=== PATIENT | female | born 1945 | race Caucasian/White ===

== ENCOUNTER 2024-04-07 20:47 | Inpatient (IN) | payer MEDICARE, SELFPAY ==
[2024-04-07 13:24] VITALS: BP 141/57; BMI 21.4
[2024-04-07 14:00] LABS: % Basophils 0.5 % (0-2); % Eosinophils 0.6 % (0-6); % Immature Granulocytes 0.5 % (0-0.5); % Lymphocytes 8.2 % (20.5-51.1); % Monocytes 6.9 % (1.7-9.3); % Neutrophils 83.3 % (42.2-75.2); Absolute Lymphocytes 0.5 10^3/uL (1.2-3.4); Absolute Monocytes 0.4 10^3/uL (0.1-0.6); Absolute Neutrophils 5.2 10^3/uL (1.4-6.5); Hematocrit 36.7 % (37.0-47.0); Hemoglobin 12.1 g/dL (12.0-16.0); Mean Corpuscular Hgb 31.2 pg (27.0-31.0); Mean Corpuscular Volume 94.6 fL (81.0-99.0); Mean Platelet Volume 9.2 fL (7.4-10.4); Nucleated Red Blood Cells % 0 %; Platelet Count 286 10^3/uL (130-400); Red Blood Cell Count 3.88 10^6/uL (4.20-5.40); Red Cell Dist. Width 13.2 % (11.5-14.5); White Blood Cell Count 6.3 10^3/uL (4.8-10.8)
--- NOTE | 2024-04-07 14:17 | ED.GENMED ---
History of Present Illness
General
Chief Complaint: Breathing Problem
Source: patient
Time Seen by Provider: 04/07/24 14:02
History of Present Illness
History of Present Illness:
78-year-old female presents to the emergency room complaining of shortness of breath. Patient has a baseline history of COPD and is on chronic oxygen and chronic prednisone. She evidently is feeling more short of breath today. Pulse ox was found
to be 80 to 85% on her normal 2 L. Paramedics were called. Patient was given a DuoNeb which did help. She recently moved to [place] from [place]. Patient had a hospitalization for frequent falls and was found to have blood rib fractures on the
right as well as thoracic compression fracture. She went to an inpatient rehab and ultimately moved here to be closer to family. Patient denies any fever. She denies having a cough. She denies nausea or vomiting.
Phy Exam
Physical Exam
Physical Exam:
General: Awake, Alert, Oriented X3. Some increased work of breathing, appears chronically ill
Vitals: Afebrile, normal heart rate, notably hypertensive
Head: Atraumatic
Eyes: Pupils equal, EOMI
Throat: Airway intact, no exudates
Neck: Trachea midline
Lungs: Expiratory wheezing bilaterally
Heart: Regular rate, no murmurs
Abd: Soft, Nontender, No pulsatile mass
Neuro: Nonfocal
Skin: Warm, dry, no rash
Extremities: pulses equal b/l, 1+ edema
Scores
Heart Failure Risk
Heart Failure Risk Score: Not Applicable
Course
Orders/Labs/Results
Orders:
Orders
04/07/24 13:22
EKG [Electrocardiogram (*1)] Urgent
Reason for Study: Shortness of Breath
04/07/24 13:23
EKG- Treatment ONCE
Chest [CR Chest - 2 Views ] Urgent
Comment:
Reason For Exam: shortness of breath
04/07/24 13:34
CBC/With Diff [Complete Blood Count/With Diff] Urgent
04/07/24 14:13
Dexamethasone Sod Phosphate [Decadron] 10 mg IV NOW STA
Ipratropium/Albuterol Sulfate [Duoneb] 3 ml INH R NOW ONE
04/07/24 14:15
Comprehensive Metabolic Panel Urgent
NT-proBNP Urgent
04/07/24 15:21
D-Dimer Urgent
Comment: PREVIOUS HEMOLYSED
04/07/24 16:45
CT Chest Pe Study Urgent
Comment:
Reason For Exam: shortness of breath
04/07/24 18:47
Acetaminophen [Tylenol] 650 mg .ROUTE .STK-MED ONE
04/07/24 18:49
Acetaminophen [Tylenol] 650 mg PO NOW STA
04/07/24 19:39
Venous Blood Gas Urgent
%Oxygen/Room Air: 28
Abnormal Lab Results
04/07/24 04/07/24 04/07/24
13:34 14:15 15:21
RBC 3.88 L 10^6/uL
(4.20-5.40)
Hct 36.7 L %
(37.0-47.0)
MCH 31.2 H pg
(27.0-31.0)
Absolute Lymphs (auto) 0.5 L 10^3/uL
(1.2-3.4)
Neutrophils % 83.3 H %
(42.2-75.2)
Lymphocytes % 8.2 L %
(20.5-51.1)
D-Dimer 0.82 H ug/mlFEU
(0.00-0.50)
VBG pCO2
VBG pO2
VBG HCO3
Carbon Dioxide 33 H mmol/L
(22-30)
BUN 25 H mg/dl
(7-17)
Glucose 136 H mg/dl
(70-99)
Calcium 10.3 H mg/dl
(8.4-10.2)
Total Protein 6.2 L g/dl
(6.3-8.2)
04/07/24
19:39
RBC
Hct
MCH
Absolute Lymphs (auto)
Neutrophils %
Lymphocytes %
D-Dimer
VBG pCO2 52 H mmHg
(35-48)
VBG pO2 165 H mmHg
(30-50)
VBG HCO3 33.7 H mmol/L
(22-27)
Carbon Dioxide
BUN
Glucose
Calcium
Total Protein
04/07/24 13:34
04/07/24 14:15
Vital Signs
Initial and Last Documented VS:
Initial Vital Signs
Temp Pulse Resp BP Pulse Ox
98.3 F 85 26 141/57 99
04/07/24 13:24 04/07/24 13:24 04/07/24 13:24 04/07/24 13:24 04/07/24 13:24
Last Documented Vital Signs
Temp Pulse Resp BP Pulse Ox
98.3 F 84 20 141/57 93
04/07/24 13:24 04/07/24 19:30 04/07/24 19:30 04/07/24 13:24 04/07/24 19:30
MDM/Problems Addressed
Differential Diagnosis Includes:
Pneumonia, bronchitis, COPD exacerbation, pulmonary embolism
MDM/Problems Addressed:
Patient presents with shortness of breath and increased work of breathing from [facility]. She was found to be hypoxic on her normal 2 L. She was given a DuoNeb en route. Upon arrival here the patient continues to have wheezing. Further
inhalers were provided. IV Decadron also given. Patient had a hospitalization in [place] after a fall resulting in multiple rib fractures. Given this recent hospitalization and hypoxia CT was obtained to exclude PE. This shows no evidence of PE
or other significant infiltrate. Patient is quite somnolent at times. An ABG was obtained which does not demonstrate CO2 retention. Her CO2 is a bit high but her pH is normal. Patient with current hospitalization for further treatment and
observation
*Radiology
Radiology exam reviewed: radiology read reviewed
*Pulse Oximetry
Patient hypoxic: yes
*EKG
Interpreted by ED Provider?: Yes
Comparison EKG: no comparison EKG present
Heart Rate: 91
Rate: normal
Rhythm: sinus
QRS Pattern: right bundle branch block and other (Left anterior fascicular block)
Ischemia: non-specific ST changes
*Cardiac Nurse Interpretation
Rate: normal
Rhythm: sinus
*Critical Care Note
Total Time (30-74mins, 75-104mins- exclusive of procedures): Not Applicable
ED Attending Note
-
Portions of this chart may have been created with voice recognition software.� Occasional wrong word or��sound alike� substitutions may have occurred due to the inherent limitations of voice recognition software.
Discharge Plan
Departure
Patient Disposition: Admit
Date of Disposition: 04/07/24
Time of Disposition: 20:07
Admit to: Med/Surg
Presentation/result/management discussed w/ accepting MD/DO: Hospitalist
Condition: Fair
Discharge Problem:
COPD with exacerbation
Referrals:
Gerson Morris MD [Family Provider] -
Interventions
Interventions:
*Risk Screen - Suicide Last Done: 04/07/24 13:24
*General Assessment Last Done: 04/07/24 13:24
*Neglect/Abuse Screening Last Done: 04/07/24 13:24
ED- Fall Risk Assessment Last Done: 04/07/24 13:43
*ED COVID-19 Vaccine History Last Done: 04/07/24 19:49
ED- Cardiac Assessment Last Done: 04/07/24 13:43
ED- Pulmonary Assessment Last Done: 04/07/24 13:43
Discharge Date and Time
Print Language: MOHAWK
[2024-04-07] MEDS: DECADRON 10 MG IV (14:21)
[2024-04-07] MEDS: DUONEB 3 ML INH ×2 (14:21→20:32)
[2024-04-07 14:35] LABS: ALT (SGPT) 11 U/L (0-35); AST (SGOT) 25 U/L (14-36); Albumin 3.8 g/dl (3.5-5.0); Alkaline Phosphatase 82 U/L (38-126); Blood Urea Nitrogen 25 mg/dl (7-17); Calcium 10.3 mg/dl (8.4-10.2); Carbon Dioxide 33 mmol/L (22-30); Chloride 101 mmol/L (98-107); Estimated Creatinine Clearance 72 ml/min; Glucose 136 mg/dl (70-99); Potassium 4.9 mmol/L (3.5-5.1); Sodium 140 mmol/L (135-145); Total Bilirubin 0.5 mg/dl (0.2-1.3); Total Protein 6.2 g/dl (6.3-8.2); eGFR > 60.00
[2024-04-07 14:44] LABS: NT-proBNP 156 pg/ml
[2024-04-07 15:43] LABS: D-Dimer 0.82 ug/mlFEU (0.00-0.50)
[2024-04-07] MEDS: TYLENOL 650 MG PO (18:50)
[2024-04-07 19:43] VITALS: BP 146/69
[2024-04-07 19:47] LABS: Venous Blood Gas B.E. 7.8 mmol/L (-4 to +4); Venous Blood Gas HCO3 33.7 mmol/L (22-27); Venous Blood Gas O2 Sat % 99.6 %; Venous Blood Gas pCO2 52 mmHg (35-48); Venous Blood Gas pH 7.42 (7.32-7.43); Venous Blood Gas pO2 165 mmHg (30-50)
[2024-04-07 20:00] VITALS: BP 130/64
--- NOTE | 2024-04-07 20:20 | PHANOTE ---
Med Rec Note:
Pt is very hard to wake up, and doesn't stay awake for very long either. Home med list compiled from paperwork from Rehab in [place].
--- NOTE | 2024-04-07 20:43 | HPS.HSE ---
Family Physician
-
Family Physician: Gersno Morris
Chief Complaint
-
shortness of breath
History of Present Illness
78-year-old female past medical history of COPD on 2 L baseline, recent falls with rib fractures 10, 11, 12, T4 compression fracture wearing TLSO, former smoker, hypertension, endometrial cancer, anemia of chronic disease, abdominal aortic aneurysm,
Parkinson's disease, presenting with shortness of breath over the past few days. Her pulse ox was 88 to 85% on 2 L. Denies any cough. He denies any fevers or chills or chest pain.
He recently moved to [place] from [place]. She was recently hospitalized for frequent falls with rib fractures and thoracic compression fracture. She went to inpatient rehab and ultimately moved to closer to [facility].
Patient is very lethargic and difficult to obtain history from her.
She is a former smoker. She denies alcohol use.
Medical History
Past Medical History
Past Medical History: Reports Other ( COPD on 2 L baseline, recent falls with rib fractures 10, 11, 12, T4 compression fracture wearing TLSO, former smoker, hypertension, endometrial cancer, anemia of chronic disease, abdominal aortic aneurysm,
Parkinson's disease,)
Past Surgical History: Reports Other (Cholecystectomy, appendectomy, hysterectomy,)
Social History
Tobacco: Former Smoker
Alcohol: None
Drug: None
Family History
Family History: Not pertinent
Allergies / Home Medications
Allergies reflects when Allergies were last updated in [facility].
Home Medications with original date entered in [facility]
Allergy/Medication List:
Allergies
Allergy/AdvReac Type Severity Reaction Status Date / Time
bacitracin Allergy Unknown Verified 04/07/24 13:22
[From Neosporin
([id number])]
ciprofloxacin Allergy Unknown Verified 04/07/24 13:22
neomycin Allergy Unknown Verified 04/07/24 13:22
[From Neosporin
([id number])]
polymyxin B Allergy Unknown Verified 04/07/24 13:22
[From Neosporin
([id number])]
Home Medications
carbidopa 25 mg-levodopa 100 mg tablet 2 tab PO BID 04/07/24
cholecalciferol (vitamin D3) 25 mcg (1,000 unit) tablet 25 mcg PO DAILY 04/07/24
diltiazem HCl 60 mg tablet 60 mg PO TID 04/07/24
esomeprazole magnesium 20 mg capsule,delayed release (Nexium) 20 mg PO DAILY 04/07/24
ferrous sulfate 325 mg (65 mg iron) tablet 325 mg PO DAILY 04/07/24
fexofenadine 60 mg tablet 60 mg PO BID 04/07/24
fluticasone 500 mcg-salmeterol 50 mcg/dose blistr powdr for inhalation (Wixela Inhub) 1 inh inhalation R BID 04/07/24
hydromorphone 2 mg tablet 2 mg PO Q6HPRN PRN moderate to severe pain 04/07/24
ipratropium 0.5 mg-albuterol 3 mg (2.5 mg base)/3 mL nebulization soln 3 ml inhalation R TID 04/07/24
lidocaine 5 % topical patch 1 patch topical DAILY 04/07/24
losartan 100 mg tablet 100 mg PO DAILY 04/07/24
magnesium oxide 400 mg PO BID 04/07/24
metoprolol tartrate 25 mg tablet 25 mg PO BID 04/07/24
prednisone 5 mg tablet 5 mg PO DAILY 04/07/24
sennosides 8.6 mg tablet (senna) 8.6 mg PO BID 04/07/24
Review of Systems
-
History Source: Patient
A 12 point ROS was completed and negative except as noted: Yes
Constitutional: Reports No Symptoms
EENT: Reports No Symptoms
Respiratory: Reports See HPI
Cardiac: Reports No Symptoms
Abdomen/GI: Reports No Symptoms
: Reports No Symptoms
Musculoskeletal: Reports No Symptoms
Skin: Reports No Symptoms
Neurological: Reports No Symptoms
Endocrine: Reports No Symptoms
Hematologic/Lymphatic: Reports No Symptoms
Psych: Reports No Symptoms
Physical Exam
Vital Signs
Vital Signs
Temp Pulse Resp BP Pulse Ox
98.3 F 80 19 130/64 95
04/07/24 13:24 04/07/24 20:15 04/07/24 20:15 04/07/24 20:00 04/07/24 20:15
Physical Exam
General: Well Developed, Well Nourished and No Apparent Distress
HEENT: NormoCephalic, Moist mucous membranes and Atraumatic
Respiratory: Rhonchi
Cardiac: S1/S2 and Regular Rhythm; No Murmur or Rub
GI: Soft, Non Tender, Non Distended and Normal Bowel Sounds; No Organomegaly
Rectal: Deferred by Provider
Musculoskeletal: No Clubbing, No Cyanosis and No Edema
Skin: No Rash
Neuro: Nonfocal/grossly intact
Laboratory Results
-
04/07/24 13:34
04/07/24 14:15
Laboratory Results
Total Bilirubin 0.5 mg/dl (0.2-1.3) 04/07/24 14:15
AST 25 U/L (14-36) 04/07/24 14:15
ALT 11 U/L (0-35) 04/07/24 14:15
Alkaline Phosphatase 82 U/L (38-126) 04/07/24 14:15
Data Reviewed
-
Lab Data: Labs Reviewed by me
Old Records: Reviewed
Impression/Plan
-
IMPRESSION:
PLAN:
# COPD exacerbation
# Chronic COPD on 2 L oxygen baseline
# Former smoker
-Patient very lethargic, VBG shows pH of 7.42, chronic compensated mild hypercarbia
-CT PE shows no evidence of pulm embolism, mild enlargement of main pulmonary artery, atypical predominant moderate/severe centrilobular emphysema does changes, thickening with mucus building within the right lower lobe with scarring
-COVID pending
-DuoNebs every 6 hours
-Dexamethasone 4 mg every 12 hours
-Azithromycin
-Continue Wixela
Recent falls with rib 10, 11, 12 fractures
-Hold opiates given lethargy
-Continue lidocaine patch
T4 compression fracture
-Wearing TLSO brace
Parkinson's disease
-Continue carbidopa levodopa
Essential hypertension
-Continue diltiazem
-Continue losartan
-Continue with Toprol
Endometrial cancer status post hysterectomy
Anemia of chronic disease
-Continue for self
History of abdominal aortic aneurysm
Full code
DVT prophylaxis�heparin
Regular diet
[2024-04-07 20:53] LABS: COVID-19 Antigen Negative (Negative)
[2024-04-07 21:00] VITALS: BP 124/62
[2024-04-07 22:00] VITALS: BP 130/61
--- NOTE | 2024-04-07 23:15 | PTCARENOTE ---
Pt transferred from ED. Pt drowsy, TLCO brace intact, VSS. Pt oriented to unit, call crane within reach, bed in lowest position. Will continue with current plan.
[2024-04-07 23:17] VITALS: BP 149/83; BMI 21.5
[2024-04-08] VITALS (7 sets, daily range): BP systolic 109–151; BP diastolic 52–79; PULSE 90; O2SAT 93
[2024-04-08] MEDS: SINEMET 25-100 2 TABLET PO ×3 (00:56→21:41)
[2024-04-08] MEDS: TORADOL 15 MG IV ×2 (00:56→22:56)
[2024-04-08] MEDS: ZITHROMAX INFUSION 250 IV (00:56)
[2024-04-08] MEDS: CARDIZEM 60 MG PO ×4 (00:56→21:56)
[2024-04-08] MEDS: DECADRON 4 MG IV ×3 (01:00→21:59)
[2024-04-08 07:40] LABS: % Immature Granulocytes 0.5 % (0-0.5); % Lymphocytes 11.4 % (20.5-51.1); % Monocytes 1.9 % (1.7-9.3); % Neutrophils 86.2 % (42.2-75.2); Absolute Lymphocytes 0.2 10^3/uL (1.2-3.4); Absolute Neutrophils 1.8 10^3/uL (1.4-6.5); Hematocrit 33.2 % (37.0-47.0); Hemoglobin 11.6 g/dL (12.0-16.0); Mean Corp Hgb Conc. 34.9 g/dL (33.0-37.0); Mean Corpuscular Hgb 32.3 pg (27.0-31.0); Mean Corpuscular Volume 92.5 fL (81.0-99.0); Mean Platelet Volume 9.1 fL (7.4-10.4); Nucleated Red Blood Cells % 0 %; Platelet Count 245 10^3/uL (130-400); Red Blood Cell Count 3.59 10^6/uL (4.20-5.40); Red Cell Dist. Width 12.6 % (11.5-14.5); White Blood Cell Count 2.1 10^3/uL (4.8-10.8)
[2024-04-08 07:59] LABS: Blood Urea Nitrogen 29 mg/dl (7-17); Calcium 9.5 mg/dl (8.4-10.2); Carbon Dioxide 31 mmol/L (22-30); Chloride 103 mmol/L (98-107); Estimated Creatinine Clearance 60 ml/min; Glucose 147 mg/dl (70-99); Potassium 5.2 mmol/L (3.5-5.1); Sodium 142 mmol/L (135-145); eGFR > 60.00
[2024-04-08] MEDS: DUONEB 3 ML INH ×4 (08:01→20:37)
[2024-04-08] MEDS: ADVAIR HFA 230/21 MCG INHALER 2 PUFF INH ×2 (08:01→20:37)
[2024-04-08] MEDS: LIDOCAINE 4% PATCH 1 PATCH TOPICAL (09:13)
[2024-04-08] MEDS: HEPARIN 5000 UNITS SC ×2 (09:13→21:48)
[2024-04-08] MEDS: COZAAR 100 MG PO (09:16)
[2024-04-08] MEDS: SENOKOT 8.6 MG PO ×2 (09:16→21:41)
[2024-04-08] MEDS: PROTONIX 40 MG PO (09:16)
[2024-04-08] MEDS: MAG-TAB SR 84 MG PO ×2 (09:16→21:42)
[2024-04-08] MEDS: VITAMIN D3 (cholecalciferol) 25 MCG PO (09:16)
[2024-04-08] MEDS: LOPRESSOR 25 MG PO ×2 (09:17→21:42)
[2024-04-08] MEDS: CLARITIN 10 MG PO (09:17)
[2024-04-08] MEDS: FEOSOL 325 MG PO (09:25)
--- NOTE | 2024-04-08 12:19 | W.PN.HOSP.TC ---
Today's Communication/Plan
-
consult pulm
cont steroids
change zithromax to oral
Assessment / Plan
Assessment / Plan
pt is a 78 year old female
acute on chronic COPD with exacerbation and chronic hypoxemic resp failure (O2 dependent and prednisone dependent per med list)--VBG shows pH of 7.42 on admission, chronic compensated mild hypercarbia--CT PE shows no evidence of pulm embolism, mild
enlargement of main pulmonary artery, atypical predominant moderate/severe centrilobular emphysema does changes, thickening with mucus building within the right lower lobe with scarring--COVID neg--cont nebs, decadron increase to W3E--oecmgh
zithromax to ORAL--Continue Wixela--consult pulm
Recent falls with rib 10, 11, 12 fractures--Hold opiates given lethargy--Continue lidocaine patch
T4 compression fracture--Wearing TLSO brace
Parkinson's disease--Continue carbidopa levodopa
Essential hypertension--Continue diltiazem--Continue losartan--Continue with Toprol
Endometrial cancer status post hysterectomy
Anemia of chronic disease--HGB stable
History of abdominal aortic aneurysm
Code status --Full code
DVT prophylaxis�heparin
suspect cognitive issues--dementia due to Parkinson's?
Anticipated Discharge: > 48 hours
Subjective/Interval History
-
Date of Service: April 08, 2024
pt feels a little SOB
Objective Data
-
Labs:
Laboratory Results
04/08/24
07:03
WBC 2.1 L*
Hgb 11.6 L
Hct 33.2 L
Plt Count 245
Sodium 142
Potassium 5.2 H
Chloride 103
Carbon Dioxide 31 H
BUN 29 H
Creatinine 0.7
Glucose 147 H
Calcium 9.5
Vital Signs:
max temp for 24 hours
04/08/24
11:19
Temp 98.2 F
Vital Signs
Temp Pulse Resp BP Pulse Ox
98.2 F 76 16 109/63 93
04/08/24 11:19 04/08/24 11:19 04/08/24 11:19 04/08/24 11:19 04/08/24 11:19
I&O
04/07/24 04/08/24 04/09/24
06:59 06:59 06:59
Intake Total 240 / 240
Output Total 300 / 300
Balance -60 / -60
Review of Systems
-
All other systems: Reviewed and negative
Respiratory: Reports Trouble Breathing
Physical Exam
-
General: Well Developed, Well Nourished and No Apparent Distress
HEENT: Normocephalic, Atraumatic and Oxygen
Respiratory: Wheezes (all lung mckeon)
Cardiac: Regular Rhythm and S1/S2; Negative Murmur
GI: Soft, Nontender, Nondistended and Normal Bowel Sounds
Musculoskeletal: No Clubbing, No Cyanosis and No Edema
Neuro: Awake and Alert
--- NOTE | 2024-04-08 12:33 | CM ---
Addendum entered by Coretta Hannon 04/08/24 15:59:
Per [facility] admissions they had no awareness of prior hospice services.
Addendum entered by Coretta Hannon 04/08/24 13:59:
CM received a call from [facility] worker stating that patient had called them yesterday requesting services and then called back stating that patient was now hospitalized. Per [facility] patient had been on hospice in [place] under
[facility] services. Patient was allegedly taken off of hospice services when she transferred to [facility] in [place]. CM left VM for patient son and left message for Felicia at [facility]. CM will send referrals to SNF via all scripts.
Original Note:
Patient seen at bedside. Patient states that she recently moved to [place] from the [facility] in [place]. Patient now living at [facility] in independent apartment as of Sat. last week. Patient stated that she does not know name of new PCP and per [facility] it is
Jaime and her next appointment is 04/24/24. Patient is signed up to use the [facility] pharmacy. CM spoke with Felicia at [facility] and she indicated that she would be willing to consider patient to come to SNF when medically appropriate pending bed
availability. CM will send referral to [facility] via all scripts.Patient brandee Robertson is the primary contact per patient. CM will continue to follow for discharge planning needs.
Plan;[facility]NF referral to [facility]
--- NOTE | 2024-04-08 13:58 | CON.PUL ---
Consultation
Consultation Request
Date/Time Consultation Requested: 04/08/24
Date/Time Consultation Performed: 04/08/24
Performing Provider: Nelda
Reason for Consultation: COPD
Medical History
-
History of Present Illness:
78-year-old female past medical history of COPD on 2 L baseline, recent falls with rib fractures 10, 11, 12, T4 compression fracture wearing TLSO, former smoker, hypertension, endometrial cancer, anemia of chronic disease, abdominal aortic aneurysm,
Parkinson's disease, presenting with shortness of breath over the past few days. Her pulse ox was 88 to 85% on 2 L. Denies any cough. He denies any fevers or chills or chest pain.
She recently moved to [place] from [place]. She was recently hospitalized for frequent falls with rib fractures and thoracic compression fracture. She went to inpatient rehab and ultimately moved to closer to family.
She has been seeing pulmonary in [place] and told she has severe COPD, maintained on wixela and Duonebs PRN. She did not feel Spiriva was helpful. She does admit to exacerbations at least 2x per year, needing steroids. She has been maintained on daily
prednisone as well.
.
Past Medical History
Past Medical History: Other (see list below)
Social History
Tobacco: Former Smoker
Alcohol: None
Drug: None
Family History
Family History: Reviewed & Not Pertinent
Allergies / Home Medications
Allergies
Allergy/AdvReac Type Severity Reaction Status Date / Time
bacitracin Allergy Unknown Verified 04/07/24 13:22
[From Neosporin
([id number])]
ciprofloxacin Allergy Unknown Verified 04/07/24 13:22
neomycin Allergy Unknown Verified 04/07/24 13:22
[From Neosporin
([id number])]
polymyxin B Allergy Unknown Verified 04/07/24 13:22
[From Neosporin
([id number])]
Home Medications
�Medication �Instructions �Recorded �Confirmed �Last Taken �Type
carbidopa 25 mg-levodopa 100 mg 2 tab PO BID 04/07/24 04/07/24 Unknown History
tablet
cholecalciferol (vitamin D3) 25 25 mcg PO DAILY 04/07/24 04/07/24 Unknown History
mcg (1,000 unit) tablet
diltiazem HCl 60 mg tablet 60 mg PO TID 04/07/24 04/07/24 Unknown History
esomeprazole magnesium 20 mg 20 mg PO DAILY 04/07/24 04/07/24 Unknown History
capsule,delayed release (Nexium)
ferrous sulfate 325 mg (65 mg 325 mg PO DAILY 04/07/24 04/07/24 Unknown History
iron) tablet
fexofenadine 60 mg tablet 60 mg PO BID 04/07/24 04/07/24 Unknown History
fluticasone 500 mcg-salmeterol 50 1 inh inhalation R BID 04/07/24 04/07/24 Unknown History
mcg/dose blistr powdr for
inhalation (Wixela Inhub)
hydromorphone 2 mg tablet 2 mg PO Q6HPRN PRN moderate to 04/07/24 04/07/24 Unknown History
severe pain
ipratropium 0.5 mg-albuterol 3 mg 3 ml inhalation R TID 04/07/24 04/07/24 Unknown History
(2.5 mg base)/3 mL nebulization
soln
lidocaine 5 % topical patch 1 patch topical DAILY 04/07/24 04/07/24 Unknown History
losartan 100 mg tablet 100 mg PO DAILY 04/07/24 04/07/24 Unknown History
magnesium oxide 400 mg PO BID 04/07/24 04/07/24 Unknown History
metoprolol tartrate 25 mg tablet 25 mg PO BID 04/07/24 04/07/24 Unknown History
prednisone 5 mg tablet 5 mg PO DAILY 04/07/24 04/07/24 Unknown History
sennosides 8.6 mg tablet (senna) 8.6 mg PO BID 04/07/24 04/07/24 Unknown History
Review of Systems
-
History Source: Patient
All other systems: Negative unless noted
Vitals / Labs / Diagnostic Testing
Vital Signs
Temp Pulse Resp BP Pulse Ox
98.2 F 76 16 109/63 93
04/08/24 11:19 04/08/24 11:19 04/08/24 11:19 04/08/24 11:19 04/08/24 11:19
Lab Data
04/08/24 07:03
04/08/24 07:03
Diagnostic Testing:
Physical Exam
-
HEENT: Normocephalic, Anicteric and Moist Mucous Membranes
Cardiovascular: S1/S2 and Regular Rhythm
Respiratory: Wheeze (B/L, mild) and Non-Labored Respirations
GI: Soft, Non Distended and Non Tender
Neurology: Awake, Alert, Oriented, AO x 3 and No Motor Deficits
Skin: Warm, Dry and Good Color
General: Comfortable and Other (NAD)
Assessment
-
78-year-old female past medical history of COPD on 2 L baseline, recent falls with rib fractures 10, 11, 12, T4 compression fracture wearing TLSO, former smoker, hypertension, endometrial cancer, anemia of chronic disease, abdominal aortic aneurysm,
Parkinson's disease, presenting with shortness of breath over the past few days. Her pulse ox was 88 to 85% on 2 L. She recently moved to [place] from [place]. She was recently hospitalized for frequent falls with rib fractures and thoracic
compression fracture. She went to inpatient rehab and ultimately moved to closer to family. She has been seeing pulmonary in [place] and told she has severe COPD, maintained on chronic prednisone. We are consulted for eval.
AECOPD
Leukopenia
Anemia
Chronic hypercarbia, compensated
Hyperkalemia
Hyperglycemia
Conditions present [employer]
COPD on 2 L baseline
Recent falls with rib fractures 10-12
T4 compression fracture wearing TLSO
Former smoker
Hypertension
Endometrial cancer
Anemia of chronic disease
Abdominal aortic aneurysm
Parkinson's disease
Cholecystectomy
Appendectomy
Hysterectomy
Plan
Hypoxemia chronically, on 2L O2 at baseline noted on arrival
She remains on baseline O2, desat noted prior to arrival, but not noted since
Can check 6MWT to eval need for exertional desaturation
Prior history of lung disease is noted--COPD with moderate-severe emphysema noted on CT
Former smoker
Has been seeing pulmonary in [place], will request records for PFTs/care plan
Being treated for AECOPD
On IV steroids, agree with treatment
Only on Wixela as OP, but likely will need max therapy
She has taken Spiriva in past and did not like it, prefers to stay in [facility]
No prior known cardiac history
No ECHO results are available for review
Records requested, if none recent would obtain new study
Chronic CO2 retention noted, compensated
Can recheck again if MS changes
Outpatient Pulm FU recommended to establish care in this area
She is aware, we will facilitate referral
We will follow
Diagnostic Data
Chest X-Ray: 04/07/24- Multiple right lower lateral rib fractures, age uncertain. Linear densities within the right lower lung, with main differential considerations of linear atelectasis and/or scarring. No evidence for pneumothorax or pleural
effusion.
CT Scan: CHEST 04/07/24- 1. No evidence of pulmonary embolism. Mild enlargement of the main pulmonary artery measuring 3.3 cm which can be seen with pulmonary arterial hypertension.
2. Apical predominant moderate/severe centrilobular emphysematous changes. There is bronchial wall thickening with mucous plugging within the right lower lobe. There is right lower lobe atelectasis/scarring, likely sequelae of the numerous
right-sided prior rib fractures involving the fourth through 11th ribs.
3. Extensive probably noncalcified atherosclerotic plaque of the aortic arch and descending thoracic aorta with associated multifocal mild stenosis.
Echo:
PFT's:
Reports and relevant images were personally reviewed.
Total time spent on this consultation __75__ includes review of history, physical exam, medications, laboratory data, personal review of imaging, extensive review of outpatient records, discussion with care team and respiratory therapy.
[2024-04-09] VITALS (8 sets, daily range): BP systolic 111–140; BP diastolic 50–61; PULSE 73–83; O2SAT 94–95
[2024-04-09] MEDS: DECADRON 4 MG IV ×2 (04:06→13:08)
[2024-04-09 05:30] LABS: Hematocrit 31.4 % (37.0-47.0); Hemoglobin 10.5 g/dL (12.0-16.0); Mean Corp Hgb Conc. 33.4 g/dL (33.0-37.0); Mean Corpuscular Volume 92.6 fL (81.0-99.0); Mean Platelet Volume 9.2 fL (7.4-10.4); Platelet Count 283 10^3/uL (130-400); Red Blood Cell Count 3.39 10^6/uL (4.20-5.40); Red Cell Dist. Width 12.9 % (11.5-14.5); White Blood Cell Count 6.8 10^3/uL (4.8-10.8)
[2024-04-09 05:51] LABS: Blood Urea Nitrogen 47 mg/dl (7-17); Calcium 9.3 mg/dl (8.4-10.2); Carbon Dioxide 30 mmol/L (22-30); Chloride 99 mmol/L (98-107); Estimated Creatinine Clearance 42 ml/min; Glucose 191 mg/dl (70-99); Magnesium 1.9 mg/dl (1.6-2.3); Potassium 4.7 mmol/L (3.5-5.1); Sodium 139 mmol/L (135-145); eGFR 57.66
[2024-04-09] MEDS: DUONEB 3 ML INH ×4 (06:10→20:07)
[2024-04-09] MEDS: ADVAIR HFA 230/21 MCG INHALER 2 PUFF INH ×2 (06:10→20:07)
--- NOTE | 2024-04-09 08:41 | CM ---
Addendum entered by Coretta Hannon 04/09/24 13:17:
Patient Daughter in law called to CM Shanelle Sanchez [phone]. CM spoke with patient who indicated that CM could speak with Daughter in Law. Patient indicated that she was not 'excited' to go to SNF as every time she did she got 'worse'. Patient
indicated that she would be interested in Palliative care but wasn't sure about anything at this time. CM spoke with patient Daughter in law who confirmed patient son has POA but is not able to find document at this time. Patient daughter in law
also stated that patient had not unpacked and had a commode in the living room in her apartment at [place]. Patient daughter in law stated that the family relationships were not the best. CM will continue to follow for discharge planning needs.
Addendum entered by Coretta Hannon 04/09/24 08:44:
Per [facility] patient had 'signed a verbal agreement' on 03/23/24 but no further paperwork had been completed. Patient then transferred to [place].
Original Note:
Referral to [facility] sent via all scripts. CM called to [facility] where patient was prior to move to [place] from [place] . VM left.
[2024-04-09] MEDS: SINEMET 25-100 2 TABLET PO ×2 (10:09→20:55)
[2024-04-09] MEDS: COZAAR 100 MG PO (10:09)
[2024-04-09] MEDS: LOPRESSOR 25 MG PO ×2 (10:09→21:02)
[2024-04-09] MEDS: MAG-TAB SR 84 MG PO ×2 (10:09→20:53)
[2024-04-09] MEDS: CARDIZEM 60 MG PO ×3 (10:09→21:02)
[2024-04-09] MEDS: PROTONIX 40 MG PO (10:10)
[2024-04-09] MEDS: HEPARIN 5000 UNITS SC ×2 (10:10→20:51)
[2024-04-09] MEDS: LIDOCAINE 4% PATCH 1 PATCH TOPICAL (10:11)
[2024-04-09] MEDS: FEOSOL 325 MG PO (10:12)
[2024-04-09] MEDS: SENOKOT 8.6 MG PO ×2 (10:12→20:54)
[2024-04-09] MEDS: CLARITIN 10 MG PO (10:12)
[2024-04-09] MEDS: ZITHROMAX 250 MG PO (10:12)
[2024-04-09] MEDS: VITAMIN D3 (cholecalciferol) 25 MCG PO (10:12)
--- NOTE | 2024-04-09 11:21 | W.PN.PUL3 ---
Today's Communication / Plan
-
Weaning IV steroids, can transition to PO in AM if improving
Eventual home O2 eval
Will need to establish with pulmonary in [place], records requested
Outpatient FU, information left in chart
Discharge planning per team
Assessment
-
78-year-old female past medical history of COPD on 2 L baseline, recent falls with rib fractures 10, 11, 12, T4 compression fracture wearing TLSO, former smoker, hypertension, endometrial cancer, anemia of chronic disease, abdominal aortic aneurysm,
Parkinson's disease, presenting with shortness of breath over the past few days. Her pulse ox was 88 to 85% on 2 L. She recently moved to [place] from [place]. She was recently hospitalized for frequent falls with rib fractures and thoracic
compression fracture. She went to inpatient rehab and ultimately moved to closer to family. She has been seeing pulmonary in [place] and told she has severe COPD, maintained on chronic prednisone. We are consulted for eval.
AECOPD
Leukopenia
Anemia
Chronic hypercarbia, compensated
Hyperkalemia
Hyperglycemia
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
COPD on 2 L baseline
Recent falls with rib fractures 10-12
T4 compression fracture wearing TLSO
Former smoker
Hypertension
Endometrial cancer
Anemia of chronic disease
Abdominal aortic aneurysm
Parkinson's disease
Cholecystectomy
Appendectomy
Hysterectomy
Plan
Hypoxemia chronically, on 2L O2 at baseline noted on arrival
She remains on baseline O2, desat noted prior to arrival, but not noted since
Can check home O2 eval to determine exertional desaturation
Prior history of lung disease is noted--COPD with moderate-severe emphysema noted on CT
Former smoker
Has been seeing pulmonary in [place], will request records for PFTs/care plan
Being treated for AECOPD
On IV steroids, agree with treatment
Only on Wixela as OP, but likely will need max therapy
She has taken Spiriva in past and did not like it, prefers to stay in [facility]
No prior known cardiac history
No ECHO results are available for review
Records requested, if none recent would obtain new study
Chronic CO2 retention noted, compensated
Can recheck again if MS changes
Outpatient Pulm FU recommended to establish care in this area
She is aware, we will facilitate referral
Diagnostic Data
Chest X-Ray: 04/07/24- Multiple right lower lateral rib fractures, age uncertain. Linear densities within the right lower lung, with main differential considerations of linear atelectasis and/or scarring. No evidence for pneumothorax or pleural
effusion.
CT Scan: CHEST 04/07/24- 1. No evidence of pulmonary embolism. Mild enlargement of the main pulmonary artery measuring 3.3 cm which can be seen with pulmonary arterial hypertension.
2. Apical predominant moderate/severe centrilobular emphysematous changes. There is bronchial wall thickening with mucous plugging within the right lower lobe. There is right lower lobe atelectasis/scarring, likely sequelae of the numerous
right-sided prior rib fractures involving the fourth through 11th ribs.
3. Extensive probably noncalcified atherosclerotic plaque of the aortic arch and descending thoracic aorta with associated multifocal mild stenosis.
Echo:
PFT's:
Reports and relevant images were personally reviewed.
Total time spent on this encounter __50__ includes review of history, physical exam, medications, laboratory data, personal review of imaging, extensive review of outpatient records, discussion with care team and respiratory therapy.
Subjective Data
-
Date of Service:
Date of Service: April 09, 2024
Chief Complaint: Pulmonary Follow Up
Subjective:
No new events ON, remains on stable o2
Still wheezing
Objective Data
Data Reviewed
Vital Signs / I&O / Oxygen:
Vital Signs
Temp Pulse Resp BP Pulse Ox
98 F 77 16 140/57 95
04/09/24 07:30 04/09/24 11:04 04/09/24 11:04 04/09/24 07:30 04/09/24 11:04
Intake and Output
04/08/24 04/09/24 04/10/24
06:59 06:59 06:59
Intake Total 240 / 240 1380 / 1380
Output Total 300 / 300
Balance -60 / -60 1380 / 1380
SaO2 95
Nasal Cannula flow liters per 2
minute
Physical Exam
General: Comfortable and Other (NAD)
HEENT: Normocephalic, Anicteric and Moist Mucous Membranes
Cardiovascular: S1-S2 and Regular Rhythm
Respiratory: Wheeze and Non-Labored Respirations
GI: Soft, Non Distended and Non Tender
Neurology: Awake, Alert, Oriented, AO x 3 and No Motor Deficits
Skin: Warm, Dry and Good Color
Labs/Micro/Reports
Lab Data
04/09/24 04:35
04/09/24 04:35
Microbiology
04/08/24 00:52 Nose MRSA Screen - Final
No Methicillin Resistant Staphylococcus aureus isolated.
--- NOTE | 2024-04-09 13:21 | W.PN.HOSP.TC ---
Addendum entered and electronically signed by Claudio Rojas MD 04/10/24 11:01:
Lethargy only
Original Note:
Today's Communication/Plan
-
Decrease decadron
DC [planning
Assessment / Plan
Assessment / Plan
pt is a 78 year old female
acute on chronic COPD with exacerbation and chronic hypoxemic resp failure (O2 dependent and prednisone dependent per med list)--VBG shows pH of 7.42 on admission, chronic compensated mild hypercarbia--CT PE shows no evidence of pulm embolism, mild
enlargement of main pulmonary artery, atypical predominant moderate/severe centrilobular emphysema does changes, thickening with mucus building within the right lower lobe with scarring--COVID neg--cont nebs, decadron --change zithromax to
ORAL--Continue Wixela--
Appt pulm input.
Decrease decadron to q12
Recent falls with rib 10, 11, 12 fractures--Hold opiates given lethargy--Continue lidocaine patch
T4 compression fracture--Wearing TLSO brace
Parkinson's disease--Continue carbidopa levodopa
Essential hypertension--Continue diltiazem--Continue losartan--Continue with Toprol
Endometrial cancer status post hysterectomy
Anemia of chronic disease--HGB stable
History of abdominal aortic aneurysm
Code status --Full code
DVT prophylaxis�heparin
suspect cognitive issues--dementia due to Parkinson's?
Patient says she was using palliative care not hospice care to facilitate her care while she was in [place].
She is also declining SNF placement. She was to go back to her apartment and get physical therapy as outpatient at the facility.
Anticipated Discharge: 24 - 48 hours
Subjective/Interval History
-
Date of Service: April 09, 2024
Says breathing is better. Denies much of cough. No chest pain. No nausea vomiting. No fever or chills.
Objective Data
-
Labs:
Laboratory Results
04/09/24
04:35
WBC 6.8
Hgb 10.5 L
Hct 31.4 L
Plt Count 283
Sodium 139
Potassium 4.7
Chloride 99
Carbon Dioxide 30
BUN 47 H
Creatinine 1.0
Glucose 191 H
Calcium 9.3
Vital Signs:
Vital Signs
Temp Pulse Resp BP Pulse Ox
97.9 F 75 18 122/55 95
04/09/24 11:45 04/09/24 11:45 04/09/24 11:45 04/09/24 11:45 04/09/24 11:45
I&O
04/08/24 04/09/24 04/10/24
06:59 06:59 06:59
Intake Total 240 / 240 1380 / 1380
Output Total 300 / 300
Balance -60 / -60 1380 / 1380
Review of Systems
-
All other systems: Reviewed and negative
Physical Exam
-
General: Comfortable
HEENT: Moist Mucous Membranes
Respiratory: Negative Wheezes
Cardiac: Regular Rhythm and S1/S2
GI: Soft
Neuro: AO x 3
Psych: Calm
Data Reviewed
-
Labs: Labs Reviewed by me
--- NOTE | 2024-04-09 14:06 | PN.CDI ---
CDI
- -
CDI:
Physician Documentation Request
Admit Date: 04/07/24 20:47
Dear Doctor Bob,
Please review the following and provide your response in the progress notes.
Clinical Indicators:
Pt admitted with COPD exacerbation on 2 LPM chronically / Chronic Hypoxic Respiratory failure / Hypoxia here
Documented per ED, ' Patient is quite somnolent at times. ...'
Documented per H&P, ' Patient very lethargic, VBG shows pH of 7.42, chronic compensated mild hypercarbia...'
Based on the above, could you clarify in the Progress Notes and Discharge Summary which, if any of the following, is the most likely etiology of the documented lethargy/somnolence :
Metabolic Encephalopathy
Lethargy only
Other ( please specify)
Use of terms such as suspected, likely, concern for, or probable (associated with a specific diagnosis that is being evaluated, monitored, or treated as if it exists) are acceptable and can be coded in the inpatient setting, when documented at the
time of discharge.
Thank you,
Hermelinda Gregory RN
CDI Specialist
[facility]
Please use your independent medical judgment in providing your response.
[2024-04-10 02:54] VITALS: BP 116/49
[2024-04-10 07:30] VITALS: BP 146/63
[2024-04-10] MEDS: DUONEB 3 ML INH ×4 (08:02→20:20)
[2024-04-10] MEDS: ADVAIR HFA 230/21 MCG INHALER 2 PUFF INH ×2 (08:02→20:20)
[2024-04-10] MEDS: ZITHROMAX 250 MG PO (09:28)
[2024-04-10] MEDS: CLARITIN 10 MG PO (09:28)
[2024-04-10] MEDS: SINEMET 25-100 2 TABLET PO ×2 (09:28→21:21)
[2024-04-10] MEDS: PROTONIX 40 MG PO (09:28)
[2024-04-10] MEDS: CARDIZEM 60 MG PO ×3 (09:29→21:22)
[2024-04-10] MEDS: SENOKOT 8.6 MG PO ×2 (09:29→21:21)
[2024-04-10] MEDS: COZAAR 100 MG PO (09:29)
[2024-04-10] MEDS: LIDOCAINE 4% PATCH 1 PATCH TOPICAL (09:29)
[2024-04-10] MEDS: MAG-TAB SR 84 MG PO ×2 (09:29→21:21)
[2024-04-10] MEDS: FEOSOL 325 MG PO (09:29)
[2024-04-10] MEDS: LOPRESSOR 25 MG PO ×2 (09:29→21:21)
[2024-04-10] MEDS: VITAMIN D3 (cholecalciferol) 25 MCG PO (09:29)
[2024-04-10] MEDS: DECADRON 4 MG IV (09:30)
[2024-04-10] MEDS: HEPARIN 5000 UNITS SC ×2 (09:30→21:20)
[2024-04-10 11:27] VITALS: BP 118/48
--- NOTE | 2024-04-10 12:10 | W.PN.PUL3 ---
Today's Communication / Plan
-
No longer wheezing, has been stable on RA
Transition IV steroids to PO, taper at discharge
Patient would like to go home
Outpatient pulmonary FU recommended
Discharge planning per team
Assessment
-
78-year-old female past medical history of COPD on 2 L baseline, recent falls with rib fractures 10, 11, 12, T4 compression fracture wearing TLSO, former smoker, hypertension, endometrial cancer, anemia of chronic disease, abdominal aortic aneurysm,
Parkinson's disease, presenting with shortness of breath over the past few days. Her pulse ox was 88 to 85% on 2 L. She recently moved to [place] from [place]. She was recently hospitalized for frequent falls with rib fractures and thoracic
compression fracture. She went to inpatient rehab and ultimately moved to closer to family. She has been seeing pulmonary in [place] and told she has severe COPD, maintained on chronic prednisone. We are consulted for eval.
AECOPD
Leukopenia
Anemia
Chronic hypercarbia, compensated
Hyperkalemia
Hyperglycemia
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
COPD on 2 L baseline
Recent falls with rib fractures 10-12
T4 compression fracture wearing TLSO
Former smoker
Hypertension
Endometrial cancer
Anemia of chronic disease
Abdominal aortic aneurysm
Parkinson's disease
Cholecystectomy
Appendectomy
Hysterectomy
Plan
Hypoxemia chronically, on 2L O2 at baseline noted on arrival
She remains on baseline O2, desat noted prior to arrival, but not noted since
Can check home O2 eval to determine exertional desaturation
Prior history of lung disease is noted--COPD with moderate-severe emphysema noted on CT
Former smoker
Has been seeing pulmonary in [place], will request records for PFTs/care plan
Being treated for AECOPD
On IV steroids, agree with treatment, transition to PO prednisone
Only on Wixela as OP, but likely will need max therapy
She has taken Spiriva in past and did not like it, prefers to stay in [facility]
No prior known cardiac history
No ECHO results are available for review
Records requested, if none recent would obtain new study as OP
Chronic CO2 retention noted, compensated
Can recheck again if MS changes
Outpatient Pulm FU recommended to establish care in this area
She is aware, we will facilitate referral
Discharge planning per team
Diagnostic Data
Chest X-Ray: 04/07/24- Multiple right lower lateral rib fractures, age uncertain. Linear densities within the right lower lung, with main differential considerations of linear atelectasis and/or scarring. No evidence for pneumothorax or pleural
effusion.
CT Scan: CHEST 04/07/24- 1. No evidence of pulmonary embolism. Mild enlargement of the main pulmonary artery measuring 3.3 cm which can be seen with pulmonary arterial hypertension.
2. Apical predominant moderate/severe centrilobular emphysematous changes. There is bronchial wall thickening with mucous plugging within the right lower lobe. There is right lower lobe atelectasis/scarring, likely sequelae of the numerous
right-sided prior rib fractures involving the fourth through 11th ribs.
3. Extensive probably noncalcified atherosclerotic plaque of the aortic arch and descending thoracic aorta with associated multifocal mild stenosis.
Echo:
PFT's:
Reports and relevant images were personally reviewed.
Total time spent on this encounter __35__ includes review of history, physical exam, medications, laboratory data, personal review of imaging, extensive review of outpatient records, discussion with care team and respiratory therapy.
Subjective Data
-
Date of Service:
Date of Service: April 10, 2024
Chief Complaint: Pulmonary Follow Up
Subjective:
Doing well today off oxygen
No new complaints
Objective Data
Data Reviewed
Vital Signs / I&O / Oxygen:
Vital Signs
Temp Pulse Resp BP Pulse Ox
98.6 F 69 18 118/48 96
04/10/24 11:27 04/10/24 11:04/10/24 11:04/10/24 11:24 11:27
Intake and Output
04/09/24 04/10/24 04/11/24
06:59 06:59 06:59
Intake Total 1380 / 1380 600 / 600
Output Total 200 / 200
Balance 1380 / 1380 400 / 400
SaO2 96
Nasal Cannula flow liters per 2
minute
Physical Exam
General: Comfortable and Other (NAD)
HEENT: Normocephalic, Anicteric and Moist Mucous Membranes
Cardiovascular: S1-S2 and Regular Rhythm
Respiratory: Clear and Non-Labored Respirations
GI: Soft, Non Distended and Non Tender
Neurology: Awake, Alert, Oriented, AO x 3 and No Motor Deficits
Skin: Warm, Dry and Good Color
Labs/Micro/Reports
Lab Data
04/09/24 04:35
04/09/24 04:35
Microbiology
04/08/24 00:52 Nose MRSA Screen - Final
No Methicillin Resistant Staphylococcus aureus isolated.
--- NOTE | 2024-04-10 14:27 | CM ---
Chart reviewed and plan is for skilled placement at [facility], referral sent to [facility] and per Felicia in admissions at [facility] they can accept patient tomorrow, 04/11/24 if patient is stable for discharge.
[facility]
Report [phone]
[2024-04-10 15:00] VITALS: BP 140/65
--- NOTE | 2024-04-10 17:49 | W.PN.HOSP.TC ---
Today's Communication/Plan
-
Discharge tomorrow to personal care if they can accept.
Assessment / Plan
Assessment / Plan
pt is a 78 year old female
CVS: S1-S2 normal
Chest: CTA B/L
Abdomen: Soft, NT , Bowel sounds present
Extremities: No edema,
#Acute on chronic COPD with exacerbation and chronic hypoxemic resp failure (O2 dependent and prednisone dependent per med list)
VBG shows pH of 7.42 on admission, chronic compensated mild hypercarbia
CT PE shows no evidence of pulm embolism, mild enlargement of main pulmonary artery, atypical predominant moderate/severe centrilobular emphysema does changes, thickening with mucus building within the right lower lobe with scarring--COVID neg--Cont
nebs, Decadron - Zithromax ,Continue Wixela
Appt pulm input.
steroids to PO
#Recent falls with rib 10, 11, 12 fractures-Hold opiates given lethargy-Continue lidocaine patch
#T4 compression fracture-Wearing TLSO brace plan
Prior rib fractures fractures right-sided -
#Parkinson's disease-Continue carbidopa levodopa
#Essential hypertension-Continue diltiazem-Continue losartan-Continue with Toprol
#Endometrial cancer status post hysterectomy
#Anemia of chronic disease-HGB stable
#History of abdominal aortic aneurysm atherosclerosis
# Ambulatory dysfunction
# History of endometrial cancer
#Code status -Full code
#DVT prophylaxis�heparin
#Suspect cognitive issues-dementia due to Parkinson's?
'Patient says she was using palliative care not hospice care to facilitate her care while she was in [place].
She is also declining SNF placement. She was to go back to her apartment and get physical therapy as outpatient at the facility.'
Anticipated Discharge: Within 24 hours
Subjective/Interval History
-
Date of Service: April 10, 2024
Objective Data
-
Vital Signs:
Vital Signs
Temp Pulse Resp BP Pulse Ox
97.9 F 75 16 140/65 93
04/10/24 15:00 04/10/24 16:06 04/10/24 16:06 04/10/24 15:00 04/10/24 16:06
I&O
04/09/24 04/10/24 04/11/24
06:59 06:59 06:59
Intake Total 1380 / 1380 600 / 600
Output Total 200 / 200
Balance 1380 / 1380 400 / 400
[2024-04-10] MEDS: PEPCID 20 MG PO (21:22)
[2024-04-10] MEDS: TYLENOL 650 MG PO (21:31)
[2024-04-10 22:58] VITALS: BP 139/59
[2024-04-11 07:00] VITALS: BP 159/66
[2024-04-11] MEDS: ADVAIR HFA 230/21 MCG INHALER 2 PUFF INH ×2 (07:17→19:48)
[2024-04-11] MEDS: DUONEB 3 ML INH ×4 (07:17→19:48)
[2024-04-11] MEDS: FEOSOL 325 MG PO (09:29)
[2024-04-11] MEDS: ZITHROMAX 250 MG PO (09:29)
[2024-04-11] MEDS: PROTONIX 40 MG PO (09:29)
[2024-04-11] MEDS: CARDIZEM 60 MG PO ×3 (09:29→21:12)
[2024-04-11] MEDS: CLARITIN 10 MG PO (09:29)
[2024-04-11] MEDS: SINEMET 25-100 2 TABLET PO ×2 (09:29→20:54)
[2024-04-11] MEDS: MAG-TAB SR 84 MG PO ×2 (09:30→20:54)
[2024-04-11] MEDS: LOPRESSOR 25 MG PO ×2 (09:30→21:02)
[2024-04-11] MEDS: COZAAR 100 MG PO (09:30)
[2024-04-11] MEDS: SENOKOT 8.6 MG PO ×2 (09:30→20:54)
[2024-04-11] MEDS: HEPARIN 5000 UNITS SC ×2 (09:30→20:53)
[2024-04-11] MEDS: VITAMIN D3 (cholecalciferol) 25 MCG PO (09:30)
[2024-04-11] MEDS: DELTASONE 40 MG PO (09:30)
[2024-04-11] MEDS: LIDOCAINE 4% PATCH 1 PATCH TOPICAL (09:31)
--- NOTE | 2024-04-11 14:21 | W.PN.HOSP.TC ---
Today's Communication/Plan
-
Case management to look into discharge planning
Check BMP
Hemoglobin A1c
Start low-dose of oxycodone as needed for pain and watch.
Assessment / Plan
Assessment / Plan
pt is a 78 year old female
CVS: S1-S2 normal
Chest: CTA B/L
Abdomen: Soft, NT , Bowel sounds present
Extremities: No edema,
In a lot of pain today and not able to sit up much
#Acute on chronic COPD with exacerbation and chronic hypoxemic resp failure (O2 dependent and prednisone dependent per med list)
VBG shows pH of 7.42 on admission, chronic compensated mild hypercarbia
CT PE shows no evidence of pulm embolism, mild enlargement of main pulmonary artery, atypical predominant moderate/severe centrilobular emphysema does changes, thickening with mucus building within the right lower lobe with scarring--COVID neg--Cont
nebs, Decadron - Zithromax ,Continue Wixela
Appt pulm input.
steroids to PO
#Recent falls with rib 10, 11, 12 fractures-Continue lidocaine patch. Dilaudid stopped. Will try low dose of Oxycodone
# Hyperglycemia-check hemoglobin A1c. Likely secondary to steroids
#T4 compression fracture-Wearing TLSO brace plan
Prior rib fractures fractures right-sided -
#Parkinson's disease-Continue carbidopa levodopa
#Essential hypertension-Continue diltiazem-Continue losartan-Continue with Toprol
#Endometrial cancer status post hysterectomy
#Anemia of chronic disease-
#History of abdominal aortic aneurysm atherosclerosis
#Ambulatory dysfunction
#History of endometrial cancer
#Suspect cognitive issues-dementia due to Parkinson's?
#Code status -Full code
#DVT prophylaxis�SC Heparin
Called and left a message for patient's son
Discussed with case management
She states that she does not want to go to SNF. States that she makes a decision on not her family.
'Patient says she was using palliative care not hospice care to facilitate her care while she was in [place].
She is also declining SNF placement. She was to go back to her apartment and get physical therapy as outpatient at the facility.'
Anticipated Discharge: Within 24 hours
Subjective/Interval History
-
Date of Service: April 11, 2024
Objective Data
-
Vital Signs:
Vital Signs
Temp Pulse Resp BP Pulse Ox
98.0 F 71 16 159/66 95
04/11/24 07:00 04/11/24 11:10 04/11/24 11:10 04/11/24 07:00 04/11/24 11:10
I&O
04/10/24 04/11/24 04/12/24
06:59 06:59 06:59
Intake Total 600 / 600 600 / 600
Output Total 200 / 200 100 / 100
Balance 400 / 400 500 / 500
[2024-04-11 15:00] VITALS: BP 133/80
--- NOTE | 2024-04-11 15:36 | W.PN.PUL3 ---
Today's Communication / Plan
-
Continue with current care as outlined above
Discharge planning
Signed off
Assessment
-
78-year-old female past medical history of COPD on 2 L baseline, recent falls with rib fractures 10, 11, 12, T4 compression fracture wearing TLSO, former smoker, hypertension, endometrial cancer, anemia of chronic disease, abdominal aortic aneurysm,
Parkinson's disease, presenting with shortness of breath over the past few days. Her pulse ox was 88 to 85% on 2 L. She recently moved to [place] from [place]. She was recently hospitalized for frequent falls with rib fractures and thoracic
compression fracture. She went to inpatient rehab and ultimately moved to closer to family. She has been seeing pulmonary in [place] and told she has severe COPD, maintained on chronic prednisone. We are consulted for eval.
AECOPD
Leukopenia
Anemia
Chronic hypercarbia, compensated
Hyperkalemia
Hyperglycemia
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
COPD on 2 L baseline
Recent falls with rib fractures 10-12
T4 compression fracture wearing TLSO
Former smoker
Hypertension
Endometrial cancer
Anemia of chronic disease
Abdominal aortic aneurysm
Parkinson's disease
Cholecystectomy
Appendectomy
Hysterectomy
Plan
Hypoxemia chronically, on 2L O2 at baseline- on arrival
Stable.
Prior history of lung disease is noted--COPD with moderate-severe emphysema noted on CT
Former smoker
Has been seeing pulmonary in [place].
Continue therapy for AECOPD
Prednisone 40 mg and decrease by 10 mg every 48 hours to off.
Only on Wixela as OP, but likely will need max therapy
She has taken Spiriva in past and did not like it, prefers to stay in [facility]-okay to continue.
No prior known cardiac history
No ECHO results are available for review
Records requested, if none recent would obtain new study as OP
Chronic CO2 retention noted, compensated
Can recheck again if MS changes
Outpatient Pulm FU recommended to establish care in this area
She is aware, we will facilitate referral
Discharge planning per team-I will sign off.
Please call with questions
Diagnostic Data
Chest X-Ray: 04/07/24- Multiple right lower lateral rib fractures, age uncertain. Linear densities within the right lower lung, with main differential considerations of linear atelectasis and/or scarring. No evidence for pneumothorax or pleural
effusion.
CT Scan: CHEST 04/07/24- 1. No evidence of pulmonary embolism. Mild enlargement of the main pulmonary artery measuring 3.3 cm which can be seen with pulmonary arterial hypertension.
2. Apical predominant moderate/severe centrilobular emphysematous changes. There is bronchial wall thickening with mucous plugging within the right lower lobe. There is right lower lobe atelectasis/scarring, likely sequelae of the numerous
right-sided prior rib fractures involving the fourth through 11th ribs.
3. Extensive probably noncalcified atherosclerotic plaque of the aortic arch and descending thoracic aorta with associated multifocal mild stenosis.
Echo:
PFT's:
Reports and relevant images were personally reviewed.
Total time spent on this encounter __35__ includes review of history, physical exam, medications, laboratory data, personal review of imaging, extensive review of outpatient records, discussion with care team and respiratory therapy.
Subjective Data
-
Date of Service:
Date of Service: April 11, 2024
Chief Complaint: Pulmonary Follow Up
Subjective:
Clinically improved
Denies significant hemoptysis or purulent sputum production
Discharge planning ongoing
Objective Data
Data Reviewed
Vital Signs / I&O / Oxygen:
Vital Signs
Temp Pulse Resp BP Pulse Ox
98.0 F 75 14 133/80 92
04/11/24 15:00 04/11/24 15:00 04/11/24 15:00 04/11/24 15:00 04/11/24 15:00
Intake and Output
04/10/24 04/11/24 04/12/24
06:59 06:59 06:59
Intake Total 600 / 600 600 / 600
Output Total 200 / 200 100 / 100
Balance 400 / 400 500 / 500
SaO2 92
Nasal Cannula flow liters per 2
minute
Physical Exam
General: Comfortable and Other (NAD)
HEENT: Normocephalic, Anicteric and Moist Mucous Membranes
Cardiovascular: S1-S2 and Regular Rhythm
Respiratory: Clear and Non-Labored Respirations
GI: Soft, Non Distended and Non Tender
Neurology: Awake, Alert, Oriented, AO x 3 and No Motor Deficits
Skin: Warm, Dry and Good Color
Labs/Micro/Reports
Lab Data
04/09/24 04:35
Microbiology
04/08/24 00:52 Nose MRSA Screen - Final
No Methicillin Resistant Staphylococcus aureus isolated.
[2024-04-11 15:40] LABS: Blood Urea Nitrogen 40 mg/dl (7-17); Calcium 9.3 mg/dl (8.4-10.2); Carbon Dioxide 29 mmol/L (22-30); Chloride 102 mmol/L (98-107); Estimated Creatinine Clearance 52 ml/min; Glucose 156 mg/dl (70-99); Sodium 139 mmol/L (135-145); eGFR > 60.00
[2024-04-11] MEDS: ROXICODONE 5 MG PO (20:56)
[2024-04-11] MEDS: PEPCID 20 MG PO (21:46)
[2024-04-11 23:21] VITALS: BP 122/57
[2024-04-12] MEDS: ADVAIR HFA 230/21 MCG INHALER 2 PUFF INH (07:29)
[2024-04-12] MEDS: DUONEB 3 ML INH ×2 (07:29→11:15)
[2024-04-12 08:01] VITALS: BP 151/68
[2024-04-12] MEDS: CARDIZEM 60 MG PO (08:45)
[2024-04-12] MEDS: SINEMET 25-100 2 TABLET PO (08:45)
[2024-04-12] MEDS: ZITHROMAX 250 MG PO (08:45)
[2024-04-12] MEDS: MAG-TAB SR 84 MG PO (08:45)
[2024-04-12] MEDS: COZAAR 100 MG PO (08:45)
[2024-04-12] MEDS: DELTASONE 40 MG PO (08:45)
[2024-04-12] MEDS: PROTONIX 40 MG PO (08:45)
[2024-04-12] MEDS: LOPRESSOR 25 MG PO (08:45)
[2024-04-12] MEDS: CLARITIN 10 MG PO (08:45)
[2024-04-12] MEDS: VITAMIN D3 (cholecalciferol) 25 MCG PO (08:45)
[2024-04-12] MEDS: SENOKOT 8.6 MG PO (08:45)
[2024-04-12] MEDS: LIDOCAINE 4% PATCH 1 PATCH TOPICAL (08:46)
[2024-04-12] MEDS: HEPARIN 5000 UNITS SC (08:46)
--- NOTE | 2024-04-12 09:01 | CM ---
followjng re: discahrge planning.
Reviewed pt's chart, met with pt.
According to MD pt is medically stable to be discharged today. Pt is aware, expressed her agreement. IMM reviewed, placed on chart, pt has a copy.
PT and OT recommend SNF level of care. pt is aware, expressed her agree ent with going to [facility] SNF with further plan to return back to her living arrangements at [facility] personal care.
to arrange transportation, BLS. [facility] completed and left with [facility] nursing report:[phone]
Discharge instructions fax: [phone]
D/C plan: [facility] SNF.
--- NOTE | 2024-04-12 10:42 | W.PN.HOSP.TC ---
Today's Communication/Plan
-
Discharge
Assessment / Plan
Assessment / Plan
pt is a 78 year old female
CVS: S1-S2 normal
Chest: CTA B/L
Abdomen: Soft, NT , Bowel sounds present
Extremities: No edema,
#Acute on chronic COPD with exacerbation and chronic hypoxemic resp failure (O2 dependent and prednisone dependent per med list)
VBG shows pH of 7.42 on admission, chronic compensated mild hypercarbia
CT PE shows no evidence of pulm embolism, mild enlargement of main pulmonary artery, atypical predominant moderate/severe centrilobular emphysema does changes, thickening with mucus building within the right lower lobe with scarring--COVID neg--Cont
nebs, Decadron - Zithromax ,Continue Wixela
Appt pulm input.
steroids to PO
#Recent falls with rib 10, 11, 12 fractures-Continue lidocaine patch. Dilaudid stopped. tolerating Oxycodone well.
# Hyperglycemia-check hemoglobin A1c. Likely secondary to steroids. Still pending!
#T4 compression fracture-Wearing TLSO brace plan
Prior rib fractures fractures right-sided -
#Parkinson's disease-Continue carbidopa levodopa
#Essential hypertension-Continue diltiazem-Continue losartan-Continue with Toprol
#Endometrial cancer status post hysterectomy
#Anemia of chronic disease-
#History of abdominal aortic aneurysm atherosclerosis
#Ambulatory dysfunction
#History of endometrial cancer
#Suspect cognitive issues-
#Code status -Full code
#DVT prophylaxis�SC Heparin
Called and left a message for patient's son yesterday
Discussed with case management-
Pt agreeable for SNF ( She thought it was [facility])
D/W Pulm OK for discharge
Discharge coordination time 36 min
Anticipated Discharge: Today
Subjective/Interval History
-
Date of Service: April 12, 2024
Objective Data
-
Vital Signs:
Vital Signs
Temp Pulse Resp BP Pulse Ox
98.3 F 72 19 151/68 94
04/12/24 08:01 04/12/24 08:01 04/12/24 08:01 04/12/24 08:01 04/12/24 08:01
I&O
04/11/24 04/12/24 04/13/24
06:59 06:59 06:59
Intake Total 600 / 600 480 / 480 360 / 360
Output Total 100 / 100
Balance 500 / 500 480 / 480 360 / 360
--- NOTE | 2024-04-12 10:47 | W.DS.TRANS ---
Addendum entered and electronically signed by Vaibhav Morton MD 04/12/24 14:11:
Dictation- [id number]
Original Note:
DC Summary - [employer]
-
Discharge Instructions:
Discharge Diagnosis/Procedures COPD exacerbation
rib fractures
T4 compression fracture
Parkinson disease
Hypertension
Anemia
Atherosclerosis
Abdominal aortic aneurysm
Ambulatory dysfunction
Diet As tolerated
Activity As tolerated,With assistance
Driving Restrictions No driving
Others Tests echo as outpatient
Other Services PT,OT
Instructions:
Stand-Alone Forms:
Changes to Home Medications: Yes
Discharge Medications:
DC Medications w/original date entered in [employer]
prednisone 5 mg tablet 5 mg PO DAILY 04/07/24
acetaminophen 325 mg tablet 650 mg (2 x 325 mg) PO Q4HPRN PRN mild pain #0 tabs 04/12/24
carbidopa 25 mg-levodopa 100 mg tablet 2 tab PO BID Neurological Condition #0 tabs 04/12/24
cholecalciferol (vitamin D3) 25 mcg (1,000 unit) tablet 25 mcg PO DAILY Supplement #0 tabs 04/12/24
diltiazem HCl 60 mg tablet 60 mg PO TID Heart disease/condition #0 tabs 04/12/24
esomeprazole magnesium 20 mg capsule,delayed release (Nexium) 20 mg PO DAILY Gastrointestinal issue #0 caps 04/12/24
famotidine 20 mg tablet 20 mg PO HS Gastrointestinal issue #0 tabs 04/12/24
ferrous sulfate 325 mg (65 mg iron) tablet 325 mg PO DAILY Supplement #0 tabs 04/12/24
fexofenadine 60 mg tablet 60 mg PO BID Allergies #0 tabs 04/12/24
fluticasone 500 mcg-salmeterol 50 mcg/dose blistr powdr for inhalation (Wixela Inhub) 1 inh inhalation R BID Lung/breathing issues #0 ea 04/12/24
ipratropium 0.5 mg-albuterol 3 mg (2.5 mg base)/3 mL nebulization soln 3 ml inhalation QID Lung/breathing issues #0 mL 04/12/24
lidocaine 5 % topical patch 1 patch topical DAILY Pain #0 ea 04/12/24
losartan 100 mg tablet 100 mg PO DAILY Blood pressure #0 tabs 04/12/24
magnesium oxide 400 mg PO BID Supplement #0 tabs 04/12/24
metoprolol tartrate 25 mg tablet 25 mg PO BID Blood pressure #0 tabs 04/12/24
oxycodone 5 mg tablet 5 mg PO Q6HPRN PRN moderate pain #8 tabs 04/12/24
polyethylene glycol 3350 17 gram oral powder packet (ClearLax) 17 g PO HS Constipation #30 ea 04/12/24
prednisone 10 mg tablet See Rx Instructions .Route .COMPLEX Lung/breathing issues #30 tabs 04/12/24
sennosides 8.6 mg tablet (senna) 8.6 mg PO BID Constipation #0 tabs 04/12/24
Home Medication Changes
Dilaudid stopped
Steroid increased
Oxycodone new
Miralax new
Pending Results: No
[2024-04-12] MEDS: FEOSOL 325 MG PO (11:10)
[2024-04-12 13:11] LABS: Glycohemoglobin (HgbA1c) 5.6 % (4.0-5.6)
[2024-04-12 14:30] VITALS: BP 136/60
[2024-04-12] MEDS: DUONEB INH (15:28)
== END 2024-04-12 15:42 | DRG 191 ==
LOC: 4 WEST ACU 20:47
PROVIDERS: Emergency Medicine; Hospitalist; Internal Medicine; ADMITTING PHYSICIAN Hospitalist; ATTENDING PHYSICIAN Hospitalist; CONSULT PHYSICIAN Internal Medicine; EMERGENCY PHYSICIAN Emergency Medicine; FAMILY PHYSICIAN Internal Medicine Geriatric Medicine
DX: J44.1 Chronic obstructive pulmonary disease with (acute) exacerbation (principal); E87.29 Other acidosis; S22.41XA Multiple fractures of ribs, right side, initial encounter for closed fracture; S22.040A Wedge compression fracture of fourth thoracic vertebra, initial encounter for closed fracture; I45.2 Bifascicular block; J96.11 Chronic respiratory failure with hypoxia; D63.8 Anemia in other chronic diseases classified elsewhere; G20.A1 Parkinson's disease without dyskinesia, without mention of fluctuations; I10 Essential (primary) hypertension; D72.819 Decreased white blood cell count, unspecified; J43.9 Emphysema, unspecified; Z99.81 Dependence on supplemental oxygen; E87.5 Hyperkalemia; W19.XXXA Unspecified fall, initial encounter; R73.9 Hyperglycemia, unspecified; R29.6 Repeated falls; Z79.52 Long term (current) use of systemic steroids; Z79.899 Other long term (current) drug therapy; Z91.81 History of falling; Z87.891 Personal history of nicotine dependence; Z85.42 Personal history of malignant neoplasm of other parts of uterus; Z86.79 Personal history of other diseases of the circulatory system; Z90.710 Acquired absence of both cervix and uterus; Z87.81 Personal history of (healed) traumatic fracture; Z88.1 Allergy status to other antibiotic agents
CPT/HCPCS: 71046; 71275; 80048; 80053; 82805; 83036; 83735; 83880; 85025; 85027; 85379; 87070; 87811; 93005; 94640; 96374; 97110; 97116; 97163; 97167; 97530; 99285; Q9967

== ENCOUNTER → 2024-04-15 13:35 | Outpatient (REF) | payer OTHER, MEDICARE, SELFPAY ==
[2024-04-15 15:04] LABS: Hematocrit 34.6 % (37.0-47.0); Hemoglobin 11.2 g/dL (12.0-16.0); Mean Corp Hgb Conc. 32.4 g/dL (33.0-37.0); Mean Corpuscular Hgb 30.9 pg (27.0-31.0); Mean Corpuscular Volume 95.6 fL (81.0-99.0); Mean Platelet Volume 9.2 fL (7.4-10.4); Platelet Count 270 10^3/uL (130-400); Red Blood Cell Count 3.62 10^6/uL (4.20-5.40); Red Cell Dist. Width 13.1 % (11.5-14.5)
[2024-04-15 16:30] LABS: ALT (SGPT) < 10 U/L (0-35); AST (SGOT) 17 U/L (14-36); Albumin 3.2 g/dl (3.5-5.0); Alkaline Phosphatase 62 U/L (38-126); Blood Urea Nitrogen 41 mg/dl (7-17); Calcium 9.2 mg/dl (8.4-10.2); Carbon Dioxide 26 mmol/L (22-30); Chloride 104 mmol/L (98-107); Glucose 75 mg/dl (70-99); Magnesium 2.2 mg/dl (1.6-2.3); Potassium 4.9 mmol/L (3.5-5.1); Sodium 141 mmol/L (135-145); Total Bilirubin 0.3 mg/dl (0.2-1.3); Total Protein 5.3 g/dl (6.3-8.2); eGFR > 60.00
== END ==
LOC: OLABWHC 13:35
PROVIDERS: ATTENDING PHYSICIAN Family Medicine
DX: I10 Essential (primary) hypertension (principal); J44.9 Chronic obstructive pulmonary disease, unspecified; I71.40 Abdominal aortic aneurysm, without rupture, unspecified; D63.8 Anemia in other chronic diseases classified elsewhere
CPT/HCPCS: 36415; 80053; 83735; 85027

== ENCOUNTER → 2024-05-12 12:33 | Outpatient (REF) | payer OTHER, MEDICARE, SELFPAY ==
[2024-05-12 16:36] LABS: Blood Urea Nitrogen 28 mg/dl (7-17); Calcium 9.4 mg/dl (8.4-10.2); Carbon Dioxide 29 mmol/L (22-30); Chloride 103 mmol/L (98-107); Glucose 82 mg/dl (70-99); Magnesium 2.1 mg/dl (1.6-2.3); Potassium 4.7 mmol/L (3.5-5.1); Sodium 141 mmol/L (135-145); eGFR > 60.00
[2024-05-12 17:59] LABS: Hematocrit 33.2 % (37.0-47.0); Hemoglobin 10.5 g/dL (12.0-16.0); Mean Corp Hgb Conc. 31.6 g/dL (33.0-37.0); Mean Corpuscular Hgb 30.1 pg (27.0-31.0); Mean Corpuscular Volume 95.1 fL (81.0-99.0); Mean Platelet Volume 9.2 fL (7.4-10.4); Platelet Count 356 10^3/uL (130-400); Red Blood Cell Count 3.49 10^6/uL (4.20-5.40); Red Cell Dist. Width 13.2 % (11.5-14.5); White Blood Cell Count 4.8 10^3/uL (4.8-10.8)
== END ==
LOC: OLABWHC 12:33
PROVIDERS: ATTENDING PHYSICIAN Family Medicine
DX: D64.9 Anemia, unspecified (principal); E78.5 Hyperlipidemia, unspecified
CPT/HCPCS: 36415; 80048; 83735; 85027

== ENCOUNTER 2024-05-29 15:39 | Inpatient (IN) | payer MEDICARE, SELFPAY ==
[2024-05-28] VITALS (17 sets, daily range): BP systolic 109–154; BP diastolic 42–98; BMI 22.9
--- NOTE | 2024-05-28 04:55 | ED.GENMED ---
History of Present Illness
<Juliette Blilings DO - Last Filed: 05/28/24 05:55>
General
Chief Complaint: Abdominal Pain
Time Seen by Provider: 05/28/24 04:55
<PATRICE William - Last Filed: 05/28/24 06:18>
History of Present Illness
History of Present Illness:
a 78 yo female with a PMH of COPD, HTN presents to the ED for Left flank pain x 3 hours. She characterizes the pain as 10/10 sharp and stabbed which woke her from sleep at 0200 today. She then ambulated to the bathroom, but was unable to ambulate
back to bed d/t flank pain increasing. She states that she slid down to the ground and called the nursing facility / hospice nurse to come help her. She stated that she waited 1.5 hours for the nurse to arrive just for the nurse to call EMS. She
arrived at the hospital today receiving a nebulizer treatment which improved her initial O2 stat of 67% to 97%. Patient stated that she denies any fall, trauma, or LOC that incited this pain. She did however admit to a fall 2 weeks ago for which she
was evaluated. She stated that they found no evidence of fractures. She stated that she has SOB which is worse than her baseline which started during the acute onset of L flank pain,. She is currently on hospice treatment at [facility].
She states that she is voiding without issue, but has not been able to urinate today. Her last BM was on ' saturday or saturday' She denies N/V/D, GASCA, fevers, chills, cough.
She has a PMH of COPD which not controlled. She is currently on hospice d/t her COPD. She also has history of HTN which is well controlled. She is currently DNR.
Past History
<PATRICE William - Last Filed: 05/28/24 06:18>
Past History
ED Past Medical History: Cancer, COPD and HTN
ED Past Surgical History: Other (endometrial cancer removal, cholecystectomy )
Family History
Family History: Asthma and Other (non applicable )
Review of Systems
<PATRICE William - Last Filed: 05/28/24 06:18>
Review of Systems
Allergies reviewed?: Yes
EENT: Reports no symptoms
Respiratory: Reports cough and trouble breathing
Cardiac: Denies chest pain
ABD/GI: Reports abdominal pain (flank pain ) and constipated; Denies nausea, vomiting or diarrhea
: Reports no symptoms
Skin: Reports other
Phy Exam
<PATRICE William - Last Filed: 05/28/24 06:18>
General Physical Exam
General Presentation: severe distress
General age: appears stated age
General Skin: warm and dry
General Habitus: normal and elderly
General Mental: alert
General Hydration: dry mucous membranes (dry tongue )
Cardiovascular Exam
Cardiovascular Exam: regular rate/rhythm, no gallop, no murmur and normal peripheral pulses
Pulmonary Exam
Pulmonary Exam: accessory muscle use, generalized wheezing and respiratory distress
Respiratory Effort: poor respiratory effort
Oxygen Status: oxygen 3 liters via NC
Respirations: accessory muscle use, moderate effort and rapid (occasional tachypnea )
Breath Sounds: Wheeze: generalized
Gastrointestinal Exam
Palpation: generalized: Severe tenderness (Left flank pain tenderness to palpation)
Neurological Exam
Neurological Exam: alert and oriented x3
Skin Exam
Skin Exam: warm/dry, redness and other (8 cm left subcostal abrasion noted. No blood or pus oozing noted. )
Course
<Juliette Billings DO - Last Filed: 05/28/24 05:55>
Orders/Labs/Results
Orders:
Orders
05/28/24 05:32
HYDROmorphone [Dilaudid] 1 mg IV NOW STA
05/28/24 05:34
Ipratropium/Albuterol Sulfate [Duoneb] 3 ml INH R NOW STA
05/28/24 05:35
Urinalysis Reflex To Culture Urgent
Date Specimen was Collected: 05/28/24
Time Specimen was Collected: 06:18
05/28/24 05:46
Complete Blood Count/With Diff Urgent
Comprehensive Metabolic Panel Urgent
NT-proBNP Urgent
Troponin I Urgent
Venous Blood Gas Urgent
%Oxygen/Room Air: 3 L NC
05/28/24 06:34
CT Abd/pel Without Iv Or Oral Urgent
Comment:
Reason For Exam: ACUTE LUQ, L flank pain
CT Chest Pe Study Urgent
Comment:
Reason For Exam: acute L ant CP, acute on chronic SOB
05/28/24 08:12
Dexamethasone Sod Phosphate [Decadron] 8 mg IV NOW STA
Ipratropium/Albuterol Sulfate [Duoneb] 3 ml INH R NOW STA
05/28/24 09:30
Cefepime HCl [Maxipime] 2,000 mg IV NOW STA
Abnormal Lab Results
05/28/24
05:46
WBC 11.8 H 10^3/uL
(4.8-10.8)
RBC 3.50 L 10^6/uL
(4.20-5.40)
Hgb 10.7 L g/dL
(12.0-16.0)
Hct 33.4 L %
(37.0-47.0)
MCHC 32.0 L g/dL
(33.0-37.0)
Abs Immat Gran (auto) 0.1 H 10^3/uL
(0-0.05)
Absolute Neuts (auto) 9.5 H 10^3/uL
(1.4-6.5)
Absolute Lymphs (auto) 0.7 L 10^3/uL
(1.2-3.4)
Absolute Monos (auto) 1.4 H 10^3/uL
(0.1-0.6)
Immature Gran % 0.7 H %
(0-0.5)
Neutrophils % 79.9 H %
(42.2-75.2)
Lymphocytes % 5.7 L %
(20.5-51.1)
Monocytes % 12.2 H %
(1.7-9.3)
VBG pCO2 53 H mmHg
(35-48)
VBG pO2 96 H mmHg
(30-50)
VBG HCO3 27.9 H mmol/L
(22-27)
BUN 35 H mg/dl
(7-17)
05/28/24 05:46
05/28/24 05:46
Vital Signs
Initial and Last Documented VS:
Initial Vital Signs
Temp Pulse Resp BP Pulse Ox
98.3 F 87 32 135/81 85
05/28/24 04:13 05/28/24 04:13 05/28/24 04:13 05/28/24 04:13 05/28/24 04:13
Last Documented Vital Signs
Temp Pulse Resp BP Pulse Ox
98.3 F 90 16 134/51 92
05/28/24 04:13 05/28/24 09:25 05/28/24 09:25 05/28/24 09:00 05/28/24 09:25
<PATRICE William - Last Filed: 05/28/24 06:18>
Orders/Labs/Results
Orders:
Orders
05/28/24 05:32
HYDROmorphone [Dilaudid] 1 mg IV NOW STA
05/28/24 05:34
Ipratropium/Albuterol Sulfate [Duoneb] 3 ml INH R NOW STA
05/28/24 05:35
Urinalysis Reflex To Culture Urgent
Date Specimen was Collected: 05/28/24
Time Specimen was Collected: 06:18
05/28/24 05:46
Complete Blood Count/With Diff Urgent
Comprehensive Metabolic Panel Urgent
NT-proBNP Urgent
Troponin I Urgent
Venous Blood Gas Urgent
%Oxygen/Room Air: 3 L NC
05/28/24 06:34
CT Abd/pel Without Iv Or Oral Urgent
Comment:
Reason For Exam: ACUTE LUQ, L flank pain
CT Chest Pe Study Urgent
Comment:
Reason For Exam: acute L ant CP, acute on chronic SOB
05/28/24 08:12
Dexamethasone Sod Phosphate [Decadron] 8 mg IV NOW STA
Ipratropium/Albuterol Sulfate [Duoneb] 3 ml INH R NOW STA
05/28/24 09:30
Cefepime HCl [Maxipime] 2,000 mg IV NOW STA
Abnormal Lab Results
05/28/24
05:46
WBC 11.8 H 10^3/uL
(4.8-10.8)
RBC 3.50 L 10^6/uL
(4.20-5.40)
Hgb 10.7 L g/dL
(12.0-16.0)
Hct 33.4 L %
(37.0-47.0)
MCHC 32.0 L g/dL
(33.0-37.0)
Abs Immat Gran (auto) 0.1 H 10^3/uL
(0-0.05)
Absolute Neuts (auto) 9.5 H 10^3/uL
(1.4-6.5)
Absolute Lymphs (auto) 0.7 L 10^3/uL
(1.2-3.4)
Absolute Monos (auto) 1.4 H 10^3/uL
(0.1-0.6)
Immature Gran % 0.7 H %
(0-0.5)
Neutrophils % 79.9 H %
(42.2-75.2)
Lymphocytes % 5.7 L %
(20.5-51.1)
Monocytes % 12.2 H %
(1.7-9.3)
VBG pCO2 53 H mmHg
(35-48)
VBG pO2 96 H mmHg
(30-50)
VBG HCO3 27.9 H mmol/L
(22-27)
BUN 35 H mg/dl
(7-17)
05/28/24 05:46
05/28/24 05:46
Vital Signs
Initial and Last Documented VS:
Initial Vital Signs
Temp Pulse Resp BP Pulse Ox
98.3 F 87 32 135/81 85
05/28/24 04:13 05/28/24 04:13 05/28/24 04:13 05/28/24 04:13 05/28/24 04:13
Last Documented Vital Signs
Temp Pulse Resp BP Pulse Ox
98.3 F 90 16 134/51 92
05/28/24 04:13 05/28/24 09:25 05/28/24 09:25 05/28/24 09:00 05/28/24 09:25
<Tutu Smith MD - Last Filed: 05/28/24 09:32>
Orders/Labs/Results
Orders:
Orders
05/28/24 05:32
HYDROmorphone [Dilaudid] 1 mg IV NOW STA
05/28/24 05:34
Ipratropium/Albuterol Sulfate [Duoneb] 3 ml INH R NOW STA
05/28/24 05:35
Urinalysis Reflex To Culture Urgent
Date Specimen was Collected: 05/28/24
Time Specimen was Collected: 06:18
05/28/24 05:46
Complete Blood Count/With Diff Urgent
Comprehensive Metabolic Panel Urgent
NT-proBNP Urgent
Troponin I Urgent
Venous Blood Gas Urgent
%Oxygen/Room Air: 3 L NC
05/28/24 06:34
CT Abd/pel Without Iv Or Oral Urgent
Comment:
Reason For Exam: ACUTE LUQ, L flank pain
CT Chest Pe Study Urgent
Comment:
Reason For Exam: acute L ant CP, acute on chronic SOB
05/28/24 08:12
Dexamethasone Sod Phosphate [Decadron] 8 mg IV NOW STA
Ipratropium/Albuterol Sulfate [Duoneb] 3 ml INH R NOW STA
05/28/24 09:30
Cefepime HCl [Maxipime] 2,000 mg IV NOW STA
Abnormal Lab Results
05/28/24
05:46
WBC 11.8 H 10^3/uL
(4.8-10.8)
RBC 3.50 L 10^6/uL
(4.20-5.40)
Hgb 10.7 L g/dL
(12.0-16.0)
Hct 33.4 L %
(37.0-47.0)
MCHC 32.0 L g/dL
(33.0-37.0)
Abs Immat Gran (auto) 0.1 H 10^3/uL
(0-0.05)
Absolute Neuts (auto) 9.5 H 10^3/uL
(1.4-6.5)
Absolute Lymphs (auto) 0.7 L 10^3/uL
(1.2-3.4)
Absolute Monos (auto) 1.4 H 10^3/uL
(0.1-0.6)
Immature Gran % 0.7 H %
(0-0.5)
Neutrophils % 79.9 H %
(42.2-75.2)
Lymphocytes % 5.7 L %
(20.5-51.1)
Monocytes % 12.2 H %
(1.7-9.3)
VBG pCO2 53 H mmHg
(35-48)
VBG pO2 96 H mmHg
(30-50)
VBG HCO3 27.9 H mmol/L
(22-27)
BUN 35 H mg/dl
(7-17)
05/28/24 05:46
05/28/24 05:46
Vital Signs
Initial and Last Documented VS:
Initial Vital Signs
Temp Pulse Resp BP Pulse Ox
98.3 F 87 32 135/81 85
05/28/24 04:13 05/28/24 04:13 05/28/24 04:13 05/28/24 04:13 05/28/24 04:13
Last Documented Vital Signs
Temp Pulse Resp BP Pulse Ox
98.3 F 90 16 134/51 92
05/28/24 04:13 05/28/24 09:25 05/28/24 09:25 05/28/24 09:00 05/28/24 09:25
<PATRICE William - Last Filed: 05/28/24 06:18>
MDM/Problems Addressed
Differential Diagnosis Includes:
Left rib fracture, nephrolithiasis, pyelonephritis
Chronic conditions affecting care: COPD
Acute Exacerbation and/or Progression of Chronic Illness:
Increase effor of breathing, tachypnea, Conversational respiratory distress causing o2 desat 80%
<PATRICE William - Last Filed: 05/28/24 06:18>
*Critical Care Note
Total Time (30-74mins, 75-104mins- exclusive of procedures): Not Applicable
<Tutu Smith MD - Last Filed: 05/28/24 09:32>
Update Note
Update Note:
0815...Patient about to go to CT. Pulse ox has been running low. Rechecked. Patient mildly lethargic but alert and able to speak. Mildly tachypneic. Diffuse expiratory wheezing and rhonchi. Will increase her oxygen to CT and then order a
DuoNeb. Message left with son.
929... Left basilar pneumonia. Will admit for IV antibiotics
ED Attending Note
<Juliette Billings DO - Last Filed: 05/28/24 05:55>
ED Attending Note
Patient seen and examined by attending physician: Yes
I performed the substantive portion of visit, reviewed & personally made and approve the management plan that is documented in note by myself or DEE.: Yes
ED Attending Note:
This is a 78-year-old woman with history of advanced COPD, O2 dependent, history of chronic low back pain, narcotic dependent as well as history of multiple right-sided rib fractures from previous falls noted on most recent hospitalization for COPD
exacerbation end of March, discharged April 12.
More recently patient has transition to hospice May 22. She remains at [facility].
She complains of left upper quadrant to left lateral flank pain that began somewhat abruptly tonight, waking her from sleep. Left upper quadrant to the left lateral flank pain is much worse with deep breath, worse with rotation and movement of her
trunk and she admits that she struggled to get up out of bed and struggled to use her walker to ambulate to and from the bathroom. While walking back from the bathroom, left upper quadrant, left flank pain worsened and caused her to lose her
balance where she states she slowly lowered herself to the floor. She denies injury, denies loss of consciousness. She called the hospice nurse for help and admits that she was sitting on the floor for an hour and a half prior to nurse arrival.
Due to severe pain she is sent to the ED for further evaluation. She was offered Dilaudid 2 mg tablet which she declined and instead requests IV pain medication.
She denies fever nor chills. She does admit to mild constipation with last bowel movement 2 to 3 days ago. No dysuria and urgency and or hematuria.
Moderate shortness of breath which is worse than her chronic shortness of breath. She denies cough nor chest pain. No headache or neck pain, no weakness nor numbness.
She arrives via EMS with DuoNeb nebulizer en route.
She verifies that she is currently on hospice for her end-stage COPD and verifies her DNR status. She is however agreeable to hospitalization if this is needed.
GENERAL: 78-year-old woman appears somewhat older than stated age, appears moderately debilitated, moderately tachypneic but able to speak in full sentences. Pulse ox 88% on 2 L, improved to 90% on 3 L.
EYE: pupils equal and reactive. anicteric
NECK: Supple, nontender, no meningismus, no significant adenopathy. Mild JVD.
ENT: Oral mucosa is mildly dry. No rhinorrhea.
CARDIAC: Regular rate and rhythm. no murmur.
LUNGS: Mild to moderate respiratory distress, inspiratory and expiratory wheezing throughout. There is a superficial horizontal abrasion noted left upper quadrant at the costal margin. Moderate local tenderness to palpation to this area. No
crepitus nor palpable bony abnormality.
ABDOMEN: Soft, nondistended, moderate tenderness left upper quadrant, left anterior distal costal margin, moderate tenderness left lateral flank. No r/g, no cvat. normoactive BS.
NEUROLOGICAL: Alert and oriented x3, no focal neuro deficits.
SKIN: Warm and dry, mildly pale in color, poor turgor, few ecchymotic patches bilateral forearms, superficial abrasion left anterior distal costal margin as described above. No rash.
MUSCULOSKELETAL: No C/C/E. peripheral pulses are full and equal b/l. No palpable tenderness.
PSYCH: Mildly anxious. Cooperative.
Significant concern for exacerbation of COPD, concern for left upper quadrant contusion with focal abrasion, concern for rib fracture, pleural effusion, pneumonia, pneumothorax, CHF, ureteric stone with hydronephrosis, pyelonephritis, constipation.
Will give an IV dose of Dilaudid, additional nebulizer treatment.
Will check labs as well as VBG, urinalysis and will plan for CT of the chest as well as CT abdomen pelvis.
<PATRICE William - Last Filed: 05/28/24 06:18>
-
Portions of this chart may have been created with voice recognition software.� Occasional wrong word or��sound alike� substitutions may have occurred due to the inherent limitations of voice recognition software.
Discharge Plan
Departure
Patient Disposition: Admit
Date of Disposition: 05/28/24
Time of Disposition: 09:31
Presentation/result/management discussed w/ accepting MD/DO: Hospitalist
Discharge Problem:
Hypoxia/left basilar pneumonia
Prescriptions:
No Action
acetaminophen 325 mg Tablet
650 mg PO Q4HPRN PRN (Reason: mild pain) Qty: 0 0RF
ipratropium-albuterol 0.5 mg-3 mg(2.5 mg base)/3 mL Solution For Nebulization
3 ml INHALATION QID Qty: 0 0RF
ferrous sulfate 325 mg (65 mg iron) Tablet
325 mg PO DAILY Qty: 0 0RF
lidocaine 5 % Adhesive Patch,Medicated
1 patch TOPICAL DAILY Qty: 0 0RF
carbidopa-levodopa 25-100 mg Tablet
2 tab PO BID Qty: 0 0RF
losartan 100 mg Tablet
100 mg PO DAILY Qty: 0 0RF
diltiazem HCl 60 mg Tablet
60 mg PO TID Qty: 0 0RF
metoprolol tartrate 25 mg Tablet
25 mg PO BID Qty: 0 0RF
cholecalciferol (vitamin D3) 25 mcg (1,000 unit) Tablet
25 mcg PO DAILY Qty: 0 0RF
magnesium oxide 400 mg magnesium Tablet
400 mg PO BID Qty: 0 0RF
fexofenadine 180 mg Tablet
180 mg PO DAILY
prednisone 10 mg Tablet
10 mg PO DAILY
hyoscyamine sulfate [Levsin] 0.125 mg Tablet
0.25 mg PO QID PRN (Reason: increase secretions)
magnesium hydroxide 2,400 mg/10 mL Suspension
2,400 mg PO HSPRN PRN (Reason: constipation)
Referrals:
Joahn Motley MD [Family Provider] -
Interventions
Interventions:
*Risk Screen - Suicide Last Done: 05/28/24 04:19
*General Assessment Last Done: 05/28/24 04:19
*Neglect/Abuse Screening Last Done: 05/28/24 04:21
*ED COVID-19 Vaccine History Last Done: 05/28/24 04:20
GA-Klbdap-Kraoagbpgc Assessment Last Done: 05/28/24 04:27
Discharge Date and Time
Print Language: JAPANESE
[2024-05-28] MEDS: DILAUDID 1 MG IV (05:42)
[2024-05-28] MEDS: DUONEB 3 ML INH ×3 (05:42→19:40)
[2024-05-28 06:13] LABS: % Basophils 0.2 % (0-2); % Eosinophils 1.3 % (0-6); % Immature Granulocytes 0.7 % (0-0.5); % Lymphocytes 5.7 % (20.5-51.1); % Monocytes 12.2 % (1.7-9.3); % Neutrophils 79.9 % (42.2-75.2); Absolute Eosinophils 0.2 10^3/uL (0-0.7); Absolute Immature Granulocytes 0.1 10^3/uL (0-0.05); Absolute Lymphocytes 0.7 10^3/uL (1.2-3.4); Absolute Monocytes 1.4 10^3/uL (0.1-0.6); Absolute Neutrophils 9.5 10^3/uL (1.4-6.5); Hematocrit 33.4 % (37.0-47.0); Hemoglobin 10.7 g/dL (12.0-16.0); Mean Corpuscular Hgb 30.6 pg (27.0-31.0); Mean Corpuscular Volume 95.4 fL (81.0-99.0); Mean Platelet Volume 9.6 fL (7.4-10.4); Nucleated Red Blood Cells % 0 %; Platelet Count 256 10^3/uL (130-400); White Blood Cell Count 11.8 10^3/uL (4.8-10.8)
[2024-05-28 06:19] LABS: Venous Blood Gas B.E. 1.4 mmol/L (-4 to +4); Venous Blood Gas HCO3 27.9 mmol/L (22-27); Venous Blood Gas O2 Sat % 97.9 %; Venous Blood Gas O2 Therapy 3 L NC; Venous Blood Gas pCO2 53 mmHg (35-48); Venous Blood Gas pH 7.33 (7.32-7.43); Venous Blood Gas pO2 96 mmHg (30-50)
[2024-05-28 06:25] LABS: ALT (SGPT) < 10 U/L (0-35); AST (SGOT) 22 U/L (14-36); Albumin 4.1 g/dl (3.5-5.0); Alkaline Phosphatase 88 U/L (38-126); Blood Urea Nitrogen 35 mg/dl (7-17); Calcium 9.7 mg/dl (8.4-10.2); Carbon Dioxide 29 mmol/L (22-30); Chloride 100 mmol/L (98-107); Estimated Creatinine Clearance 46 ml/min; Glucose 97 mg/dl (70-99); Potassium 4.8 mmol/L (3.5-5.1); Sodium 141 mmol/L (135-145); Total Bilirubin 0.7 mg/dl (0.2-1.3); Total Protein 6.5 g/dl (6.3-8.2); eGFR > 60.00
[2024-05-28 06:36] LABS: NT-proBNP 505 pg/ml; Troponin I < 0.012 ng/ml
[2024-05-28] MEDS: DECADRON 8 MG IV (08:37)
[2024-05-28] MEDS: MAXIPIME 2000 MG IV (09:45)
[2024-05-28 10:09] LABS: COVID-19 Antigen Negative (Negative)
--- NOTE | 2024-05-28 10:40 | HPS.HSE ---
Family Physician
-
Family Physician: Johan Motley MD
Chief Complaint
-
Generalized weakness/pain
History of Present Illness
Patient is 78-year-old female with past medical history of advanced COPD, Parkinson's, essential hypertension, depression/anxiety, history of thoracic compression fracture, history of endometrial cancer status post hysterectomy, anemia of chronic
disease, history of abdominal aortic aneurysm was sent from [facility] after patient had ambulatory dysfunction/mechanical fall at facility. Early in the morning today patient was walking to bathroom when certain point patient lost
strength and had to sit down on floor, patient did not get up after that. Patient called for help and was eventually transferred to ER for further evaluation. In ER patient complaining left-sided rib pain although denies of having any injury to
the area. Denied losing consciousness/hitting head. Patient underwent CT chest/abdomen/pelvis and did not show any new
PE/fracture. No other acute issues reported.
Patient was provided an inhaler therapy as was noted to be wheezing/short of breath. Patient was also required to be placed on oxygen.
Patient apparently has been transition to hospice care on 05/21/24 for advanced COPD. Patient had moved from [place] recently and currently at [place] independent/personal level care for hospice. I have contacted patient hospice nurse Erika from
[facility] ([phone]) got information from her as well. Patient does not have any family close by although have a son whom hospice staff was not able to get hold off. Patient has been competent and able to sign herself on hospice care.
Medical History
Past Medical History
Past Medical History: Reports Other
Additional Past Medical History:
advanced COPD, Parkinson's, essential hypertension, depression/anxiety, history of thoracic compression fracture, history of endometrial cancer status post hysterectomy, anemia of chronic disease history of abdominal aortic aneurysm
Past Surgical History: Reports Other
Social History
Tobacco: Former Smoker
Alcohol: None
Drug: None
Living: Other ([facility] indpend[facility] living)
Family History
Family History: Not pertinent
Allergies / Home Medications
Allergies reflects when Allergies were last updated in [employer].
Home Medications with original date entered in [employer]
Allergy/Medication List:
Home Medications Table - record
�Medication �Instructions �Recorded �Confirmed
cholecalciferol (vitamin D3) 25 25 mcg PO DAILY Supplement #0 tabs 04/12/24 05/28/24
mcg (1,000 unit) tablet
diltiazem HCl 60 mg tablet 60 mg PO TID Heart 04/12/24 05/28/24
disease/condition #0 tabs
ferrous sulfate 325 mg (65 mg 325 mg PO DAILY Supplement #0 tabs 04/12/24 05/28/24
iron) tablet
losartan 100 mg tablet 100 mg PO DAILY Blood pressure #0 04/12/24 05/28/24
tabs
magnesium oxide 400 mg PO BID Supplement #0 tabs 04/12/24 05/28/24
metoprolol tartrate 25 mg tablet 25 mg PO BID Blood pressure #0 tabs 04/12/24 05/28/24
acetaminophen 325 mg tablet 650 mg PO Q6HPRN PRN mild pain 05/28/24 05/28/24
acetaminophen 650 mg rectal 650 mg IA Q6HPRN PRN fevere, mild 05/28/24 05/28/24
suppository pain
bisacodyl 10 mg rectal suppository 10 mg IA DAILYPRN PRN constipation 05/28/24 05/28/24
(Dulcolax (bisacodyl))
budesonide 0.5 mg/2 mL suspension 0.5 mg inhalation R BID 05/28/24 05/28/24
for nebulization
carbidopa 25 mg-levodopa 100 mg 2 tab PO TID Neurological Condition 05/28/24 05/28/24
tablet
fexofenadine 180 mg tablet 180 mg PO DAILY 05/28/24 05/28/24
hydromorphone 2 mg tablet 2 mg PO Q3HPRN PRN severe pain 05/28/24 05/28/24
(Dilaudid)
hyoscyamine sulfate 0.125 mg 0.125 mg PO Q4HPRN PRN increase 05/28/24 05/28/24
tablet (Levsin) secretions
ipratropium 0.5 mg-albuterol 3 mg 3 ml inhalation R QID 05/28/24 05/28/24
(2.5 mg base)/3 mL nebulization Lung/breathing issues
soln
lidocaine 4 % topical cream 1 applic topical TID lower back 05/28/24 05/28/24
lorazepam 0.5 mg tablet 0.5 mg PO Q6HPRN PRN anxiety 05/28/24 05/28/24
magnesium hydroxide 2,400 mg/10 mL 2,400 mg PO HSPRN PRN if no bm on 05/28/24 05/28/24
oral suspension 2nd day
prednisone 10 mg tablet 10 mg PO DAILY 05/28/24 05/28/24
sodium chloride 0.65 % nasal spray 1 spray intranasal Q4HPRN PRN 05/28/24 05/28/24
aerosol dryness
Review of Systems
-
A 12 point ROS was completed and negative except as noted: Yes
Physical Exam
Vital Signs
Vital Signs
Temp Pulse Resp BP Pulse Ox
98.3 F 94 22 152/77 94
05/28/24 04:13 05/28/24 10:30 05/28/24 10:30 05/28/24 10:00 05/28/24 09:55
Physical Exam
General: Well Nourished, No Apparent Distress and Cachectic
HEENT: Oxygen (3L NC)
Respiratory: Wheezes
Cardiac: S1/S2 and Regular Rhythm; No Murmur or Rub
GI: Soft, Non Tender and Non Distended; No Organomegaly
Musculoskeletal: No Clubbing, No Cyanosis and No Edema
Skin: No Rash
Neuro: Awake, Alert, Oriented and Nonfocal/grossly intact
Laboratory Results
-
05/28/24 05:46
05/28/24 05:46
Laboratory Results
Total Bilirubin 0.7 mg/dl (0.2-1.3) 05/28/24 05:46
AST 22 U/L (14-36) 05/28/24 05:46
ALT < 10 U/L (0-35) 05/28/24 05:46
Alkaline Phosphatase 88 U/L (38-126) 05/28/24 05:46
Troponin I < 0.012 ng/ml 05/28/24 05:46
Impression/Plan
-
1. Ambulatory dysfunction
Fall
-Patient reported to slid down/sat on the floor in the morning when walking to bathroom
-Denies loss of function s/p fall/head injury
-Patient have left lower rib cage pain on exam
-CT chest PE/CT abdomen pelvis did not show any acute abnormality
-Patient on oral Dilaudid 2 mg every 3 hours for severe pain, add oxycodone for moderate pain and IV Dilaudid for breakthrough pain
-Patient already on hospice care and may require further pain medication escalation if needed
-Patient on personal care personal care and may not be appropriate to return back in light of weakness/fall, will need to be evaluated by PT OT before releasing back
2. Advanced COPD
Acute hypoxic resp insufficiency?
-Unclear if patient was on oxygen at [facility], but with advanced COPD expect to have baseline hypoxia
-Wheezing on exam and patient got IV Decadron in ER
-Maintain on nebulizer therapy only for now
-Patient has been transition to hospice care for advanced COPD at [place].
3. Parkinson's disease
-continue on Sinemet
-PT/OT evalulation
essential hypertension
depression/anxiety
history of thoracic compression fracture
history of endometrial cancer status post hysterectomy
anemia of chronic disease
history of abdominal aortic aneurysm
DVT PPX _ none - hospice
DNR/DNI
Erika/from [facility] contacted and case discussed.
Total time spent : 77 mins
I personally saw and examined the patient.
I have reviewed all diagnostic interpretations and treatment plans as written.
Time includes patient management by me, time spent at the patients bedside, time to review lab and imaging results, discussing patient care, documentation in the medical record, and time spent with the family or caregiver and discussing care plan
with RN/Consultants.
--- NOTE | 2024-05-28 11:01 | CM ---
Addendum entered by Alejandrina Centeno 05/28/24 11:45:
The customer engagement manager from [facility] called back and said she'll have Erika return phone call to Dr. Llanos at: [phone]. She is currently with another patient at the moment. Dr. Llanos made aware of above via TT.
Addendum entered by Alejandrina Centeno 05/28/24 11:39:
CM called [facility] again and shared that still has not received a call back. Staff member then transferred call to nurse's voice mail. CM left a VM.
Original Note:
CM consult for hospice. Dr. Llanos would like to get in contact with patient's hospice agency. Per Ryan, patient is with [facility].
[facility]'s contact number:
CM asked whom could she speak in reference to Martha's case.
The front office staff member stated that patient's nurse is Erika.
Front office staff took 's cell phone number and informed CM that Erika would return the phone call.
Dr. Llanos, attending physician, made aware of above via TT.
Still awaiting call back.
[2024-05-28] MEDS: DUONEB INH (16:54)
[2024-05-28] MEDS: CARDIZEM PO ×2 (17:21→18:08)
[2024-05-28] MEDS: SINEMET 25-100 PO ×2 (17:22→18:09)
[2024-05-28] MEDS: MIRALAX PO ×2 (17:24→18:09)
[2024-05-28] MEDS: DELTASONE PO ×2 (17:24→18:09)
[2024-05-28] MEDS: LOPRESSOR 25 MG PO (22:52)
[2024-05-28] MEDS: CARDIZEM 60 MG PO (22:53)
[2024-05-28] MEDS: SINEMET 25-100 2 TABLET PO (22:53)
[2024-05-28] MEDS: DILAUDID 2 MG PO (23:36)
[2024-05-29] MEDS: DUONEB 3 ML INH ×6 (00:20→18:19)
--- NOTE | 2024-05-29 01:24 | W.PN.UPDATE ---
Update Note
Progress Note Update
Patient is hypoxic, spo2 in low 80s%, on 4 L of O2 NC. Patient is wheezy received duo nebs and still wheezy and have difficult breathing. Patient alert and oriented x 3 seems to be anxious, she requested her Claritin as she missed her dose in
morning before admission.
Will give dose of steroid, give her Claritin dose now and hold am dose. Patient placed on 6L NC, SPO2 up to 93%.
[2024-05-29] MEDS: CLARITIN 10 MG PO (01:29)
[2024-05-29 01:30] VITALS: BP 131/59
[2024-05-29] MEDS: DECADRON 8 MG IV (01:30)
[2024-05-29] MEDS: ATIVAN 0.5 MG PO (01:47)
--- NOTE | 2024-05-29 03:32 | PTCARENOTE ---
Pt became hypoxemic, pulse ox low -mid 80s on 4L. Respiratory notified for duoneb treatment, treatment given. Pt still appears SOB with inc work of breathing and c/o air hunger. HUMAN RESOURCE ANALYST notified and at bedside. Orders in for one time dose iv steroid
and claritin per pt request. Pt also given PRN ativan. Pt now on 6L NC, pulse ox 92-93%. pt resting comfortably.
[2024-05-29 07:00] VITALS: BP 136/63
--- NOTE | 2024-05-29 07:46 | W.PN.HOSP.TC ---
Today's Communication/Plan
-
.
Assessment / Plan
Assessment / Plan
Ms. Martha Sanchez is a 78yoF pmh COPD on 2L O2, HTN, HLD, parkinson's, anemia of chronic disease, depression/anxiety, hx thoracic compression fx admitted from [facility] on 05/28.
Ambulatory dysfunction
Fall
- L flank pain s/p fall
- hx fall w right rib 10, 11, 12 fractures - still hurts
- CTA chest
- CT abdomen/pelvis
- on hospice care, may require pain medicine escalation
- lidocaine patch
- PT/OT - recommend skilled therapy 1-2 hrs/day
Advanced COPD on home 2L O2
Acute hypoxic respiratory insufficiency
- loratidine
- duonebs
- prednisone
- flu A/B neg
- decadron in ER
- nebulizers
Parkinson's
- cont sinemet
- PT/OT
HTN / HLD
- cont metoprolol, diltiazem
Depression/anxiety
- cont lorazepam prn
Constipation
- cont dulcolax
HLD
history of thoracic compression fracture
history of endometrial cancer status post hysterectomy
anemia of chronic disease
history of abdominal aortic aneurysm
Chronic pain
- throughout spine
- cont dilaudid
- oxycodone
DVT prophylaxis
- none, on hospice
Code status: DNR
Diet: regular
Anticipated Discharge: 24 - 48 hours
Subjective/Interval History
-
Date of Service: May 29, 2024
Ms. Martha Sanchez is a 78yoF pmh COPD on 2L O2 on hospice, HTN, HLD, parkinson's, anemia of chronic disease, depression/anxiety, hx thoracic compression fx admitted from [facility] on 05/28. Does not feel SOB at this time. + b/l ear pain
(R>L), drainage, tinnitus, reduced hearing.
Objective Data
-
Vital Signs:
Vital Signs
Temp Pulse Resp BP Pulse Ox
97.5 F 79 16 131/59 95
05/28/24 23:17 05/29/24 07:28 05/29/24 07:28 05/29/24 01:30 05/29/24 07:28
I&O
05/28/24 05/29/24 05/30/24
06:59 06:59 06:59
Intake Total 520 / 520
Balance 520 / 520
Review of Systems
-
History Source: Patient
All other systems: Reviewed and negative
Constitutional: Reports No Symptoms
EENT: Reports Tinnitis and Hearing Loss
Respiratory: Reports No Symptoms
Cardiac: Reports No Symptoms
Abdomen/GI: Reports Constipated; Denies Nausea, Vomiting, Diarrhea or Bloody Stools
Musculoskeletal: Reports Muscle Pain
Skin: Reports No Symptoms
Neuro: Reports No Symptoms
Physical Exam
-
General: Appears Chronically Ill
HEENT: Normocephalic, Atraumatic, Oxygen (on 6L O2 nasal cannula) and Other (unable to locate a functioning otoscope)
Respiratory: Wheezes and Accessory Resp Muscle Use
Cardiac: S1/S2 and Irregular Rhythm
GI: Soft, Nontender, Nondistended and Normal Bowel Sounds
Genito-urinary: No Costovertebral Tender
Musculoskeletal: No Clubbing, No Cyanosis and No Edema
Skin: Warm and Dry; Negative Rash
Neuro: AO x 3
Psych: Calm
--- NOTE | 2024-05-29 08:45 | PTCARENOTE ---
Pt called this RN into room this AM stating she needed to have a BM, pt instructed that she needs to use a bedpan due to being on bedrest and needing evaluation by physical therapy. Pt angered and stating that she 'just saw physical therapy last
week.' This RN reminded pt that she was not in the hospital last week and would need re-evaluation on new onset of symptoms. Pt attempting to get out of bed alone after failed bed beck attempt, this RN assisted pt to the BSC with the assist of RW.
Physical therapy team made aware.
[2024-05-29] MEDS: LOPRESSOR 25 MG PO ×2 (09:06→22:23)
[2024-05-29] MEDS: SINEMET 25-100 2 TABLET PO ×3 (09:07→22:24)
[2024-05-29] MEDS: CARDIZEM 60 MG PO ×3 (09:08→22:25)
[2024-05-29] MEDS: COZAAR 100 MG PO (09:08)
[2024-05-29] MEDS: MIRALAX 17 GRAMS PO (09:08)
[2024-05-29] MEDS: DELTASONE 10 MG PO (09:08)
[2024-05-29] MEDS: DILAUDID 2 MG PO (09:23)
--- NOTE | 2024-05-29 11:56 | CM ---
Reviewed the chart notes and spoke with the patient at the bedside. The patient is admitted under observational status. The [employer] letter was provided and explained. The patient had no questions with regards to the letter.
The patient resides alone in personal care at [facility]. The patient has a rolling walker and home O2, provider unknown. The patient reports having VN in [place] and she has been to [facility] SNF. Patient prior to admission signed on to [facility].
Patient unsure if she wants to continue with hospice. The patient confirmed her pharmacy is [facility]. Patient currently on O2@6L/min. CM continues to be available to patient/family and is monitoring medical plan for needs at
discharge.
Plan: Discharge plans will depend on the patient's progress.
[2024-05-29 13:00] VITALS: BP 139/51; PULSE 68; O2SAT 92
[2024-05-29 13:20] VITALS: BP 139/51; PULSE 68; O2SAT 92
--- NOTE | 2024-05-29 13:31 | HOSPNOTE ---
Spoke with attending and the patient was on home hospice through [facility], the patient revoked hospice and came to the hospital. CM involved and the plan is to see how the patient does over the weekend and make decisions about hospice or treatments. I
will follow up on Saturday. I will include this patient in weekend report and if the patient declines over the weekend please reach out to hospice.
--- NOTE | 2024-05-29 14:26 | W.PN.HOSP.TC ---
Today's Communication/Plan
-
continue current care
needs snf placement for resumption of hospice
Assessment / Plan
Assessment / Plan
1. Ambulatory dysfunction
Fall
-Patient reported to slid down/sat on the floor in the morning when walking to bathroom
-Denies loss of function s/p fall/head injury
-Patient have left lower rib cage pain on exam
-CT chest PE/CT abdomen pelvis did not show any acute abnormality
-Patient on oral Dilaudid 2 mg every 3 hours for severe pain, add oxycodone for moderate pain and IV Dilaudid for breakthrough pain
-Patient already on hospice care and may require further pain medication escalation if needed
2. Advanced COPD
Acute hypoxic resp failure
-02 requirement increased to 5-6L thorough NC today
-Wheezing improved today
-Maintain on nebulizer therapy only for now
-Patient has been transition to hospice care for advanced COPD at [place].
3. Parkinson's disease
-continue on Sinemet
-PT/OT evaluated and appropriate for snf rehab level.
essential hypertension
depression/anxiety
history of thoracic compression fracture
history of endometrial cancer status post hysterectomy
anemia of chronic disease
history of abdominal aortic aneurysm
DVT PPX lovenox
DNR/DNI
Anticipated Discharge: 24 - 48 hours
Subjective/Interval History
-
Date of Service: May 29, 2024
no complains overnight
continues to have wheezing on exam
remains on 6L o2 through NC
Objective Data
-
Vital Signs:
Vital Signs
Temp Pulse Resp BP Pulse Ox
98.2 F 84 20 136/63 95
05/29/24 07:00 05/29/24 14:06 05/29/24 14:06 05/29/24 09:06 05/29/24 14:06
I&O
05/28/24 05/29/24 05/30/24
06:59 06:59 06:59
Intake Total 520 / 520
Balance 520 / 520
Review of Systems
-
Respiratory: Reports Cough and Trouble Breathing
Cardiac: Reports No Symptoms
Abdomen/GI: Reports No Symptoms
Physical Exam
-
General: Comfortable, Appears Chronically Ill and Cachectic
HEENT: Oxygen (6 L NC)
Respiratory: Wheezes and Other (scoliosis)
Cardiac: Regular Rhythm and S1/S2; Negative Murmur or Rub
GI: Soft, Nontender and Nondistended
Musculoskeletal: No Edema
Neuro: Awake, Alert, Oriented, No Motor Deficits and Nonfocal/Grossly Intact
Psych: Calm
[2024-05-29] MEDS: LIDOCAINE 4% PATCH 1 PATCH TOPICAL (14:28)
--- NOTE | 2024-05-29 15:20 | FALL ---
Description of Fall:
Injuries Noted:
Action Taken:
Name of Provider Notified:
[2024-05-29 17:00] VITALS: BP 119/61
[2024-05-29] MEDS: LOVENOX 40 MG SC (17:30)
[2024-05-29] MEDS: TYLENOL 650 MG PO (22:22)
[2024-05-29 23:35] VITALS: BP 127/59
[2024-05-30 06:35] LABS: Hematocrit 29.3 % (37.0-47.0); Mean Corp Hgb Conc. 34.1 g/dL (33.0-37.0); Mean Corpuscular Hgb 30.6 pg (27.0-31.0); Mean Corpuscular Volume 89.6 fL (81.0-99.0); Mean Platelet Volume 10.4 fL (7.4-10.4); Platelet Count 251 10^3/uL (130-400); Red Blood Cell Count 3.27 10^6/uL (4.20-5.40); Red Cell Dist. Width 13.6 % (11.5-14.5); White Blood Cell Count 7.5 10^3/uL (4.8-10.8)
[2024-05-30 07:05] LABS: Blood Urea Nitrogen 61 mg/dl (7-17); Calcium 9.5 mg/dl (8.4-10.2); Carbon Dioxide 22 mmol/L (22-30); Chloride 102 mmol/L (98-107); Estimated Creatinine Clearance 44 ml/min; Glucose 160 mg/dl (70-99); Potassium 5.2 mmol/L (3.5-5.1); Sodium 136 mmol/L (135-145); eGFR > 60.00
[2024-05-30 07:45] VITALS: BP 103/64
[2024-05-30] MEDS: DUONEB 3 ML INH ×4 (07:47→20:17)
[2024-05-30] MEDS: CARDIZEM 60 MG PO ×3 (08:39→21:20)
[2024-05-30] MEDS: MIRALAX 17 GRAMS PO (08:40)
[2024-05-30] MEDS: SINEMET 25-100 2 TABLET PO ×3 (08:40→21:21)
[2024-05-30] MEDS: LOPRESSOR 25 MG PO ×2 (08:40→21:20)
[2024-05-30] MEDS: CLARITIN 10 MG PO (08:40)
[2024-05-30] MEDS: COZAAR 100 MG PO (08:40)
[2024-05-30] MEDS: DELTASONE 10 MG PO (08:40)
[2024-05-30] MEDS: LIDOCAINE 4% PATCH 1 PATCH TOPICAL (08:41)
--- NOTE | 2024-05-30 09:00 | PTCARENOTE ---
During 0800 med pass, this RN placed a new lidocaine patch on patient. Previous patch not removed last evening, patch removed and replaced today.
[2024-05-30] MEDS: TYLENOL 650 MG PO (14:02)
[2024-05-30 15:45] VITALS: BP 122/52
[2024-05-30] MEDS: LOVENOX SC (17:03)
[2024-05-30 21:31] VITALS: BP 120/48
[2024-05-30 23:31] VITALS: BP 124/57
[2024-05-31] MEDS: DUONEB 3 ML INH ×4 (07:24→19:54)
[2024-05-31 07:50] VITALS: BP 141/62
[2024-05-31] MEDS: LOPRESSOR 25 MG PO ×2 (09:25→20:46)
[2024-05-31] MEDS: COZAAR 100 MG PO (09:26)
[2024-05-31] MEDS: SINEMET 25-100 2 TABLET PO ×3 (09:26→21:33)
[2024-05-31] MEDS: CARDIZEM 60 MG PO ×3 (09:26→21:33)
[2024-05-31] MEDS: DELTASONE 10 MG PO (09:26)
[2024-05-31] MEDS: CLARITIN 10 MG PO (09:26)
[2024-05-31] MEDS: LIDOCAINE 4% PATCH 1 PATCH TOPICAL (09:27)
[2024-05-31] MEDS: MIRALAX 17 GRAMS PO (09:27)
[2024-05-31] MEDS: TYLENOL 650 MG PO (10:36)
--- NOTE | 2024-05-31 12:07 | W.PN.HOSP.TC ---
Today's Communication/Plan
-
see note
Assessment / Plan
Assessment / Plan
1. Ambulatory dysfunction
Fall
-Patient reported to slid down/sat on the floor in the morning when walking to bathroom
-Denies loss of function s/p fall/head injury
-Patient have left lower rib cage pain on exam
-CT chest PE/CT abdomen pelvis did not show any acute abnormality
-Patient on oral Dilaudid 2 mg every 3 hours for severe pain, add oxycodone for moderate pain and IV Dilaudid for breakthrough pain
-Patient already on hospice care and may require further pain medication escalation if needed
2. Advanced COPD
Acute hypoxic resp failure
-02 requirement increased to 5-6L thorough NC today, discussed with RN to adjust spo2 90-93% to avoid loss of resp drive.
-Wheezing improved today
-Maintain on nebulizer therapy only for now
-Patient has been transition to hospice care for advanced COPD at [place].
3. Parkinson's disease
-continue on Sinemet
-PT/OT evaluated and appropriate for snf rehab level.
4. Acute TME - resolved
-patient stated today of not remembering coming to ER or seeing me for first 2 days
-mentation clear today
-possible pain medication use related vs mild CO2 narcosis with advanced COPD
5. Left lower rib cage pain
h/o right sided rib fracture
-Tender on palpation and due to hitting side when fall
-as mentioned above, no PE/rib inj
-symptomatic care with lidocaine patch
essential hypertension
depression/anxiety
history of thoracic compression fracture
history of endometrial cancer status post hysterectomy
anemia of chronic disease
history of abdominal aortic aneurysm
DVT PPX lovenox
DNR/DNI
Discussed GOC and informed that patient is not appropriate for independent care level hospice.
Most ideal scenario of patient going to SNF level and signing back up on [facility]. patient worried about the financial aspect of this,.
Discussed with CM and will need to sorted out tomorrow.
Total time spent : 52 mins
Anticipated Discharge: > 48 hours
Subjective/Interval History
-
Date of Service: May 31, 2024
resting comfortably in bed
remains on o2 6L NC
denies dyspnea/sev cough
Objective Data
-
Vital Signs:
Vital Signs
Temp Pulse Resp BP Pulse Ox
98.3 F 59 16 141/62 96
05/31/24 07:50 05/31/24 11:42 05/31/24 11:42 05/31/24 09:26 05/31/24 11:42
I&O
05/30/24 05/31/24 06/01/24
06:59 06:59 06:59
Intake Total 420 / 420 1240 / 1240
Balance 420 / 420 1240 / 1240
Review of Systems
-
Respiratory: Reports Wheezing; Denies Cough or Trouble Breathing
Cardiac: Reports No Symptoms
Abdomen/GI: Reports No Symptoms
Physical Exam
-
General: Comfortable, Appears Chronically Ill and Cachectic
HEENT: Oxygen (6 L NC)
Respiratory: Wheezes and Other (scoliosis)
Cardiac: Regular Rhythm and S1/S2; Negative Murmur or Rub
GI: Soft, Nontender and Nondistended
Musculoskeletal: No Edema
Neuro: Awake, Alert, Oriented, No Motor Deficits and Nonfocal/Grossly Intact
Psych: Calm
[2024-05-31 15:50] VITALS: BP 124/52
--- NOTE | 2024-05-31 16:32 | CM ---
CM reviewed chart. Plan is for CM to f/u on Saturday w/Medical Staff and pt to discuss return to [facility] with resumption of hospice vs restorative treatment options. No bed availability at facility today.
CM/SW will continue to follow to ensure a safe and timely discharge.
[2024-05-31] MEDS: LOVENOX 40 MG SC (17:43)
[2024-05-31 20:44] VITALS: BP 130/48
[2024-05-31 21:32] VITALS: BP 129/54
[2024-05-31 23:28] VITALS: BP 122/54
[2024-06-01] MEDS: DUONEB 3 ML INH ×4 (07:36→19:56)
[2024-06-01] MEDS: LIDOCAINE 4% PATCH 1 PATCH TOPICAL ×2 (07:59→14:13)
[2024-06-01] MEDS: SINEMET 25-100 2 TABLET PO ×3 (08:00→21:08)
[2024-06-01] MEDS: MIRALAX 17 GRAMS PO (08:00)
[2024-06-01] MEDS: LOPRESSOR 25 MG PO ×2 (08:00→21:08)
[2024-06-01] MEDS: CLARITIN 10 MG PO (08:01)
[2024-06-01] MEDS: COZAAR 100 MG PO (08:01)
[2024-06-01] MEDS: DELTASONE 10 MG PO (08:01)
[2024-06-01] MEDS: CARDIZEM 60 MG PO ×3 (08:01→21:08)
[2024-06-01] MEDS: TYLENOL 650 MG PO ×2 (08:11→14:12)
[2024-06-01 08:38] VITALS: BP 153/68
--- NOTE | 2024-06-01 10:13 | W.PN.HOSP.TC ---
Addendum entered and electronically signed by Garrick Chu MD 06/02/24 00:14:
Attending Addendum-
I saw and evaluated the patient. I reviewed the resident�s note and agree with findings and plan as documented in the resident�s note. Sub: 'i wanna figure out what's wrong and get better. I cant do much and am always SOB' Unsure if wants to be on
hospice. Full 12 point ROS reviewed and negative except as documented Exam: Vitals reviewed in chart GEN-mils Resp distress heart RRR lungs decreased at bases abd soft LE no edema
# Ambulatory dysfunction
-Patient reported to slid down/sat on the floor in the morning when walking to bathroom
-Denies loss of function s/p fall/head injury
-Patient have left lower rib cage pain on exam
-CT chest PE/CT abdomen pelvis did not show any acute abnormality
-Patient on oral Dilaudid 2 mg every 3 hours for severe pain, cont oxycodone for moderate pain and IV Dilaudid for breakthrough pain
-Patient has rescinded hospice
- c/s hospice
# PNA
- start rocephin doxy
- cont to monitor
- repeat labs in am
# Advanced COPD/End Stage
Acute hypoxic resp failure
-02 requirement decreased to 2L NC
-Wheezing improved
-Maintain on nebulizer therapy only for now
-was on hospice care for advanced COPD at [facility].
# Parkinson's disease
-continue on Sinemet
-PT/OT evaluated and appropriate for snf rehab level.
#Acute TME - resolved
-mentation clear today
-possible pain medication use related vs mild CO2 narcosis with advanced COPD
# Left lower rib cage pain
h/o right sided rib fracture
-no PE/rib inj
-symptomatic care with lidocaine patch
#essential hypertension
depression/anxiety
history of thoracic compression fracture
history of endometrial cancer status post hysterectomy
anemia of chronic disease
history of abdominal aortic aneurysm
DVT PPX lovenox
DNR/DNI
Discussed GOC with patient unsure if wants to be on hospice attempted to call [facility] with no answer
likely going to SNF level and signing back up on [facility] after
Discussed with CM
Dispo DC to [facility] when able
Time spent coordinating care, review of plan of care with resident, personally reviewed records in EMR, med rec, consults, notes, labs, radiology, d/w nursing and CM� 59 mins
Original Note:
Today's Communication/Plan
-
Pain control
Initiate empiric antibiotics for pneumonia and potential UTI
Discharge planning
Assessment / Plan
Assessment / Plan
Assessment: 78 female past medical history COPD Parkinson's previously on hospice presents to [place] for a mechanical fall at her correction. She did not hit her head or lose consciousness. She was taken off of hospice during her stay and is
considering returning on hospice at discharge.
#Ambulatory dysfunction
#Mechanical fall
Multiple recurrent falls, likely secondary to Parkinson's
Presented due to a mechanical fall while walking to the bathroom
Denies head injury or loss of consciousness
Patient endorses left lower rib cage pain on exam, worse with inspiration
CT chest PE/CT abdomen pelvis did not show any acute abnormality or rib fracture.
#Potential pneumonia
#Potential UTI
CT chest demonstrated opacities which were read as left basilar and interstitial pneumonia
Nursing and patient endorsed frequent urination at night, more than 8 times per night
Ordered urinalysis with reflex culture, pending
Ordered COVID antigen
Patient has not been taking any antibiotics previously, will initiate empiric doxycycline 100 twice daily IV and Rocephin 1000 IV daily
#Advanced COPD
#Acute hypoxic resp failure
O2 requirement decreased from 6 L to 3 L nasal cannula. target SpO2 90-93 to avoid loss respiratory drive
Wheezing improved
Maintain on nebulizer therapy
Patient was previously on hospice at [facility] for advanced COPD, unsure if patient understands her prognosis. As of now patient would NOT like to continue with hospice
#Parkinson's disease
continue on Sinemet
PT/OT evaluated and patient is appropriate for snf rehab level.
# Acute TME
resolved
Patient previously having 2-day episodes of difficulty remembering
mentation clear today
Patient was started on oral Dilaudid 2 mg every 3 and oxy for moderate with IV Dilaudid for breakthrough
Patient had TME previously and was confused, she thinks it is likely due to her pain medications
Patient does not want any further pain medications except for lidocaine and Tylenol
Unsure if due to pain medications or mild CO2 narcosis with advanced COPD
#Left lower rib cage pain
h/o right sided rib fracture
Tender on palpation likely secondary to hitting side on last fall
No injury seen on CAT scan
Likely bruised rib
symptomatic care with lidocaine patch and Tylenol
Patient reports not wanting to take oral narcotic pain medications as they affect her mentation
Ordered second lidocaine patch for patient's back pain
#Goals of care discussion
Extensive goals of care discussion was had with patient and hospitalist team. Patient is fully alert and oriented and is capable of making her own medical decisions. Patient decided that she would like to hold off on hospice for now. She would
like to pursue aggressive treatment and that she 'wants to find out what is wrong' and 'get well again'. For now we will aggressively treat her potential pneumonia and potential UTI with IV antibiotics. Attempted to call her son Marcelo who is her
power of claims attorney however was not able to reach Marcelo through phone. For the time being we will aggressively treat patient. Will reinitiate conversation with patient regarding her prognosis, it is my opinion that she does not fully understand the
prognosis of her advanced COPD. Will continue to have conversations with patient regarding her prognosis and which sort of treatment she will be receiving. Conversation regarding patient's CODE STATUS was had and patient reinforced that she would
like to be DNR/DNI.
DVT PPX lovenox
Diet: Regular
DNR/DNI
Anticipated Discharge: 24 - 48 hours
Subjective/Interval History
-
Date of Service: June 01, 2024
Reports frequent urination overnight x 8
Objective Data
-
Labs:
Laboratory Results
06/01/24
06:00
WBC Pending
Hgb Pending
Hct Pending
Plt Count Pending
Sodium Pending
Potassium Pending
Chloride Pending
Carbon Dioxide Pending
BUN Pending
Creatinine Pending
Glucose Pending
Calcium Pending
Total Bilirubin Pending
AST Pending
ALT Pending
Alkaline Phosphatase Pending
Vital Signs:
Vital Signs
Temp Pulse Resp BP Pulse Ox
98.0 F 75 16 153/68 94
06/01/24 08:38 06/01/24 08:38 06/01/24 08:38 06/01/24 08:38 06/01/24 08:38
I&O
05/31/24 06/01/24 06/02/24
06:59 06:59 06:59
Intake Total 1720 / 1720 1500 / 1500
Balance 1720 / 1720 1500 / 1500
Review of Systems
-
History Source: Patient
Constitutional: Reports No Symptoms
Respiratory: Reports Trouble Breathing and Other (Shortness of breath, pain on inspiration)
Cardiac: Reports No Symptoms
Abdomen/GI: Reports Abdominal Pain (Abdominal pain left upper quadrant, likely related to rib bruising)
Musculoskeletal: Reports Other (Reports rib pain on the left side. Area is consistent with ribs 1112)
Physical Exam
-
General: Appears Chronically Ill
Respiratory: Rales, Rhonchi and Crackles
Cardiac: Regular Rhythm
GI: Soft and Tender (Left upper quadrant tenderness to palpation)
Skin: Warm and Dry
Neuro: Awake, Alert, Oriented and AO x 3
Psych: Calm and Intact Judgement/Insight
Data Reviewed
-
CT Scan: Report Reviewed by me and Discussed with Physician
Labs: Labs Reviewed by me and Discussed with Physician
[2024-06-01 11:00] VITALS: BP 150/56; PULSE 130; O2SAT 98
[2024-06-01 11:15] VITALS: BP 150/56; PULSE 89; O2SAT 100
[2024-06-01 12:04] LABS: % Eosinophils 0.2 % (0-6); % Immature Granulocytes 0.5 % (0-0.5); % Lymphocytes 4.2 % (20.5-51.1); % Monocytes 7.7 % (1.7-9.3); % Neutrophils 87.4 % (42.2-75.2); Absolute Lymphocytes 0.4 10^3/uL (1.2-3.4); Absolute Monocytes 0.7 10^3/uL (0.1-0.6); Absolute Neutrophils 7.6 10^3/uL (1.4-6.5); Hematocrit 36.1 % (37.0-47.0); Hemoglobin 11.5 g/dL (12.0-16.0); Mean Corp Hgb Conc. 31.9 g/dL (33.0-37.0); Mean Corpuscular Hgb 31.5 pg (27.0-31.0); Mean Corpuscular Volume 98.9 fL (81.0-99.0); Mean Platelet Volume 8.9 fL (7.4-10.4); Nucleated Red Blood Cells % 0 %; Platelet Count 315 10^3/uL (130-400); Red Blood Cell Count 3.65 10^6/uL (4.20-5.40); Red Cell Dist. Width 13.7 % (11.5-14.5); White Blood Cell Count 8.7 10^3/uL (4.8-10.8)
[2024-06-01 12:23] LABS: ALT (SGPT) < 10 U/L (0-35); AST (SGOT) 17 U/L (14-36); Albumin 3.8 g/dl (3.5-5.0); Alkaline Phosphatase 58 U/L (38-126); Blood Urea Nitrogen 28 mg/dl (7-17); Calcium 9.9 mg/dl (8.4-10.2); Carbon Dioxide 30 mmol/L (22-30); Chloride 99 mmol/L (98-107); Estimated Creatinine Clearance 57 ml/min; Glucose 101 mg/dl (70-99); Potassium 4.7 mmol/L (3.5-5.1); Sodium 140 mmol/L (135-145); Total Bilirubin 0.3 mg/dl (0.2-1.3); Total Protein 6.2 g/dl (6.3-8.2); eGFR > 60.00
--- NOTE | 2024-06-01 13:21 | HOSPNOTE ---
Spoke with CM, the plan would be for patient to go to rehab at [facility] and then after the rehab stay decide if hospice is still wanted at this time. Prior to this admission patient was on [facility] and revoked. If patient would like to use [facility] at
a later date we would be able to admit the patient. Will continue to follow if the patient's needs change.
--- NOTE | 2024-06-01 14:16 | CM ---
Reviewed the chart notes and spoke with the patient at the bedside. Discuss SNF/rehab. Referral sent to [facility]. CM continues to be available to patient/family and is monitoring medical plan for needs at discharge.
Plan: Discharge to SNF when medically stable and bed found. No precert required.
[2024-06-01 14:38] LABS: COVID-19 Antigen Negative (Negative)
[2024-06-01 16:03] VITALS: BP 145/69
[2024-06-01 16:21] LABS: Urine Albumin Negative (Neg - Trace); Urine Bilirubin Negative (Negative); Urine Character Clear (Clear); Urine Color Yellow; Urine Glucose Negative (Negative); Urine Ketone Negative (Negative); Urine Leukocyte Negative (Negative); Urine Nitrite Negative (Negative); Urine Occult Blood Negative (Negative); Urine Specific Gravity 1.005 (<1.030); Urine Urobilinogen Negative (Neg - 1+)
[2024-06-01] MEDS: LOVENOX 40 MG SC (17:27)
[2024-06-01] MEDS: ROCEPHIN 1000 MG IV (18:25)
[2024-06-01] MEDS: STERILE WATER FOR INJECTION 10 ML IV (18:26)
[2024-06-01] MEDS: VIBRAMYCIN 260 MG IV (18:44)
[2024-06-01 23:21] VITALS: BP 113/44
[2024-06-02] MEDS: VIBRAMYCIN 260 MG IV (06:21)
[2024-06-02 07:22] LABS: % Basophils 0.2 % (0-2); % Immature Granulocytes 0.9 % (0-0.5); % Lymphocytes 15.4 % (20.5-51.1); % Monocytes 10.9 % (1.7-9.3); % Neutrophils 70.6 % (42.2-75.2); Absolute Eosinophils 0.1 10^3/uL (0-0.7); Absolute Immature Granulocytes 0.1 10^3/uL (0-0.05); Absolute Lymphocytes 0.9 10^3/uL (1.2-3.4); Absolute Monocytes 0.6 10^3/uL (0.1-0.6); Hematocrit 33.1 % (37.0-47.0); Hemoglobin 10.7 g/dL (12.0-16.0); Mean Corp Hgb Conc. 32.3 g/dL (33.0-37.0); Mean Corpuscular Hgb 31.6 pg (27.0-31.0); Mean Corpuscular Volume 97.6 fL (81.0-99.0); Mean Platelet Volume 9.1 fL (7.4-10.4); Nucleated Red Blood Cells % 0 %; Platelet Count 300 10^3/uL (130-400); Red Blood Cell Count 3.39 10^6/uL (4.20-5.40); Red Cell Dist. Width 13.7 % (11.5-14.5); White Blood Cell Count 5.6 10^3/uL (4.8-10.8)
[2024-06-02] MEDS: DUONEB 3 ML INH ×4 (07:44→20:05)
[2024-06-02 07:45] VITALS: BP 151/64
[2024-06-02 07:46] LABS: ALT (SGPT) < 10 U/L (0-35); AST (SGOT) 15 U/L (14-36); Albumin 3.4 g/dl (3.5-5.0); Alkaline Phosphatase 59 U/L (38-126); Blood Urea Nitrogen 24 mg/dl (7-17); Calcium 9.2 mg/dl (8.4-10.2); Carbon Dioxide 31 mmol/L (22-30); Chloride 102 mmol/L (98-107); Estimated Creatinine Clearance 50 ml/min; Glucose 69 mg/dl (70-99); Potassium 4.7 mmol/L (3.5-5.1); Sodium 143 mmol/L (135-145); Total Bilirubin 0.2 mg/dl (0.2-1.3); Total Protein 5.7 g/dl (6.3-8.2); eGFR > 60.00
[2024-06-02] MEDS: SINEMET 25-100 2 TABLET PO ×3 (08:38→22:15)
[2024-06-02] MEDS: DELTASONE 10 MG PO (08:38)
[2024-06-02] MEDS: CARDIZEM 60 MG PO ×3 (08:38→22:14)
[2024-06-02] MEDS: CLARITIN 10 MG PO (08:38)
[2024-06-02 08:39] VITALS: BP 151/64
[2024-06-02] MEDS: LOPRESSOR 25 MG PO ×2 (08:39→20:33)
[2024-06-02] MEDS: LIDOCAINE 4% PATCH 1 PATCH TOPICAL ×2 (08:39)
[2024-06-02] MEDS: COZAAR 100 MG PO (08:39)
[2024-06-02] MEDS: MIRALAX 17 GRAMS PO (08:39)
--- NOTE | 2024-06-02 10:59 | PN.CDI ---
CDI
- -
CDI:
Physician Documentation Request
Admit Date: 05/29/24 15:39
Dear Doctor Jose Alfredo,
Patient presented to ED after sliding to ground and calling for assistance. Exam at that time showed accessory muscle use, moderate effort and rapid (occasional tachypnea)
Patient received nebs and Decadron IV.
Patient has advanced COPD/End stage per progress notes.
Please further clarify the patient's COPD status:
COPD exacerbation
COPD - stable chronic disease
Other
Use of terms such as suspected, likely, concern for, or probable (associated with a specific diagnosis that is being evaluated, monitored, or treated as if it exists) are acceptable and can be coded in the inpatient setting, when documented at the
time of discharge.
Thank you,
Chica Lobo RN, BSN
CDI Specialist
tiger text
Please use your independent medical judgment in providing your response.
--- NOTE | 2024-06-02 13:37 | W.PN.HOSP.TC ---
Addendum entered and electronically signed by Garrick Chu MD 06/02/24 22:53:
Attending Addendum-
I saw and evaluated the patient. I reviewed the resident�s note and agree with findings and plan as documented in the resident�s note. Sub: feels improved. 'i dont need that hospice' Full 12 point ROS reviewed and negative except as documented Exam:
Vitals reviewed in chart GEN-NAD heart RRR lungs decreased at bases abd soft LE no edema
# Ambulatory dysfunction
-Patient reported to slid down/sat on the floor in the morning when walking to bathroom
-Patient have left lower rib cage pain on exam
-CT chest PE/CT abdomen pelvis did not show any acute abnormality
-Patient on oral Dilaudid 2 mg every 3 hours for severe pain, cont oxycodone for moderate pain and IV Dilaudid for breakthrough pain
-Patient has rescinded hospice
# PNA
- cont rocephin doxy
- cont to monitor
- repeat labs in am
# Advanced COPD/End Stage
Acute hypoxic resp failure
-02 requirement decreased to 2L NC
-Wheezing improved
-Maintain on nebulizer therapy only for now
-was on hospice care for advanced COPD at [facility].
# Parkinson's disease
-continue on Sinemet
-PT/OT evaluated and appropriate for snf rehab level.
#Acute TME - resolved
-mentation clear today
-possible pain medication use related vs mild CO2 narcosis with advanced COPD
# Left lower rib cage pain
h/o right sided rib fracture
-no PE/rib inj
-symptomatic care with lidocaine patch
#essential hypertension
depression/anxiety
history of thoracic compression fracture
history of endometrial cancer status post hysterectomy
anemia of chronic disease
history of abdominal aortic aneurysm
DVT PPX lovenox
DNR/DNI
DC to SNF level and sign back up on [facility] after if wants to
Dispo DC to [facility] in AM
Time spent coordinating care, review of plan of care with resident, personally reviewed records in EMR, med rec, consults, notes, labs, radiology, d/w nursing and CM� 55 mins
Original Note:
Today's Communication/Plan
-
Continue antibiotics
Pain management
Dispo planning
Assessment / Plan
Assessment / Plan
Assessment: 78 female past medical history COPD Parkinson's previously on hospice presents to [place] for a mechanical fall at her correction. She did not hit her head or lose consciousness. She was taken off of hospice during her stay and is
considering returning on hospice at discharge.
#Ambulatory dysfunction
-Due to mechanical fall. Reports no head injury.
-CT chest, PE/CT abdomen and pelvis unremarkable.
-Left rib cage pain with inspiration noted.
-Patient not willing to take scheduled Dilaudid and oxycodone and prefers Tylenol at this time.
#Acute TME
-Resolved.
-Most likely due to medication vs hypercapnia from advanced COPD.
# Pneumonia�community-acquired.
-Left lower lobe interstitial pneumonia demonstrated on CT chest 05/28/2024.
-Continue Rocephin and Doxy day #2.
# End-stage COPD
-Acute hypoxic respiratory failure due to the above.
-On 2 L O2 NC with improved respiratory symptoms.
-Maintain on nebulized therapy.
-Was on hospice for advanced COPD at [facility], patient does not want to be hospice anymore d/w CM.
#Parkinson's disease
-Continue on Sinemet.
-PT/OT evaluated and patient is appropriate for snf rehab level.
#Left lower rib cage pain
-H/o right sided rib fracture with pain exacerbated by recent fall.
-CT scan with no evidence of rib fracture.
-Continue lidocaine patch and Tylenol as needed.
#Essential hypertension
-Continue Toprol.
#DVT PPx
-Lovenox
CODE STATUS:
DNR/DNI
#Goals of care discussion
Extensive goals of care discussion was had with patient and hospitalist team. Patient is fully alert and oriented and is capable of making her own medical decisions. Patient decided that she would like to hold off on hospice for now. She would
like to pursue aggressive treatment and that she 'wants to find out what is wrong' and 'get well again'. However, patient indicated that she still wants to be DNR/DNI.
Anticipated Discharge: Within 24 hours
Subjective/Interval History
-
Date of Service: June 02, 2024
Patient seen and examined in the room lying comfortably, receiving breathing treatment and in no acute distress. She reports feeling better, and 'wants to get better', she also indicated that she does not want to be on hospice anymore. She reports
having scoliosis and Parkinson's disease which limits her mobility. She also reports left rib pain that is worse on inspiration. She has shortness of breath on exertion at baseline, but denies chest pain, palpitations, fever, chills, abdominal
pain, nausea, vomiting, diarrhea, urinary symptoms.
Objective Data
-
Labs:
Laboratory Results
06/02/24
06:49
WBC 5.6
Hgb 10.7 L
Hct 33.1 L
Plt Count 300
Sodium 143
Potassium 4.7
Chloride 102
Carbon Dioxide 31 H
BUN 24 H
Creatinine 0.8
Glucose 69 L
Calcium 9.2
Total Bilirubin 0.2
AST 15
ALT < 10
Alkaline Phosphatase 59
Vital Signs:
Vital Signs
Temp Pulse Resp BP Pulse Ox
98.1 F 60 16 151/64 98
06/02/24 07:45 06/02/24 11:28 06/02/24 11:28 06/02/24 08:38 06/02/24 11:28
I&O
06/01/24 06/02/24 06/03/24
06:59 06:59 06:59
Intake Total 1500 / 1500 1250 / 1250
Balance 1500 / 1500 1250 / 1250
Review of Systems
-
History Source: Patient
Constitutional: Reports No Symptoms
Respiratory: Reports Trouble Breathing and Other (Shortness of breath, pain on inspiration)
Cardiac: Reports No Symptoms
Abdomen/GI: Reports Abdominal Pain (Abdominal pain left upper quadrant, likely related to rib bruising)
Genitourinary: Reports No Symptoms
Musculoskeletal: Reports Other (Reports rib pain on the left side. Area is consistent with ribs 11-12); Denies Edema
Physical Exam
-
General: Comfortable and Appears Chronically Ill
Respiratory: Rales, Rhonchi and Crackles
Cardiac: Regular Rhythm and S1/S2; Negative Rub
GI: Soft and Tender (Left upper quadrant tenderness to palpation)
Musculoskeletal: No Clubbing, No Cyanosis, No Edema and Other (Left rib cage pain)
Skin: Warm and Dry
Neuro: Awake, Alert, Oriented and AO x 3
Psych: Calm and Intact Judgement/Insight
Data Reviewed
-
CT Scan: Report Reviewed by me and Discussed with Physician
Labs: Labs Reviewed by me and Discussed with Physician
[2024-06-02] MEDS: TYLENOL 650 MG PO (15:40)
[2024-06-02 15:41] VITALS: BP 142/68
--- NOTE | 2024-06-02 15:52 | CM ---
Reviewed the chart notes and spoke with the patient at the bedside. CM continues to be available to patient/family and is monitoring medical plan for needs at discharge.
Plan: Discharge to SNF/rehab (hopefully [facility] will have a bed this week). No precert required.
[2024-06-02] MEDS: LOVENOX 40 MG SC (18:12)
[2024-06-02] MEDS: VIBRAMYCIN 100 MG PO (18:12)
[2024-06-02] MEDS: ROCEPHIN 1000 MG IV (18:13)
[2024-06-02] MEDS: STERILE WATER FOR INJECTION 10 ML IV (18:13)
[2024-06-02 23:23] VITALS: BP 144/62
[2024-06-03] MEDS: TYLENOL 650 MG PO (00:44)
[2024-06-03] MEDS: VIBRAMYCIN 100 MG PO ×2 (05:16→17:21)
[2024-06-03] MEDS: DUONEB 3 ML INH ×4 (07:16→19:32)
[2024-06-03 07:50] VITALS: BP 150/69
[2024-06-03] MEDS: LOPRESSOR 25 MG PO ×2 (08:06→20:45)
[2024-06-03] MEDS: MIRALAX 17 GRAMS PO (08:07)
[2024-06-03] MEDS: DELTASONE 10 MG PO (08:07)
[2024-06-03] MEDS: CLARITIN 10 MG PO (08:07)
[2024-06-03] MEDS: CARDIZEM 60 MG PO ×3 (08:07→20:46)
[2024-06-03] MEDS: COZAAR 100 MG PO (08:07)
[2024-06-03] MEDS: SINEMET 25-100 2 TABLET PO ×3 (08:08→20:46)
[2024-06-03] MEDS: LIDOCAINE 4% PATCH 1 PATCH TOPICAL ×2 (08:08→08:09)
[2024-06-03 09:20] LABS: Hematocrit 31.9 % (37.0-47.0); Hemoglobin 10.1 g/dL (12.0-16.0); Mean Corp Hgb Conc. 31.7 g/dL (33.0-37.0); Mean Corpuscular Hgb 30.9 pg (27.0-31.0); Mean Corpuscular Volume 97.6 fL (81.0-99.0); Platelet Count 330 10^3/uL (130-400); Red Blood Cell Count 3.27 10^6/uL (4.20-5.40); Red Cell Dist. Width 13.8 % (11.5-14.5); White Blood Cell Count 6.9 10^3/uL (4.8-10.8)
--- NOTE | 2024-06-03 10:14 | W.PN.HOSP.TC ---
Addendum entered and electronically signed by Garrick Chu MD 06/03/24 23:57:
Attending Addendum-
I saw and evaluated the patient. I reviewed the resident�s note and agree with findings and plan as documented in the resident�s note. Sub: feels improved. ready to be dc'd. refusing narcs. feels SOB. Full 12 point ROS reviewed and negative except
as documented Exam: Vitals reviewed in chart GEN-NAD heart RRR lungs decreased at bases scattered wheeze abd soft LE no edema
# Ambulatory dysfunction
-Patient have left lower rib cage pain on exam
-CT chest PE/CT abdomen pelvis did not show any acute abnormality
-DC oral Dilaudid 2 mg every 3 hours for severe pain, DC oxycodone for moderate pain and IV Dilaudid for breakthrough pain
-Patient has rescinded hospice
# PNA
- cont rocephin doxy
- cont to monitor
- repeat labs in am
# Advanced COPD/End Stage
Acute hypoxic resp failure
-02 requirement decreased to 2L NC
-Maintain on nebulizer therapy only for now
-was on hospice care for advanced COPD at [facility].
# Parkinson's disease
-continue on Sinemet
-PT/OT evaluated and appropriate for snf rehab level.
#Acute TME - resolved
-mentation clear today
-possible pain medication use related vs mild CO2 narcosis with advanced COPD
# Left lower rib cage pain
h/o right sided rib fracture
-no PE/rib inj
-symptomatic care with lidocaine patch
#essential hypertension
depression/anxiety
history of thoracic compression fracture
history of endometrial cancer status post hysterectomy
anemia of chronic disease
history of abdominal aortic aneurysm
DVT PPX lovenox
DNR/DNI
DC to SNF level and sign back up on [facility] after if wants to
Dispo DC to [facility] in AM
Time spent coordinating care, review of plan of care with resident, personally reviewed records in EMR, med rec, consults, notes, labs, radiology, d/w nursing and CM� 52 mins
Original Note:
Today's Communication/Plan
-
Attempted to discharge patient to acute rehab facility with oral antibiotics
Stat CTA to rule out PE
Continue IV antibiotics
Assessment / Plan
Assessment / Plan
Assessment: 78 female past medical history COPD Parkinson's previously on hospice presents to [place] for a mechanical fall at her group home. She did not hit her head or lose consciousness. She was taken off of hospice during her stay and is
unsure if she should return on hospice at discharge.
#Ambulatory dysfunction
Due to mechanical fall. Reports no head injury.
CT chest, PE/CT abdomen and pelvis unremarkable.
Left rib cage pain with inspiration noted.
Patient not willing to take scheduled Dilaudid and oxycodone and prefers Tylenol with lidocaine patches at this time.
#Acute TME
Resolved.
Most likely due to medication vs hypercapnia from advanced COPD.
Patient is adamant about not wanting any narcotic pain medications as she feels these affect her mentation
# Pneumonia�community-acquired.
Left lower lobe interstitial pneumonia demonstrated on CT chest 05/28/2024.
Continue Rocephin and Doxy day #3.
Will transition patient to oral antibiotic course at discharge
# End-stage COPD
Acute hypoxic respiratory failure due to the above.
On 2 L O2 NC with improved respiratory symptoms.
Maintain on nebulized therapy.
Was on hospice for advanced COPD at [facility], patient does not want to be hospice anymore d/w CM.
#Parkinson's disease
Continue on Sinemet.
PT/OT evaluated and patient is appropriate for snf rehab level.
#Left lower rib cage pain
H/o right sided rib fracture with pain exacerbated by recent fall.
CT scan with no evidence of rib fracture.
Patient continues to endorse pleuritic left-sided rib pain, she says it is now constant in addition to being pleuritic
Stat CTA to rule out PE was ordered
Continue lidocaine patch x 2
As needed Tylenol increased to 1000 mg every 8 hours as needed.
#Essential hypertension
Continue Toprol.
DVT PPx: Lovenox
CODE STATUS: DNR/DNI
#Goals of care discussion
Extensive goals of care discussion was had with patient and hospitalist team. Patient is fully alert and oriented and is capable of making her own medical decisions. Patient decided that she would like to hold off on hospice for now. She would
like to pursue aggressive treatment and that she 'wants to find out what is wrong' and 'get well again'. However, patient indicated that she still wants to be DNR/DNI.
Anticipated Discharge: Today
Subjective/Interval History
-
Date of Service: June 03, 2024
Patient reports increased left rib pain, consistent now unresolved with lidocaine and Tylenol
Patient still adamant about not wanting any oral narcotics as they affect her mentation
Objective Data
-
Labs:
Laboratory Results
06/03/24
09:03
WBC 6.9
Hgb 10.1 L
Hct 31.9 L
Plt Count 330
Sodium Pending
Potassium Pending
Chloride Pending
Carbon Dioxide Pending
BUN Pending
Creatinine Pending
Glucose Pending
Calcium Pending
Vital Signs:
Vital Signs
Temp Pulse Resp BP Pulse Ox
98.2 F 73 16 150/69 100
06/03/24 07:50 06/03/24 08:07 06/03/24 07:50 06/03/24 08:07 06/03/24 07:50
I&O
06/02/24 06/03/24 06/04/24
06:59 06:59 06:59
Intake Total 1250 / 1250 1550 / 1550
Balance 1250 / 1250 1550 / 1550
Review of Systems
-
History Source: Patient
Constitutional: Reports Fatigue
Respiratory: Reports Trouble Breathing and Pleurisy
Cardiac: Reports No Symptoms
Abdomen/GI: Reports No Symptoms
Musculoskeletal: Reports Other (Reports left-sided rib pain, consistent and unrelieved by Tylenol and lidocaine patches)
Physical Exam
-
General: Appears Chronically Ill
Respiratory: Other (Could not auscultate due to poor respiratory effort secondary to pain)
Cardiac: Regular Rhythm and S1/S2
GI: Soft, Nontender, Nondistended and Normal Bowel Sounds
Musculoskeletal: No Edema
Skin: Warm and Dry
Neuro: Awake, Alert, Oriented and AO x 3
Psych: Calm and Intact Judgement/Insight
Data Reviewed
-
CT Scan: Report Reviewed by me and Discussed with Physician
Labs: Labs Reviewed by me and Discussed with Physician
[2024-06-03 10:41] VITALS: BP 138/67
[2024-06-03 11:35] LABS: Blood Urea Nitrogen 31 mg/dl (7-17); Calcium 9.7 mg/dl (8.4-10.2); Carbon Dioxide 27 mmol/L (22-30); Chloride 100 mmol/L (98-107); Estimated Creatinine Clearance 67 ml/min; Glucose 101 mg/dl (70-99); Sodium 139 mmol/L (135-145); eGFR > 60.00
[2024-06-03 14:00] VITALS: BP 138/67; PULSE 68; O2SAT 96
[2024-06-03 15:45] VITALS: BP 118/53
[2024-06-03] MEDS: TYLENOL 1000 MG PO (16:01)
--- NOTE | 2024-06-03 16:03 | CM ---
Reviewed the chart notes and spoke with the patient at the bedside. IMM reviewed. Per [facility], bed available tomorrow after 4pm. Patient informed. CM continues to be available to patient/family and is monitoring medical
plan for needs at discharge.
Plan: Discharge to [facility] tomorrow. No precert required.
[2024-06-03] MEDS: LOVENOX 40 MG SC (17:23)
[2024-06-03] MEDS: STERILE WATER FOR INJECTION 10 ML IV (18:25)
[2024-06-03] MEDS: ROCEPHIN 1000 MG IV (18:27)
[2024-06-03 23:27] VITALS: BP 142/62
[2024-06-04] MEDS: VIBRAMYCIN 100 MG PO (05:17)
[2024-06-04] MEDS: DUONEB 3 ML INH ×4 (06:06→16:02)
[2024-06-04 06:56] LABS: Hemoglobin 9.9 g/dL (12.0-16.0); Mean Corp Hgb Conc. 31.9 g/dL (33.0-37.0); Mean Corpuscular Hgb 31.1 pg (27.0-31.0); Mean Corpuscular Volume 97.5 fL (81.0-99.0); Mean Platelet Volume 9.2 fL (7.4-10.4); Platelet Count 338 10^3/uL (130-400); Red Blood Cell Count 3.18 10^6/uL (4.20-5.40); Red Cell Dist. Width 13.8 % (11.5-14.5); White Blood Cell Count 6.5 10^3/uL (4.8-10.8)
[2024-06-04 07:36] LABS: Blood Urea Nitrogen 34 mg/dl (7-17); Calcium 9.2 mg/dl (8.4-10.2); Carbon Dioxide 32 mmol/L (22-30); Chloride 101 mmol/L (98-107); Estimated Creatinine Clearance 57 ml/min; Glucose 84 mg/dl (70-99); Potassium 4.6 mmol/L (3.5-5.1); Sodium 140 mmol/L (135-145); eGFR > 60.00
[2024-06-04 07:45] VITALS: BP 140/64
[2024-06-04] MEDS: LOPRESSOR 25 MG PO (08:03)
[2024-06-04] MEDS: SINEMET 25-100 2 TABLET PO ×2 (08:03→16:08)
[2024-06-04] MEDS: COZAAR 100 MG PO (08:03)
[2024-06-04] MEDS: CLARITIN 10 MG PO (08:03)
[2024-06-04] MEDS: DELTASONE 10 MG PO (08:04)
[2024-06-04] MEDS: CARDIZEM 60 MG PO ×2 (08:04→16:08)
[2024-06-04] MEDS: TYLENOL 1000 MG PO ×2 (08:04→16:08)
[2024-06-04] MEDS: LIDOCAINE 4% PATCH 1 PATCH TOPICAL ×2 (08:04)
[2024-06-04] MEDS: MIRALAX 17 GRAMS PO (08:05)
--- NOTE | 2024-06-04 09:40 | W.DCSUMMARY ---
Addendum entered and electronically signed by Garrick Chu MD 06/05/24 01:05:
Read, reviewed, and agree. See same day progress note for additional details. patient rescinded hospice. refusing benzos and narcs. DC to [facility].
Christiano Chu MD
Original Note:
Documented by User: Donovan Veliz DO, Resident 06/04/24 17:02
Discharge Summary
Discharge Data
Date of Admission: 05/29/24
Date of Discharge: 06/04/24
-
Pending Results: No
Hospital Course
ischarging Physician : Vlad Veliz
Disposition : [facility] facility
Primary care physician : Dr. Johan Motley
Principal Discharge diagnosis : Ambulatory dysfunction
Chronic Discharge diagnosis : Chronic obstructive pulmonary disease�end-stage, Parkinson's disease, community-acquired pneumonia, urinary tract infection, acute toxic metabolic encephalopathy, left lower rib cage pain, essential hypertension
Hospital Course : 78-year-old female with a past medical history of advanced COPD, Parkinson's, multiple falls, hypertension, depression anxiety, thoracic compression fracture, anemia of chronic disease, endometrial cancer status post hysterectomy
presented from [facility] after she had a mechanical fall. She states that as she was walking to the bathroom she became weak and lost strength and had to sit down. Eventually was transferred to the ER. Patient did not hit her head or
lose consciousness. In the ER patient was complaining of left-sided rib pain. Patient was taken for a CTA which showed no pulmonary embolism and CT abdomen pelvis which did not demonstrate any rib fractures. Patient was started on nebulizers
supplemental oxygen and admitted. Patient was also recently started on hospice for end-stage COPD at [facility]. Throughout her stay conversation was had with patient regarding if she should return on hospice or not, eventually patient decided that
she would not return on hospice that she wanted to get better and figure out what was going on. Patient was completely alert and oriented and had full decision-making capacity at this time. Attempted to get in contact with her son Marcelo, her POA,
multiple times, he never answered the phone. During her stay patient had an acute episode of delirium/toxic metabolic encephalopathy. Etiology was unknown could be secondary to CO2 car narcosis or from narcotic pain medication she had been
receiving for pain. Delirium resolved and patient was adamant about not wanting any opioid or strong pain medications as she feels they were responsible for affecting her mentation, which she believes is important and does not want to be altered.
After patient made decision to take no longer pursue hospice at this time, CT scans were reevaluated and it was seen that she had a read of potential pneumonia. She also had frequent urination at night. Therefore she was empirically started on
antibiotics for pneumonia and possible UTI. Patient received 4 days total of doxycycline and Rocephin in the hospital. She will be discharged to [facility] with a 4-day course of oral cefpodoxime mean 200 twice daily and doxycycline 100 twice daily
which were total 8 days of antibiotic treatment. Patient will also be discharged with lidocaine patches and Tylenol 1000mg 3 times daily for pain. [facility] and she currently remains off hospice.
Conversation to be had about reinitiating hospice will be had at shelter facility in the future. Patient will also receive physical therapy at her shelter facility.
Important imaging findings :
05/28/2024 abdomen/pelvis CT without IV or oral contrast, impression:
1). Left basilar pneumonia.
2). 4.1 cm abdominal aortic aneurysm.
3). Large volume of feces throughout the colon and rectum suggesting possible constipation
4). Lumbar levoscoliosis with multilevel lumbar degenerative disc disease.
5). Cholecystectomy
05/28/2024 chest CTA, impression:
There is no pulmonary embolism
There is interstitial parenchymal airspace disease at the left lung base, new compared with the prior study suggesting interstitial pneumonia
06/03/2024 chest CTA, impression:
Procedure findings :
No procedures
Discharge Plan
-
Patient Disposition: [facility]/SNF
Discharge Diagnosis/Procedures: Pneumonia, advanced chronic obstructive pulmonary disease, Parkinson's disease, acute toxic metabolic encephalopathy, left lower rib pain, essential hypertension
Condition: Fair
Diet: Regular
Activity: With assistance, As tolerated and No strenuous activity
Driving Restrictions: As prior to admission
Bathing Restrictions: None
Other Services: PT and OT
Activity Restrictions/Additional Instructions:
Please follow-up with your primary care physician Dr. Motley within 1 week of discharge
Referrals:
Johan Motley MD [Family Provider] - in less than 1 week
Additional Discharge Medication Instructions: Please take cefpodoxime 200 mg by mouth every 12 hours for a total of 4 days
Please take doxycycline 100 mg by mouth every 12 hours for a total of 4 days
Please continue using lidocaine 4% adhesive patch to both your back and your left rib for pain
Please continue taking acetaminophen 1000 mg by mouth every 8 hours for pain
Prescriptions:
New
acetaminophen [Tylenol Extra Strength] 500 mg Tablet
1,000 mg PO Q8HPRN PRN (Reason: mild pain) Qty: 30 0RF
lidocaine 4 % Adhesive Patch,Medicated
1 patch topical DAILY Qty: 15 0RF
Rx Instructions:
For use on back, no more than 12 hours a day
lidocaine 4 % Adhesive Patch,Medicated
1 patch topical DAILY Qty: 15 0RF
Rx Instructions:
For use on left rib, for no more than 12 hours a day
doxycycline hyclate 100 mg Capsule
100 mg PO Q12H Qty: 8 0RF
cefpodoxime 200 mg tablet
200 mg PO Q12H Qty: 8 0RF
Continued
ferrous sulfate 325 mg (65 mg iron) Tablet
325 mg PO DAILY Qty: 0 0RF
losartan 100 mg Tablet
100 mg PO DAILY Qty: 0 0RF
diltiazem HCl 60 mg Tablet
60 mg PO TID Qty: 0 0RF
metoprolol tartrate 25 mg Tablet
25 mg PO BID Qty: 0 0RF
cholecalciferol (vitamin D3) 25 mcg (1,000 unit) Tablet
25 mcg PO DAILY Qty: 0 0RF
magnesium oxide 400 mg magnesium Tablet
400 mg PO BID Qty: 0 0RF
fexofenadine 180 mg Tablet
180 mg PO DAILY
prednisone 10 mg Tablet
10 mg PO DAILY
hyoscyamine sulfate [Levsin] 0.125 mg Tablet
0.125 mg PO Q4HPRN PRN (Reason: increase secretions)
magnesium hydroxide 2,400 mg/10 mL Suspension
2,400 mg PO HSPRN PRN (Reason: if no bm on 2nd day)
acetaminophen 650 mg Suppository
650 mg MI Q6HPRN PRN (Reason: fever, mild pain)
lidocaine 4 % Cream
1 applic TOPICAL TID
lorazepam 0.5 mg Tablet
0.5 mg PO Q6HPRN PRN (Reason: anxiety)
bisacodyl [Dulcolax (bisacodyl)] 10 mg Suppository
10 mg MI DAILYPRN PRN (Reason: constipation)
budesonide 0.5 mg/2 mL Suspension For Nebulization
0.5 mg INHALATION R BID
sodium chloride 0.65 % Aerosol,Heber
1 spray INTRANASAL Q4HPRN PRN (Reason: nasal dryness)
ipratropium-albuterol 0.5 mg-3 mg(2.5 mg base)/3 mL solution for nebulization
3 ml INHALATION R QID
carbidopa-levodopa 25-100 mg tablet
2 tab PO TID
Discontinued
hydromorphone [Dilaudid] 2 mg Tablet
2 mg PO Q3HPRN PRN (Reason: severe pain)
acetaminophen 325 mg tablet
650 mg PO Q6HPRN PRN (Reason: mild pain)
Discharge Orders:
Discharge Patient (As Directed); Ordered 06/04/24
Ordered By: Donovan Veliz
Discharge Date and Time
Discharge Date/Time: 06/04/24 18:08
Print Language: CAMEROONIAN

Documented by User: Garrick Chu MD 06/05/24 00:59
Discharge Summary
Discharge Data
Date of Admission: 05/29/24
Date of Discharge: 06/05/24
Discharge Plan
-
Patient Disposition: [facility]/SNF
Discharge Diagnosis/Procedures: Pneumonia, advanced chronic obstructive pulmonary disease, Parkinson's disease, acute toxic metabolic encephalopathy, left lower rib pain, essential hypertension
Condition: Fair
Diet: Regular
Activity: With assistance, As tolerated and No strenuous activity
Driving Restrictions: As prior to admission
Bathing Restrictions: None
Other Services: PT and OT
Activity Restrictions/Additional Instructions:
Please follow-up with your primary care physician Dr. Motley within 1 week of discharge
Referrals:
Johan Motley MD [Family Provider] - in less than 1 week
Additional Discharge Medication Instructions: Please take cefpodoxime 200 mg by mouth every 12 hours for a total of 4 days
Please take doxycycline 100 mg by mouth every 12 hours for a total of 4 days
Please continue using lidocaine 4% adhesive patch to both your back and your left rib for pain
Please continue taking acetaminophen 1000 mg by mouth every 8 hours for pain
Prescriptions:
New
acetaminophen [Tylenol Extra Strength] 500 mg Tablet
1,000 mg PO Q8HPRN PRN (Reason: mild pain) Qty: 30 0RF
lidocaine 4 % Adhesive Patch,Medicated
1 patch topical DAILY Qty: 15 0RF
Rx Instructions:
For use on back, no more than 12 hours a day
lidocaine 4 % Adhesive Patch,Medicated
1 patch topical DAILY Qty: 15 0RF
Rx Instructions:
For use on left rib, for no more than 12 hours a day
doxycycline hyclate 100 mg Capsule
100 mg PO Q12H Qty: 8 0RF
cefpodoxime 200 mg tablet
200 mg PO Q12H Qty: 8 0RF
Continued
ferrous sulfate 325 mg (65 mg iron) Tablet
325 mg PO DAILY Qty: 0 0RF
losartan 100 mg Tablet
100 mg PO DAILY Qty: 0 0RF
diltiazem HCl 60 mg Tablet
60 mg PO TID Qty: 0 0RF
metoprolol tartrate 25 mg Tablet
25 mg PO BID Qty: 0 0RF
cholecalciferol (vitamin D3) 25 mcg (1,000 unit) Tablet
25 mcg PO DAILY Qty: 0 0RF
magnesium oxide 400 mg magnesium Tablet
400 mg PO BID Qty: 0 0RF
fexofenadine 180 mg Tablet
180 mg PO DAILY
prednisone 10 mg Tablet
10 mg PO DAILY
hyoscyamine sulfate [Levsin] 0.125 mg Tablet
0.125 mg PO Q4HPRN PRN (Reason: increase secretions)
magnesium hydroxide 2,400 mg/10 mL Suspension
2,400 mg PO HSPRN PRN (Reason: if no bm on 2nd day)
acetaminophen 650 mg Suppository
650 mg MI Q6HPRN PRN (Reason: fever, mild pain)
lidocaine 4 % Cream
1 applic TOPICAL TID
lorazepam 0.5 mg Tablet
0.5 mg PO Q6HPRN PRN (Reason: anxiety)
bisacodyl [Dulcolax (bisacodyl)] 10 mg Suppository
10 mg MI DAILYPRN PRN (Reason: constipation)
budesonide 0.5 mg/2 mL Suspension For Nebulization
0.5 mg INHALATION R BID
sodium chloride 0.65 % Aerosol,Heber
1 spray INTRANASAL Q4HPRN PRN (Reason: nasal dryness)
ipratropium-albuterol 0.5 mg-3 mg(2.5 mg base)/3 mL solution for nebulization
3 ml INHALATION R QID
carbidopa-levodopa 25-100 mg tablet
2 tab PO TID
Discontinued
hydromorphone [Dilaudid] 2 mg Tablet
2 mg PO Q3HPRN PRN (Reason: severe pain)
acetaminophen 325 mg tablet
650 mg PO Q6HPRN PRN (Reason: mild pain)
Discharge Orders:
Discharge Patient (As Directed); Ordered 06/04/24
Ordered By: Donovan Veliz
Discharge Date and Time
Discharge Date/Time: 06/04/24 18:08
Print Language: CAMEROONIAN
--- NOTE | 2024-06-04 09:41 | W.PN.HOSP.TC ---
Addendum entered and electronically signed by Garrick Chu MD 06/05/24 01:03:
Attending Addendum-
I saw and evaluated the patient. I reviewed the resident�s note and agree with findings and plan as documented in the resident�s note. Sub: feels improved. 'im ready to go to rehab to get stronger' refusing narcs and benzos 'makes me confused'. Full
12 point ROS reviewed and negative except as documented Exam: Vitals reviewed in chart GEN-NAD heart RRR lungs decreased at bases CTA abd soft LE no edema
# Ambulatory dysfunction
- fall precautions
- PT OT-rehab
- Patient has rescinded hospice
# PNA
- to complete PO abx on dc
# Advanced COPD/End Stage
Acute hypoxic resp failure
-02 requirement decreased to 2L NC
-Maintain on nebulizer therapy only for now
-was on hospice care for advanced COPD at [place].
# Parkinson's disease
-continue on Sinemet
#Acute TME - resolved
-mentation clear
# Left lower rib cage pain
h/o right sided rib fracture
-no PE/rib inj
-symptomatic care with lidocaine patch
#essential hypertension
depression/anxiety
history of thoracic compression fracture
history of endometrial cancer status post hysterectomy
anemia of chronic disease
history of abdominal aortic aneurysm
DVT PPX lovenox
DNR/DNI
DC to SNF level and sign back up on [facility] after if wants to
Dispo DC to [facility]
Time spent coordinating care, DC planning, review of DC plan of care with resident, transition of care, review of records, med rec/scripts sent electronically, consults, notes, d/w consultants, nursing, family, and CM� 36 mins
Original Note:
Today's Communication/Plan
-
Discharged to [facility] at 4 PM
Will send patient home with 4-day course of oral antibiotics
Assessment / Plan
Assessment / Plan
Assessment: 78 female past medical history COPD Parkinson's previously on hospice presents to [facility] for a mechanical fall at her snf. She did not hit her head or lose consciousness. She was taken off of hospice during her stay and is
unsure if she should return on hospice at discharge.
#Ambulatory dysfunction
Due to mechanical fall. Reports no head injury.
CT chest, PE/CT abdomen and pelvis unremarkable.
Left rib cage pain with inspiration noted.
Patient not willing to take scheduled Dilaudid and oxycodone and prefers Tylenol with lidocaine patches at this time.
Has continue working with PT OT, they recommend skilled rehab and states she is progressing well towards her goals.
#Acute TME
Resolved.
Most likely due to medication vs hypercapnia from advanced COPD.
Patient is adamant about not wanting any narcotic pain medications as she feels these affect her mentation
# Pneumonia�community-acquired.
Left lower lobe interstitial pneumonia demonstrated on CT chest 05/28/2024.
Continue Rocephin and Doxy day #4
Will transition patient to oral antibiotic course at discharge
# End-stage COPD
Acute hypoxic respiratory failure due to the above.
On 2 L O2 NC with improved respiratory symptoms.
Maintain on nebulized therapy.
Was on hospice for advanced COPD at [place], patient does not want to be hospice anymore d/w CM.
#Parkinson's disease
Continue on Sinemet.
PT/OT evaluated and patient is appropriate for snf rehab level.
#Left lower rib cage pain
H/o right sided rib fracture with pain exacerbated by recent fall.
Etiology likely bruised rib secondary to traumatic fall
CT scan with no evidence of rib fracture.
Patient had a previous CTA PE study which ruled out any acute pulmonary embolism
Curb sided radiology to request read for any left-sided rib fractures
No left-sided rib fracture seen on previous CT scans
Continue lidocaine patch x 2
As needed Tylenol increased to 1000 mg every 8 hours as needed.
Continue to hold opioid medications due to mentation issues
#Essential hypertension
Continue Toprol.
DVT PPx: Lovenox
CODE STATUS: DNR/DNI
#Goals of care discussion
Extensive goals of care discussion was had with patient and hospitalist team. Patient is fully alert and oriented and is capable of making her own medical decisions. Patient decided that she would like to hold off on hospice for now. She would
like to pursue aggressive treatment and that she 'wants to find out what is wrong' and 'get well again'. However, patient indicated that she still wants to be DNR/DNI. Patient will return to [facility] and remain off of
hospice at this time.
Anticipated Discharge: Today
Subjective/Interval History
-
Date of Service: June 04, 2024
Patient had episode of shortness of breath that resolved with breathing treatments this morning
Still endorses pleuritic left-sided chest pain, still does not want opioids
Objective Data
-
Labs:
Laboratory Results
06/04/24
05:04
WBC 6.5
Hgb 9.9 L
Hct 31.0 L
Plt Count 338
Sodium 140
Potassium 4.6
Chloride 101
Carbon Dioxide 32 H
BUN 34 H
Creatinine 0.7
Glucose 84
Calcium 9.2
Vital Signs:
Vital Signs
Temp Pulse Resp BP Pulse Ox
97.7 F 87 16 140/64 98
06/04/24 07:45 06/04/24 08:03 06/04/24 07:45 06/04/24 08:03 06/04/24 07:45
I&O
06/03/24 06/04/24 06/05/24
06:59 06:59 06:59
Intake Total 1550 / 1550 120 / 120
Output Total 500 / 500
Balance 1550 / 1550 -380 / -380
Review of Systems
-
History Source: Patient
Constitutional: Reports No Symptoms
Respiratory: Reports Trouble Breathing, Pleurisy and Other (Shortness of breath)
Cardiac: Reports No Symptoms
Abdomen/GI: Reports No Symptoms
Musculoskeletal: Reports Other (Left-sided rib pain, worse with inspiration)
Physical Exam
-
General: Appears Chronically Ill
Respiratory: Other (Unable to auscultate due to poor respiratory effort secondary to pain)
Cardiac: Regular Rhythm and S1/S2
GI: Soft, Nontender, Nondistended and Normal Bowel Sounds
Musculoskeletal: No Edema
Skin: Warm and Dry
Neuro: Awake, Alert, Oriented and AO x 3
Psych: Calm and Intact Judgement/Insight
Data Reviewed
-
Labs: Labs Reviewed by me and Discussed with Physician
--- NOTE | 2024-06-04 11:14 | CM ---
Addendum entered by Aylin Sahu RN 06/04/24 11:26:
Correction:

Original Note:
Reviewed the chart notes. Patient for discharge to [facility] today. CM continues to be available to patient/family and is monitoring medical plan for needs at discharge.
Plan: Discharge to [facility].
Call report to: [phone]
Fax report to: [phone]
Medical and transport forms on the chart.
[2024-06-04 15:55] VITALS: BP 127/66
== END 2024-06-04 18:08 | DRG 193 ==
LOC: 2 NORTH 15:39
PROVIDERS: Emergency Medicine; Student in an Organized Health Care Education/Training Program; ADMITTING PHYSICIAN Hospitalist; ATTENDING PHYSICIAN Family Medicine; EMERGENCY PHYSICIAN Emergency Medicine; FAMILY PHYSICIAN Family Medicine
DX: J18.9 Pneumonia, unspecified organism (principal); G92.8 Other toxic encephalopathy; J96.01 Acute respiratory failure with hypoxia; J44.0 Chronic obstructive pulmonary disease with (acute) lower respiratory infection; F11.20 Opioid dependence, uncomplicated; M48.54XA Collapsed vertebra, not elsewhere classified, thoracic region, initial encounter for fracture; N39.0 Urinary tract infection, site not specified; D63.8 Anemia in other chronic diseases classified elsewhere; Z66 Do not resuscitate; G20.A1 Parkinson's disease without dyskinesia, without mention of fluctuations; I10 Essential (primary) hypertension; F32.A Depression, unspecified; I71.40 Abdominal aortic aneurysm, without rupture, unspecified; Z99.81 Dependence on supplemental oxygen; K59.00 Constipation, unspecified; M41.9 Scoliosis, unspecified; M51.369 Other intervertebral disc degeneration, lumbar region without mention of lumbar back pain or lower extremity pain; F41.9 Anxiety disorder, unspecified; G89.29 Other chronic pain; M54.50 Low back pain, unspecified; R07.81 Pleurodynia; R29.6 Repeated falls; Z91.81 History of falling; W19.XXXA Unspecified fall, initial encounter; R53.81 Other malaise; Z79.51 Long term (current) use of inhaled steroids; Z79.899 Other long term (current) drug therapy; Z90.49 Acquired absence of other specified parts of digestive tract; Z85.42 Personal history of malignant neoplasm of other parts of uterus; Z87.891 Personal history of nicotine dependence; Z90.710 Acquired absence of both cervix and uterus; Z87.81 Personal history of (healed) traumatic fracture
CPT/HCPCS: 71275; 74176; 80048; 80053; 81003; 82805; 83880; 84484; 85025; 85027; 87070; 87502; 87811; 94640; 96374; 96375; 97110; 97163; 97167; 97530; 97535; 99285; Q9967

== ENCOUNTER 2024-06-05 04:37 | Observation (INO) | payer MEDICARE, SELFPAY ==
[2024-06-05] VITALS (10 sets, daily range): BP systolic 109–181; BP diastolic 43–141; BMI 22.8; BMI 22.7
--- NOTE | 2024-06-05 01:50 | ED.GENMED ---
History of Present Illness
General
Chief Complaint: Breathing Problem
Source: patient
Exam Limitations: none
Time Seen by Provider: 06/05/24 01:37
History of Present Illness
History of Present Illness:
This is a 78 year old female that is brought in by ambulance with c/o SOB and chest pain. Patient states that she as just discharge yesterday. Patient went to [facility] for rehab. States that she got into bed around 7:30pm and she was shaking
all over and this was worse then her Parkinson's tremors. States that she tried to go to sleep but was unable. States that the left sided chest pain that is under her breast felt worse and she was SOB. States that she took the antibiotic that she
was given and it mad her stomach upset. Denies any fever, chills, abd pain, nausea, vomiting, diarrhea, headache, dizziness, urinary burning
Past History
Past History
ED Past Medical History: Cancer (Endometrial Cancer), COPD, HTN and Other (Parkinson's, Home oxygen at 2 liters, abd aneurysm. Rib fractures, )
ED Past Surgical History: Cholecystectomy and Gynecological (Hysterectomy)
Social History
Tobacco: Former smoker
Alcohol: None
Personal:
Living: half-way
Family History
Family History: Asthma and Other (non applicable )
Review of Systems
Review of Systems
All Other Systems: ROS reviewed and negative except as documented in HPI and ROS
Constitutional: Reports no symptoms; Denies fever or chills
EENT: Reports no symptoms
Respiratory: Reports trouble breathing; Denies cough
Cardiac: Reports chest pain
ABD/GI: Reports no symptoms; Denies abdominal pain, nausea, vomiting or diarrhea
: Reports no symptoms; Denies dysuria, frequency or urgency
Musculoskeletal: Reports no symptoms
Skin: Reports no symptoms
Neurological: Reports no symptoms; Denies dizzy or headache
Psychiatric: Reports no symptoms
Phy Exam
General Physical Exam
General Presentation: mild distress
General age: appears stated age
General Skin: warm and dry
General Habitus: elderly
General Mental: alert
General Hydration: appears well hydrated
ENT Exam
ENT Exam: TM's normal, pharynx normal and neck supple
Eye Exam
Eye Exam: EOMI
Cardiovascular Exam
Cardiovascular Exam: regular rate/rhythm, no edema and normal peripheral pulses
Pulmonary Exam
Pulmonary Exam: no rhonchi, no cough, decreased breath sounds and other (Faint exp wheezing throughout, with rales at left base)
Gastrointestinal Exam
Gastrointestinal Exam: normal bowel sounds, non tender, soft, no organomegaly, no pulsatile mass and non distended
Musculoskeletal Exam
Musculoskeletal Exam: full ROM, no edema and other (Patient tremulous)
Skin Exam
Skin Exam: normal color, warm/dry, no rash and no petechia
Psychiatric Exam
Psychiatric Exam: normal mood/affect
Scores
Heart Failure Risk
Heart Failure Risk Score: Yes
History of Stroke or TIA: No
History of intubation for respiratory distress: No
Heart rate on ED arrival >/= 110: No
SaO2 <90% on arrival on room air: No
HR >/=110 during 3min walk test (or too ill to perform test): Yes
ECG has acute ischemic changes: No
Urea >/=12mmol/L (BUN 33.6mg/dL): Yes
Serum CO2>/=35mmol/L: No
Troponin I or T elevated to VA Level (0.4mg/dL): No
NT-proBNP >/=5,000ng/L (5,000pg/ml): No
HF Risk Score: 3
Admission Status: HIGH RISK 15.9% Consider SNF treatment or admission to hospital
Sepsis
Sepsis Screening
Sepsis Assessment: Sepsis Ruled Out
Sepsis Screen
Sepsis Screen: Sepsis Ruled Out
Date: 06/06/24
Time: 03:11
Course
Orders/Labs/Results
Orders:
Orders
06/05/24 01:38
EKG [Electrocardiogram (*1)] Urgent
Reason for Study: Shortness of Breath
06/05/24 01:39
EKG- Treatment ONCE
06/05/24 01:47
Ipratropium/Albuterol Sulfate [Duoneb] 3 ml INH R NOW ONE
06/05/24 01:48
Ipratropium/Albuterol Sulfate [Duoneb] 3 ml .ROUTE .STK-MED ONE
06/05/24 01:52
Pantoprazole [Protonix IV] 40 mg IV NOW STA
06/05/24 02:07
Lorazepam [Ativan] 0.25 mg IV NOW STA
06/05/24 02:13
Complete Blood Count/With Diff Urgent
Comprehensive Metabolic Panel Urgent
NT-proBNP Urgent
Comment: ADD ON
Procalcitonin Urgent
PCT Algorithmm Indication: Respiratory
Troponin I Urgent
Blood Culture Urgent
TOBY Source: Blood/Venous
Specimen Description:
Comment: 2 sets 30 min apart
06/05/24 02:21
CR Chest Portable - 1 View Urgent
Comment: Recent history of PNA
Reason For Exam: SOB , chest pain
Reason Study Needs to be Portable: Unable to Transport
06/05/24 02:40
Furosemide [Lasix] 20 mg IV NOW STA
06/05/24 04:00
Flush (0.9% Sodium Chloride) [Flush (Nss)] See Dose Instructions IV PER PROTOCOL
06/05/24 04:01
Acetaminophen [Tylenol] 1,000 mg PO Q8HPRN PRN
Bisacodyl [Dulcolax] 10 mg RECTAL DAILYPRN PRN
Hyoscyamine Sulfate [Levsin] 0.125 mg PO Q4HPRN PRN
Lorazepam [Ativan] 0.5 mg PO Q6HPRN PRN
Saline Mist 1 drops NASAL Q4HPRN PRN
06/05/24 04:05
Admit/Transfer Patient As Directed
Co-Sign Provider:
Level of Care: Observation services
Assign to:: Medical/Surgical
Physician / Group: Hospitalist
Diagnosis: Atypical Chest Pain
PRN Pain Medication Management As Directed
May give lesser potent ordered pain med per pt: Yes
preference::
Protocol:: Medication orders for pain may be administered in a
manner that supports deferring to patient preference
when the pt is:
- Requesting an ordered lesser potent pain medication.
Least to most potent pain medications are defined
as: acetaminophen < NSAID < tramadol < opioids
(morphine, oxycodone, hydromorphone).
- Requesting a lesser dose of the same medication IF
ORDERED.
- Requesting a less intrusive route of administration
if both routes are prescribed by the provider (PO <
IV).
06/05/24 04:06
Code Status As Directed
Resuscitation Status: Limited DNR
Limited DNR: -No CPR
06/05/24 05:34
Urinalysis Reflex To Culture Urgent
Date Specimen was Collected: 06/05/24
Time Specimen was Collected: 05:27
06/05/24 05:41
Bisacodyl [Dulcolax] 10 mg RECTAL [id number] PRN
Docusate W/Senna [Senokot-S] 1 tablet PO BIDPRN PRN
Ipratropium/Albuterol Sulfate [Duoneb] 3 ml INH R Q4HPRN PRN
Ondansetron Injectable [Zofran] 4 mg IV Q6HPRN PRN
Polyethylene Glycol Powder [Miralax] 17 grams PO DAILYPRN PRN
06/05/24 05:41
Activity As Directed
Activity Level: With Assistance
Vital Signs As Directed
Frequency: Per unit guidelines
DX Deep Vein Thrombosis Video Routine
06/05/24 Breakfast
Regular
At Your Request: Full Participation
CefTRIAXone [Rocephin] 1,000 mg IV Q24H
06/05/24 08:00
Budesonide [Pulmicort] 0.5 mg INH R BID
Carbidopa/Levodopa [Sinemet 25-100] 2 tablet PO TID
Cefdinir [Omnicef] 300 mg PO Q12
Cholecalciferol (Vitamin D3) [VITAMIN D3 (cholecalciferol)] 25 mcg PO DAILY
Diltiazem [Cardizem] 60 mg PO TID
Doxycycline [Vibramycin] 100 mg PO Q12
Ferrous Sulfate [Feosol] 325 mg PO DAILY
Ipratropium/Albuterol Sulfate [Duoneb] 3 ml INH R QID
Lidocaine 4% Cream [Lmx 4] 1 applic TOPICAL TID
Loratadine [Claritin] 10 mg PO DAILY
Losartan [Cozaar] 100 mg PO DAILY
Magnesium Oxide 500 mg PO BID
Metoprolol [Lopressor] 25 mg PO BID
Prednisone [Deltasone] 10 mg PO DAILY
06/05/24 18:00
Enoxaparin Sodium [Lovenox] 40 mg SC QPM
Abnormal Lab Results
06/05/24
02:13
RBC 3.47 L 10^6/uL
(4.20-5.40)
Hgb 10.9 L g/dL
(12.0-16.0)
Hct 32.8 L %
(37.0-47.0)
MCH 31.4 H pg
(27.0-31.0)
Abs Immat Gran (auto) 0.2 H 10^3/uL
(0-0.05)
Absolute Lymphs (auto) 1.1 L 10^3/uL
(1.2-3.4)
Absolute Monos (auto) 0.7 H 10^3/uL
(0.1-0.6)
Immature Gran % 2.3 H %
(0-0.5)
Lymphocytes % 13.9 L %
(20.5-51.1)
BUN 35 H mg/dl
(7-17)
Glucose 106 H mg/dl
(70-99)
Total Protein 6.0 L g/dl
(6.3-8.2)
06/05/24 02:13
06/05/24 02:13
H/H low but consistent to prior labs, BUN elevation. Glucose nonfasting. Total protein slightly low. Troponin <0.012 Pro-BNP 288, Urine negative for infection.
Vital Signs
Initial and Last Documented VS:
Initial Vital Signs
Temp Pulse Resp BP Pulse Ox
97.4 F 94 24 136/57 93
06/05/24 01:38 06/05/24 01:38 06/05/24 01:38 06/05/24 01:38 06/05/24 01:38
Last Documented Vital Signs
Temp Pulse Resp BP Pulse Ox
98.1 F 74 20 143/58 97
06/05/24 10:42 06/05/24 11:45 06/05/24 11:45 06/05/24 10:42 06/05/24 11:45
MDM/Problems Addressed
Differential Diagnosis Includes:
UTI, COPD exacerbation, Coronary syndrome
MDM/Problems Addressed:
This is a 78 year old female that comes in with c/o chest pain, SOB and shaking. States that she was just discharge today. States that she has not had shaking like this before with her Parkinson. States that she had chest pain and SOB.
Will get labs, Chest x-ray give Duo neb. Urine
Back into see patient. Patient is a little more relaxed and less tremulous. Chest X-ray shows increased vascular congestion. Will admit patient.
Chronic conditions affecting care:
Parkinson,
Chronic conditions affecting care: COPD
Acute Exacerbation and/or Progression of Chronic Illness:
Parkinson
Acute Exacerbation and/or Progression of Chronic Illness: COPD
*Radiology
Radiology exam reviewed: preliminary read by ED provider (Chest- Increased vascular congestion)
*Pulse Oximetry
Patient hypoxic: no
*EKG
Interpreted by ED Provider?: Yes
Rate: normal
Rhythm: sinus
Parnell: left axis deviation
Interval: normal interval
QRS Pattern: normal QRS
Ischemia: no ischemia
*Hat Sizer Interpretation
Rate: normal
Heart Rate: 96
Rhythm: sinus
*Critical Care Note
Total Time (30-74mins, 75-104mins- exclusive of procedures): Not Applicable
ED Attending Note
-
Portions of this chart may have been created with voice recognition software.� Occasional wrong word or��sound alike� substitutions may have occurred due to the inherent limitations of voice recognition software.
Discharge Plan
Departure
Patient Disposition: Admit
Date of Disposition: 06/05/24
Time of Disposition: 02:56
Admit to: Telemetry
Presentation/result/management discussed w/ accepting MD/DO: Hospitalist
Patient with high blood pressure during this ER visit?: Yes
Condition: Fair
Covid-19: Not Applicable
Discharge Problem:
Chest pain, Increased vascular congestion, COPD exacerbation
Interventions
Interventions:
*Risk Screen - Suicide Last Done: 06/05/24 01:38
*General Assessment Last Done: 06/05/24 01:38
*Neglect/Abuse Screening Last Done: 06/05/24 02:42
ED- Fall Risk Assessment Last Done: 06/05/24 01:38
*ED COVID-19 Vaccine History Last Done: 06/05/24 02:42
*Nursing Disposition Last Done: 06/05/24 07:06
ED- Cardiac Assessment Last Done: 06/05/24 01:45
ED-Musculoskeletal Assessment Last Done: 06/05/24 01:45
ED- Pulmonary Assessment Last Done: 06/05/24 01:45
Discharge Date and Time
Discharge Date/Time: 06/05/24 07:08
[2024-06-05] MEDS: DUONEB 3 ML INH ×3 (01:52→11:43)
--- NOTE | 2024-06-05 02:15 | VATNOTE ---
PT WITH LARGE HEMATOMA/BRUISE ON DORSAL ASPECT OF RH. PT VERY TREMULOUS AND IV DISLODGED AFTER INSERTION AND WHILE ATTEMPTING TO OBTAIN ORDERED LAB SPECIMENS. PRESSURE APPLIED FOLLOWED BY ICE APPLICATION AND ELEVATION. WILL CONTINUE TO MONITOR.
[2024-06-05] MEDS: PROTONIX IV 40 MG IV (02:27)
[2024-06-05] MEDS: ATIVAN 0.25 MG IV (02:27)
[2024-06-05 02:49] LABS: % Basophils 0.2 % (0-2); % Eosinophils 2.3 % (0-6); % Immature Granulocytes 2.3 % (0-0.5); % Lymphocytes 13.9 % (20.5-51.1); % Monocytes 8.7 % (1.7-9.3); % Neutrophils 72.6 % (42.2-75.2); Absolute Eosinophils 0.2 10^3/uL (0-0.7); Absolute Immature Granulocytes 0.2 10^3/uL (0-0.05); Absolute Lymphocytes 1.1 10^3/uL (1.2-3.4); Absolute Monocytes 0.7 10^3/uL (0.1-0.6); Absolute Neutrophils 5.9 10^3/uL (1.4-6.5); Hematocrit 32.8 % (37.0-47.0); Hemoglobin 10.9 g/dL (12.0-16.0); Mean Corp Hgb Conc. 33.2 g/dL (33.0-37.0); Mean Corpuscular Hgb 31.4 pg (27.0-31.0); Mean Corpuscular Volume 94.5 fL (81.0-99.0); Mean Platelet Volume 9.2 fL (7.4-10.4); Nucleated Red Blood Cells % 0 %; Platelet Count 379 10^3/uL (130-400); Red Blood Cell Count 3.47 10^6/uL (4.20-5.40); Red Cell Dist. Width 13.9 % (11.5-14.5); White Blood Cell Count 8.2 10^3/uL (4.8-10.8)
[2024-06-05 02:59] LABS: ALT (SGPT) < 10 U/L (0-35); AST (SGOT) 16 U/L (14-36); Albumin 3.7 g/dl (3.5-5.0); Alkaline Phosphatase 66 U/L (38-126); Blood Urea Nitrogen 35 mg/dl (7-17); Calcium 9.7 mg/dl (8.4-10.2); Carbon Dioxide 28 mmol/L (22-30); Chloride 102 mmol/L (98-107); Estimated Creatinine Clearance 57 ml/min; Glucose 106 mg/dl (70-99); Potassium 5.1 mmol/L (3.5-5.1); Sodium 141 mmol/L (135-145); Total Bilirubin 0.2 mg/dl (0.2-1.3); eGFR > 60.00
[2024-06-05] MEDS: LASIX 20 MG IV (03:05)
[2024-06-05 03:09] LABS: Troponin I < 0.012 ng/ml
[2024-06-05 03:12] LABS: NT-proBNP 288 pg/ml
[2024-06-05 03:13] LABS: Procalcitonin < 0.05 ng/ml (0.0-0.25)
--- NOTE | 2024-06-05 03:25 | HPS.HSE ---
Family Physician
-
Family Physician: Johan Moltey MD
Chief Complaint
-
Chest pain shortness of breath
History of Present Illness
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
Patient was recently hospitalized and was discharged on June 04 just yesterday. She was found to have a left lower lobe pneumonia on his CT scan and was treated with 4 days of antibiotics in the emergency department and discharged on oral
antibiotics to complete an 4 days. Patient was also discharged back to her long term where she is to determine whether she wants to [facility] to reinitiate hospice status. On arrival at home the patient took her oral medications and describes
having some abdominal burning. Later on in the evening she reported left-sided chest pain beneath her left breast. There was some radiation to was the epigastrium. It appeared that the pain was worse with movement. There was no associated
nausea, diaphoresis or vomiting. She denied any shortness of breath associated specifically with the chest pain. Pain lasted about 4 hours. She was anxious that this may be related to her heart and said to come to the emergency department. There
was no change in oxygen requirement at home. She reports that she still has moderate amount of productive cough. She is not had any fevers or chills since arrival at home.
In the emergency department the patient was afebrile she was hypertensive to 180/48, she was slightly tachycardic at 106 (after albuterol) and oxygen saturation was around 93% on 2 L home O2. ECG showed sinus rhythm at a rate of around 100 with
PACs. Troponin was negative. CBC was unchanged from prior. Electrolytes shows no acute abnormalities. Chest x-ray shows no acute changes. There is still the possibility of the left-sided infiltrate on the x-ray which is not expected to change
Zosyn.
Medical History
Past Medical History
Past Medical History: Reports COPD, HTN, Psychiatric (Anxiety/depression) and Other (Parkinson disease)
Additional Past Medical History:
Anemia of chronic disease
Chronic rib pain
Endometrial Ca s/p resection
Past Surgical History: Reports Gynocological
Social History
Tobacco: Former Smoker
Alcohol: None
Drug: None
Personal: Single
Living: Detention
Employment: Retired
Family History
Family History: Not pertinent
Allergies / Home Medications
Allergies reflects when Allergies were last updated in [facility].
Home Medications with original date entered in [facility]
Allergy/Medication List:
Allergies
Allergy/AdvReac Type Severity Reaction Status Date / Time
bacitracin Allergy Unknown Verified 06/05/24 01:37
[From Neosporin
([id number])]
ciprofloxacin Allergy Unknown Verified 06/05/24 01:37
levofloxacin [From Levaquin] Allergy Rash Verified 06/05/24 01:37
neomycin Allergy Unknown Verified 06/05/24 01:37
[From Neosporin
([id number])]
polymyxin B Allergy Unknown Verified 06/05/24 01:37
[From Neosporin
([id number])]
Home Medications
cholecalciferol (vitamin D3) 25 mcg (1,000 unit) tablet 25 mcg PO DAILY Supplement #0 tabs 04/12/24
diltiazem HCl 60 mg tablet 60 mg PO TID Heart disease/condition #0 tabs 04/12/24
ferrous sulfate 325 mg (65 mg iron) tablet 325 mg PO DAILY Supplement #0 tabs 04/12/24
losartan 100 mg tablet 100 mg PO DAILY Blood pressure #0 tabs 04/12/24
magnesium oxide 400 mg PO BID Supplement #0 tabs 04/12/24
metoprolol tartrate 25 mg tablet 25 mg PO BID Blood pressure #0 tabs 04/12/24
acetaminophen 650 mg rectal suppository 650 mg MA Q6HPRN PRN fever, mild pain 05/28/24
bisacodyl 10 mg rectal suppository (Dulcolax (bisacodyl)) 10 mg MA DAILYPRN PRN constipation 05/28/24
budesonide 0.5 mg/2 mL suspension for nebulization 0.5 mg inhalation R BID Lung/Breathing Issues 05/28/24
carbidopa 25 mg-levodopa 100 mg tablet 2 tab PO TID Neurological Condition 05/28/24
fexofenadine 180 mg tablet 180 mg PO DAILY Allergies 05/28/24
hyoscyamine sulfate 0.125 mg tablet (Levsin) 0.125 mg PO Q4HPRN PRN increase secretions 05/28/24
ipratropium 0.5 mg-albuterol 3 mg (2.5 mg base)/3 mL nebulization soln 3 ml inhalation R QID Lung/breathing issues 05/28/24
lidocaine 4 % topical cream 1 applic topical TID lower back pain 05/28/24
lorazepam 0.5 mg tablet 0.5 mg PO Q6HPRN PRN anxiety 05/28/24
magnesium hydroxide 2,400 mg/10 mL oral suspension 2,400 mg PO HSPRN PRN if no bm on 2nd day 05/28/24
prednisone 10 mg tablet 10 mg PO DAILY Anti-Inflammatory 05/28/24
sodium chloride 0.65 % nasal spray aerosol 1 spray intranasal Q4HPRN PRN nasal dryness 05/28/24
acetaminophen 500 mg tablet (Tylenol Extra Strength) 1,000 mg (2 x 500 mg) PO Q8HPRN PRN mild pain #30 tabs 06/03/24
cefpodoxime 200 mg tablet 200 mg PO Q12H Infection #8 tabs 06/03/24
doxycycline hyclate 100 mg capsule 100 mg PO Q12H Infection #8 caps 06/03/24
lidocaine 4 % topical patch 1 patch topical DAILY Pain #15 ea 06/03/24
lidocaine 4 % topical patch 1 patch topical DAILY Pain #15 ea 06/03/24
Review of Systems
-
Constitutional: Reports No Symptoms
EENT: Reports No Symptoms
Respiratory: Reports Cough
Cardiac: Reports Chest Pain
Abdomen/GI: Reports No Symptoms
: Reports No Symptoms
Musculoskeletal: Reports No Symptoms
Skin: Reports No Symptoms
Neurological: Reports No Symptoms
Endocrine: Reports No Symptoms
Hematologic/Lymphatic: Reports No Symptoms
Psych: Reports No Symptoms
Physical Exam
Vital Signs
Vital Signs
Temp Pulse Resp BP Pulse Ox
97.4 F 97 22 109/43 93
06/05/24 01:38 06/05/24 03:05 06/05/24 03:05 06/05/24 03:05 06/05/24 03:05
Physical Exam
General: No Apparent Distress, Comfortable and Conversant
HEENT: Anicteric, Moist mucous membranes, Atraumatic and PERRLA
Respiratory: Clear and Other (reproducible chest pain with palpation on the left side of the sternum)
Cardiac: S1/S2 and Regular Rhythm
Breast: Deferred by me
GI: Soft, Non Tender, Non Distended and Normal Bowel Sounds
Rectal: Deferred by Provider
Genito-urinary: Deferred by me
Musculoskeletal: No Clubbing, No Cyanosis and No Edema
Skin: Warm
Neuro: AO x 3
Hematologic/Lymphatic: No Lymphadenopathy
Psych: Calm
Laboratory Results
-
06/05/24 02:13
06/05/24 02:13
Laboratory Results
Total Bilirubin 0.2 mg/dl (0.2-1.3) 06/05/24 02:13
AST 16 U/L (14-36) 06/05/24 02:13
ALT < 10 U/L (0-35) 06/05/24 02:13
Alkaline Phosphatase 66 U/L (38-126) 06/05/24 02:13
Troponin I < 0.012 ng/ml 06/05/24 02:13
Data Reviewed
-
Diagnostic Radiology: Image Personally Visualized and interpreted
Medical Tests (Nuc Med, Echo, EKG etc): Image Personally Visualized and interpreted
Lab Data: Labs Reviewed by me
Old Records: Reviewed
Impression/Plan
-
IMPRESSION:
This a 78-year-old female with past medical history of COPD on 2 L home O2, hypertension, Parkinson's disease, ambulatory dysfunction, chronic rib pain will was admitted on 1016 and found to have a left lower lobe pneumonia status post 4 days of IV
antibiotics after initially beingand then rescinded to complete course of antibiotics on medications at home returns to the emergency department with an acute episode of sharp left-sided chest pain after taking her oral abx. She seemed to have a
burning epigastric pain as well. The chest pain appears to be associated with movement. She is currently chest pain-free. ECG is nonischemic. Troponin is negative. She reports that chest pain with deep inspiration. Had a CT PE study on the
last admission which was negative for PE.
PLAN:
1. Atypical Chest pain -patient with atypical chest pain that is likely musculoskeletal. Troponin is negative. ECG is nonischemic. Back pain is reproducible with palpation over the left chest. Likely associated with ongoing cough and chronic for
rib fractures. Lasted 4 hours. No evidence of worsening pneumonia on imaging. He has no leukocytosis. Oxygen requirement is unchanged from basal. No significant proximates of cough on my examination. Will admit for monitoring but does not need
telemetry at this time given findings above. She was anxious that the pain arose from cardiac source.
- admit to med/surg observation
- cough suppression and pain control (patient to avoid opioids due to delirium associated with recent use)
- no indication for repeat cardiac enzymes as atypical and ongoing for 4 hours, no cp free.
2. PNA - Left lower lobe PNA, currently on treatment
- continue doxycycline and ceftriaxone (in place of NF cefpodoxime) to complete course
- supplemental oxygen
- incentive spirometry if tolerated
3. COPD - No wheezing on my exam. Good airmovement. No evidence of acute exacerbation.
- continue abx s above
- continue duonebs prn
4. Parkinson dz
- continue sinamet
5. anxiety - s/p lorazepam in ED. Now sleepy but arousable.
- avoid narcortics
- low dose benzos prn
6. HTN
- continue losartan and metoprolol
DVT PPX - lovenox sq
Code Status - Limited DNR, intubation ok, no CPR
[2024-06-05 06:19] LABS: Urine Albumin Negative (Neg - Trace); Urine Bilirubin Negative (Negative); Urine Character Clear (Clear); Urine Color Yellow; Urine Glucose Negative (Negative); Urine Ketone Negative (Negative); Urine Leukocyte Negative (Negative); Urine Nitrite Negative (Negative); Urine Occult Blood Negative (Negative); Urine Urobilinogen Negative (Neg - 1+)
[2024-06-05] MEDS: PULMICORT 0.5 MG INH (08:24)
[2024-06-05] MEDS: SINEMET 25-100 2 TABLET PO (09:02)
[2024-06-05] MEDS: CARDIZEM 60 MG PO (09:02)
[2024-06-05] MEDS: MAGNESIUM OXIDE 500 MG PO (09:03)
[2024-06-05] MEDS: COZAAR 100 MG PO (09:03)
[2024-06-05] MEDS: TYLENOL 1000 MG PO (09:03)
[2024-06-05] MEDS: VIBRAMYCIN 100 MG PO (09:03)
[2024-06-05] MEDS: DELTASONE 10 MG PO (09:03)
[2024-06-05] MEDS: ATIVAN 0.5 MG PO (09:04)
[2024-06-05] MEDS: LOPRESSOR 25 MG PO (09:04)
[2024-06-05] MEDS: FEOSOL 325 MG PO (09:04)
--- NOTE | 2024-06-05 12:45 | CM ---
Martha was having pain in her ribs and chest; Ryan was concerned about cardiac issues, so Martha was sent to the ED and subsequently admitted. Medically cleared at this time to return to [facility]. Martha has no means to pay for the transport.
CM reached out to [employer] who advised that Martha can call to make payment when she gets back to [place] and has her wallet.
Plan: BRYAN to arrange w/c van transport with O2 back to [facility].
Ryan Report: [phone]
Ryan
--- NOTE | 2024-06-05 13:56 | W.PN.HOSP.TC ---
Addendum entered and electronically signed by Garrick Chu MD 06/05/24 22:29:
Attending Addendum-
I saw and evaluated the patient. I reviewed the resident�s note and agree with findings and plan as documented in the resident�s note. Sub: got anxious about [facility] CP and sent right back to hospital. 'i feel fine. I was worried i was having a heart
attack' Full 12 point ROS reviewed and negative except as documented Exam: Vitals reviewed in chart GEN-NAD heart RRR lungs decreased at bases CTA abd soft LE no edema
Plan:
# Atypical CP
- trop neg
- non ischemic EKG
- likely from previous rib fx
- pain control
# Ambulatory dysfunction
- fall precautions
- return to rehab
- Patient has rescinded hospice
# PNA
- to complete PO abx on dc
# Advanced COPD/End Stage
Acute hypoxic resp failure
-02 requirement decreased to 2L NC
-Maintain on nebulizer therapy only for now
-was on hospice care for advanced COPD at [place].
# Parkinson's disease
-continue on Sinemet
#Acute TME - resolved
-mentation clear
# Left lower rib cage pain/right sided rib fracture
-symptomatic care with lidocaine patch and narcs
- cont IS on DC
#essential hypertension
#depression/anxiety- restart prn ativan
history of thoracic compression fracture
history of endometrial cancer status post hysterectomy
anemia of chronic disease
history of abdominal aortic aneurysm
DVT PPX lovenox
DNR/DNI
DC to SNF level and sign back up on [facility] after if wants to
Dispo DC to [facility]
Time spent coordinating care, DC planning, review of DC plan of care with resident, transition of care, review of records, med rec/scripts sent electronically, consults, notes, d/w consultants, nursing, family, PCP updated, and CM� 35 mins
Original Note:
Today's Communication/Plan
-
Discharge back to alf facility for rehab
Continue antibiotics for suspected pneumonia
Assessment / Plan
Assessment / Plan
IMPRESSION:
This a 78-year-old female with past medical history of COPD on 2 L home O2, hypertension, Parkinson's disease, ambulatory dysfunction, chronic rib pain will was admitted on 1016 and found to have a left lower lobe pneumonia status post 4 days of IV
antibiotics after initially beingand then rescinded to complete course of antibiotics on medications at home returns to the emergency department with an acute episode of sharp left-sided chest pain after taking her oral abx. She seemed to have a
burning epigastric pain as well. The chest pain appears to be associated with movement. She is currently chest pain-free. ECG is nonischemic. Troponin is negative. She reports that chest pain with deep inspiration. Had a CT PE study on the
last admission which was negative for PE.
PLAN:
#Atypical Chest pain
Atypical chest pain, likely musculoskeletal
Troponins negative
EKG nonischemic
Patient was recently admitted for traumatic fall, during that time she was complaining of left-sided rib pain
Patient endorses that pain is similar to the rib pain she was feeling before however it has migrated towards the middle of her abdomen
CT scans from prior admission were negative for rib fracture
#PNA
Left lower lobe PNA, currently on treatment
Patient received additional doses of doxycycline and ceftriaxone, totaling 5 days total
Patient will still take 4 days of doxycycline p.o. and 4 days of cefpodoxime once she returns to skilled nurse facility
No evidence of worsening pneumonia on imaging
No leukocytosis
supplemental oxygen
incentive spirometry if tolerated
#COPD
End-stage COPD, was on hospice for this previously. At this point she no longer desires hospice
Do not believe this is an acute exacerbation
continue abx s above
continue duonebs prn
#Parkinson's disease
continue sinamet
#Anxiety
s/p lorazepam in ED
low dose benzos prn
Discharge patient with prescription for Ativan as needed
#HTN
continue losartan and metoprolol
DVT PPX - lovenox sq
Diet: Regular
Code Status - Limited DNR, intubation ok, no CPR
Anticipated Discharge: Today
Subjective/Interval History
-
Date of Service: June 05, 2024
Patient came into the ED overnight
Objective Data
-
Labs:
Laboratory Results
06/05/24
02:13
WBC 8.2
Hgb 10.9 L
Hct 32.8 L
Plt Count 379
Sodium 141
Potassium 5.1
Chloride 102
Carbon Dioxide 28
BUN 35 H
Creatinine 0.7
Glucose 106 H
Calcium 9.7
Total Bilirubin 0.2
AST 16
ALT < 10
Alkaline Phosphatase 66
Vital Signs:
Vital Signs
Temp Pulse Resp BP Pulse Ox
98.1 F 74 20 143/58 97
06/05/24 10:42 06/05/24 11:45 06/05/24 11:45 06/05/24 10:42 06/05/24 11:45
I&O
06/04/24 06/05/24 06/06/24
06:59 06:59 06:59
Intake Total 180 / 180
Output Total 700 / 700 900 / 900
Balance -700 / -700 -720 / -720
Review of Systems
-
History Source: Patient
Constitutional: Reports Fatigue
Respiratory: Reports Trouble Breathing
Cardiac: Reports No Symptoms
Abdomen/GI: Reports No Symptoms
Physical Exam
-
General: Appears Chronically Ill
Respiratory: Clear to Auscultation
Cardiac: Regular Rhythm and S1/S2
GI: Soft, Nontender, Nondistended and Normal Bowel Sounds
Skin: Warm and Dry
Neuro: Awake, Alert, Oriented and AO x 3
Psych: Calm and Intact Judgement/Insight
Data Reviewed
-
Diagnostic Radiology: Report Reviewed by me and Discussed with Physician
Labs: Labs Reviewed by me and Discussed with Physician
[2024-06-05] MEDS: DUONEB INH (15:21)
--- NOTE | 2024-06-05 16:29 | W.DCSUMMARY ---
Addendum entered and electronically signed by Garrick Chu MD 06/05/24 22:31:
Read, reviewed, and agree. See same day progress note for additional details. DC back to SNF. Despite patient refusing script given for Ativan and oxycodone.
Christiano Chu MD
Original Note:
Documented by User: Donovan Veliz DO, Resident 06/05/24 16:41
Discharge Summary
Discharge Data
Date of Admission: 06/05/24
Date of Discharge: 06/05/24
-
Pending Results: No
Hospital Course
Discharging Physician : Vlad Veliz
Disposition : assisted facility
Primary care physician : Dr. Johan Motley
Principal Discharge diagnosis : Atypical chest pain
Chronic Discharge diagnosis : Chronic obstructive pulmonary disease�end-stage, Parkinson's disease, community-acquired pneumonia, left lower rib cage pain, essential hypertension
Hospital Course : 78-year-old female past medical history of advanced COPD, Parkinson's, multiple falls, hypertension, depression/anxiety, thoracic compression fracture, anemia chronic disease, endometrial cancer status post hysterectomy presented
from [facility] 1 day after previous discharge. On arrival to fdc facility patient took her oral medications and describe having some abdominal burning, later on the evening she had some left-sided chest pain with
radiation to the epigastrium. Patient states it was worse with movement and there is no associated nausea diaphoresis or vomiting. Pain lasted approximately 4 hours, she was anxious that was related to her heart and was sent to the emergency
department. In the emergency department patient was afebrile and hypertensive systolics in the 180s, troponins were negative, EKG was nonischemic and electrolytes showed no abnormalities, CBC was unchanged from prior. Chest x-ray showed no acute
changes except for the left-sided infiltrate which was presumed to be pneumonia. Patient was stable the morning after her discharge, and endorsed wanting to return to fdc facility for physical rehab. At that point patient was medically
clear as her chest pain was noncardiac in nature. Patient received 1 additional day of doxycycline and ceftriaxone totaling 5 days total including the 4 days from her previous hospitalization. Patient was discharged with an additional 4 days of
doxycycline p.o. and cefpodoxime mean which she will take. This will total 9 days total of antibiotics for her pneumonia. Patient was also discharged with Tylenol and lidocaine patches to her fdc facility. Patient was able to retain
her bed at [place] and was discharged there.
Important imaging findings :
06/05/2024 chest x-ray, impression:
1. Moderate bilateral upper lobe emphysema.
2. Mild to moderate subpleural scarring in the lateral right lower lobe.
3. Multiple chronic healed right posterolateral rib fractures.
Procedure findings :
No procedures
Discharge Plan
-
Patient Disposition: Fpc/SNF
Discharge Diagnosis/Procedures: atypical chest pain
Condition: Fair
Diet: No restrictions
Activity: With assistance and As tolerated
Driving Restrictions: As prior to admission
Bathing Restrictions: None
Other Services: PT and OT
Referrals:
Johan Motley MD [Family Provider] - in less than 1 week
Additional Discharge Medication Instructions: Please take doxycycline 100 twice daily by mouth for 4 days total
Please take cefpodoxime 200 twice daily by mouth for 4 days total
Please continue using lidocaine patches for your rib and back pain
Please continue taking Tylenol as needed for pain
Prescriptions:
Continued
ferrous sulfate 325 mg (65 mg iron) Tablet
325 mg PO DAILY Qty: 0 0RF
losartan 100 mg Tablet
100 mg PO DAILY Qty: 0 0RF
diltiazem HCl 60 mg Tablet
60 mg PO TID Qty: 0 0RF
metoprolol tartrate 25 mg Tablet
25 mg PO BID Qty: 0 0RF
cholecalciferol (vitamin D3) 25 mcg (1,000 unit) Tablet
25 mcg PO DAILY Qty: 0 0RF
magnesium oxide 400 mg magnesium Tablet
400 mg PO BID Qty: 0 0RF
fexofenadine 180 mg Tablet
180 mg PO DAILY
prednisone 10 mg Tablet
10 mg PO DAILY
lidocaine 4 % Cream
1 applic TOPICAL TID
lorazepam 0.5 mg Tablet
0.5 mg PO Q6HPRN PRN (Reason: anxiety)
bisacodyl [Dulcolax (bisacodyl)] 10 mg Suppository
10 mg [place] DAILYPRN PRN (Reason: if no bm by 3rd day)
budesonide 0.5 mg/2 mL Suspension For Nebulization
0.5 mg INHALATION R BID
ipratropium-albuterol 0.5 mg-3 mg(2.5 mg base)/3 mL solution for nebulization
3 ml INHALATION R QID
carbidopa-levodopa 25-100 mg tablet
2 tab PO TID
lidocaine 4 % Adhesive Patch,Medicated
1 patch topical DAILY Qty: 15 0RF
Rx Instructions:
left rib and back
doxycycline hyclate 100 mg Capsule
100 mg PO Q12H Qty: 8 0RF
Rx Instructions:
take until 06/08/24
cefpodoxime 200 mg tablet
200 mg PO Q12H Qty: 8 0RF
Rx Instructions:
take until 06/08/24
magnesium hydroxide [Milk of Magnesia] 400 mg/5 mL Suspension
2,400 mg PO HSPRN PRN (Reason: if no bm by 2nd day)
hyoscyamine sulfate 0.125 mg Tablet
0.125 mg PO Q4HPRN PRN (Reason: secretions)
Fleet Enema 19-7 gram/118 mL Enema
118 ml [place] DAILYPRN PRN (Reason: if no bm by 4th day)
loratadine 10 mg Tablet
10 mg PO DAILY
sodium chloride 0.65 % Aerosol,[place]
1 spray INTRANASAL Q4HPRN PRN (Reason: dryness)
acetaminophen [Tylenol Extra Strength] 500 mg Tablet
1,000 mg PO TID Qty: 0 0RF
Discontinued
acetaminophen [Tylenol] 325 mg Tablet
650 mg PO Q6HPRN PRN (Reason: mild pain)
Discharge Orders:
Discharge Patient (As Directed); Ordered 06/05/24
Ordered By: Donovan Veliz
Discharge Date and Time
Discharge Date/Time: 06/05/24 15:22
Print Language: ICELANDIC

Documented by User: Garrick Chu MD 06/05/24 22:24
Discharge Summary
Discharge Data
Date of Admission: 06/05/24
Date of Discharge: 06/05/24
Discharge Plan
-
Patient Disposition: [facility]pc/SNF
Discharge Diagnosis/Procedures: atypical chest pain
Condition: Fair
Diet: No restrictions
Activity: With assistance and As tolerated
Driving Restrictions: As prior to admission
Bathing Restrictions: None
Other Services: PT and OT
Referrals:
Johan Motley MD [Family Provider] - in less than 1 week
Additional Discharge Medication Instructions: Please take doxycycline 100 twice daily by mouth for 4 days total
Please take cefpodoxime 200 twice daily by mouth for 4 days total
Please continue using lidocaine patches for your rib and back pain
Please continue taking Tylenol as needed for pain
Prescriptions:
Continued
ferrous sulfate 325 mg (65 mg iron) Tablet
325 mg PO DAILY Qty: 0 0RF
losartan 100 mg Tablet
100 mg PO DAILY Qty: 0 0RF
diltiazem HCl 60 mg Tablet
60 mg PO TID Qty: 0 0RF
metoprolol tartrate 25 mg Tablet
25 mg PO BID Qty: 0 0RF
cholecalciferol (vitamin D3) 25 mcg (1,000 unit) Tablet
25 mcg PO DAILY Qty: 0 0RF
magnesium oxide 400 mg magnesium Tablet
400 mg PO BID Qty: 0 0RF
fexofenadine 180 mg Tablet
180 mg PO DAILY
prednisone 10 mg Tablet
10 mg PO DAILY
lidocaine 4 % Cream
1 applic TOPICAL TID
lorazepam 0.5 mg Tablet
0.5 mg PO Q6HPRN PRN (Reason: anxiety)
bisacodyl [Dulcolax (bisacodyl)] 10 mg Suppository
10 mg [place] DAILYPRN PRN (Reason: if no bm by 3rd day)
budesonide 0.5 mg/2 mL Suspension For Nebulization
0.5 mg INHALATION R BID
ipratropium-albuterol 0.5 mg-3 mg(2.5 mg base)/3 mL solution for nebulization
3 ml INHALATION R QID
carbidopa-levodopa 25-100 mg tablet
2 tab PO TID
lidocaine 4 % Adhesive Patch,Medicated
1 patch topical DAILY Qty: 15 0RF
Rx Instructions:
left rib and back
doxycycline hyclate 100 mg Capsule
100 mg PO Q12H Qty: 8 0RF
Rx Instructions:
take until 06/08/24
cefpodoxime 200 mg tablet
200 mg PO Q12H Qty: 8 0RF
Rx Instructions:
take until 06/08/24
magnesium hydroxide [Milk of Magnesia] 400 mg/5 mL Suspension
2,400 mg PO HSPRN PRN (Reason: if no bm by 2nd day)
hyoscyamine sulfate 0.125 mg Tablet
0.125 mg PO Q4HPRN PRN (Reason: secretions)
Fleet Enema 19-7 gram/118 mL Enema
118 ml [place] DAILYPRN PRN (Reason: if no bm by 4th day)
loratadine 10 mg Tablet
10 mg PO DAILY
sodium chloride 0.65 % Aerosol,[place]
1 spray INTRANASAL Q4HPRN PRN (Reason: dryness)
acetaminophen [Tylenol Extra Strength] 500 mg Tablet
1,000 mg PO TID Qty: 0 0RF
Discontinued
acetaminophen [Tylenol] 325 mg Tablet
650 mg PO Q6HPRN PRN (Reason: mild pain)
Discharge Orders:
Discharge Patient (As Directed); Ordered 06/05/24
Ordered By: Donovan Veliz
Discharge Date and Time
Discharge Date/Time: 06/05/24 15:22
Print Language: ICELANDIC
== END 2024-06-05 15:22 ==
LOC: 4 EAST ACU 04:37
PROVIDERS: Clinical Nurse Specialist Family Health; ADMITTING PHYSICIAN Internal Medicine; ATTENDING PHYSICIAN Family Medicine; EMERGENCY PHYSICIAN Student in an Organized Health Care Education/Training Program; FAMILY PHYSICIAN Family Medicine
DX: R07.89 Other chest pain (principal); J43.9 Emphysema, unspecified; R94.31 Abnormal electrocardiogram [ECG] [EKG]; J18.9 Pneumonia, unspecified organism; R26.2 Difficulty in walking, not elsewhere classified; K30 Functional dyspepsia; G92.8 Other toxic encephalopathy; G20.A1 Parkinson's disease without dyskinesia, without mention of fluctuations; I10 Essential (primary) hypertension; D63.8 Anemia in other chronic diseases classified elsewhere; J96.01 Acute respiratory failure with hypoxia; F41.9 Anxiety disorder, unspecified; F32.A Depression, unspecified; R07.81 Pleurodynia; Z87.891 Personal history of nicotine dependence; Z85.42 Personal history of malignant neoplasm of other parts of uterus; Z99.81 Dependence on supplemental oxygen; Z90.49 Acquired absence of other specified parts of digestive tract; Z90.710 Acquired absence of both cervix and uterus; Z87.01 Personal history of pneumonia (recurrent); Z66 Do not resuscitate; Z88.1 Allergy status to other antibiotic agents; Z79.52 Long term (current) use of systemic steroids; Z86.79 Personal history of other diseases of the circulatory system
CPT/HCPCS: 71045; 80053; 81003; 83880; 84145; 84484; 85025; 87040; 93005; 94640; 96374; 96375; 99285; G0378

== ENCOUNTER → 2024-06-08 11:35 | Outpatient (REF) | payer OTHER, MEDICARE, SELFPAY ==
[2024-06-08 12:04] LABS: Hemoglobin 9.7 g/dL (12.0-16.0); Mean Corp Hgb Conc. 33.4 g/dL (33.0-37.0); Mean Corpuscular Hgb 30.8 pg (27.0-31.0); Mean Corpuscular Volume 92.1 fL (81.0-99.0); Mean Platelet Volume 10.2 fL (7.4-10.4); Platelet Count 357 10^3/uL (130-400); Red Blood Cell Count 3.15 10^6/uL (4.20-5.40); Red Cell Dist. Width 14.3 % (11.5-14.5); White Blood Cell Count 6.6 10^3/uL (4.8-10.8)
== END ==
LOC: OLABWHC 11:35
PROVIDERS: ATTENDING PHYSICIAN Family Medicine
DX: G20.A1 Parkinson's disease without dyskinesia, without mention of fluctuations (principal); J44.1 Chronic obstructive pulmonary disease with (acute) exacerbation; I10 Essential (primary) hypertension
CPT/HCPCS: 36415; 85027

== ENCOUNTER → 2024-06-10 11:06 | Outpatient (REF) | payer OTHER, MEDICARE, SELFPAY ==
[2024-06-10 12:14] LABS: ALT (SGPT) < 10 U/L (0-35); AST (SGOT) 17 U/L (14-36); Albumin 3.4 g/dl (3.5-5.0); Alkaline Phosphatase 67 U/L (38-126); Blood Urea Nitrogen 26 mg/dl (7-17); Calcium 9.5 mg/dl (8.4-10.2); Carbon Dioxide 33 mmol/L (22-30); Chloride 105 mmol/L (98-107); Glucose 76 mg/dl (70-99); Magnesium 2.2 mg/dl (1.6-2.3); Potassium 4.8 mmol/L (3.5-5.1); Sodium 142 mmol/L (135-145); Total Bilirubin 0.3 mg/dl (0.2-1.3); Total Protein 5.5 g/dl (6.3-8.2); eGFR > 60.00
== END ==
LOC: OLABWHC 11:06
PROVIDERS: ATTENDING PHYSICIAN Family Medicine
DX: I10 Essential (primary) hypertension (principal); J18.9 Pneumonia, unspecified organism; G20.A1 Parkinson's disease without dyskinesia, without mention of fluctuations
CPT/HCPCS: 36415; 80053; 83735

== ENCOUNTER 2024-06-20 01:43 | Inpatient (IN) | payer MEDICARE, SELFPAY ==
[2024-06-19 23:10] VITALS: BMI 23.9
--- NOTE | 2024-06-19 23:32 | ED.GENMED ---
History of Present Illness
General
Chief Complaint: Fall
Source: patient
Exam Limitations: none
Time Seen by Provider: 06/19/24 23:24
History of Present Illness
History of Present Illness:
78-year-old female with history of COPD presents from [facility] after a fall. She lost her balance going to her closet and landed on her left side. She complains of left hip pain and shortness of breath. She typically on 2 L of
oxygen for COPD. She notes that shortness of breath started tonight as well. She was recently here for pneumonia. Not currently on an antibiotic. She is not anticoagulated
Past History
Past History
ED Past Medical History: Cancer (Endometrial Cancer), COPD, HTN and Other (Parkinson's, Home oxygen at 2 liters, abd aneurysm. Rib fractures, )
ED Past Surgical History: Cholecystectomy and Gynecological (Hysterectomy)
Social History
Tobacco: Former smoker
Alcohol: None
Personal:
Living: [facility]
Family History
Family History: Asthma and Other (non applicable )
Phy Exam
Physical Exam
Physical Exam:
General: Well-developed female slight increased work of breathing
HEENT: Normocephalic atraumatic neck supple heart: Regular rate and rhythm
Lungs: Wheeze bilaterally
Musculoskeletal exam: Patient is tender to the left hip. The hip is held in flexion
Extremities: No cyanosis
Course
Orders/Labs/Results
Orders:
Orders
06/19/24 23:29
Ipratropium/Albuterol Sulfate [Duoneb] 3 ml INH R NOW STA
06/19/24 23:30
HYDROmorphone [Dilaudid] 0.5 mg IV NOW STA
06/19/24 23:34
Ondansetron Injectable [Zofran] 4 mg .ROUTE .[facility]
Ondansetron Injectable [Zofran] 4 mg IV NOW STA
06/19/24 23:44
Complete Blood Count/With Diff Urgent
Comprehensive Metabolic Panel Urgent
06/20/24 00:00
CR Chest - 2 Views Urgent
Reason For Exam: sob
CR Hip - LT w/wo Pel 2-3 Vw* Urgent
Reason For Exam: fall, left hip pain
Include a pelvis x-ray?: Yes
06/20/24 00:28
HYDROmorphone [Dilaudid] 0.5 mg .ROUTE .[facility] ONE
06/20/24 00:32
HYDROmorphone [Dilaudid] 0.5 mg IV NOW STA
Abnormal Lab Results
06/19/24
23:44
RBC 3.08 L 10^6/uL
(4.20-5.40)
Hgb 9.6 L g/dL
(12.0-16.0)
Hct 29.8 L %
(37.0-47.0)
MCH 31.2 H pg
(27.0-31.0)
MCHC 32.2 L g/dL
(33.0-37.0)
RDW 15.1 H %
(11.5-14.5)
Abs Immat Gran (auto) 0.1 H 10^3/uL
(0-0.05)
Absolute Lymphs (auto) 1.0 L 10^3/uL
(1.2-3.4)
Absolute Monos (auto) 0.7 H 10^3/uL
(0.1-0.6)
Immature Gran % 1.1 H %
(0-0.5)
Lymphocytes % 13.5 L %
(20.5-51.1)
BUN 31 H mg/dl
(7-17)
Total Protein 5.6 L g/dl
(6.3-8.2)
06/19/24 23:44
06/19/24 23:44
Vital Signs
Initial and Last Documented VS:
Initial Vital Signs
Pulse Resp Pulse Ox
73 20 90
06/19/24 23:10 06/19/24 23:10 06/19/24 23:10
Last Documented Vital Signs
Pulse Resp BP Pulse Ox
67 19 147/62 94
06/19/24 23:45 06/19/24 23:45 06/20/24 00:26 06/20/24 00:45
MDM/Problems Addressed
Differential Diagnosis Includes:
This fall with left hip pain. Consider contusion versus fracture versus dislocation
COPD history on 2 L of oxygen chronically currently requiring 4 L DuoNeb ordered for this
X-ray of chest and left hip pending labs pending. Treat pain with Dilaudid
*Critical Care Note
Total Time (30-74mins, 75-104mins- exclusive of procedures): Not Applicable
Update Note
Update Note:
Personally visualized x-rays of the left hip which demonstrate a subcapital femur fracture. Patient does require Dilaudid here for pain management. Will admit patient to hospital for left subcapital femur fracture. Hospitalist and orthopedics
made aware
ED Attending Note
-
Portions of this chart may have been created with voice recognition software.� Occasional wrong word or��sound alike� substitutions may have occurred due to the inherent limitations of voice recognition software.
Discharge Plan
Departure
Patient Disposition: Admit
Date of Disposition: 06/20/24
Time of Disposition: 00:53
Admit to: Telemetry
Presentation/result/management discussed w/ accepting MD/DO: Hospitalist
Discharge Problem:
Hip fracture
Prescriptions:
No Action
ferrous sulfate 325 mg (65 mg iron) Tablet
325 mg PO DAILY Qty: 0 0RF
losartan 100 mg Tablet
100 mg PO DAILY Qty: 0 0RF
diltiazem HCl 60 mg Tablet
60 mg PO TID Qty: 0 0RF
metoprolol tartrate 25 mg Tablet
25 mg PO BID Qty: 0 0RF
cholecalciferol (vitamin D3) 25 mcg (1,000 unit) Tablet
25 mcg PO DAILY Qty: 0 0RF
magnesium oxide 400 mg magnesium Tablet
400 mg PO BID Qty: 0 0RF
fexofenadine 180 mg Tablet
180 mg PO DAILY
prednisone 10 mg Tablet
10 mg PO DAILY
lidocaine 4 % Cream
1 applic TOPICAL TID
lorazepam 0.5 mg Tablet
0.5 mg PO Q6HPRN PRN (Reason: anxiety)
bisacodyl [Dulcolax (bisacodyl)] 10 mg Suppository
10 mg [place] DAILYPRN PRN (Reason: if no bm by 3rd day)
budesonide 0.5 mg/2 mL Suspension For Nebulization
0.5 mg INHALATION R BID
ipratropium-albuterol 0.5 mg-3 mg(2.5 mg base)/3 mL solution for nebulization
3 ml INHALATION R QID
carbidopa-levodopa 25-100 mg tablet
2 tab PO TID
lidocaine 4 % Adhesive Patch,Medicated
1 patch topical DAILY Qty: 15 0RF
Rx Instructions:
left rib and back
doxycycline hyclate 100 mg Capsule
100 mg PO Q12H Qty: 8 0RF
Rx Instructions:
take until 06/08/24
cefpodoxime 200 mg tablet
200 mg PO Q12H Qty: 8 0RF
Rx Instructions:
take until 06/08/24
magnesium hydroxide [Milk of Magnesia] 400 mg/5 mL Suspension
2,400 mg PO HSPRN PRN (Reason: if no bm by 2nd day)
hyoscyamine sulfate 0.125 mg Tablet
0.125 mg PO Q4HPRN PRN (Reason: secretions)
Fleet Enema 19-7 gram/118 mL Enema
118 ml [place] DAILYPRN PRN (Reason: if no bm by 4th day)
loratadine 10 mg Tablet
10 mg PO DAILY
sodium chloride 0.65 % Aerosol,[place]
1 spray INTRANASAL Q4HPRN PRN (Reason: dryness)
acetaminophen [Tylenol Extra Strength] 500 mg Tablet
1,000 mg PO TID Qty: 0 0RF
Referrals:
Johan Motley MD [Family Provider] -
Interventions
Interventions:
*Risk Screen - Suicide Last Done: 06/19/24 23:10
*General Assessment Last Done: 06/19/24 23:10
*Neglect/Abuse Screening Last Done: 06/19/24 23:10
*ED COVID-19 Vaccine History Last Done: 06/19/24 23:10
ED-Musculoskeletal Assessment Last Done: 06/19/24 23:53
ED- Neurological Assessment Last Done: 06/19/24 23:53
ED-Skin Assessment Last Done: 06/19/24 23:53
Discharge Date and Time
Print Language: THAI
[2024-06-19] MEDS: ZOFRAN 4 MG IV (23:40)
[2024-06-19] MEDS: DUONEB 3 ML INH (23:41)
[2024-06-19] MEDS: DILAUDID 0.5 MG IV (23:41)
[2024-06-19 23:59] LABS: % Basophils 0.3 % (0-2); % Eosinophils 1.8 % (0-6); % Immature Granulocytes 1.1 % (0-0.5); % Lymphocytes 13.5 % (20.5-51.1); % Monocytes 8.9 % (1.7-9.3); % Neutrophils 74.4 % (42.2-75.2); Absolute Eosinophils 0.1 10^3/uL (0-0.7); Absolute Immature Granulocytes 0.1 10^3/uL (0-0.05); Absolute Monocytes 0.7 10^3/uL (0.1-0.6); Absolute Neutrophils 5.5 10^3/uL (1.4-6.5); Hematocrit 29.8 % (37.0-47.0); Hemoglobin 9.6 g/dL (12.0-16.0); Mean Corp Hgb Conc. 32.2 g/dL (33.0-37.0); Mean Corpuscular Hgb 31.2 pg (27.0-31.0); Mean Corpuscular Volume 96.8 fL (81.0-99.0); Mean Platelet Volume 8.9 fL (7.4-10.4); Nucleated Red Blood Cells % 0 %; Platelet Count 222 10^3/uL (130-400); Red Blood Cell Count 3.08 10^6/uL (4.20-5.40); Red Cell Dist. Width 15.1 % (11.5-14.5); White Blood Cell Count 7.3 10^3/uL (4.8-10.8)
[2024-06-20] VITALS (9 sets, daily range): BP systolic 114–167; BP diastolic 46–71; BMI 22.5
[2024-06-20 00:21] LABS: ALT (SGPT) < 10 U/L (0-35); AST (SGOT) 23 U/L (14-36); Albumin 3.7 g/dl (3.5-5.0); Alkaline Phosphatase 69 U/L (38-126); Blood Urea Nitrogen 31 mg/dl (7-17); Calcium 9.6 mg/dl (8.4-10.2); Carbon Dioxide 29 mmol/L (22-30); Chloride 103 mmol/L (98-107); Estimated Creatinine Clearance 44 ml/min; Glucose 96 mg/dl (70-99); Potassium 4.8 mmol/L (3.5-5.1); Sodium 138 mmol/L (135-145); Total Bilirubin 0.2 mg/dl (0.2-1.3); Total Protein 5.6 g/dl (6.3-8.2); eGFR > 60.00
[2024-06-20] MEDS: DILAUDID 0.5 MG IV ×5 (00:32→21:59)
--- NOTE | 2024-06-20 00:39 | EDRN ---
Pt.'s pulse ox. drops to 85-86% on her baseline 2L NC, pt. is congested bilaterally, appears to be breathing from mouth primarily. Pt. placed on mask used for neb. tx., hooked to wall at 2L NC, and pulse ox. rises to 2LNC. This RN messaged
respiratory to see if any simple masks available, per respiratory, pt. would benefit from venti-mask as is COPD. Respiratory to come down to provide and set up venti-mask.
[2024-06-20] MEDS: VALIUM INJECTION 2 MG IV (01:27)
--- NOTE | 2024-06-20 01:30 | EDRN ---
Respiratory therapist came to bedside, placed pt. on venturi-mask, settings at 6L 50%, pulse ox. 93-94 %.
--- NOTE | 2024-06-20 01:53 | HPS.HSE ---
Family Physician
-
Family Physician: Johan Motley MD
Chief Complaint
-
Fall and shortness of breath
History of Present Illness
This is a 78-year-old female with history of COPD on 2 L home O2, hypertension, Parkinson's disease, frequent falls with chronic rib fractures presents from [facility] after a fall.
She lost her balance going to her closet and landed on her left side. She complains of left hip pain and shortness of breath. She typically on 2 L of oxygen for COPD. She notes that shortness of breath started tonight as well. She was just
recently admitted for COPD exacerbation/pneumonia and treated with antibiotics finishing a course of oral antibiotics at home. She is not on any anticoagulants. She denies having any chest pain. She denies any cough to me.
In the ED she was in pain, she was hypertensive to 147/60, pulse rate was 67 and she was satting initially 94% on 2 L. CBC was unremarkable. BUN electrolytes were unremarkable. X-ray of the hip shows a left subcapital femoral fracture. Ortho
notified.
Medical History
Past Medical History
Past Medical History: Reports COPD (2 L O2), HTN and Other (Parkinson )
Additional Past Medical History:
Anemia of chronic disease
Chronic rib pain
Endometrial Ca s/p resection
Past Surgical History: Reports Gynocological
Social History
Tobacco: Former Smoker
Alcohol: None
Drug: None
Personal: Single
Living: Care Home
Employment: Retired
Family History
Family History: Not pertinent
Allergies / Home Medications
Allergies reflects when Allergies were last updated in [facility].
Home Medications with original date entered in [facility]
Allergy/Medication List:
Allergies
Allergy/AdvReac Type Severity Reaction Status Date / Time
bacitracin Allergy Unknown Verified 06/19/24 23:09
[From Neosporin
([id number])]
ciprofloxacin Allergy Unknown Verified 06/19/24 23:09
levofloxacin [From Levaquin] Allergy Rash Verified 06/19/24 23:09
neomycin Allergy Unknown Verified 06/19/24 23:09
[From Neosporin
([id number])]
polymyxin B Allergy Unknown Verified 06/19/24 23:09
[From Neosporin
([id number])]
Home Medications
cholecalciferol (vitamin D3) 25 mcg (1,000 unit) tablet 25 mcg PO DAILY Supplement #0 tabs 04/12/24
diltiazem HCl 60 mg tablet 60 mg PO TID Heart disease/condition #0 tabs 04/12/24
ferrous sulfate 325 mg (65 mg iron) tablet 325 mg PO DAILY Supplement #0 tabs 04/12/24
losartan 100 mg tablet 100 mg PO DAILY Blood pressure #0 tabs 04/12/24
magnesium oxide 400 mg PO BID Supplement #0 tabs 04/12/24
metoprolol tartrate 25 mg tablet 25 mg PO BID Blood pressure #0 tabs 04/12/24
bisacodyl 10 mg rectal suppository (Dulcolax (bisacodyl)) 10 mg [place] DAILYPRN PRN if no bm by 3rd day 05/28/24
budesonide 0.5 mg/2 mL suspension for nebulization 0.5 mg inhalation R BID Lung/Breathing Issues 05/28/24
carbidopa 25 mg-levodopa 100 mg tablet 2 tab PO TID Neurological Condition 05/28/24
fexofenadine 180 mg tablet 180 mg PO DAILY Allergies 05/28/24
ipratropium 0.5 mg-albuterol 3 mg (2.5 mg base)/3 mL nebulization soln 3 ml inhalation R QID Lung/breathing issues 05/28/24
lidocaine 4 % topical cream 1 applic topical TID lower back pain 05/28/24
lorazepam 0.5 mg tablet 0.5 mg PO Q6HPRN PRN anxiety 05/28/24
prednisone 10 mg tablet 10 mg PO DAILY Anti-Inflammatory 05/28/24
cefpodoxime 200 mg tablet 200 mg PO Q12H Infection #8 tabs 06/03/24
doxycycline hyclate 100 mg capsule 100 mg PO Q12H Infection #8 caps 06/03/24
lidocaine 4 % topical patch 1 patch topical DAILY Pain #15 ea 06/03/24
acetaminophen 500 mg tablet (Tylenol Extra Strength) 1,000 mg (2 x 500 mg) PO TID Pain #0 tabs 06/05/24
hyoscyamine sulfate 0.125 mg tablet 0.125 mg PO Q4HPRN PRN secretions 06/05/24
loratadine 10 mg tablet 10 mg PO DAILY Allergies 06/05/24
magnesium hydroxide 400 mg/5 mL oral suspension (Milk of Magnesia) 2,400 mg PO HSPRN PRN if no bm by 2nd day 06/05/24
sodium chloride 0.65 % nasal spray aerosol 1 spray intranasal Q4HPRN PRN dryness 06/05/24
sodium phosphates 19 gram-7 gram/118 mL enema (Fleet Enema) 118 ml [place] DAILYPRN PRN if no bm by 4th day 06/05/24
Review of Systems
-
History Source: Patient
Constitutional: Reports No Symptoms
EENT: Reports No Symptoms
Respiratory: Reports Trouble Breathing
: Reports No Symptoms
Musculoskeletal: Reports No Symptoms
Skin: Reports No Symptoms
Neurological: Reports No Symptoms
Endocrine: Reports No Symptoms
Hematologic/Lymphatic: Reports No Symptoms
Psych: Reports No Symptoms
Physical Exam
Vital Signs
Vital Signs
Pulse Resp BP Pulse Ox
67 19 147/62 94
06/19/24 23:45 06/19/24 23:45 06/20/24 00:26 06/20/24 00:45
Physical Exam
General: Appears Chronically Ill
HEENT: NormoCephalic, Anicteric, Moist mucous membranes, PERRLA and Oxygen
Respiratory: Clear, Wheezes and Non Labored Respirations
Cardiac: S1/S2 and Regular Rhythm
Breast: Deferred by me
GI: Soft, Non Tender, Non Distended and Normal Bowel Sounds
Rectal: Deferred by Provider
Genito-urinary: Deferred by me
Musculoskeletal: No Clubbing, No Cyanosis and No Edema
Skin: Warm
Neuro: AO x 3
Hematologic/Lymphatic: No Lymphadenopathy
Psych: Calm
Laboratory Results
-
06/19/24 23:44
06/19/24 23:44
Laboratory Results
Total Bilirubin 0.2 mg/dl (0.2-1.3) 06/19/24 23:44
AST 23 U/L (14-36) 06/19/24 23:44
ALT < 10 U/L (0-35) 06/19/24 23:44
Alkaline Phosphatase 69 U/L (38-126) 06/19/24 23:44
Data Reviewed
-
Diagnostic Radiology: Image Personally Visualized and interpreted
Lab Data: Labs Reviewed by me
Old Records: Reviewed
Impression/Plan
-
IMPRESSION:
PLAN:
1. Fracture - Left subcapital femoral fracture. Significant pain and ambulatory dysfunction.
- admit to med/surg
- consulted ortho, so far no indication of any surgical paln.
- fracture plan with pain control, antiemetics and monitoring for bowel and bladder function
- PT eval
2. COPD - Some wheezing on my exam. Good airmovement. Mouth and pursed breathing likely from pain. No cough. No sputum production. Xray w/o infiltrates On chronic steroids
- continue home prednisone and budesonide
- duonebs RTC for now then prn
- face mask for supplemental oxygen
- vbg in am
- judicious use of narcortics and benzos
3. Parkinson dz
- continue sinamet
4. anxiety -
- low dose benzos prn
5. HTN
- continue losartan and metoprolol
DVT PPX - lovenox sq
Code Status - Limited DNR, intubation ok, no CPR
[2024-06-20] MEDS: DUONEB 3 ML INH ×5 (02:14→19:12)
--- NOTE | 2024-06-20 03:00 | PTCARENOTE ---
Pt. admitted from E.D., AAO x 3, pulled over from stretcher, skin intact, fall risk, bed alarm intact, call crane within reach.
[2024-06-20] MEDS: TYLENOL 650 MG PO ×4 (04:34→20:19)
[2024-06-20] MEDS: PULMICORT 0.5 MG INH ×2 (07:17→19:12)
[2024-06-20] MEDS: LIDOCAINE 4% PATCH 1 PATCH TOPICAL (08:58)
[2024-06-20] MEDS: CLARITIN 10 MG PO (08:58)
[2024-06-20] MEDS: SINEMET 25-100 2 TABLET PO ×3 (08:58→23:19)
[2024-06-20] MEDS: COZAAR 100 MG PO (08:59)
[2024-06-20] MEDS: FEOSOL 325 MG PO (08:59)
[2024-06-20] MEDS: CARDIZEM 60 MG PO ×3 (08:59→23:19)
[2024-06-20] MEDS: MAG-TAB SR 84 MG PO ×2 (08:59→20:19)
[2024-06-20] MEDS: DELTASONE 10 MG PO (08:59)
[2024-06-20] MEDS: LOPRESSOR 25 MG PO ×2 (09:11→20:26)
--- NOTE | 2024-06-20 11:27 | CON.ORTHO ---
Consultation
-
Date/Time Consultation Requested: 06/20/24 0345
Date/Time Consultation Performed: 06/20/24 1000
Requesting Provider: Dr. Anurag Parr
Performing Provider: LLUVIA Thompson, Dr. Jignesh Milton
Reason for Consultation: Left hip fracture
Consultation - Orthopedics
History
78-year-old female with a significant past medical history of COPD admitted to [facility] after mechanical fall at [facility] and landed erectly on her left side. Since then she has had difficulty with bearing any weight and
pain throughout the left lower extremity. Images obtained demonstrate an impacted left femoral neck fracture. She is ambulatory at baseline with assist devices as needed
Allergies / Home Medications
Allergy/AdvReac Type Severity Reaction Status Date / Time
bacitracin Allergy Unknown Verified 06/19/24 23:09
[From Neosporin
([id number])]
ciprofloxacin Allergy Unknown Verified 06/19/24 23:09
levofloxacin [From Levaquin] Allergy Rash Verified 06/19/24 23:09
neomycin Allergy Unknown Verified 06/19/24 23:09
[From Neosporin
([id number])]
polymyxin B Allergy Unknown Verified 06/19/24 23:09
[From Neosporin
([id number])]
�Medication �Instructions �Recorded
cholecalciferol (vitamin D3) 25 25 mcg PO DAILY Supplement #0 tabs 04/12/24
mcg (1,000 unit) tablet
diltiazem HCl 60 mg tablet 60 mg PO TID Heart 04/12/24
disease/condition #0 tabs
ferrous sulfate 325 mg (65 mg 325 mg PO DAILY Supplement #0 tabs 04/12/24
iron) tablet
losartan 100 mg tablet 100 mg PO DAILY Blood pressure #0 04/12/24
tabs
magnesium oxide 400 mg PO BID Supplement #0 tabs 04/12/24
metoprolol tartrate 25 mg tablet 25 mg PO BID Blood pressure #0 tabs 04/12/24
bisacodyl 10 mg rectal suppository 10 mg [place] DAILYPRN PRN if no bm by 05/28/24
(Dulcolax (bisacodyl)) 3rd day
budesonide 0.5 mg/2 mL suspension 0.5 mg inhalation R BID 05/28/24
for nebulization Lung/Breathing Issues
carbidopa 25 mg-levodopa 100 mg 2 tab PO TID Neurological Condition 05/28/24
tablet
fexofenadine 180 mg tablet 180 mg PO DAILY Allergies 05/28/24
ipratropium 0.5 mg-albuterol 3 mg 3 ml inhalation R QID 05/28/24
(2.5 mg base)/3 mL nebulization Lung/breathing issues
soln
lidocaine 4 % topical cream 1 applic topical TID lower back 05/28/24
pain
lorazepam 0.5 mg tablet 0.5 mg PO Q6HPRN PRN anxiety 05/28/24
prednisone 10 mg tablet 10 mg PO DAILY Anti-Inflammatory 05/28/24
cefpodoxime 200 mg tablet 200 mg PO Q12H Infection #8 tabs 06/03/24
doxycycline hyclate 100 mg capsule 100 mg PO Q12H Infection #8 caps 06/03/24
lidocaine 4 % topical patch 1 patch topical DAILY Pain #15 ea 06/03/24
acetaminophen 500 mg tablet 1,000 mg (2 x 500 mg) PO TID Pain 06/05/24
(Tylenol Extra Strength) #0 tabs
hyoscyamine sulfate 0.125 mg tablet 0.125 mg PO Q4HPRN PRN secretions 06/05/24
loratadine 10 mg tablet 10 mg PO DAILY Allergies 06/05/24
magnesium hydroxide 400 mg/5 mL 2,400 mg PO HSPRN PRN if no bm by 06/05/24
oral suspension (Milk of Magnesia) 2nd day
sodium chloride 0.65 % nasal spray 1 spray intranasal Q4HPRN PRN 06/05/24
aerosol dryness
sodium phosphates 19 gram-7 118 ml [place] DAILYPRN PRN if no bm by 06/05/24
gram/118 mL enema (Fleet Enema) 4th day
Past Medical History: Reports COPD (2 L O2), HTN and Other (Parkinson )
Additional Past Medical History:
Anemia of chronic disease
Chronic rib pain
Endometrial Ca s/p resection
Past Surgical History: Reports Gynocological
Social History
Tobacco: Former Smoker
Alcohol: None
Drug: None
Personal: Single
Living: Jail
Employment: Retired
Family History
Family History: Not pertinent
Vital Signs / Lab Results
Temp Pulse Resp BP Pulse Ox
98.7 F 96 18 140/63 95
06/20/24 07:20 06/20/24 07:22 06/20/24 07:22 06/20/24 07:20 06/20/24 07:22
IMAGING:X-rays taken of the left hip demonstrate an impacted left femoral neck fracture
Physical examination: Focused examination of the left lower extremity shows sensation and motor function distally intact L5-S1. Patient is a protected flexed position and generalized tenderness regarding the left hip. Exam limited otherwise
secondary to pain but nontender about the knee and distally
06/19/24 23:44
06/19/24 23:44
Assessment / Plan
78-year-old female left impacted femoral neck fracture
Images were shown and discussed with the patient regarding their injury. The injury and respective operative and nonoperative interventions reviewed with the patient and respective family members to include the risks and benefits rehabilitation and
prognosis for each. Patient is ambulatory at baseline with assist devices as needed and recommended for operative invention. The treatment and operative technique, postoperative follow-up, postoperative rehabilitation and surgical prognosis was
reviewed in detail. After thorough discussion of potential treatment options the patient and respective family members wish to proceed with operative intervention.
-Patient had minimal lethargy on examination but reported cognitively intact at baseline. She is able to answer questions appropriately but did appear fatigued. With permission attempted to call the son but did not answer and left a voicemail with
callback information. Consent was obtained from the patient with the nurse as witness and placed in chart
-Plan for OR 21 June 2024 for left hip arthroplasty with Dr. Milton
-N.p.o. at midnight
-Antibiotics on-call to the OR
-Irrigation products on order
It was further discussed with the patient that the injury sustained is considered a fragility fracture which occurs in the setting of osteoporosis. Discussed with the patient the significance of this as there is an increased risk of further
fragility fractures in the future. Recommend when discharged and in the nearby future for a follow-up with her primary care provider and discussion of management of osteoporosis and mitigating fall risk is much as possible in the future.
[2024-06-20] MEDS: TYLENOL PO ×3 (12:53→23:23)
--- NOTE | 2024-06-20 14:52 | W.PN.HOSP.TC ---
Addendum entered and electronically signed by Vaibhav Morton MD 06/23/24 17:40:
acute on chronic resp failure
Original Note:
Today's Communication/Plan
-
Trop
For OR tomorrow
Assessment / Plan
Assessment / Plan
78-year-old female presented with shortness of breath she lost her balance and fell
CVS: S1-S2 normal
Chest: no wheezes.
Abdomen: Soft, NT
Extremities: No edema
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
skin hemorrhages on LE
EKG- RBBB
# Left subcapital femoral fracture-traumatic
Orthopedics consulted
For OR tomorrow
Pain control
EKG noted
Check one set of trop
Moderate Risk but not prohibitive risk for surgery
# COPD
Bilateral upper lobe emphysema
Was recently treated for COPD exacerbation and on prednisone-continue that
Budesonide
Supplemental oxygen
Chronic respiratory failure on home oxygen
Patient was on hospice at 1 point which was revoked
# Parkinson disease-continue Sinemet
# Hypertension-continue losartan and metoprolol. Unclear if the patient is also on diltiazem. Med rec needs to be done
# Anxiety-Benzos as needed
# Compression fracture of T4/lumbar levoscoliosis and multiple lumbar DJD/history of multiple rib fractures
# History of endometrial cancer status post hysterectomy
# Ambulatory dysfunction with multiple falls in the past
# Anemia of chronic disease
# 4.1 cm abdominal aortic aneurysm
# DVT prophylaxis-Hold Lovenox for surgery,. Will do SCDS and DVT prophylaxis per Ortho after that
# Limited DNR-no CPR. Intubation okay.
Called Son Marcelo. Went to message
D/W RN
Anticipated Discharge: > 48 hours
Subjective/Interval History
-
Date of Service: June 20, 2024
Objective Data
-
Vital Signs:
Vital Signs
Temp Pulse Resp BP Pulse Ox
98.7 F 85 18 140/63 95
06/20/24 07:20 06/20/24 11:41 06/20/24 11:41 06/20/24 07:20 06/20/24 11:41
I&O
06/19/24 06/20/24 06/21/24
06:59 06:59 06:59
Output Total 200 / 200
Balance -200 / -200
[2024-06-20 16:03] LABS: Iron 54 ug/dl (37-170)
[2024-06-20 16:12] LABS: Percent Saturation 20 % (20-50); Total Iron Binding Capacity 270 ug/dl (265-497)
[2024-06-20 16:59] LABS: Vitamin B12 626 pg/ml (239-931)
[2024-06-20] MEDS: COLACE 100 MG PO (20:18)
[2024-06-20] MEDS: SENOKOT 17.2 MG PO (20:19)
[2024-06-20] MEDS: ROXICODONE 5 MG PO (20:25)
[2024-06-20] MEDS: FLUSH (NSS) 1 FLUSH IV (22:00)
[2024-06-20 22:33] LABS: Troponin I 0.015 ng/ml
[2024-06-21] VITALS (13 sets, daily range): BP systolic 98–122; BP diastolic 29–56; PULSE 78; O2SAT 91
[2024-06-21] MEDS: TYLENOL 650 MG PO ×5 (03:36→20:00)
[2024-06-21] MEDS: DILAUDID 0.5 MG IV ×2 (03:37→08:50)
[2024-06-21] MEDS: FLUSH (NSS) 1 FLUSH IV (03:37)
[2024-06-21 06:32] LABS: Mean Corp Hgb Conc. 31.3 g/dL (33.0-37.0); Mean Corpuscular Hgb 31.7 pg (27.0-31.0); Mean Corpuscular Volume 101.6 fL (81.0-99.0); Mean Platelet Volume 9.4 fL (7.4-10.4); Platelet Count 216 10^3/uL (130-400); Red Blood Cell Count 3.15 10^6/uL (4.20-5.40); Red Cell Dist. Width 14.8 % (11.5-14.5); White Blood Cell Count 10.5 10^3/uL (4.8-10.8)
[2024-06-21 06:45] LABS: Blood Urea Nitrogen 31 mg/dl (7-17); Calcium 9.1 mg/dl (8.4-10.2); Carbon Dioxide 29 mmol/L (22-30); Chloride 102 mmol/L (98-107); Estimated Creatinine Clearance 52 ml/min; Glucose 76 mg/dl (70-99); Potassium 4.6 mmol/L (3.5-5.1); Sodium 138 mmol/L (135-145); eGFR > 60.00
[2024-06-21] MEDS: DUONEB 3 ML INH ×3 (07:30→18:04)
[2024-06-21] MEDS: PULMICORT 0.5 MG INH ×2 (07:30→18:04)
[2024-06-21] MEDS: LIDOCAINE 4% PATCH 1 PATCH TOPICAL (08:50)
[2024-06-21] MEDS: DELTASONE 20 MG PO (08:51)
[2024-06-21] MEDS: PROTONIX 40 MG PO (08:51)
[2024-06-21] MEDS: SINEMET 25-100 2 TABLET PO ×3 (08:51→21:51)
[2024-06-21] MEDS: CLARITIN 10 MG PO (08:52)
[2024-06-21] MEDS: COLACE 100 MG PO ×2 (08:52→20:00)
[2024-06-21] MEDS: MAG-TAB SR 84 MG PO ×2 (08:52→20:00)
[2024-06-21] MEDS: FEOSOL 325 MG PO (08:52)
[2024-06-21] MEDS: SENOKOT 17.2 MG PO ×2 (08:52→20:00)
[2024-06-21] MEDS: CARDIZEM 60 MG PO ×3 (09:06→21:51)
[2024-06-21] MEDS: LOPRESSOR 25 MG PO ×2 (09:06→20:00)
[2024-06-21] MEDS: COZAAR 100 MG PO (09:07)
--- NOTE | 2024-06-21 10:03 | W.PN.HOSP.TC ---
Today's Communication/Plan
-
Pulm consult
for OR
Assessment / Plan
Assessment / Plan
78yo F with COPD with chronic hypoxic respiratory failure on 2L home O2 and chreonic prednisone, Parkinsons, anxiety, HTN aortic aneurism, DJD came after she lost ballance and fell, found L femoral Fx
A/P:
#L impacted femoral neck/head fracture, possibly exacerbated by osteoporosis 2/2 Fall without LOC
#CHronic ambulatory dysfunction 2/2 Parkinson
Ortho mgmt
Patient felt to be moderate cardiac risk for surgery, however with chronic respiratory failure -increasing risk for the pulmonary complications to high
Ortho mgmt
pain mgmt
Most likely iatrogenic osteoporosis contributed to Fx - outpatient w/u/treatment advised
PT/OT, cont Sinemet
#COPD not in exacerbation
#Chronic hypoxic respiratory failure
COnt bronchodilators
Start DUoneb QID
increase prednisone to 20mg daily in view of post-traumatic stress
Pulm consult
#Essential HTN
#Anxiety d/o
#4.1cm AAA
#Anemia, chronic
follow CBC
cont home meds
follow up as outpatient for AAA
DVT ppx lovenox
limited DNR (no CPR)
I have spent at least 58min reviewing chart, test results, communication with consultants and direct patient care
Anticipated Discharge: > 48 hours
Subjective/Interval History
-
Date of Service: June 21, 2024
Objective Data
-
Labs:
Laboratory Results
06/21/24
05:32
WBC 10.5
Hgb 10.0 L
Hct 32.0 L
Plt Count 216
Sodium 138
Potassium 4.6
Chloride 102
Carbon Dioxide 29
BUN 31 H
Creatinine 0.8
Glucose 76
Calcium 9.1
Vital Signs:
Vital Signs
Temp Pulse Resp BP Pulse Ox
98.6 F 94 20 120/47 92
06/21/24 08:30 06/21/24 08:30 06/21/24 08:30 06/21/24 08:30 06/21/24 08:30
I&O
06/20/24 06/21/24 06/22/24
06:59 06:59 06:59
Intake Total 170 / 170
Output Total 200 / 200 600 / 600
Balance -200 / -200 -430 / -430
Review of Systems
-
History Source: Patient
All other systems: Reviewed and negative
Physical Exam
-
General: No Apparent Distress
HEENT: Normocephalic
Respiratory: Clear to Auscultation
GI: Soft, Nontender and Nondistended
Musculoskeletal: No Clubbing, No Cyanosis and Other (L hip pain)
Neuro: Awake, Alert, Oriented and AO x 3
--- NOTE | 2024-06-21 11:15 | W.PN.UPDATE ---
Update Note
Progress Note Update
78-year-old female status post left hip hemiarthroplasty with prophylactic cerclage wires with Dr. Milton
-Weightbearing as tolerated with posterior hip precautions
-PT/OT, DC planning
-Postoperative antibiotics as ordered
-DVT PPx: ASA 325 mg daily unless recommended otherwise per primary
-Diet per primary
-Pain regimen on board; received
-Mata for wound closure with overlying Aquacel.
-Orthopedic surgery will continue to follow
[2024-06-21] MEDS: DUONEB INH (11:25)
[2024-06-21] MEDS: ROXICODONE 5 MG PO ×3 (12:47→21:51)
--- NOTE | 2024-06-21 13:02 | PTCARENOTE ---
Patient transferred from [facility] and [facility] post left hip arthroplasty.She reported her pain at a 4 out of 10.The dressing is intact without drainage.Neurovascular assessment is within normal limits and ongoing.The patient has b/l foot drop
chronically.The patient is in her bed with the call crane in place.
--- NOTE | 2024-06-21 15:23 | CON.PUL ---
Consultation
Consultation Request
Date/Time Consultation Requested: 06/21/2024
Date/Time Consultation Performed: 06/21/2024
Requesting Provider: Dr. Samaniego
Performing Provider: Dr. Fernando Warner
Reason for Consultation: COPD
Medical History
-
History of Present Illness:
78-year-old female with past medical history significant for COPD admitted to the hospital after mechanical fall at [facility]. Since then having difficulty ambulating complains of pain on her left lower extremity.
X-ray demonstrated left femoral neck fracture.
She is baseline ambulatory.
We were consulted on 06/21/2024 for history of severe COPD and assist with management postoperatively.
There is no increased phlegm production or shortness of breath
It is noted that the patient is wheelchair-bound.
Oxygen for mentation at baseline
Records reviewed, seen for the first time in our office in April 2024. Transition to nebulized therapy.
A sleep study was ordered at that time.
Past Medical History
Past Medical History: Other (See assessment and plan)
Allergies / Home Medications
Allergies
Allergy/AdvReac Type Severity Reaction Status Date / Time
bacitracin Allergy Unknown Verified 06/19/24 23:09
[From Neosporin
([id number])]
ciprofloxacin Allergy Unknown Verified 06/19/24 23:09
levofloxacin [From Levaquin] Allergy Rash Verified 06/19/24 23:09
neomycin Allergy Unknown Verified 06/19/24 23:09
[From Neosporin
([id number])]
polymyxin B Allergy Unknown Verified 06/19/24 23:09
[From Neosporin
([id number])]
Home Medications
�Medication �Instructions �Recorded �Confirmed �Last Taken �Type
cholecalciferol (vitamin D3) 25 25 mcg PO DAILY Supplement #0 tabs 04/12/24 06/05/24 Unknown Rx
mcg (1,000 unit) tablet
diltiazem HCl 60 mg tablet 60 mg PO TID Heart 04/12/24 06/05/24 Unknown Rx
disease/condition #0 tabs
ferrous sulfate 325 mg (65 mg 325 mg PO DAILY Supplement #0 tabs 04/12/24 06/05/24 Unknown Rx
iron) tablet
losartan 100 mg tablet 100 mg PO DAILY Blood pressure #0 04/12/24 06/05/24 Unknown Rx
tabs
magnesium oxide 400 mg PO BID Supplement #0 tabs 04/12/24 06/05/24 Unknown Rx
metoprolol tartrate 25 mg tablet 25 mg PO BID Blood pressure #0 tabs 04/12/24 06/05/24 Unknown Rx
bisacodyl 10 mg rectal suppository 10 mg MT DAILYPRN PRN if no bm by 05/28/24 06/05/24 Unknown History
(Dulcolax (bisacodyl)) 3rd day
budesonide 0.5 mg/2 mL suspension 0.5 mg inhalation R BID 05/28/24 06/05/24 Unknown History
for nebulization Lung/Breathing Issues
carbidopa 25 mg-levodopa 100 mg 2 tab PO TID Neurological Condition 05/28/24 06/05/24 Unknown History
tablet
fexofenadine 180 mg tablet 180 mg PO DAILY Allergies 05/28/24 06/05/24 Unknown History
ipratropium 0.5 mg-albuterol 3 mg 3 ml inhalation R QID 05/28/24 06/05/24 Unknown History
(2.5 mg base)/3 mL nebulization Lung/breathing issues
soln
lidocaine 4 % topical cream 1 applic topical TID lower back 05/28/24 06/05/24 Unknown History
pain
lorazepam 0.5 mg tablet 0.5 mg PO Q6HPRN PRN anxiety 05/28/24 06/05/24 Unknown History
prednisone 10 mg tablet 10 mg PO DAILY Anti-Inflammatory 05/28/24 06/05/24 Unknown History
cefpodoxime 200 mg tablet 200 mg PO Q12H Infection #8 tabs 06/03/24 06/05/24 Unknown Rx
doxycycline hyclate 100 mg capsule 100 mg PO Q12H Infection #8 caps 06/03/24 06/05/24 Unknown Rx
lidocaine 4 % topical patch 1 patch topical DAILY Pain #15 ea 06/03/24 06/05/24 Unknown Rx
acetaminophen 500 mg tablet 1,000 mg (2 x 500 mg) PO TID Pain 06/05/24 06/05/24 Unknown Rx
(Tylenol Extra Strength) #0 tabs
hyoscyamine sulfate 0.125 mg tablet 0.125 mg PO Q4HPRN PRN secretions 06/05/24 06/05/24 Unknown History
loratadine 10 mg tablet 10 mg PO DAILY Allergies 06/05/24 06/05/24 Unknown History
magnesium hydroxide 400 mg/5 mL 2,400 mg PO HSPRN PRN if no bm by 06/05/24 06/05/24 Unknown History
oral suspension (Milk of Magnesia) 2nd day
sodium chloride 0.65 % nasal spray 1 spray intranasal Q4HPRN PRN 06/05/24 06/05/24 Unknown History
aerosol dryness
sodium phosphates 19 gram-7 118 ml MT DAILYPRN PRN if no bm by 06/05/24 06/05/24 Unknown History
gram/118 mL enema (Fleet Enema) 4th day
Review of Systems
Vitals / Labs / Diagnostic Testing
Vital Signs
Temp Pulse Resp BP Pulse Ox
97.8 F 67 16 109/43 92
06/21/24 12:36 06/21/24 12:36 06/21/24 12:36 06/21/24 12:36 06/21/24 12:36
Lab Data
06/21/24 05:32
06/21/24 05:32
Diagnostic Testing:
Physical Exam
-
HEENT: Normocephalic
Cardiovascular: S1/S2
Respiratory: Clear and Non-Labored Respirations
GI: Soft and Non Distended
Neurology: Awake, AO x 3, No Motor Deficits and Tremors (n)
Skin: Warm and Good Color
General: Comfortable
Assessment
-
78-year-old woman with past medical history significant for severe COPD, chronic hypoxemic and hypercapnic respiratory failure. Admitted after sustaining a fall. Developed left femoral fracture. Underwent hemiarthroplasty. We were consulted on
06/21/2024 for postoperative management Of COPD.
Severe COPD with chronic hypoxemic and hypercapnic respiratory failure
Steroid-dependent
Left impacted femoral neck/head fracture status post fall-status post left hemiarthroplasty 06/21/2024-Dr. Milton
Conditions present Present prior admission:
Severe COPD/Emphysema phenotype on 2 L baseline-Used to follow-up with pulmonary in [place] Until recently.
FEV1 05/06/2024: 0.44 L - 22% of predicted. Ratio 36%
Chronic hypercapnic respiratory failure
First time seen in our office 05/06/2024: Transitioned to Pulmicort/DuoNeb
Chronic prednisone therapy
Prior history of ventilator dependent respiratory failure in the past may have 2023-unclear details
Recent falls with rib fractures 05-23
T4 compression fracture wearing TLSO
Former nzkacb-39-advv-year history quit in 2013
Hypertension
Endometrial cancer
Anemia of chronic disease
Abdominal aortic aneurysm
Parkinson's disease
Cholecystectomy
Appendectomy
Hysterectomy
Ambulatory [id number]-[id number]
Multiple compression fractures
Assessment and plan:
From the pulmonary perspective appears to be baseline.
Underwent hemiarthroplasty of the left hip.
Currently not bronchospastic
Outpatient regimen will continue: Budesonide twice a day, DuoNebs 3-4 times a day
Continue low-dose prednisone-baseline is 10 mg.
Incentive spirometer
Avoid narcotics/sedatives as able.
Monitor respiratory status closely.
-
Patient does have chronic hypercapnic respiratory failure workup in the outpatient ongoing.
Currently mental status baseline.
There is no increased work of breathing.
Latest ABG 05/28/2024: 7.33/53/96
if there is concerns with mental status issues, obtain ABG.
For now hold off on using BiPAP at bedtime as the patient has not been using in the outpatient setting.
-
DVT prophylaxis-pharmacological a follow-up from the surgical perspective
SCDs
--- NOTE | 2024-06-21 15:40 | CM ---
CM spoke with [facility] staff- pt is a LTC in their SNF
VM left for nursing staff to obtain PLOF and bed-hold status
Pt in OR today for hip fx
Post-op PT/OT orders placed and pending
Return SNF referral sent via [facility]
Plan to follow up with SNF staff on PLOF and bed-hold status
Discharge Disposition- anticipate return to [facility] for LTC
[2024-06-21] MEDS: ANCEF 5 IV (17:20)
[2024-06-21] MEDS: ASPIRIN 325 MG PO (17:20)
[2024-06-22] MEDS: TYLENOL PO (00:56)
[2024-06-22] MEDS: ANCEF 5 IV (02:03)
[2024-06-22 03:03] VITALS: BP 115/43
[2024-06-22] MEDS: TYLENOL 650 MG PO ×5 (03:21→21:04)
[2024-06-22 05:49] LABS: % Basophils 0.2 % (0-2); % Eosinophils 1.7 % (0-6); % Immature Granulocytes 0.6 % (0-0.5); % Lymphocytes 6.8 % (20.5-51.1); % Monocytes 12.8 % (1.7-9.3); % Neutrophils 77.9 % (42.2-75.2); Absolute Eosinophils 0.1 10^3/uL (0-0.7); Absolute Immature Granulocytes 0.1 10^3/uL (0-0.05); Absolute Lymphocytes 0.6 10^3/uL (1.2-3.4); Absolute Neutrophils 6.2 10^3/uL (1.4-6.5); Hematocrit 27.2 % (37.0-47.0); Hemoglobin 8.5 g/dL (12.0-16.0); Mean Corp Hgb Conc. 31.3 g/dL (33.0-37.0); Mean Corpuscular Hgb 31.7 pg (27.0-31.0); Mean Corpuscular Volume 101.5 fL (81.0-99.0); Mean Platelet Volume 9.7 fL (7.4-10.4); Nucleated Red Blood Cells % 0 %; Platelet Count 168 10^3/uL (130-400); Red Blood Cell Count 2.68 10^6/uL (4.20-5.40); Red Cell Dist. Width 14.8 % (11.5-14.5)
[2024-06-22 06:09] LABS: ALT (SGPT) < 10 U/L (0-35); AST (SGOT) 30 U/L (14-36); Albumin 3.1 g/dl (3.5-5.0); Alkaline Phosphatase 64 U/L (38-126); Blood Urea Nitrogen 49 mg/dl (7-17); Calcium 8.8 mg/dl (8.4-10.2); Carbon Dioxide 27 mmol/L (22-30); Chloride 102 mmol/L (98-107); Estimated Creatinine Clearance 35 ml/min; Glucose 95 mg/dl (70-99); Potassium 4.4 mmol/L (3.5-5.1); Sodium 140 mmol/L (135-145); Total Bilirubin 0.2 mg/dl (0.2-1.3); Total Protein 5.3 g/dl (6.3-8.2); eGFR 46.33
[2024-06-22] MEDS: ROXICODONE 5 MG PO ×2 (06:39→14:09)
[2024-06-22] MEDS: DUONEB 3 ML INH ×4 (07:13→19:26)
[2024-06-22] MEDS: PULMICORT 0.5 MG INH ×2 (07:13→19:26)
[2024-06-22 08:00] VITALS: BP 133/52
[2024-06-22] MEDS: MAG-TAB SR 84 MG PO ×2 (09:03→21:04)
[2024-06-22] MEDS: COZAAR 100 MG PO (09:03)
[2024-06-22] MEDS: CLARITIN 10 MG PO (09:03)
[2024-06-22] MEDS: SINEMET 25-100 2 TABLET PO ×3 (09:03→21:06)
[2024-06-22] MEDS: FEOSOL 325 MG PO (09:03)
[2024-06-22] MEDS: CARDIZEM 60 MG PO ×3 (09:03→22:11)
[2024-06-22] MEDS: LIDOCAINE 4% PATCH 1 PATCH TOPICAL (09:04)
[2024-06-22] MEDS: DELTASONE 20 MG PO (09:04)
[2024-06-22] MEDS: COLACE 100 MG PO ×2 (09:04→21:03)
[2024-06-22] MEDS: ASPIRIN 325 MG PO (09:04)
[2024-06-22] MEDS: SENOKOT 17.2 MG PO ×2 (09:04→21:04)
[2024-06-22] MEDS: PROTONIX 40 MG PO (09:04)
[2024-06-22] MEDS: LOPRESSOR 25 MG PO ×2 (09:04→21:00)
[2024-06-22] MEDS: LR 1000 IV (09:07)
--- NOTE | 2024-06-22 09:12 | W.PN.PUL.V3 ---
Today's Communication / Plan
-
Continue supplemental oxygen-currently on 4 L-attempt to wean
Aspiration precautions
DVT prophylaxis
Treat nasal congestion
Physical therapy
Outpatient pulmonary follow-up
Assessment
-
78-year-old woman with past medical history significant for severe COPD, chronic hypoxemic and hypercapnic respiratory failure. Admitted after sustaining a fall. Developed left femoral fracture. Underwent hemiarthroplasty. We were consulted on
06/21/2024 for postoperative management Of COPD.
Severe COPD with chronic hypoxemic and hypercapnic respiratory failure
Steroid-dependent
Left impacted femoral neck/head fracture status post fall-status post left hemiarthroplasty 06/21/2024-Dr. Milton
Conditions present Present prior admission:
Severe COPD/Emphysema phenotype on 2 L baseline-Used to follow-up with pulmonary in [place] Until recently.
FEV1 05/06/2024: 0.44 L - 22% of predicted. Ratio 36%
Chronic hypercapnic respiratory failure
First time seen in our office 05/06/2024: Transitioned to Pulmicort/DuoNeb
Chronic prednisone therapy
Prior history of ventilator dependent respiratory failure in the past may have 2023-unclear details
Recent falls with rib fractures 05-23
T4 compression fracture wearing TLSO
Former kmfwmh-55-ygpa-year history quit in 2013
Hypertension
Endometrial cancer
Anemia of chronic disease
Abdominal aortic aneurysm
Parkinson's disease
Cholecystectomy
Appendectomy
Hysterectomy
Ambulatory [id number]-[id number]
Multiple compression fractures
Plan
Pulmonary status somewhat tenuous with increased FiO2 requirements
Continue supplemental oxygen as needed-currently on 4 L nasal cannula
Aspiration precautions
Incentive spirometry
Mucus clearing devices
BiPAP if needed-currently not requiring
Prednisone 20 mg continues-baseline 10 mg
Nebulizers continue-DuoNebs and Pulmicort nebulizers
History of chronic hypercapnia-workup as an outpatient ongoing
Treat nasal congestion-mucolytic's, nasal sprays
Status post left hip hemiarthroplasty
Orthopedics following
DVT prophylaxis recommended-orthopedics initiated aspirin, if no contraindications would recommend heparin or low molecular weight heparin
GI prophylaxis-on pantoprazole
Physical therapy
Outpatient pulmonary [id number] Gisel Amezcua NP 05/06/2024 and has appointment [address] Evans 07/07/2024
Subjective Data
-
Date of Service:
Date of Service: June 22, 2024
Chief Complaint: Pulmonary Follow Up and Dyspnea Follow Up
Subjective:
States that she feels about the same, complains of nasal congestion, usually on Janay, increased FiO2 requirements, no chest pain, chest congestion, productive cough or abdominal pain
Review of Systems
General: Other (Per HPI)
Objective Data
Data Reviewed
Vital Signs / I&O:
Vital Signs
Temp Pulse Resp BP Pulse Ox
98.4 F 71 21 133/52 94
06/22/24 08:00 06/22/24 09:04 06/22/24 08:00 06/22/24 09:04 06/22/24 08:05
Intake and Output
06/21/24 06/22/24 06/23/24
06:59 06:59 06:59
Intake Total 170 / 170 240 / 240
Output Total 600 / 600
Balance -430 / -430 240 / 240
SaO2: 94
Nasal Cannula flow liters per minute: 4
Physical Exam
General: Respiratory Distress (n) and Comfortable
HEENT: Normocephalic, Anicteric and Moist Mucous Membranes
Cardiovascular: Regular Rhythm
Respiratory: Wheeze (n), Crackles, Rhonchi (Expiratory), Non-Labored Respirations and Accessory Resp Muscle Use (n)
GI: Soft, Non Distended and Non Tender
Neurology: Awake and Alert
Skin: Warm, Good Color, Cyanosis (n) and Jaundice (n)
Labs/Micro/Reports
Lab Data
06/22/24 04:25
06/22/24 04:25
--- NOTE | 2024-06-22 09:27 | W.PN.ORTHO ---
Today's Communication / Plan
-
Appreciate the hospitalist team, continue treatment
Dispo likely SNF, appreciate CM
Continue WBAT B/L LEs on walker
PT/OT, THPs x 6 weeks
ASA 325mg daily x 4 weeks
Avoid narcotic induced delirium
Dressing to remain 7-10 days, unless soiled
[place] out at 2 weeks (office or WNF)
If aubrey out at SNF outpatient Ortho follow-up 4 weeks
Assessment
.
Distal Motor Intact: Yes
Dressing:
Clean, dry and intact. Aquacel with mild, contained, strikethrough
Assessment:
POD#1 Left hip Beau
Overall doing/feeling well this AM
Calf soft, nontender
Plan
.
Surgery / Date: Left Hip Beau/Jul 05 (Karine)
DVT Prophylaxis: Aspirin
Activity:
Out of bed. WBAT LLE on walker
PT/OT, THPs x 6 6 weeks
Discharge Plan: Other (per CM)
Subjective
.
.:
Patient resting comfortably in bed this AM
Vital Signs and Labs
.
Vital Signs and Labs:
Lab Results
06/22/24 04:25
06/22/24 04:25
Temp Pulse Resp BP Pulse Ox
98.4 F 71 21 133/52 94
06/22/24 08:00 06/22/24 09:04 06/22/24 08:00 06/22/24 09:04 06/22/24 09:12
[2024-06-22 09:49] VITALS: BP 136/48; PULSE 75; O2SAT 93
[2024-06-22 09:51] VITALS: BP 136/48; PULSE 76; O2SAT 93
[2024-06-22] MEDS: MUCINEX 1200 MG PO ×2 (10:04→21:04)
--- NOTE | 2024-06-22 10:36 | PN.CDI ---
CDI
- -
CDI:
Physician Documentation Request
Admit Date: 06/20/24 01:43
Dear Doctor Selene,
Patient admitted for femoral neck fracture.
ED Physician Documentation: 'She typically on 2 L of oxygen for COPD. She notes that shortness of breath started tonight as well.'
06/20 Hospitalist PN: 'Supplemental oxygen, Chronic respiratory failure on home oxygen'
Selected Entries
06/20/24
03:00 06/20/24
07:20 06/20/24
15:00
Nasal Cannula flow liters per minute 6 6 6
Clarify which of the following accurately represents the patient's respiratory status:
Acute on chronic hypoxic respiratory failure
Chronic hypoxic respiratory failure
Hypoxia
Other
Additional information for Respiratory Failure:
Recognized criteria for Respiratory Failure (Source: [facility] Jun 2013)
ABGs: (1 or more) Symptoms Please indicate type if known
1. p)2 <60 or RA SPO2 <91% on RA 1. Tachypnea, SOB, dyspnea Hypoxic
2. pCO2 50 and pH <7.35 2. Use of accessory muscles Hypercapnic
3. pO2 decrease of pCO2 increase by 3. Pallor or cyanosis Hypoxic and Hypercapnic
10 mmHg from baseline if known 4. Anxiety or restlessness Unable to determine
5. Unable to speak in full sentences
Supplemental O2 of > 40% (5LPM) Intubation is not required
Use of terms such as suspected, likely, concern for, or probable (associated with a specific diagnosis that is being evaluated, monitored, or treated as if it exists) are acceptable and can be coded in the inpatient setting, when documented at the
time of discharge.
Thank you,
Ivon Delarosa RN, BSN
CDI Specialist
Available via [place] text
Please use your independent medical judgment in providing your response.
--- NOTE | 2024-06-22 12:20 | W.PN.HOSP.TC ---
Today's Communication/Plan
-
hydrate, follow AM labs, if withing acceptable limits - d/c to rehab, CM aware
Assessment / Plan
Assessment / Plan
78yo F with COPD with chronic hypoxic respiratory failure on 2L home O2 and chreonic prednisone, Parkinsons, anxiety, HTN aortic aneurism, DJD came after she lost ballance and fell, found L femoral Fx
A/P:
#L impacted femoral neck/head fracture, possibly exacerbated by osteoporosis 2/2 Fall without LOC
#CHronic ambulatory dysfunction 2/2 Parkinson
Ortho mgmt: s/p L hip hemiarthroplasty
THPs x 6 weeks
ASA 325mg daily x 4 weeks
Dressing to remain 7-10 days, unless soiled
[place] out at 2 weeks (office or WNF)
If aubrey out at SNF outpatient Ortho follow-up 4 weeks
pain mgmt
Most likely iatrogenic osteoporosis contributed to Fx - outpatient w/u/treatment advised
PT/OT, cont Sinemet
#Acute blood loss anemia 2/2 fracture and periOP blood loss
L hip is not tender, not swollen, no significant bruise
follow CBC, some degree of Hgb drop is acceptable, ortho without concerns
#COPD not in exacerbation
#Chronic hypoxic respiratory failure
COnt bronchodilators
Start DUoneb QID
increase prednisone to 20mg daily in view of post-traumatic stress
Pulm consult
#Elevated Cr
to 1.2, baseline 1.0, not in HERMELINDO range
Hydrate and follow Cr
#Essential HTN
#Anxiety d/o
#4.1cm AAA
#Anemia, chronic
follow CBC
cont home meds
follow up as outpatient for AAA
DVT ppx ASA as per Ortho
limited DNR (no CPR)
I have spent at least 38min reviewing chart, test results, communication with consultants and direct patient care
Anticipated Discharge: Within 24 hours
Subjective/Interval History
-
Date of Service: June 22, 2024
Objective Data
-
Labs:
Laboratory Results
06/22/24
04:25
WBC 8.0
Hgb 8.5 L
Hct 27.2 L
Plt Count 168 D
Sodium 140
Potassium 4.4
Chloride 102
Carbon Dioxide 27
BUN 49 H
Creatinine 1.2 H
Glucose 95
Calcium 8.8
Total Bilirubin 0.2
AST 30
ALT < 10
Alkaline Phosphatase 64
Vital Signs:
Vital Signs
Temp Pulse Resp BP Pulse Ox
98.4 F 71 18 133/52 94
06/22/24 08:00 06/22/24 09:04 06/22/24 11:19 06/22/24 09:04 06/22/24 11:19
I&O
06/21/24 06/22/24 06/23/24
06:59 06:59 06:59
Intake Total 170 / 170 240 / 240
Output Total 600 / 600
Balance -430 / -430 240 / 240
Review of Systems
-
History Source: Patient
All other systems: Reviewed and negative
Physical Exam
-
General: No Apparent Distress
HEENT: Normocephalic
Respiratory: Clear to Auscultation
Cardiac: Regular Rhythm
GI: Soft, Nontender and Nondistended
Musculoskeletal: No Clubbing, No Cyanosis and No Edema
Neuro: Awake, Alert, Oriented and AO x 3
Psych: Calm
[2024-06-22] MEDS: OCEAN, SALINE MIST 2 SPRAYS NASAL ×3 (12:39→21:05)
[2024-06-22 15:06] VITALS: BP 120/49
--- NOTE | 2024-06-22 15:08 | CM ---
Chart reviewed
Per physician pt may be ready tomorrow
Spoke with Felicia at [facility] - will accept when ready
R - [phone]/F - [phone]
Plan - transfer to [facility] when medically ready
[2024-06-22 23:09] VITALS: BP 128/47
[2024-06-23] MEDS: TYLENOL PO (00:38)
[2024-06-23] MEDS: TYLENOL 650 MG PO ×5 (04:25→20:20)
[2024-06-23] MEDS: ROXICODONE 5 MG PO ×3 (04:37→21:59)
[2024-06-23 05:36] LABS: Hemoglobin 7.9 g/dL (12.0-16.0)
[2024-06-23 06:02] LABS: Blood Urea Nitrogen 46 mg/dl (7-17); Calcium 8.9 mg/dl (8.4-10.2); Carbon Dioxide 31 mmol/L (22-30); Chloride 105 mmol/L (98-107); Estimated Creatinine Clearance 52 ml/min; Glucose 104 mg/dl (70-99); Potassium 4.5 mmol/L (3.5-5.1); Sodium 142 mmol/L (135-145); eGFR > 60.00
--- NOTE | 2024-06-23 06:27 | W.PN.ORTHO ---
Today's Communication / Plan
-
Appreciate the hospitalist team, continue treatment
Dispo likely SNF, appreciate CM
Continue WBAT B/L LEs on walker
PT/OT, THPs x 6 weeks. Abductor pillow in place while in bed.
Hgb this AM 7.9 from 8.5 yesterday. Primary team notified via [facility].
ASA 325mg daily x 4 weeks
Avoid narcotic induced delirium
Dressing to remain 7-10 days, unless soiled
[place] out at 2 weeks (office or SNF)
If aubrey out at SNF outpatient Ortho follow-up 4 weeks
Orthopedic surgery will sign off at this time. Please reengage with any further questions or concerns.
Assessment
.
Distal Motor Intact: Yes
Dressing:
Clean, dry and intact. Aquacel with mild, contained, strikethrough.
Assessment:
POD 2 Left Hip Beau 06/21 [facility]
Plan
.
Surgery / Date: Left Hip Beau/Jul 05 (Vikoren)
DVT Prophylaxis: Aspirin
Activity:
Out of bed.
PT/OT
Discharge Plan: Other
Discharge Information:
Appreciate CM
Subjective
.
.:
Patient resting in bed on encounter this AM. Endorses discomfort to her left hip. Denies any paresthesias.
Vital Signs and Labs
.
Vital Signs and Labs:
Lab Results
06/23/24 04:23
06/23/24 04:23
Temp Pulse Resp BP Pulse Ox
98.1 F 74 18 128/47 97
06/22/24 23:09 06/22/24 23:09 06/22/24 23:09 06/22/24 23:09 06/22/24 23:09
[2024-06-23 07:00] VITALS: BP 149/59
[2024-06-23] MEDS: DUONEB 3 ML INH ×4 (07:00→19:11)
[2024-06-23] MEDS: PULMICORT 0.5 MG INH ×2 (07:00→19:11)
--- NOTE | 2024-06-23 08:27 | W.PN.HOSP.TC ---
Today's Communication/Plan
-
anemia w/u, serial H&H, check stool for FOBT
decrease Prednisone to 10mg - home dose
Assessment / Plan
Assessment / Plan
78yo F residing in facility with PMHx of COPD with chronic hypoxic respiratory failure on 2L home O2 and chreonic prednisone, Parkinsons, anxiety, HTN aortic aneurism, DJD came after she lost balance and fell, found L femoral Fx. Had L hip
hemiarthroplasty and developed post-traumatic and postOP anemia
A/P:
#L impacted femoral neck/head fracture, possibly exacerbated by osteoporosis 2/2 Fall without LOC
#CHronic ambulatory dysfunction 2/2 Parkinson
Ortho mgmt: s/p L hip hemiarthroplasty
THPs x 6 weeks
ASA 325mg daily x 4 weeks
Dressing to remain 7-10 days, unless soiled
[place] out at 2 weeks (office or [facility]NF)
If aubrey out at [facility] outpatient Ortho follow-up 4 weeks
pain mgmt
Most likely iatrogenic osteoporosis contributed to Fx - outpatient w/u/treatment advised
PT/OT, cont Sinemet
#Acute blood loss anemia 2/2 fracture and periOP blood loss
L hip is not tender, not swollen, no significant bruise. As discussed with ortho - they dont have a concern for ongoing traumatic bleeding
Check anemia w/u and stool for FOBT
serial H&H
#COPD not in exacerbation
#Chronic hypoxic respiratory failure
COnt bronchodilators
Start DUoneb QID
cont Prednisone
Pulm consult
#Elevated Cr
to 1.2, baseline 1.0, not in HERMELINDO range
Hydrate and follow Cr
#Essential HTN
#Anxiety d/o
#4.1cm AAA
#Anemia, chronic
follow CBC
cont home meds
follow up as outpatient for AAA
DVT ppx ASA as per Ortho
limited DNR (no CPR)
I have spent at least 38min reviewing chart, test results, communication with consultants and direct patient care
Anticipated Discharge: Within 24 hours
Subjective/Interval History
-
Date of Service: June 23, 2024
Objective Data
-
Labs:
Laboratory Results
06/23/24 06/23/24 06/23/24
04:23 12:00 20:00
Hgb 7.9 L Pending Pending
Hct 25.0 L Pending Pending
Sodium 142
Potassium 4.5
Chloride 105
Carbon Dioxide 31 H
BUN 46 H
Creatinine 0.8
Glucose 104 H
Calcium 8.9
Vital Signs:
Vital Signs
Temp Pulse Resp BP Pulse Ox
98.0 F 63 16 149/59 96
06/23/24 07:00 06/23/24 07:05 06/23/24 07:05 06/23/24 07:00 06/23/24 07:05
I&O
06/22/24 06/23/24 06/24/24
06:59 06:59 06:59
Intake Total 240 / 240 1290 / 1290
Balance 240 / 240 1290 / 1290
Review of Systems
-
History Source: Patient
All other systems: Reviewed and negative
Physical Exam
-
General: No Apparent Distress
HEENT: Normocephalic
Respiratory: Wheezes
Cardiac: Regular Rhythm
GI: Soft, Nontender and Nondistended
Musculoskeletal: Other (no bruising or swelling on L hip)
Neuro: Awake, Alert, Oriented and AO x 3
Psych: Calm
[2024-06-23] MEDS: COZAAR 100 MG PO (08:49)
[2024-06-23] MEDS: SINEMET 25-100 2 TABLET PO ×3 (08:49→21:59)
[2024-06-23] MEDS: LOPRESSOR 25 MG PO ×2 (08:49→20:20)
[2024-06-23] MEDS: CLARITIN 10 MG PO (08:49)
[2024-06-23] MEDS: FEOSOL 325 MG PO (08:49)
[2024-06-23] MEDS: COLACE 100 MG PO (08:50)
[2024-06-23] MEDS: CARDIZEM 60 MG PO ×3 (08:51→21:58)
[2024-06-23] MEDS: MUCINEX PO ×4 (08:51→20:30)
[2024-06-23] MEDS: ASPIRIN 325 MG PO (08:51)
[2024-06-23] MEDS: PROTONIX 40 MG PO (08:51)
[2024-06-23] MEDS: LIDOCAINE 4% PATCH 1 PATCH TOPICAL (08:52)
[2024-06-23] MEDS: MAG-TAB SR 84 MG PO ×2 (08:52→20:19)
[2024-06-23] MEDS: SENOKOT 17.2 MG PO (08:52)
[2024-06-23] MEDS: OCEAN, SALINE MIST 2 SPRAYS NASAL ×2 (08:57→13:45)
[2024-06-23] MEDS: DELTASONE PO (08:58)
--- NOTE | 2024-06-23 09:30 | W.PN.PUL.V3 ---
Today's Communication / Plan
-
Decrease prednisone to home dose 10 mg
Follow hemoglobin
Continue nebulizers
Outpatient pulmonary follow-up
Assessment
-
78-year-old woman with past medical history significant for severe COPD, chronic hypoxemic and hypercapnic respiratory failure. Admitted after sustaining a fall. Developed left femoral fracture. Underwent hemiarthroplasty. We were consulted on
06/21/2024 for postoperative management Of COPD.
Severe COPD with chronic hypoxemic and hypercapnic respiratory failure
Steroid-dependent
Left impacted femoral neck/head fracture status post fall-status post left hemiarthroplasty 06/21/2024-Dr. Milton
Conditions present Present prior admission:
Severe COPD/Emphysema phenotype on 2 L baseline-Used to follow-up with pulmonary in [place] Until recently.
FEV1 05/06/2024: 0.44 L - 22% of predicted. Ratio 36%
Chronic hypercapnic respiratory failure
First time seen in our office 05/06/2024: Transitioned to Pulmicort/DuoNeb
Chronic prednisone therapy
Prior history of ventilator dependent respiratory failure in the past may have 2023-unclear details
Recent falls with rib fractures 05-23
T4 compression fracture wearing TLSO
Former szenel-28-niiv-year history quit in 2013
Hypertension
Endometrial cancer
Anemia of chronic disease
Abdominal aortic aneurysm
Parkinson's disease
Cholecystectomy
Appendectomy
Hysterectomy
Ambulatory [id number]-[id number]-[id number]
Multiple compression fractures
Plan
Pulmonary status somewhat tenuous with increased FiO2 requirements
Continue supplemental oxygen as needed-currently on 4 L nasal cannula
Aspiration precautions
Incentive spirometry
Mucus clearing devices
BiPAP if needed-currently not requiring
Prednisone 20 mg continues-baseline 10 mg-decrease to home dose
Nebulizers continue-DuoNebs and Pulmicort nebulizers
History of chronic hypercapnia-workup as an outpatient ongoing
Treat nasal congestion-mucolytic's, nasal sprays
Status post left hip hemiarthroplasty
Orthopedics following
Follow hemoglobin
Transfuse if needed
No obvious source for bleeding clinically
DVT prophylaxis recommended-orthopedics initiated aspirin, if no contraindications would recommend heparin or low molecular weight heparin
GI prophylaxis-on pantoprazole
Physical therapy
Reviewed with primary team
Outpatient pulmonary nqijyr-tu-pwa Gisel Amezcua NP 05/06/2024 and has appointment [address] Evans 07/07/2024
Subjective Data
-
Date of Service:
Date of Service: June 23, 2024
Chief Complaint: Pulmonary Follow Up and Dyspnea Follow Up
Subjective:
She feels about the same, no increase shortness of breath at rest, still has some wheezing, no chest pain or abdominal pain
Review of Systems
General: Other (Per HPI)
Objective Data
Data Reviewed
Vital Signs / I&O:
Vital Signs
Temp Pulse Resp BP Pulse Ox
98.0 F 63 16 149/59 96
06/23/24 07:00 06/23/24 07:05 06/23/24 07:05 06/23/24 07:00 06/23/24 07:05
Intake and Output
06/22/24 06/23/24 06/24/24
06:59 06:59 06:59
Intake Total 240 / 240 1290 / 1290
Balance 240 / 240 1290 / 1290
SaO2: 96
Nasal Cannula flow liters per minute: 3
Physical Exam
General: Respiratory Distress (n) and Comfortable
HEENT: Normocephalic, Anicteric and Moist Mucous Membranes
Cardiovascular: Regular Rhythm
Respiratory: Wheeze (n), Crackles, Rhonchi (Expiratory), Non-Labored Respirations and Accessory Resp Muscle Use (n)
GI: Soft, Non Distended and Non Tender
Neurology: Awake and Alert
Skin: Warm, Good Color, Cyanosis (n) and Jaundice (n)
Labs/Micro/Reports
Lab Data
06/23/24 04:23
[2024-06-23] MEDS: DELTASONE 10 MG PO (10:17)
[2024-06-23 10:40] LABS: Reticulocyte Count 1.6 % (0.4-2.8)
[2024-06-23 10:57] LABS: LDH 199 U/L (120-246)
[2024-06-23 11:06] LABS: Total Iron Binding Capacity 224 ug/dl (265-497)
[2024-06-23 11:30] LABS: Iron < 20 ug/dl (37-170)
[2024-06-23 13:00] LABS: Hematocrit 27.4 % (37.0-47.0); Hemoglobin 8.6 g/dL (12.0-16.0)
--- NOTE | 2024-06-23 13:00 | CM ---
Addendum entered by Rosa Kimball 06/23/24 15:50:
Denied at [facility] due to functional endurance
Original Note:
CM reviewed chart and per notes, ADC tomorrow
Call from Ortiz/LAKSHMI at [facility]
He has left VMs for pt and asking for help with pt returning his call to discuss LTC and bed-hold
Update to [facility], bed continues to be available on dc
Bedside meeting with pt
[facility] phone number provided to her
She is requesting a referral to [facility] for consideration as she has heard 'they are the best'
Referral made to [facility] and clinicals sent via [facility]
Discharge Disposition- [facility] vs [facility]
[2024-06-23] MEDS: FERRLECIT 110 MG IV (13:45)
[2024-06-23 15:00] VITALS: BP 139/52
[2024-06-23 16:10] VITALS: BP 123/61; PULSE 75; PULSE 81; O2SAT 92
[2024-06-23 16:11] VITALS: BP 123/61; PULSE 75; O2SAT 92
[2024-06-23 16:28] LABS: Folate 3.8 ng/ml (2.76-20); Vitamin B12 591 pg/ml (239-931)
[2024-06-23] MEDS: OCEAN, SALINE MIST NASAL ×3 (17:30→22:38)
[2024-06-23] MEDS: COLACE PO ×2 (20:19→20:29)
[2024-06-23] MEDS: SENOKOT PO ×2 (20:20→20:31)
[2024-06-23 21:07] LABS: Hematocrit 27.7 % (37.0-47.0); Hemoglobin 8.9 g/dL (12.0-16.0)
[2024-06-23 22:39] VITALS: BP 136/52
[2024-06-24] MEDS: TYLENOL PO ×2 (00:23→04:53)
[2024-06-24 04:28] LABS: Hemoglobin 8.6 g/dL (12.0-16.0)
[2024-06-24] MEDS: ROXICODONE 5 MG PO (05:35)
[2024-06-24] MEDS: FLUSH (NSS) 1 FLUSH IV (05:36)
--- NOTE | 2024-06-24 05:40 | PTCARENOTE ---
Pt was offered PRN medications to help with constipation, pt refused despite education. Care ongoing.
[2024-06-24] MEDS: DUONEB 3 ML INH ×2 (07:06→20:24)
[2024-06-24 07:25] VITALS: BP 151/58
[2024-06-24] MEDS: CLARITIN 10 MG PO (08:39)
[2024-06-24] MEDS: OCEAN, SALINE MIST 2 SPRAYS NASAL ×4 (08:39→22:14)
[2024-06-24] MEDS: LIDOCAINE 4% PATCH 1 PATCH TOPICAL (08:39)
[2024-06-24] MEDS: FOLVITE 1 MG PO (08:39)
[2024-06-24] MEDS: SINEMET 25-100 2 TABLET PO ×3 (08:39→22:14)
[2024-06-24] MEDS: CARDIZEM 60 MG PO ×3 (08:39→22:13)
[2024-06-24] MEDS: FEOSOL 325 MG PO (08:40)
[2024-06-24] MEDS: PROTONIX 40 MG PO (08:40)
[2024-06-24] MEDS: MAG-TAB SR 84 MG PO ×2 (08:40→20:05)
[2024-06-24] MEDS: DELTASONE 10 MG PO (08:40)
[2024-06-24] MEDS: TYLENOL 650 MG PO ×4 (08:41→20:05)
[2024-06-24] MEDS: ASPIRIN 325 MG PO (08:41)
[2024-06-24] MEDS: LOPRESSOR 25 MG PO ×2 (08:41→20:04)
[2024-06-24] MEDS: COZAAR 100 MG PO (08:41)
[2024-06-24] MEDS: COLACE 100 MG PO ×2 (08:48→20:05)
[2024-06-24] MEDS: SENOKOT 17.2 MG PO (08:48)
[2024-06-24] MEDS: MUCINEX PO ×2 (08:49→20:09)
[2024-06-24 09:11] LABS: % Basophils 0.2 % (0-2); % Eosinophils 2.6 % (0-6); % Immature Granulocytes 0.6 % (0-0.5); % Lymphocytes 9.9 % (20.5-51.1); % Monocytes 13.6 % (1.7-9.3); % Neutrophils 73.1 % (42.2-75.2); Absolute Eosinophils 0.2 10^3/uL (0-0.7); Absolute Lymphocytes 0.7 10^3/uL (1.2-3.4); Absolute Monocytes 0.9 10^3/uL (0.1-0.6); Absolute Neutrophils 4.8 10^3/uL (1.4-6.5); Mean Corpuscular Hgb 31.6 pg (27.0-31.0); Mean Corpuscular Volume 101.9 fL (81.0-99.0); Mean Platelet Volume 10.1 fL (7.4-10.4); Nucleated Red Blood Cells % 0 %; Platelet Count 241 10^3/uL (130-400); Red Blood Cell Count 2.69 10^6/uL (4.20-5.40); Red Cell Dist. Width 15.2 % (11.5-14.5); White Blood Cell Count 6.6 10^3/uL (4.8-10.8)
--- NOTE | 2024-06-24 09:20 | W.PN.PUL.V3 ---
Today's Communication / Plan
-
Wean oxygen
Aspiration precautions
Prednisone 10 mg daily
Assessment
-
78-year-old woman with past medical history significant for severe COPD, chronic hypoxemic and hypercapnic respiratory failure. Admitted after sustaining a fall. Developed left femoral fracture. Underwent hemiarthroplasty. We were consulted on
06/21/2024 for postoperative management Of COPD.
Severe COPD with chronic hypoxemic and hypercapnic respiratory failure
Steroid-dependent
Left impacted femoral neck/head fracture status post fall-status post left hemiarthroplasty 06/21/2024-Dr. Milton
Conditions present Present prior admission:
Severe COPD/Emphysema phenotype on 2 L baseline-Used to follow-up with pulmonary in [place] Until recently.
FEV1 05/06/2024: 0.44 L - 22% of predicted. Ratio 36%
Chronic hypercapnic respiratory failure
First time seen in our office 05/06/2024: Transitioned to Pulmicort/DuoNeb
Chronic prednisone therapy
Prior history of ventilator dependent respiratory failure in the past december-unclear details
Recent falls with rib fractures -
T4 compression fracture wearing TLSO
Former utqani-[id number]-[id number]-year history quit in 2013
Hypertension
Endometrial cancer
Anemia of chronic disease
Abdominal aortic aneurysm
Parkinson's disease
Cholecystectomy
Appendectomy
Hysterectomy
Ambulatory [id number]
Multiple compression fractures
Plan
Pulmonary status somewhat tenuous with increased FiO2 requirements
Continue supplemental oxygen as needed-currently on 4 L nasal cannula
Aspiration precautions
Incentive spirometry
Mucus clearing devices
BiPAP if needed-currently not requiring
Prednisone 20 mg continues-baseline 10 mg-decrease to home dose
Nebulizers continue-DuoNebs and Pulmicort nebulizers
History of chronic hypercapnia-workup as an outpatient ongoing
Chest x-ray 06/24/2024-NAD
Treat nasal congestion-mucolytic's, nasal sprays
Status post left hip hemiarthroplasty
Orthopedics following
Follow hemoglobin
Transfuse if needed
No obvious source for bleeding clinically
DVT prophylaxis recommended-orthopedics initiated aspirin, if no contraindications would recommend heparin or low molecular weight heparin
GI prophylaxis-on pantoprazole
Physical therapy
Reviewed with primary team
Outpatient pulmonary [id number] Gisel Amezcua NP 05/06/2024 and has appointment [address] Evans 07/07/2024
Subjective Data
-
Date of Service:
Date of Service: June 24, 2024
Chief Complaint: Pulmonary Follow Up and Dyspnea Follow Up
Subjective:
Feels like her breathing is about the same, no increase shortness of breath, has a nonproductive cough, no chest pain or abdominal pain
Review of Systems
General: Other (Per HPI)
Objective Data
Data Reviewed
Vital Signs / I&O:
Vital Signs
Temp Pulse Resp BP Pulse Ox
97.9 F 76 18 151/58 97
06/24/24 07:25 06/24/24 07:25 06/24/24 07:25 06/24/24 07:25 06/24/24 07:25
Intake and Output
06/23/24 06/24/24 06/25/24
06:59 06:59 06:59
Intake Total 1290 / 1290 240 / 240
Balance 1290 / 1290 240 / 240
SaO2: 97
Nasal Cannula flow liters per minute: 4
Physical Exam
General: Respiratory Distress (n) and Comfortable
HEENT: Normocephalic, Anicteric and Moist Mucous Membranes
Cardiovascular: Regular Rhythm
Respiratory: Wheeze (n), Crackles, Rhonchi (Expiratory), Non-Labored Respirations and Accessory Resp Muscle Use (n)
GI: Soft, Non Distended and Non Tender
Neurology: Awake and Alert
Skin: Warm, Good Color, Cyanosis (n) and Jaundice (n)
Labs/Micro/Reports
Lab Data
06/24/24 04:17
[2024-06-24 10:12] VITALS: BP 132/52; BP 133/62; BP 150/63; PULSE 79; PULSE 81; PULSE 83; O2SAT 96
[2024-06-24] MEDS: PULMICORT 0.5 MG INH ×2 (11:11→20:22)
[2024-06-24] MEDS: DILAUDID 2 MG PO (11:42)
[2024-06-24 12:28] LABS: Blood Urea Nitrogen 37 mg/dl (7-17); Calcium 9.5 mg/dl (8.4-10.2); Carbon Dioxide 32 mmol/L (22-30); Chloride 105 mmol/L (98-107); Estimated Creatinine Clearance 60 ml/min; Glucose 113 mg/dl (70-99); Potassium 4.9 mmol/L (3.5-5.1); Sodium 141 mmol/L (135-145); eGFR > 60.00
--- NOTE | 2024-06-24 13:05 | W.PN.HOSP.TC ---
Today's Communication/Plan
-
dc
Assessment / Plan
Assessment / Plan
78yo F residing in facility with PMHx of COPD with chronic hypoxic respiratory failure on 2L home O2 and chronic prednisone, Parkinsons, anxiety, HTN aortic aneurism, DJD came after she lost balance and fell, found L femoral Fx. Had L hip
hemiarthroplasty and developed post-traumatic and postOP anemia without further drop in Hgb. Medically stable for d/c
A/P:
#L impacted femoral neck/head fracture, possibly exacerbated by osteoporosis 2/2 Fall without LOC
#Chronic ambulatory dysfunction 2/2 Parkinson
Ortho mgmt: s/p L hip hemiarthroplasty
THPs x 6 weeks
ASA 325mg daily x 4 weeks
Dressing to remain 7-10 days, unless soiled
[place] out at 2 weeks (office or [facility])
If aubrey out at [facility] outpatient Ortho follow-up 4 weeks
pain mgmt
Most likely iatrogenic osteoporosis contributed to Fx - outpatient w/u/treatment advised
PT/OT, cont Sinemet
#Acute blood loss anemia 2/2 fracture and periOP blood loss
L hip is not tender, not swollen, no significant bruise. As discussed with ortho - they dont have a concern for ongoing traumatic bleeding
Check anemia w/u and stool for FOBT
serial H&H
#COPD not in exacerbation
#Chronic hypoxic respiratory failure
COnt bronchodilators
Start DUoneb QID
cont Prednisone
Pulm consult
#Elevated Cr
to 1.2, baseline 1.0, not in HERMELINDO range
Hydrate and follow Cr
#Essential HTN
#Anxiety d/o
#4.1cm AAA
#Anemia, chronic
follow CBC
cont home meds
follow up as outpatient for AAA
DVT ppx ASA as per Ortho
limited DNR (no CPR)
I have spent at least 38min reviewing chart, test results, communication with consultants and direct patient care
Anticipated Discharge: Today
Subjective/Interval History
-
Date of Service: June 24, 2024
Objective Data
-
Labs:
Laboratory Results
06/24/24 06/24/24
04:17 11:02
WBC 6.6
Hgb 8.6 L
Hct 27.0 L
Plt Count 241 D
Sodium 141
Potassium 4.9
Chloride 105
Carbon Dioxide 32 H
BUN 37 H
Creatinine 0.7
Glucose 113 H
Calcium 9.5
Vital Signs:
Vital Signs
Temp Pulse Resp BP Pulse Ox
97.9 F 68 16 151/58 98
06/24/24 07:25 06/24/24 11:11 06/24/24 11:11 06/24/24 07:25 06/24/24 11:11
I&O
06/23/24 06/24/24 06/25/24
06:59 06:59 06:59
Intake Total 1290 / 1290 240 / 240
Balance 1290 / 1290 240 / 240
Review of Systems
-
History Source: Patient
All other systems: Reviewed and negative
Physical Exam
-
General: No Apparent Distress
HEENT: Normocephalic
Respiratory: Clear to Auscultation
Cardiac: Regular Rhythm
GI: Soft
Genito-urinary: No Costovertebral Tender
Musculoskeletal: No Clubbing, No Cyanosis and No Edema
Neuro: Awake, Alert and Oriented
Psych: Calm
[2024-06-24] MEDS: FERRLECIT 110 MG IV (13:09)
--- NOTE | 2024-06-24 13:15 | W.DCSUMMARY ---
Discharge Summary
Discharge Data
Date of Admission: 06/20/24
Date of Discharge: 06/24/24
-
Pending Results: No
Hospital Course
78yo F residing in facility with PMHx of COPD with chronic hypoxic respiratory failure on 2L home O2 and chronic prednisone, Parkinsons, anxiety, HTN aortic aneurism, DJD came after she lost balance and fell, found L femoral Fx. Had L hip
hemiarthroplasty and developed post-traumatic and postOP anemia without further drop in Hgb. Medically stable for d/c. THPs x 6 weeks
ASA 325mg daily x 4 weeks
Dressing to remain 7-10 days, unless soiled
[facility] out at 2 weeks (office or [facility])
If aubrey out at SNF outpatient Ortho follow-up 4 weeks
I have spent at least 38min reviewing chart, test results, communication with consultants and direct patient care
Patient was managed for:
#L impacted femoral neck/head fracture, possibly exacerbated by osteoporosis 2/2 Fall without LOC
#Chronic ambulatory dysfunction 2/2 Parkinson
#Acute blood loss anemia 2/2 fracture and periOP blood loss
#COPD not in exacerbation
#Chronic hypoxic respiratory failure
#Elevated Cr
#Essential HTN
#Anxiety d/o
#4.1cm AAA
#Anemia, chronic
Discharge Plan
-
Patient Disposition: Skilled Nursing/SNF
Discharge Diagnosis/Procedures: L hip Fx
Condition: Fair
Diet: Regular
Activity: As tolerated
Driving Restrictions: As prior to admission
Other Services: PT
Activity Restrictions/Additional Instructions:
ASA 325mg daily x 4 weeks
Dressing to remain 7-10 days, unless soiled
[facility] out at 2 weeks (office or [facility])
If aubrey out at SNF outpatient Ortho follow-up 4 weeks
I have spent at least 38min reviewing chart, test results, communication with consultants and direct patient care
Referrals:
Johan Motley MD [Family Provider] -
Jignesh Milton MD [Active] - in two weeks
Prescriptions:
New
aspirin 325 mg Tablet
325 mg PO DAILY Qty: 28 0RF
docusate sodium 100 mg Capsule
100 mg PO BID Qty: 60 0RF
folic acid 1 mg Tablet
1 mg PO DAILY Qty: 30 0RF
pantoprazole 40 mg Tablet,Delayed Release (Dr/Ec)
40 mg PO DAILY Qty: 30 0RF
oxycodone 5 mg capsule
5 mg PO Q4H PRN (Reason: moderate-severe pain) Qty: 10 0RF
Continued
ferrous sulfate 325 mg (65 mg iron) Tablet
325 mg PO DAILY Qty: 0 0RF
losartan 100 mg Tablet
100 mg PO DAILY Qty: 0 0RF
diltiazem HCl 60 mg Tablet
60 mg PO TID Qty: 0 0RF
metoprolol tartrate 25 mg Tablet
25 mg PO BID Qty: 0 0RF
cholecalciferol (vitamin D3) 25 mcg (1,000 unit) Tablet
25 mcg PO DAILY Qty: 0 0RF
magnesium oxide 400 mg magnesium Tablet
400 mg PO BID Qty: 0 0RF
fexofenadine 180 mg Tablet
180 mg PO DAILY
prednisone 10 mg Tablet
10 mg PO DAILY
lidocaine 4 % Cream
1 applic TOPICAL TID
lorazepam 0.5 mg Tablet
0.5 mg PO Q6HPRN PRN (Reason: anxiety)
bisacodyl [Dulcolax (bisacodyl)] 10 mg Suppository
10 mg KS DAILYPRN PRN (Reason: if no bm by 3rd day)
budesonide 0.5 mg/2 mL Suspension For Nebulization
0.5 mg INHALATION R BID
ipratropium-albuterol 0.5 mg-3 mg(2.5 mg base)/3 mL solution for nebulization
3 ml INHALATION R QID
carbidopa-levodopa 25-100 mg tablet
2 tab PO TID
lidocaine 4 % Adhesive Patch,Medicated
1 patch topical DAILY Qty: 15 0RF
Rx Instructions:
left rib and back
magnesium hydroxide [Milk of Magnesia] 400 mg/5 mL Suspension
2,400 mg PO HSPRN PRN (Reason: if no bm by 2nd day)
hyoscyamine sulfate 0.125 mg Tablet
0.125 mg PO Q4HPRN PRN (Reason: secretions)
Fleet Enema 19-7 gram/118 mL Enema
118 ml KS DAILYPRN PRN (Reason: if no bm by 4th day)
loratadine 10 mg Tablet
10 mg PO DAILY
sodium chloride 0.65 % Aerosol,[place]
1 spray INTRANASAL Q4HPRN PRN (Reason: dryness)
acetaminophen [Tylenol Extra Strength] 500 mg Tablet
1,000 mg PO TID Qty: 0 0RF
Discontinued
doxycycline hyclate 100 mg Capsule
100 mg PO Q12H Qty: 8 0RF
Rx Instructions:
take until 06/08/24
cefpodoxime 200 mg tablet
200 mg PO Q12H Qty: 8 0RF
Rx Instructions:
take until 06/08/24
Discharge Orders:
Discharge Patient (As Directed); Ordered 06/24/24
Ordered By: Clay Samaniego
Discharge Date and Time
Print Language: FRISIAN
--- NOTE | 2024-06-24 13:28 | W.PN.UPDATE ---
Update Note
Progress Note Update
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 Noticed that weakness started since she wake up and became more pronounced. Reasonable for stat CTA head/neck to eval
acute occlusion, however with current presentation unlikely stroke. Suspect either Parkinson or peripheral neuropathy. Will order MRI brain. Discharge cancelled.
--- NOTE | 2024-06-24 13:56 | CON.NEURO4 ---
Addendum entered and electronically signed by Jamal Whyte MD 06/24/24 16:48:
Studies reviewed.
I have personally examined the patient. I reviewed and agree with the EXTERIOR INTERIOR SPECIALIST's Note.
My addenda:
Awake, alert, interactive. No acute distress.
Speech hoarse and hypophonic. Masked facies present
Follows 2-step requests w/ difficulty. No tremor.
Extra-ocular movements grossly intact.
Facial movements full and symmetric. Hearing intact to normal conversational volume.
Normal right upper extremity movement. Left upper extremity, unable to lift off of chair. Hand strength appears to be intact bilaterally.
Neck: full ROM.
Chest: no dyspnea
Heart: no JVD
Ext: (-) Clubbing, (-) Cyanosis, (-) Edema
IMPRESSIONS/RECOMMENDATIONS:
Abrupt onset of left upper extremity weakness
There is a lack of clarity regarding the time of onset of weakness. The patient indicated that the weakness took place out of the therapeutic window for tenecteplase. Therefore, for clarity, CT perfusion was performed and was negative. CT
angiogram was also performed and failed to demonstrate a clot for retrieval
Check MRI of brain for clarity
Add clopidogrel to current aspirin 325 mg until clarity regarding stroke or absence of same
Follow lipid profile
Continue carbidopa/levodopa
Continue rehabilitation evaluations and treatment
Will continue to follow pending results.
Original Note:
Documented by User: Tyesha Pappas NP 06/24/24 15:25
Consultation - Neurology 4
-
CONSULTING PHYSICIAN: Jamal Whyte MD
REFERRING PHYSICIAN: Hospitalists/Dr. Samaniego
DICTATED BY: MELISSA Simmons
DATE/TIME OF REQUEST: 06/24/24
DATE/TIME OF CONSULTATION: 06/24/24
Reason for Consultation: Left upper extremity weakness
History of Present Illness:
This is a 78-year-old right-handed female who has presented to the hospital on 06/19/24 with report of a mechanical fall onto her left side. She was found to have an impacted left femoral neck fracture and underwent left hip hemiarthroplasty by
Karine on 06/21/24. She developed post-traumatic/postoperative anemia, with currently stable hemoglobin. Today (06/24/24), patient was set for hospital discharge, when she reported to her nurse at 1300 that her left upper extremity was acutely
weak. Neurology consult was placed and upon our evaluation, the patient reported that she woke up around 0200 this morning and had been in her usual state until around 0900, when she noticed that she couldn't lift up her LUE as well as normal. Her
LUE weakness progressed to the point of barely being able to lift her arm off of the bed, prompting her to tell her nurse about it around 1300. Neurology activated a stroke alert. CT head, CTA head/neck, and CT perfusion were obtained and are
negative for any acute findings. NIHSS is a 4 for LUE partial vs gravity, and LLE partial vs gravity. LLE evaluation limited due to recent L hip hemiarthroplasty/pain. She is not a candidate for TNK due to CT perfusion with no evidence of ischemia,
and no LVO. She endorses a moderate right frontal headache and chronic neck/back pain. She denies any vision changes, speech/swallowing difficulty, nausea, chest pain, palpitations, and shortness of breath. She notes chronic numbness in her left
hand middle three fingers. She denies any history of TIA, stroke, or events like this in the past. She is taking aspirin 325mg daily for 30 days postoperatively. She recently moved here from [place] and does not have a local neurologist.
Past Medical History: Parkinson disease, COPD with chronic hypoxic respiratory failure (on 2L O2 NC at home), HTN, AAA, DJD, anxiety, endometrial cancer
Surgical History: Cholecystectomy, hysterectomy
Family History: Reviewed and noncontributory.
Social History: Former smoker. Denies alcohol and illicit drug use.
Allergies: Levofloxacin, ciprofloxacin, neomycin, polymyxin, bacitracin.
Home Medications: See below.
Review of Symptoms:
Patient denies any fever, chest pain, GI or symptoms.
�Per the HPI.�All systems are reviewed negative except above.
Physical Exam:
The patient is afebrile, abdomen is nondistended, breathing is mildly labored on O2 via NC, skin is warm and dry, +1 LUE edema, +1 BLE edema.
NIH Stroke Scale:
I performed the NIH stroke scale on the patient on 06/24/24 at 1430. The patient scored 4 points on the NIH stroke scale assessment, which were assigned as follows: See below.
Neurologic Examination:
The patient is awake, alert and oriented x 3. She is able to follow commands and answer questions appropriately. There is no aphasia or dysarthria, speech is hypophonic. On cranial nerve assessment, pupils are 3 mm bilateral, round and reactive to
light and accommodation. Visual tatum are full. Extraocular movements are reduced with upgaze. Facial sensations are intact and bilaterally symmetrical, there is no facial asymmetry. Hearing is intact bilaterally to normal conversation volume.
Tongue palate and uvula are midline. Sternocleidomastoid strengths are full bilaterally. Motor strengths are 5/5 right upper, 2/5 left upper, 4/5 right lower, and 2/5 left lower extremities on medical research [place] scale. There is a pill rolling
tremor noted in the distal RUE, and a semirhythmic low amplitude tremor in distal LUE at rest and with exertion. There is mild cogwheeling in BUE. Deep tendon reflexes are 2+ bilateral upper and lower extremities and Babinski is absent bilaterally.
Sensations of touch, temperature and vibration are intact and bilaterally symmetrical. There was no extinction noted on double simultaneous stimulation. Coordination is intact by finger to nose in the RUE, MARGARITO LUE.
Lab Results: See below.
Neuro Imaging:
1. CT Head 06/24/24: No intracranial hemorrhage. No definite acute transcortical infarct is appreciated. Mild atrophy. Mild periventricular and deep subcortical white matter hypoattenuation, a nonspecific finding often seen in the setting of small
vessel change. Small infarcts can be difficult to exclude in the setting of chronic small vessel ischemic change. If clinical concern remains high, consider MRI brain.
2. CTA Head/Neck 06/24/24: No evidence of large vessel occlusion, or arterial dissection. Severe emphysema within the visualized lung apex on each side. Advanced ulcerated plaque within the visualized portion of the aortic arch.
3. CT Perfusion 06/24/24: No perfusion abnormality identified to suggest infarct or ischemia conforming to a specific arterial vascular territory.
Differentials for the patient's presentation include:
1. Acute onset left upper extremity medial weakness, hand seat mender and shoulder shrug strength intact; unclear etiology.
2. CT perfusion not suggestive of brain ischemia, making acute stroke less likely but cannot entirely exclude this.
3. Parkinson disease possibly contributing to symptoms.
4. Symptoms not very supportive of a peripheral nerve palsy.
5. L SOFIA 06/21/24.
Patient has the following risk factors for their symptoms: L SOFIA 06/21/24, Parkinson disease
IV Tenecteplase/IAT candidacy: She is not a candidate for TNK due to CT perfusion with no evidence of ischemia, and no LVO.
Recommendations:
-Continue aspirin 325mg daily per Ortho. Recommend adding Plavix 75mg daily for 21 days, first dose now.
-MRI brain noncontrast pending.
-Continue home Sinemet.
-Goal normotension.
-NIHSS and neurological checks per unit guidelines.
-Provide patient with a stroke education packet.
-LDL goal will be <70 if MRI demonstrates a stroke. Lipid panel pending.
-Goal normoglycemia, hbA1c 5.6.
-DVT prophylaxis.
-PT/OT evaluations.
-Will follow pending results.
Discussed patient care with: Dr. Whyte, the patient
Vital Signs and Labs
-
Vital Signs and Labs:
Vital Signs
Temp Pulse Resp BP Pulse Ox
97.9 F 68 16 151/58 98
06/24/24 07:25 06/24/24 11:11 06/24/24 11:11 06/24/24 07:25 06/24/24 11:11
Lab Results
06/24/24 04:17
06/24/24 11:02
Sodium 141 mmol/L (135-145) 06/24/24 11:02
Potassium 4.9 mmol/L (3.5-5.1) 06/24/24 11:02
BUN 37 mg/dl (7-17) H 06/24/24 11:02
Glucose 113 mg/dl (70-99) H 06/24/24 11:02
Calcium 9.5 mg/dl (8.4-10.2) 06/24/24 11:02
Vitamin B12 591 pg/ml (239-931) 06/23/24 04:23
Medications
-
Active Medications
Generic Name Dose Route Start Last Admin
Trade Name Freq PRN Reason Stop Dose Admin
Acetaminophen 650 mg 06/20/24 04:00 06/24/24 11:43
Acetaminophen 325 Mg Tablet PO 07/18/24 03:59 650 mg
Q4HWA ZHAO Administration
Albuterol/Ipratropium 3 ml 06/24/24 10:31
Ipratropium 0.5/Albuterol 3 Mg (3 Ml Ampul) INH
R Q4HPRN PRN
wheezing, SOB
Protocol
Aspirin 325 mg 06/21/24 18:00 06/24/24 08:41
Aspirin 325 Mg Tablet PO 07/19/24 17:59 325 mg
DAILY ZHAO Administration
Atorvastatin Calcium 80 mg 06/24/24 18:00
Atorvastatin (Lipitor) 80 Mg Tablet PO 07/22/24 17:59
QPM ZHAO
Bisacodyl 10 mg 06/20/24 01:18
Bisacodyl 10 Mg Rectal Suppository RECTAL 07/18/24 01:17
DAILYPRN PRN
if no bm by 3rd day
Budesonide 0.5 mg 06/24/24 10:45 06/24/24 11:11
Budesonide (Pulmicort Respules) 0.5 Mg/2 Ml INH 0.5 mg
R BID ZHAO Administration
Protocol
Carbidopa/Levodopa 2 tablet 06/20/24 08:00 06/24/24 08:39
Carbidopa (25 Mg)/Levodopa (100 Mg) Regular Release Tablet PO 07/18/24 07:59 2 tablet
TID ZHAO Administration
Diltiazem HCl 60 mg 06/20/24 08:00 06/24/24 08:39
Diltiazem 60 Mg Regular Release Tablet PO 07/18/24 07:59 60 mg
TID ZHAO Administration
Docusate Sodium 100 mg 06/20/24 20:00 06/24/24 08:48
Docusate Sodium 100 Mg Capsule PO 07/18/24 19:59 100 mg
BID ZHAO Administration
Ferrous Sulfate 325 mg 06/20/24 08:00 06/24/24 08:40
Ferrous Sulfate 325 Mg Tablet PO 07/18/24 07:59 325 mg
DAILY ZHAO Administration
Folic Acid 1 mg 06/24/24 09:00 06/24/24 08:39
Folic Acid 1 Mg Tablet PO 07/22/24 08:59 1 mg
DAILY ZHAO Administration
Guaifenesin 1,200 mg 06/22/24 10:00 06/24/24 08:49
Guaifenesin 600 Mg Extended Release Tablet PO 07/20/24 09:59 Not Given
Q12 ZHAO
Hydromorphone HCl 0.5 mg 06/20/24 03:45 06/21/24 08:50
Hydromorphone 0.5 Mg/0.5 Ml Syringe IV 07/04/24 03:44 0.5 mg
Q3HPRN PRN Administration
severe pain
Hydromorphone HCl 2 mg 06/24/24 11:21 06/24/24 11:42
Hydromorphone 2 Mg Tablet PO 07/08/24 11:20 2 mg
Q6HPRN PRN Administration
moderate-severe pain
Hyoscyamine Sulfate 0.125 mg 06/20/24 02:56
Hyoscyamine 0.125 Mg (Sl/Oral) Tablet PO 07/18/24 02:55
Q4HPRN PRN
secretions
Ferric Sodium Gluconate 110 mls @ 110 mls/hr 06/23/24 14:00 06/24/24 13:09
Complex 125 mg/ Sodium IV 06/27/24 14:59 110 mls
Chloride DAILY@1400 ZHAO Administration
Lidocaine 1 patch 06/20/24 08:00 06/24/24 08:39
Lidocaine 4% Topical Patch TOPICAL 07/18/24 07:59 1 patch
DAILY ZHAO Administration
Protocol
Loratadine 10 mg 06/20/24 08:00 06/24/24 08:39
Loratadine 10 Mg Tablet PO 07/18/24 07:59 10 mg
DAILY ZHAO Administration
Lorazepam 0.5 mg 06/20/24 01:18
Lorazepam 0.5 Mg Tablet PO 07/18/24 01:17
Q6HPRN PRN
anxiety
Losartan Potassium 100 mg 06/20/24 08:00 06/24/24 08:41
Losartan 100 Mg Tablet PO 07/18/24 07:59 100 mg
DAILY ZHAO Administration
Magnesium 84 mg 06/20/24 08:00 06/24/24 08:40
Magnesium Lactate 84 Mg Tablet PO 07/18/24 07:59 84 mg
BID ZHAO Administration
Magnesium Hydroxide 30 ml 06/20/24 01:18
Milk Of Magnesia 30 Ml Cup PO 07/18/24 01:17
HSPRN PRN
if no bm by 2nd day
Metoprolol Tartrate 25 mg 06/20/24 08:00 06/24/24 08:41
Metoprolol 25 Mg Regular Release Tablet PO 07/18/24 07:59 25 mg
BID ZHAO Administration
Pantoprazole Sodium 40 mg 06/21/24 08:00 06/24/24 08:40
Pantoprazole 40 Mg Delayed Release Tablet PO 07/19/24 07:59 40 mg
DAILY ZHAO Administration
Prednisone 10 mg 06/23/24 10:14 06/24/24 08:40
Prednisone 20 Mg Tablet PO 07/21/24 10:13 10 mg
DAILY ZHAO Administration
Sennosides 17.2 mg 06/20/24 20:00 06/24/24 08:48
Sennosides (Senokot) 8.6 Mg Tablet PO 07/18/24 19:59 17.2 mg
BID ZHAO Administration
Sodium Biphosphate/Sodium Phosphate 118 ml 06/20/24 01:18
Fleet Phosphate Enema (Adult) 135 Ml Bottle RECTAL 07/18/24 01:17
DAILYPRN PRN
if no bm by 4th day
Sodium Chloride 0 drops 06/20/24 01:18
Saline Mist For Peds NASAL 07/18/24 01:17
Q4HPRN PRN
dryness
Sodium Chloride 0 flush 06/20/24 06:00 06/24/24 05:36
Sodium Chloride 0.9% (Flush) Syringe IV 07/18/24 05:59 1 flush
PER PROTOCOL ZHAO Administration
Sodium Chloride 2 sprays 06/22/24 13:00 06/24/24 13:09
Sodium Chloride 0.65% Nasal [place] 45 Ml Bottle NASAL 07/20/24 12:59 2 sprays
QID ZHAO Administration
Tamsulosin HCl 0.4 mg 06/20/24 08:00
Tamsulosin 0.4 Mg Capsule PO 07/18/24 07:59
DAILYPRN PRN
bladder scan volume > 400 mL
Tramadol HCl 25 mg 06/24/24 11:18
Tramadol Hcl 50 Mg Tablet PO 07/22/24 11:17
Q8HPRN PRN
mild pain
Home Medications
�Medication �Instructions �Recorded
cholecalciferol (vitamin D3) 25 25 mcg PO DAILY Supplement #0 tabs 04/12/24
mcg (1,000 unit) tablet
diltiazem HCl 60 mg tablet 60 mg PO TID Heart 04/12/24
disease/condition #0 tabs
ferrous sulfate 325 mg (65 mg 325 mg PO DAILY Supplement #0 tabs 04/12/24
iron) tablet
losartan 100 mg tablet 100 mg PO DAILY Blood pressure #0 04/12/24
tabs
magnesium oxide 400 mg PO BID Supplement #0 tabs 04/12/24
metoprolol tartrate 25 mg tablet 25 mg PO BID Blood pressure #0 tabs 04/12/24
bisacodyl 10 mg rectal suppository 10 mg [place] DAILYPRN PRN if no bm by 05/28/24
(Dulcolax (bisacodyl)) 3rd day
budesonide 0.5 mg/2 mL suspension 0.5 mg inhalation R BID 05/28/24
for nebulization Lung/Breathing Issues
carbidopa 25 mg-levodopa 100 mg 2 tab PO TID Neurological Condition 05/28/24
tablet
fexofenadine 180 mg tablet 180 mg PO DAILY Allergies 05/28/24
ipratropium 0.5 mg-albuterol 3 mg 3 ml inhalation R QID 05/28/24
(2.5 mg base)/3 mL nebulization Lung/breathing issues
soln
lidocaine 4 % topical cream 1 applic topical TID lower back 05/28/24
pain
lorazepam 0.5 mg tablet 0.5 mg PO Q6HPRN PRN anxiety 05/28/24
prednisone 10 mg tablet 10 mg PO DAILY Anti-Inflammatory 05/28/24
lidocaine 4 % topical patch 1 patch topical DAILY Pain #15 ea 06/03/24
acetaminophen 500 mg tablet 1,000 mg (2 x 500 mg) PO TID Pain 06/05/24
(Tylenol Extra Strength) #0 tabs
hyoscyamine sulfate 0.125 mg tablet 0.125 mg PO Q4HPRN PRN secretions 06/05/24
loratadine 10 mg tablet 10 mg PO DAILY Allergies 06/05/24
magnesium hydroxide 400 mg/5 mL 2,400 mg PO HSPRN PRN if no bm by 06/05/24
oral suspension (Milk of Magnesia) 2nd day
sodium chloride 0.65 % nasal spray 1 spray intranasal Q4HPRN PRN 06/05/24
aerosol dryness
sodium phosphates 19 gram-7 118 ml [place] DAILYPRN PRN if no bm by 06/05/24
gram/118 mL enema (Fleet Enema) 4th day
aspirin 325 mg tablet 325 mg PO DAILY #28 tabs 06/24/24
docusate sodium 100 mg capsule 100 mg PO BID #60 caps 06/24/24
folic acid 1 mg tablet 1 mg PO DAILY #30 tabs 06/24/24
oxycodone 5 mg capsule 5 mg PO Q4H PRN moderate-severe 06/24/24
pain #10 caps
pantoprazole 40 mg tablet,delayed 40 mg PO DAILY #30 tabs 06/24/24
release
NIH Stroke Score
Subsequent NIH Scale
Date of Subsequent NIH Scale: 06/24/24
Time of Subsequent NIH Scale: 14:30
NIH Stroke Score
Level of Consciousness: 0 - Alert
LOC Questions: 0-Answers both correctly
LOC Commands: 0-Performs both correctly
Best Horizontal Gaze: 0-Normal
Visual Tatum: 0=Normal, no visual loss
Facial Palsy: 0=Normal, symmetrical
Motor - Right Arm: 0=No drift 10 seconds
Motor - Left Arm: 2=Partial vs. gravity
Motor - Right Le-No drift 5 seconds
Motor - Left Le-Partial vs. gravity
Limb Ataxia: 0-Absent
Sensation: 0-Normal
Best Language: 0-No aphasia
Dysarthria: 0-Normal
Extinction and Inattention: 0-No abnormality
Total Score:: 4
Modified Tod (mRS) Score
Modified Taliaferro Scale (mRS): Moderately severe disability. Unable to attend to bodily needs/walk.
Score: 4
Alteplase Contraindication
Inclusion and Exclusion criteria reviewed: Yes

Documented by User: Jamal Whyte MD 06/24/24 16:37
NIH Stroke Score
NIH Stroke Score
Total Score:: 4
Modified Taliaferro (mRS) Score
Score: 4
--- NOTE | 2024-06-24 14:15 | CM ---
Chart reviewed. Met with pt at bedside
Discharge cancelled for today per physician
Pt for MRI
Updates sent in [facility]
Plan - [facility] when medically ready
Plan - transfer to [facility] when medically ready
[2024-06-24 14:47] LABS: INR 0.91; PT 12.8 Sec (11.4-14.6)
[2024-06-24 14:48] LABS: APTT 36.3 Sec (23.4-35.0)
[2024-06-24 14:59] VITALS: BP 140/58
[2024-06-24 15:14] LABS: Troponin I < 0.012 ng/ml
--- NOTE | 2024-06-24 15:17 | PTCARENOTE ---
1318: Pt c/o L arm weakness. Dr. Samaniego noticed and to bedside evaluating patient.
CT head/neck ordered with stroke alert but MD does not want stroke alert called. MRI ordered.
CT scan called, pt needs 18 or 20 gauge IV placed. IV team paged.
1400: Neurology at bedside evaluating patient. Dr. Whyte called stroke alert.
Pt transferred to CT scan for CT head/neck. CT head/neck completed.
MRI ordered, time pending.
Pt back to [address] [place] [address], transferred from stretcher to bed and now asking for chocolate.
Placed on telemetry, NS 70bpm.
Care ongoing.
--- NOTE | 2024-06-24 15:43 | PTCARENOTE ---
Telemetry removed. Patient to MRI.
--- NOTE | 2024-06-24 16:14 | PTCARENOTE ---
Pt 1600 neurological check and NIH not completed due to patient being in MRI.
[2024-06-24] MEDS: PLAVIX 75 MG PO (17:11)
[2024-06-24 19:15] VITALS: BP 134/54
[2024-06-24] MEDS: SENOKOT PO ×2 (20:05→20:09)
[2024-06-24 23:56] VITALS: BP 137/54
[2024-06-25] MEDS: TYLENOL PO ×2 (01:00→05:00)
--- NOTE | 2024-06-25 01:21 | PTCARENOTE ---
Pt refused senokot but took colace, stating that she didn't want to have diarrhea. Pt also refused PRN suppositories.
[2024-06-25] MEDS: MILK OF MAGNESIA 30 ML PO (02:03)
[2024-06-25] MEDS: DILAUDID 2 MG PO (02:37)
[2024-06-25 04:17] VITALS: BP 156/60
[2024-06-25] MEDS: PULMICORT 0.5 MG INH (06:47)
[2024-06-25] MEDS: DUONEB 3 ML INH ×2 (06:47→12:28)
[2024-06-25 08:16] VITALS: BP 152/60
[2024-06-25] MEDS: ASPIRIN 325 MG PO (08:25)
[2024-06-25] MEDS: COZAAR 100 MG PO (08:25)
[2024-06-25] MEDS: TYLENOL 650 MG PO ×2 (08:25→13:19)
[2024-06-25] MEDS: CLARITIN 10 MG PO (08:25)
[2024-06-25] MEDS: COLACE 100 MG PO (08:25)
[2024-06-25] MEDS: LOPRESSOR 25 MG PO (08:25)
[2024-06-25] MEDS: SINEMET 25-100 2 TABLET PO (08:25)
[2024-06-25] MEDS: SENOKOT 17.2 MG PO (08:26)
[2024-06-25] MEDS: FOLVITE 1 MG PO (08:26)
[2024-06-25] MEDS: DELTASONE 10 MG PO (08:26)
[2024-06-25] MEDS: CARDIZEM 60 MG PO (08:26)
[2024-06-25] MEDS: PROTONIX 40 MG PO (08:26)
[2024-06-25] MEDS: MUCINEX PO (08:27)
[2024-06-25] MEDS: PLAVIX 75 MG PO (08:27)
[2024-06-25] MEDS: MAG-TAB SR 84 MG PO (08:27)
[2024-06-25] MEDS: OCEAN, SALINE MIST 2 SPRAYS NASAL ×2 (08:27→13:20)
[2024-06-25] MEDS: LIDOCAINE 4% PATCH 1 PATCH TOPICAL (08:28)
--- NOTE | 2024-06-25 09:03 | W.PN.NEURO.1 ---
Addendum entered and electronically signed by Jamal Whyte MD 06/25/24 14:13:
Studies reviewed.
I have personally examined the patient. I reviewed and agree with the [employer]K [employer] INSTALLER's Note.
My addenda:
Awake, alert, interactive. No acute distress.
Speech hoarse.
Follows 2-step requests w/o difficulty. No tremor.
Extra-ocular movements grossly intact.
Facial movements full and symmetric. Hearing intact to normal conversational volume.
Left biceps weakness unable to fully assess the left triceps due to pain in the axilla. Some reproducible pain with deltoid testing on the left in the axilla. Neck: full ROM.
Chest: no dyspnea
Heart: no JVD
Ext: (-) Clubbing, (-) Cyanosis, (-) Edema
IMPRESSIONS/RECOMMENDATIONS:
Abrupt onset of left upper extremity weakness
Most likely due to acute brachial neuritis especially in light of unremarkable neuroimaging
Outpatient EMG
Continue steroids although these are typically not assistive in this diagnosis
No indication for the use of clopidogrel as stroke is no longer a diagnosis; patient should be maintained on aspirin due to chronic lacunar infarct in the right cerebellum which is unrelated to the patient's left arm weakness
Rehabilitation evaluations
Continue current therapies for Parkinson disease
D/W patient
Will continue to follow as outpatient.
Original Note:
Documented by User: Tyesha Pappas NP 06/25/24 10:57
Today's Communication / Plan
-
.
Neuro Assessment/Plan
Assessment
This is a 78-year-old right-handed female who has presented to the hospital on 06/19/24 with report of a mechanical fall onto her left side. She was found to have an impacted left femoral neck fracture and underwent left hip hemiarthroplasty by
Karine on 06/21/24. On 06/24/24 she reported abrupt onset LUE weakness prompting a stroke alert to be called. CT head, CTA head/neck, CT perfusion were unremarkable. She was not a candidate for TNK due to CT perfusion with no evidence of ischemia,
no LVO, unclear diagnosis.
MRI brain 06/24/24: No MRI evidence for an acute infarct. Chronic lacunar infarct of the right cerebellum.
I. Spontaneous brachial neuritis likely producing LUE biceps weakness, L shoulder pain with ROM.
II. MRI brain negative for acute stroke. demonstrates a chronic lacunar infarct of the right cerebellum, unrelated to current symptoms.
III. Advanced Parkinson disease.
Plan
-Continue full dose aspirin per ortho. After 30 days of full dose aspirin, would continue aspirin 81mg daily indefinitely due to chronic lacunar left cerebellar infarct on MRI imaging.
-Obtain EMG as an outpatient.
-Continue acetaminophen for pain.
-Symptoms will improve with time and rehabilitation.
-PT/OT as an outpatient.
-LDL goal <70 due to old stroke, LDL is 94. Continue atorvastatin 80mg daily.
-Goal normoglycemia, hbA1c is pending.
-Provide patient with a stroke education packet.
-DVT prophylaxis.
-Patient should follow-up with Neurology as an outpatient, may see the BULK CO[employer]ER INSTALLER or Dr. Whyte.
Subjective/Objective
Subjective Data
Date of Service: June 25, 2024
No acute events overnight. Patient reports ongoing LUE weakness, proximally she notes that she can lift her hand/forearm higher off the bed than she could yesterday. She notes left shoulder/armpit discomfort with push/pull of left forearm and LUE
ROM. She denies any headache, dizziness, speech/swallow difficulty, nausea, chest pain, palpitations, and shortness of breath.
Objective Data
Vital Signs
Temp Pulse Resp BP Pulse Ox
98.6 F 89 14 152/60 93
06/25/24 08:16 06/25/24 08:16 06/25/24 08:16 06/25/24 08:16 06/25/24 08:16
Lab Results
06/24/24 04:17
PT 12.8 Sec (11.4-14.6) 06/24/24 14:25
INR 0.91 06/24/24 14:25
APTT 36.3 Sec (23.4-35.0) H 06/24/24 14:25
Sodium 141 mmol/L (135-145) 06/24/24 11:02
Potassium 4.9 mmol/L (3.5-5.1) 06/24/24 11:02
BUN 37 mg/dl (7-17) H 06/24/24 11:02
Glucose 113 mg/dl (70-99) H 06/24/24 11:02
Calcium 9.5 mg/dl (8.4-10.2) 06/24/24 11:02
Vitamin B12 591 pg/ml (239-931) 06/23/24 04:23
Patient Allergies
bacitracin [From Neosporin ([id number])] Allergy (Verified 06/19/24 23:09)
Unknown
ciprofloxacin Allergy (Verified 06/19/24 23:09)
Unknown
levofloxacin [From Levaquin] Allergy (Verified 06/19/24 23:09)
Rash
neomycin [From Neosporin ([id number])] Allergy (Verified 06/19/24 23:09)
Unknown
polymyxin B [From Neosporin ([id number])] Allergy (Verified 06/19/24 23:09)
Unknown
Review of Systems
-
History Source: Patient
EENT: Negative Blurry Vision, Decreased Vision or Swallowing Difficulty
Respiratory: Negative Cough or Trouble Breathing
Cardiac: Negative Chest Pain or Palpitations
Abdomen/GI: Negative Nausea
Musculoskeletal: Other (left hip pain)
Neuro: Weakness and Numbness (left hand middle 3 fingers); Negative Dizzy, Headache, Ataxia, Tremors or Speech Problem
Physical Exam
-
General: Appears Chronically Ill
Eyes: No Ptosis and PERRLA
HEENT: Normocephalic and Atraumatic
Neck: Full Range of Motion
Respiratory: No Dyspnea
GI: Non-distended
Extremities: Edema +1
Psych: Unremarkable
Extended Neurological Exam
Mood & Affect: Mood Unremarkable and Affect Unremarkable
Attention Span & Concentration: Awake, Alert and Interactive
Memory: Unremarkable (AAOx3) and Able to Recall
Tremor: Head Tremor Absent, Proximal, Rhythmic Distal 3/sec, Variable, At Rest and With Action; Negative Hand Tremor Absent
Involuntary Movement: Negative Asterixis
Speech: Other (hypophonic)
Cranial Nerve II: Left Eye: Pupillary Reactivity Unremarkable, Pupillary Size Unremarkable and Visual Tatum Intact
Cranial Nerve II: Right Eye: Pupillary Reactivity Unremarkable, Pupillary Size Unremarkable and Visual Tatum Intact
Cranial Nerves III, IV, : Extraocular Movement: Negative Extraocular Movement Full in all Directions (reduced upgaze)
Cranial Nerve V: Facial Sensation: Intact to Light Touch
Cranial Nerve VII: Facial Symmetry: Normal Facial Symmetry (generalized reduced facial movements)
Cranial Nerve VIII: Hearing: Unremarkable Hearing to Normal Conversational Volume
Cranial Nerves IX, X: Palate Movement: Palate Elevation Symmetric
Cranial Nerve XI: Shoulder Shrug: Unremarkable
Cranial Nerve XII: Tongue Protusion: Midline
Muscle Strength, Overall: Reduced on Left (LUE distal strength and shoulder strength intact, biceps strength 1/5. LLE 2/5 (hip surgery))
Babinski Sign: Absent Bilaterally
Gait & Station: Unable to Assess
Data Reviewed
-
CT-A: Report Reviewed and Image Reviewed
CT-Perfusion: Report Reviewed and Image Reviewed
CT Head: Report Reviewed and Image Reviewed
MRI Head: Report Reviewed and Image Reviewed
Labs: Report Reviewed
Lipid Profile: Report Reviewed
HgbA1C: Report Reviewed
Reviewed with: Physician and Patient
Medications
-
Active Medications
Generic Name Dose Route Start Last Admin
Trade Name Freq PRN Reason Stop Dose Admin
Acetaminophen 650 mg 06/20/24 04:00 06/25/24 08:25
Acetaminophen 325 Mg Tablet PO 07/18/24 03:59 650 mg
Q4HWA ZHAO Administration
Albuterol/Ipratropium 3 ml 06/24/24 10:31 06/25/24 06:47
Ipratropium 0.5/Albuterol 3 Mg (3 Ml Ampul) INH 3 ml
R Q4HPRN PRN Administration
wheezing, SOB
Protocol
Aspirin 325 mg 06/21/24 18:00 06/25/24 08:25
Aspirin 325 Mg Tablet PO 07/19/24 17:59 325 mg
DAILY ZHAO Administration
Atorvastatin Calcium 80 mg 06/24/24 18:00 06/24/24 17:12
Atorvastatin (Lipitor) 80 Mg Tablet PO 07/22/24 17:59 Not Given
QPM ZHAO
Bisacodyl 10 mg 06/20/24 01:18
Bisacodyl 10 Mg Rectal Suppository RECTAL 07/18/24 01:17
DAILYPRN PRN
if no bm by 3rd day
Budesonide 0.5 mg 06/24/24 10:45 06/25/24 06:47
Budesonide (Pulmicort Respules) 0.5 Mg/2 Ml INH 0.5 mg
R BID ZHAO Administration
Protocol
Carbidopa/Levodopa 2 tablet 06/20/24 08:00 06/25/24 08:25
Carbidopa (25 Mg)/Levodopa (100 Mg) Regular Release Tablet PO 07/18/24 07:59 2 tablet
TID ZHAO Administration
Clopidogrel Bisulfate 75 mg 06/24/24 16:00 06/25/24 08:27
Clopidogrel 75 Mg Tablet PO 07/15/24 15:59 75 mg
DAILY ZHAO Administration
Diltiazem HCl 60 mg 06/20/24 08:00 06/25/24 08:26
Diltiazem 60 Mg Regular Release Tablet PO 07/18/24 07:59 60 mg
TID ZHAO Administration
Docusate Sodium 100 mg 06/20/24 20:00 06/25/24 08:25
Docusate Sodium 100 Mg Capsule PO 07/18/24 19:59 100 mg
BID ZHAO Administration
Folic Acid 1 mg 06/24/24 09:00 06/25/24 08:26
Folic Acid 1 Mg Tablet PO 07/22/24 08:59 1 mg
DAILY ZHAO Administration
Guaifenesin 1,200 mg 06/22/24 10:00 06/25/24 08:27
Guaifenesin 600 Mg Extended Release Tablet PO 07/20/24 09:59 Not Given
Q12 ZHAO
Hydromorphone HCl 0.5 mg 06/20/24 03:45 06/21/24 08:50
Hydromorphone 0.5 Mg/0.5 Ml Syringe IV 07/04/24 03:44 0.5 mg
Q3HPRN PRN Administration
severe pain
Hydromorphone HCl 2 mg 06/24/24 11:21 06/25/24 02:37
Hydromorphone 2 Mg Tablet PO 07/08/24 11:20 2 mg
Q6HPRN PRN Administration
moderate-severe pain
Hyoscyamine Sulfate 0.125 mg 06/20/24 02:56
Hyoscyamine 0.125 Mg (Sl/Oral) Tablet PO 07/18/24 02:55
Q4HPRN PRN
secretions
Ferric Sodium Gluconate 110 mls @ 110 mls/hr 06/23/24 14:00 06/24/24 13:09
Complex 125 mg/ Sodium IV 06/27/24 14:59 110 mls
Chloride DAILY@1400 ZHAO Administration
Lidocaine 1 patch 06/20/24 08:00 06/25/24 08:28
Lidocaine 4% Topical Patch TOPICAL 07/18/24 07:59 1 patch
DAILY ZHAO Administration
Protocol
Loratadine 10 mg 06/20/24 08:00 06/25/24 08:25
Loratadine 10 Mg Tablet PO 07/18/24 07:59 10 mg
DAILY ZHAO Administration
Lorazepam 0.5 mg 06/20/24 01:18
Lorazepam 0.5 Mg Tablet PO 07/18/24 01:17
Q6HPRN PRN
anxiety
Losartan Potassium 100 mg 06/20/24 08:00 06/25/24 08:25
Losartan 100 Mg Tablet PO 07/18/24 07:59 100 mg
DAILY ZHAO Administration
Magnesium 84 mg 06/20/24 08:00 06/25/24 08:27
Magnesium Lactate 84 Mg Tablet PO 07/18/24 07:59 84 mg
BID ZHAO Administration
Magnesium Hydroxide 30 ml 06/20/24 01:18 06/25/24 02:03
Milk Of Magnesia 30 Ml Cup PO 07/18/24 01:17 30 ml
HSPRN PRN Administration
if no bm by 2nd day
Metoprolol Tartrate 25 mg 06/20/24 08:00 06/25/24 08:25
Metoprolol 25 Mg Regular Release Tablet PO 07/18/24 07:59 25 mg
BID ZHAO Administration
Pantoprazole Sodium 40 mg 06/21/24 08:00 06/25/24 08:26
Pantoprazole 40 Mg Delayed Release Tablet PO 07/19/24 07:59 40 mg
DAILY ZHAO Administration
Prednisone 10 mg 06/23/24 10:14 06/25/24 08:26
Prednisone 20 Mg Tablet PO 07/21/24 10:13 10 mg
DAILY ZHAO Administration
Sennosides 17.2 mg 06/20/24 20:00 06/25/24 08:26
Sennosides (Senokot) 8.6 Mg Tablet PO 07/18/24 19:59 17.2 mg
BID ZHAO Administration
Sodium Biphosphate/Sodium Phosphate 118 ml 06/20/24 01:18
Fleet Phosphate Enema (Adult) 135 Ml Bottle RECTAL 07/18/24 01:17
DAILYPRN PRN
if no bm by 4th day
Sodium Chloride 0 drops 06/20/24 01:18
Saline Mist For Peds NASAL 07/18/24 01:17
Q4HPRN PRN
dryness
Sodium Chloride 0 flush 06/20/24 06:00 06/24/24 05:36
Sodium Chloride 0.9% (Flush) Syringe IV 07/18/24 05:59 1 flush
PER PROTOCOL ZHAO Administration
Sodium Chloride 2 sprays 06/22/24 13:00 06/25/24 08:27
Sodium Chloride 0.65% Nasal [place] 45 Ml Bottle NASAL 07/20/24 12:59 2 sprays
QID ZHAO Administration
Tamsulosin HCl 0.4 mg 06/20/24 08:00
Tamsulosin 0.4 Mg Capsule PO 07/18/24 07:59
DAILYPRN PRN
bladder scan volume > 400 mL
Tramadol HCl 25 mg 06/24/24 11:18
Tramadol Hcl 50 Mg Tablet PO 07/22/24 11:17
Q8HPRN PRN
mild pain
Home Medications
�Medication �Instructions �Recorded
cholecalciferol (vitamin D3) 25 25 mcg PO DAILY Supplement #0 tabs 04/12/24
mcg (1,000 unit) tablet
diltiazem HCl 60 mg tablet 60 mg PO TID Heart 04/12/24
disease/condition #0 tabs
ferrous sulfate 325 mg (65 mg 325 mg PO DAILY Supplement #0 tabs 04/12/24
iron) tablet
losartan 100 mg tablet 100 mg PO DAILY Blood pressure #0 04/12/24
tabs
magnesium oxide 400 mg PO BID Supplement #0 tabs 04/12/24
metoprolol tartrate 25 mg tablet 25 mg PO BID Blood pressure #0 tabs 04/12/24
bisacodyl 10 mg rectal suppository 10 mg UT DAILYPRN PRN if no bm by 05/28/24
(Dulcolax (bisacodyl)) 3rd day
budesonide 0.5 mg/2 mL suspension 0.5 mg inhalation R BID 05/28/24
for nebulization Lung/Breathing Issues
carbidopa 25 mg-levodopa 100 mg 2 tab PO TID Neurological Condition 05/28/24
tablet
fexofenadine 180 mg tablet 180 mg PO DAILY Allergies 05/28/24
ipratropium 0.5 mg-albuterol 3 mg 3 ml inhalation R QID 05/28/24
(2.5 mg base)/3 mL nebulization Lung/breathing issues
soln
lidocaine 4 % topical cream 1 applic topical TID lower back 05/28/24
pain
lorazepam 0.5 mg tablet 0.5 mg PO Q6HPRN PRN anxiety 05/28/24
prednisone 10 mg tablet 10 mg PO DAILY Anti-Inflammatory 05/28/24
lidocaine 4 % topical patch 1 patch topical DAILY Pain #15 ea 06/03/24
acetaminophen 500 mg tablet 1,000 mg (2 x 500 mg) PO TID Pain 06/05/24
(Tylenol Extra Strength) #0 tabs
hyoscyamine sulfate 0.125 mg tablet 0.125 mg PO Q4HPRN PRN secretions 06/05/24
loratadine 10 mg tablet 10 mg PO DAILY Allergies 06/05/24
magnesium hydroxide 400 mg/5 mL 2,400 mg PO HSPRN PRN if no bm by 06/05/24
oral suspension (Milk of Magnesia) 2nd day
sodium chloride 0.65 % nasal spray 1 spray intranasal Q4HPRN PRN 06/05/24
aerosol dryness
sodium phosphates 19 gram-7 118 ml UT DAILYPRN PRN if no bm by 06/05/24
gram/118 mL enema (Fleet Enema) 4th day
aspirin 325 mg tablet 325 mg PO DAILY #28 tabs 06/24/24
docusate sodium 100 mg capsule 100 mg PO BID #60 caps 06/24/24
folic acid 1 mg tablet 1 mg PO DAILY #30 tabs 06/24/24
oxycodone 5 mg capsule 5 mg PO Q4H PRN moderate-severe 06/24/24
pain #10 caps
pantoprazole 40 mg tablet,delayed 40 mg PO DAILY #30 tabs 06/24/24
release

Documented by User: Jamal Whyte MD 06/25/24 13:56
Past History
Past History
ED Past Medical History: Cancer (Endometrial Cancer), COPD, HTN and Other (Parkinson's, Home oxygen at 2 liters, abd aneurysm. Rib fractures)
ED Past Surgical History: Cholecystectomy and Gynecological (Hysterectomy)
Social History
Tobacco: Former smoker
Alcohol: None
Personal:
Living: penitentiary
Family History
Family History: Asthma and Other (non applicable )
[2024-06-25 10:33] LABS: Blood Urea Nitrogen 34 mg/dl (7-17); Calcium 9.5 mg/dl (8.4-10.2); Carbon Dioxide 31 mmol/L (22-30); Chloride 102 mmol/L (98-107); Estimated Creatinine Clearance 70 ml/min; Glucose 108 mg/dl (70-99); HDL Cholesterol 65 mg/dl; LDL Cholesterol, Calculated 94 mg/dl; Potassium 4.6 mmol/L (3.5-5.1); Sodium 141 mmol/L (135-145); Total Cholesterol 184 mg/dl (50-199); Triglyceride 129 mg/dl (10-149); Very Low Density Lipoprotein 25 mg/dl (0-30); eGFR > 60.00
--- NOTE | 2024-06-25 10:43 | W.PN.PUL.V3 ---
Today's Communication / Plan
-
Wean oxygen.
Neurology following-spontaneous brachial neuritis.
Stable from a pulmonary perspective for proposed discharge
Assessment
-
78-year-old woman with past medical history significant for severe COPD, chronic hypoxemic and hypercapnic respiratory failure. Admitted after sustaining a fall. Developed left femoral fracture. Underwent hemiarthroplasty. We were consulted on
06/21/2024 for postoperative management Of COPD.
Severe COPD with chronic hypoxemic and hypercapnic respiratory failure
Steroid-dependent
Left impacted femoral neck/head fracture status post fall-status post left hemiarthroplasty 06/21/2024-Dr. Milton.
Spontaneous brachial neuritis producing left upper extremity biceps weakness
Conditions present Present prior admission:
Severe COPD/Emphysema phenotype on 2 L baseline-Used to follow-up with pulmonary in [place] Until recently.
FEV1 05/06/2024: 0.44 L - 22% of predicted. Ratio 36%
Chronic hypercapnic respiratory failure
First time seen in our office 05/06/2024: Transitioned to Pulmicort/DuoNeb
Chronic prednisone therapy
Prior history of ventilator dependent respiratory failure in the past may have 2023-unclear details
Recent falls with rib fractures 05-23
T4 compression fracture wearing TLSO
Former [id number]-[id number]-eaol-year history quit in 2013
Hypertension
Endometrial cancer
Anemia of chronic disease
Abdominal aortic aneurysm
Parkinson's disease
Cholecystectomy
Appendectomy
Hysterectomy
Ambulatory [id number]
Multiple compression fractures
Plan
.
Respiratory status is stabilized
Continue supplemental oxygen as needed-currently on 4 L nasal cannula
Aspiration precautions
Incentive spirometry
Mucus clearing devices
BiPAP if needed-currently not requiring
Prednisone 20 mg continues-baseline 10 mg-decreased to home dose
Nebulizers continue-DuoNebs and Pulmicort nebulizers
History of chronic hypercapnia-workup as an outpatient ongoing
Chest x-ray 06/24/2024-NAD
Treat nasal congestion-mucolytic's, nasal sprays
Status post left hip hemiarthroplasty
Orthopedics following
Follow hemoglobin
Transfuse if needed
No obvious source for bleeding clinically
DVT prophylaxis recommended-orthopedics initiated aspirin, if no contraindications would recommend heparin or low molecular weight heparin
GI prophylaxis-on pantoprazole
Physical therapy.
Respiratory status stable for proposed discharge
Reviewed with primary team
Outpatient pulmonary [id number] Gisel Amezcua NP 05/06/2024 and has appointment [address] Evans 07/07/2024
Subjective Data
-
Date of Service:
Date of Service: June 25, 2024
Chief Complaint: Pulmonary Follow Up and Dyspnea Follow Up
Subjective:
Complains of lump left arm immobility, no change in her chronic pain, no complaints of worsening shortness of breath or abdominal pain
Review of Systems
General: Other ( per HPI)
Objective Data
Data Reviewed
Vital Signs / I&O:
Vital Signs
Temp Pulse Resp BP Pulse Ox
98.6 F 89 14 152/60 93
06/25/24 08:16 06/25/24 08:16 06/25/24 08:16 06/25/24 08:16 06/25/24 08:16
Intake and Output
06/24/24 06/25/24 06/26/24
06:59 06:59 06:59
Intake Total 240 / 240 720 / 720
Balance 240 / 240 720 / 720
SaO2: 93
Nasal Cannula flow liters per minute: 2
Physical Exam
General: Respiratory Distress (n) and Comfortable
HEENT: Normocephalic, Anicteric and Moist Mucous Membranes
Cardiovascular: Regular Rhythm
Respiratory: Wheeze (n), Crackles, Rhonchi (Expiratory), Non-Labored Respirations and Accessory Resp Muscle Use (n)
GI: Soft, Non Distended and Non Tender
Neurology: Awake and Alert
Skin: Warm, Good Color, Cyanosis (n) and Jaundice (n)
Labs/Micro/Reports
Lab Data
06/24/24 04:17
06/25/24 10:03
Laboratory Results
06/24/24 06/24/24
14:18 14:25
PT Cancelled 12.8
INR Cancelled 0.91
APTT Cancelled 36.3 H
[2024-06-25 10:55] LABS: Erythrocyte Sed Rate 63 mm/hour (0-20)
[2024-06-25 11:05] LABS: TSH Reflex To Free T4 1.37 uIU/ml (0.47-4.68)
[2024-06-25 11:26] VITALS: BP 124/54
[2024-06-25 11:27] LABS: Glycohemoglobin (HgbA1c) 5.8 % (4.0-5.6)
--- NOTE | 2024-06-25 11:57 | W.PN.HOSP.TC ---
Today's Communication/Plan
-
DC
Assessment / Plan
Assessment / Plan
78yo F residing in facility with PMHx of COPD with chronic hypoxic respiratory failure on 2L home O2 and chronic prednisone, Parkinsons, anxiety, HTN aortic aneurism, DJD came after she lost balance and fell, found L femoral Fx. Had L hip
hemiarthroplasty and developed post-traumatic and postOP anemia without further drop in Hgb. Found acute weakness in L biceps on 06/25/24 - acute stroke w/u neg. Most likely spontaneous neuritis as per neurology. PT/OT indicated. Medically stable
for d/c
A/P:
#L impacted femoral neck/head fracture, possibly exacerbated by osteoporosis 2/2 Fall without LOC
#Chronic ambulatory dysfunction 2/2 Parkinson
Ortho mgmt: s/p L hip hemiarthroplasty
THPs x 6 weeks
ASA 325mg daily x 4 weeks
Dressing to remain 7-10 days, unless soiled
[facility] out at 2 weeks (office or [facility])
If aubrey out at [facility] outpatient Ortho follow-up 4 weeks
pain mgmt
Most likely iatrogenic osteoporosis contributed to Fx - outpatient w/u/treatment advised
PT/OT, cont Sinemet
#Acute blood loss anemia 2/2 fracture and periOP blood loss
L hip is not tender, not swollen, no significant bruise. As discussed with ortho - they dont have a concern for ongoing traumatic bleeding
Check anemia w/u and stool for FOBT
serial H&H
#COPD not in exacerbation
#Chronic hypoxic respiratory failure
COnt bronchodilators
Start DUoneb QID
cont Prednisone
Pulm consult
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
#Old lacunar stroke
ASA (switch to ASA 81mg after 3 weeks of 325mg dose)
cont statin
MRI brain neg for acute stroke
CT neck without clinically significant carotid stenosis
Telemetry without clinically significant arrhythmia
PT/OT - as per neurology. Symptoms will improve with time
HgbA1c 5.8% - preDM, advise low carb diet
TSH WNL
LDL 94
#Elevated Cr
to 1.2, baseline 1.0, not in HERMELINDO range
Hydrate and follow Cr
#Essential HTN
#Anxiety d/o
#4.1cm AAA
#Anemia, chronic
follow CBC
cont home meds
follow up as outpatient for AAA
DVT ppx ASA as per Ortho
limited DNR (no CPR)
I have spent at least 38min reviewing chart, test results, communication with consultants and direct patient care
Anticipated Discharge: Today
Subjective/Interval History
-
Date of Service: June 25, 2024
Objective Data
-
Labs:
Laboratory Results
06/25/24
10:03
Sodium 141
Potassium 4.6
Chloride 102
Carbon Dioxide 31 H
BUN 34 H
Creatinine 0.6
Glucose 108 H
Calcium 9.5
Vital Signs:
Vital Signs
Temp Pulse Resp BP Pulse Ox
97.5 F 62 18 124/54 95
06/25/24 11:26 06/25/24 11:26 06/25/24 11:26 06/25/24 11:26 06/25/24 11:26
I&O
06/24/24 06/25/24 06/26/24
06:59 06:59 06:59
Intake Total 240 / 240 720 / 720
Balance 240 / 240 720 / 720
Review of Systems
-
History Source: Patient
All other systems: Reviewed and negative
Physical Exam
-
General: No Apparent Distress
HEENT: Normocephalic
Cardiac: Regular Rhythm
GI: Soft, Nontender and Nondistended
Musculoskeletal: No Clubbing, No Cyanosis and No Edema
Skin: Warm
Neuro: Awake, Alert, Oriented, AO x 3 and Other (cannot flex LUE in elbow. Able to extend and has appropriate hand ROM)
Psych: Calm
--- NOTE | 2024-06-25 12:01 | W.DCSUMMARY ---
Discharge Summary
Discharge Data
Date of Admission: 06/20/24
Date of Discharge: 06/25/24
-
Pending Results: No
Hospital Course
78yo F residing in facility with PMHx of COPD with chronic hypoxic respiratory failure on 2L home O2 and chronic prednisone, Parkinsons, anxiety, HTN aortic aneurism, DJD came after she lost balance and fell, found L femoral Fx. Had L hip
hemiarthroplasty and developed post-traumatic and postOP anemia without further drop in Hgb. Found acute weakness in L biceps on 06/25/24 - acute stroke w/u neg. Most likely spontaneous neuritis as per neurology. PT/OT indicated. Medically stable
for d/c to rehab
THPs x 6 weeks
ASA 325mg daily x 4 weeks
Dressing to remain 7-10 days, unless soiled
Mata out at 2 weeks (office or WNF)
If mata out at SNF outpatient Ortho follow-up 4 weeks
I have spent at least 38min reviewing chart, test results, communication with consultants and direct patient care
Patient was managed for:
#L impacted femoral neck/head fracture, possibly exacerbated by osteoporosis 2/2 Fall without LOC
#Chronic ambulatory dysfunction 2/2 Parkinson
#Acute blood loss anemia 2/2 fracture and periOP blood loss
#COPD not in exacerbation
#Chronic hypoxic respiratory failure
#Elevated Cr
#Essential HTN
#Anxiety d/o
#4.1cm AAA
#Anemia, chronic
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
#Old lacunar stroke
Discharge Plan
-
Patient Disposition: Jail/SNF
Discharge Diagnosis/Procedures: L hip Fx
Condition: Fair
Diet: Regular
Activity: As tolerated
Driving Restrictions: As prior to admission
Other Services: PT
Activity Restrictions/Additional Instructions:
ASA 325mg daily x 4 weeks, then ASA 81mg indefinetely
Dressing to remain 7-10 days, unless soiled
Mata out at 2 weeks (office or WNF)
If mata out at [facility] outpatient Ortho follow-up 4 weeks
I have spent at least 38min reviewing chart, test results, communication with consultants and direct patient care
Referrals:
Jamal Whyte MD [Active] - in two to four weeks (EMG)
Johan Motley MD [Family Provider] -
Jignesh Milton MD [Active] - in two weeks
Prescriptions:
New
aspirin 325 mg Tablet
325 mg PO DAILY Qty: 28 0RF
docusate sodium 100 mg Capsule
100 mg PO BID Qty: 60 0RF
folic acid 1 mg Tablet
1 mg PO DAILY Qty: 30 0RF
pantoprazole 40 mg Tablet,Delayed Release (Dr/Ec)
40 mg PO DAILY Qty: 30 0RF
oxycodone 5 mg capsule
5 mg PO Q4H PRN (Reason: moderate-severe pain) Qty: 10 0RF
aspirin 81 mg capsule
81 mg PO DAILY Qty: 30 0RF
Rx Instructions:
start on 07/24/24
atorvastatin 40 mg tablet
40 mg PO DAILY Qty: 30 0RF
Continued
ferrous sulfate 325 mg (65 mg iron) Tablet
325 mg PO DAILY Qty: 0 0RF
losartan 100 mg Tablet
100 mg PO DAILY Qty: 0 0RF
diltiazem HCl 60 mg Tablet
60 mg PO TID Qty: 0 0RF
metoprolol tartrate 25 mg Tablet
25 mg PO BID Qty: 0 0RF
cholecalciferol (vitamin D3) 25 mcg (1,000 unit) Tablet
25 mcg PO DAILY Qty: 0 0RF
magnesium oxide 400 mg magnesium Tablet
400 mg PO BID Qty: 0 0RF
fexofenadine 180 mg Tablet
180 mg PO DAILY
prednisone 10 mg Tablet
10 mg PO DAILY
lidocaine 4 % Cream
1 applic TOPICAL TID
lorazepam 0.5 mg Tablet
0.5 mg PO Q6HPRN PRN (Reason: anxiety)
bisacodyl [Dulcolax (bisacodyl)] 10 mg Suppository
10 mg [place] DAILYPRN PRN (Reason: if no bm by 3rd day)
budesonide 0.5 mg/2 mL Suspension For Nebulization
0.5 mg INHALATION R BID
ipratropium-albuterol 0.5 mg-3 mg(2.5 mg base)/3 mL solution for nebulization
3 ml INHALATION R QID
carbidopa-levodopa 25-100 mg tablet
2 tab PO TID
lidocaine 4 % Adhesive Patch,Medicated
1 patch topical DAILY Qty: 15 0RF
Rx Instructions:
left rib and back
magnesium hydroxide [Milk of Magnesia] 400 mg/5 mL Suspension
2,400 mg PO HSPRN PRN (Reason: if no bm by 2nd day)
hyoscyamine sulfate 0.125 mg Tablet
0.125 mg PO Q4HPRN PRN (Reason: secretions)
Fleet Enema 19-7 gram/118 mL Enema
118 ml [place] DAILYPRN PRN (Reason: if no bm by 4th day)
loratadine 10 mg Tablet
10 mg PO DAILY
sodium chloride 0.65 % Aerosol,[place]
1 spray INTRANASAL Q4HPRN PRN (Reason: dryness)
acetaminophen [Tylenol Extra Strength] 500 mg Tablet
1,000 mg PO TID Qty: 0 0RF
Discontinued
doxycycline hyclate 100 mg Capsule
100 mg PO Q12H Qty: 8 0RF
Rx Instructions:
take until 06/08/24
cefpodoxime 200 mg tablet
200 mg PO Q12H Qty: 8 0RF
Rx Instructions:
take until 06/08/24
Discharge Orders:
Discharge Patient (As Directed); Ordered 06/25/24
Ordered By: Clay Samaniego
Discharge Date and Time
Print Language: AMHARIC
--- NOTE | 2024-06-25 12:47 | CM ---
Addendum entered by Sangeetha Yoon 06/25/24 14:29:
Transport at 3:30PM
Spoke with pt - aware of time for transport. Requested her sister be updated of plan
Called pts sister Bella [phone] - notified of transfer and transport time
Plan - transfer to [facility]
R - [phone]
[phone]
Addendum entered by Sangeetha Yoon 06/25/24 12:52:
Notified Felicia at [facility] - aware of planned transfer
Original Note:
Pt for discharge today
For SNF at [facility]
Transport to be arranged
Discussed IMM with pt
Plan - transfer to [facility]
R - [phone]
[phone]
[2024-06-25] MEDS: FERRLECIT 110 MG IV (13:43)
[2024-06-25 15:45] VITALS: BP 130/59
== END 2024-06-25 16:00 | DRG 521 ==
LOC: 2 SOUTH 01:43
PROVIDERS: Hospitalist; Physician Assistant; ADMITTING PHYSICIAN Internal Medicine; ATTENDING PHYSICIAN Internal Medicine; CONSULT PHYSICIAN Internal Medicine Critical Care Medicine; CONSULT PHYSICIAN Orthopaedic Surgery; CONSULT PHYSICIAN Psychiatry & Neurology Neurology; EMERGENCY PHYSICIAN Emergency Medicine; FAMILY PHYSICIAN Family Medicine
PROC: 5A0935A Assistance with Respiratory Ventilation, Less than 24 Consecutive Hours, High Flow/Velocity Cannula (ICD-10-PCS; 2024-06-19)
PROC: 0SRS0JA Replacement of Left Hip Joint, Femoral Surface with Synthetic Substitute, Uncemented, Open Approach (ICD-10-PCS; 2024-06-21)
DX: M80.052A Age-related osteoporosis with current pathological fracture, left femur, initial encounter for fracture (principal); J96.21 Acute and chronic respiratory failure with hypoxia; D62 Acute posthemorrhagic anemia; J44.9 Chronic obstructive pulmonary disease, unspecified; I10 Essential (primary) hypertension; G20.A1 Parkinson's disease without dyskinesia, without mention of fluctuations; Z66 Do not resuscitate; D63.8 Anemia in other chronic diseases classified elsewhere; F41.9 Anxiety disorder, unspecified; G89.29 Other chronic pain; I71.40 Abdominal aortic aneurysm, without rupture, unspecified; M54.12 Radiculopathy, cervical region; J43.9 Emphysema, unspecified; W01.0XXA Fall on same level from slipping, tripping and stumbling without subsequent striking against object, initial encounter; Z99.81 Dependence on supplemental oxygen; Z79.51 Long term (current) use of inhaled steroids; Z79.52 Long term (current) use of systemic steroids; Z99.3 Dependence on wheelchair; Z88.3 Allergy status to other anti-infective agents; Z88.1 Allergy status to other antibiotic agents; Z87.891 Personal history of nicotine dependence; Z86.73 Personal history of transient ischemic attack (TIA), and cerebral infarction without residual deficits; Z79.82 Long term (current) use of aspirin
CPT/HCPCS: 0042T; 70450; 70496; 70498; 70551; 71045; 71046; 73502; 80048; 80053; 80061; 82607; 82728; 82746; 83036; 83540; 83550; 83615; 83735; 84443; 84484; 85014; 85018; 85025; 85027; 85045; 85610; 85652; 85730; 86140; 86850; 86900; 86901; 93005; 94640; 96374; 96375; 96376; 97110; 97163; 97167; 97530; 97535; 99285; C1713; C1776; J2916; Q9967

== ENCOUNTER 2024-06-25 22:31 | Inpatient (IN) | payer MEDICARE, SELFPAY ==
[2024-06-25 18:59] VITALS: BMI 24.1
[2024-06-25 19:00] VITALS: BP 161/73
[2024-06-25 19:00] LABS: Glucose - Point of Care 119 mg/dl (70-99)
--- NOTE | 2024-06-25 19:50 | ED.CVA ---
History of Present Illness
General
Chief Complaint: CVA/TIA Symptoms
Time Seen by Provider: 06/25/24 18:55
Onset of Stroke Symptoms
Onset of symptoms known: Yes
Date of onset of symptoms: 06/24/24
History of Present Illness
History of Present Illness:
70-year-old female with history of COPD on 2 L O2, Parkinson's disease, anxiety, hypertension, degenerative disc disease presenting to the emergency department for concern of stroke and pneumonia. Patient recently hospitalized from 06/20 to 06/25,
discharged about 2 hours prior to arrival from the hospital. Patient had fallen, found to have a left femoral neck fracture of the hip, status post hemiarthroplasty, complicated with anemia requiring transfusion. Patient had been discharged back
to the nursing facility, and at the nursing facility, they were concerned for potential cough and pneumonia, so medics were called. Medics arrival, medics were concerned for possible right-sided facial droop and left upper extremity weakness, so a
prehospital stroke alert was called. On arrival to the hospital, patient does have obvious left upper extremity weakness, possible mild right facial drooping. Patient reports that her left upper extremity weakness started today, however does not
recall when. Patient is otherwise alert, answering questions appropriately. She denies any increased difficulty breathing. She does cough. She denies numbness to her extremities. She denies issues with her speech. She denies additional acute
medical complaints. Patient arrives with paperwork, DNR. Per medication list, no anticoagulation, however did receive aspirin and Plavix prior to departure from the hospital today.
Past History
Past History
ED Past Medical History: Cancer (Endometrial Cancer), COPD, HTN and Other (Parkinson's, Home oxygen at 2 liters, abd aneurysm. Rib fractures)
ED Past Surgical History: Cholecystectomy and Gynecological (Hysterectomy)
Social History
Tobacco: Former smoker
Alcohol: None
Personal:
Living: care home
Family History
Family History: Asthma and Other (non applicable )
Phy Exam
Physical Exam
Physical Exam:
General: Mild dryness to mucous membranes no acute distress
HEENT: protecting airway
Neck: appears supple
CV: Normal heart rate, regular rhythm, no evidence of cyanosis
Resp: No accessory muscle use, rhonchorous breath sounds bilaterally
Abd: Soft and non-distended, no tenderness to palpation
Extremities: Slightly shortened left lower extremity with limited range of motion secondary to pain from recent known hip fracture. 3/5 strength to left upper extremity. Sensation intact all extremities. Diffuse bruising to upper extremities,
from reported prior IV attempts. No significant swelling.
Neuro: alert, weakness in left upper extremity without additional significant acute neurologic deficits.
: deferred
Rectal: deferred
Psych: Normal affect
Skin: Intact
Scores
NIH Stroke Score
Level of Consciousness: 0 - Alert
LOC Questions: 0-Answers both correctly
LOC Commands: 0-Performs both correctly
Best Horizontal Gaze: 0-Normal
Visual [place]: 0=Normal, no visual loss
Facial Palsy: 0=Normal, symmetrical
Motor - Right Arm: 0=No drift 10 seconds
Motor - Left Arm: 2=Partial vs. gravity
Motor - Right Le-No drift 5 seconds
Motor - Left Le-No drift 5 seconds
Limb Ataxia: 0-Absent
Sensation: 0-Normal
Best Language: 0-No aphasia
Dysarthria: 0-Normal
Extinction and Inattention: 0-No abnormality
Total Score:: 2
Course
Orders/Labs/Results
Orders:
Orders
06/25/24 18:56
CT HEAD STROKE ALERT W/o Cont Urgent
Reason For Exam: R-facial droop, L-arm weakness
Bedside Glucose- Treatment ONCE
Cardiac Monitoring- Treatment ONCE
06/25/24 18:57
Electrocardiogram (*1) Stat
Reason for Study: Other
Other Reason for Exam: neuro symptoms
EKG- Treatment ONCE
CR Chest Portable - 1 View Urgent
Comment:
Reason For Exam: SOB
Reason Study Needs to be Portable: Patient Unstable
06/25/24 19:30
Complete Blood Count/With Diff Urgent
06/25/24 20:29
Cefepime HCl [Maxipime] 2,000 mg IV NOW STA
06/25/24 20:30
Vancomycin [Vancocin] 1,500 mg 0.9% Sodium Chloride 500 ml [Nss] 500 ml IV NOW
06/25/24 21:36
Comprehensive Metabolic Panel Urgent
Lactic Acid Q4H
Comment: CANCEL 2nd LACTIC ACID IF 1st LACTIC ACID IS LESS THAN 2
PTT Urgent
Prothrombin Time Urgent
Blood Culture Q30M
TBOY Source: Blood/Venous
Specimen Description:
06/25/24 21:39
Blood Culture Q30M
TOBY Source: Blood/Venous
Specimen Description:
06/25/24 21:43
Cefepime HCl [Maxipime] 2,000 mg .ROUTE .STK-MED ONE
06/25/24 21:54
Admit/Transfer Patient As Directed
Co-Sign Provider:
Level of Care: Inpatient admission
Assign to:: IMU- Intermediate Care
Physician / Group: pau
Diagnosis: acute brhonchitis
Reason for Hospitalization: acute bronchitis
Expected length of stay greater than two midnights?: Yes
ELOS- Estimated Length of Stay in days: 3
I certify the patient meets the requirements for IP care: Yes
06/25/24 21:55
PRN Pain Medication Management As Directed
May give lesser potent ordered pain med per pt: Yes
preference::
Protocol:: Medication orders for pain may be administered in a
manner that supports deferring to patient preference
when the pt is:
- Requesting an ordered lesser potent pain medication.
Least to most potent pain medications are defined
as: acetaminophen < NSAID < tramadol < opioids
(morphine, oxycodone, hydromorphone).
- Requesting a lesser dose of the same medication IF
ORDERED.
- Requesting a less intrusive route of administration
if both routes are prescribed by the provider (PO <
IV).
06/25/24 22:04
Code Status As Directed
Resuscitation Status: Do not resuscitate
Reached after discussion with pt or family/Healthcare POA: Yes
DNR Bracelet Application ONCE
06/25/24 22:14
Ipratropium/Albuterol Sulfate [Duoneb] 3 ml INH R NOW ONE
06/25/24 22:22
PRN Pain Medication Management As Directed
May give lesser potent ordered pain med per pt: Yes
preference::
Protocol:: Medication orders for pain may be administered in a
manner that supports deferring to patient preference
when the pt is:
- Requesting an ordered lesser potent pain medication.
Least to most potent pain medications are defined
as: acetaminophen < NSAID < tramadol < opioids
(morphine, oxycodone, hydromorphone).
- Requesting a lesser dose of the same medication IF
ORDERED.
- Requesting a less intrusive route of administration
if both routes are prescribed by the provider (PO <
IV).
06/25/24 22:27
Enoxaparin Sodium [Lovenox] 60 mg SC NOW STA
06/26/24 00:19
Acetaminophen [Tylenol] 1,000 mg PO TID
Carbidopa/Levodopa [Sinemet 25-100] 2 tablet PO TID
Diltiazem [Cardizem] 60 mg PO TID
Guaifenesin Solution [Robitussin] 200 mg PO Q4HPRN PRN
Ipratropium/Albuterol Sulfate [Duoneb] 3 ml INH R Q4HPRN PRN
Lidocaine 4% Cream [Lmx 4] 1 applic TOPICAL TID
Lorazepam [Ativan] 0.5 mg PO Q6HPRN PRN
06/26/24 00:19
Consult Notification Routine
Specialty to Notify: Pulmonary
Date consulting provider notified: 06/26/24
Time consulting provider notified: 08:25
Notified:: Provider
PULMONARY CONSULT Routine
Consulting Provider: Russell Evans
Was physician already notified: No
Reason for consult: acute bronchitis
Intake/ Output As Directed
Frequency: Per unit guidelines
Pneumatic Compression Sleeves As Directed
Type: Thigh high
Copd Education [RESP] Routine
O2 Therapy [RESP] Routine
Titrate/Wean O2 to maintain O2 sat greater than (%): 92
Special Instructions: adjust, if necessary, to avoid hyperoxia in CO2 retainers.
Use High Flow O2 if necessary
Rx Incentive Spirometry [RESP] Routine
Frequency: q1h while awake
Ot Eval And Treat Routine
Pt Eval And Treat Routine
Activity Level: As Tolerated
DX Deep Vein Thrombosis Video Routine
06/26/24 00:34
Oxycodone [Roxicodone] 5 mg PO Q4H PRN
06/26/24 00:41
Hyoscyamine Sulfate [Levsin] 0.125 mg PO Q4HPRN PRN
06/26/24 05:22
Complete Blood Count/With Diff IN AM
06/26/24 Breakfast
Regular
At Your Request: Limited Participation
06/26/24 06:39
Basic Metabolic Panel IN AM
06/26/24 08:00
Aspirin 325 mg PO DAILY
Atorvastatin [Lipitor] 40 mg PO DAILY
Budesonide [Pulmicort] 0.5 mg INH R BID
Docusate Sodium [Colace] 100 mg PO BID
Doxycycline [Vibramycin] 100 mg PO Q12
FOLic ACID [Folvite] 1 mg PO DAILY
Ferrous Sulfate [Feosol] 325 mg PO DAILY
Ipratropium/Albuterol Sulfate [Duoneb] 3 ml INH R QID
Lidocaine [Lidocaine 4% Patch] 1 patch TOPICAL DAILY
Apply Lidocaine patch(s) to:: back
Loratadine [Claritin] 10 mg PO DAILY
Loratadine [Claritin] 10 mg PO DAILY
Losartan [Cozaar] 100 mg PO DAILY
Magnesium l-Lactate [Mag-Tab Sr] 84 mg PO BID
Metoprolol [Lopressor] 25 mg PO BID
Pantoprazole [Protonix] 40 mg PO DAILY
Prednisone [Deltasone] 10 mg PO DAILY
Abnormal Lab Results
06/25/24 06/25/24 06/25/24
18:58 19:30 21:36
RBC 2.80 L 10^6/uL
(4.20-5.40)
Hgb 8.9 L g/dL
(12.0-16.0)
Hct 28.2 L %
(37.0-47.0)
MCV 100.7 H fL
(81.0-99.0)
MCH 31.8 H pg
(27.0-31.0)
MCHC 31.6 L g/dL
(33.0-37.0)
RDW 15.3 H %
(11.5-14.5)
Abs Immat Gran (auto) 0.1 H 10^3/uL
(0-0.05)
Absolute Lymphs (auto) 0.5 L 10^3/uL
(1.2-3.4)
Absolute Monos (auto) 0.8 H 10^3/uL
(0.1-0.6)
Immature Gran % 1.3 H %
(0-0.5)
Neutrophils % 78.6 H %
(42.2-75.2)
Lymphocytes % 8.0 L %
(20.5-51.1)
Monocytes % 11.7 H %
(1.7-9.3)
Carbon Dioxide 32 H mmol/L
(22-30)
BUN 39 H mg/dl
(7-17)
Lactic Acid 0.6 L mmol/L
(0.7-2.0)
Total Protein 5.7 L g/dl
(6.3-8.2)
Albumin 3.3 L g/dl
(3.5-5.0)
POC Glucose 119 H mg/dl
(70-99)
06/25/24 19:30
06/25/24 21:36
Vital Signs
Initial and Last Documented VS:
Initial Vital Signs
Temp Pulse Ox
99.4 F 94
06/25/24 18:51 06/25/24 18:51
Last Documented Vital Signs
Temp Pulse Resp BP Pulse Ox
98.0 F 71 16 111/53 99
06/27/24 03:08 06/27/24 02:00 06/27/24 02:00 06/27/24 02:00 06/27/24 02:00
MDM/Problems Addressed
MDM/Problems Addressed:
70-year-old female with history of COPD on 2 L O2, Parkinson's disease, anxiety, hypertension, degenerative disc disease presenting for concern of pneumonia and stroke from nursing facility. Vital signs on arrival significant for tachycardia.
On exam, patient is in no acute distress. Patient prehospital stroke alert, with concern per medics for facial drooping and left upper extremity weakness. However, on review of EMR, patient's left upper extremity weakness was first noticed on
06/24 while in the hospital for her hip fracture. Patient was a rapid response in the hospital, for underlying concern of stroke. Patient underwent CT of the brain and MRI, negative for acute stroke. Patient seen by neurology, thought to have a
brachial neuritis. At this time do not suspect any acute new neurologic findings. In keeping with prehospital stroke protocol, patient sent to CT, negative for acute process. Did discuss with neurology, agree that not a candidate for TNK.
Regarding care home concern for pneumonia, patient presents on 4 to 6 L O2 with gurgling sounds, rhonchorous respirations, and vital signs concerning for infection, meeting SIRS. Plan for chest x-ray imaging, laboratory analysis including lactic
acid and blood cultures.
19:40 - Patient is adamantly refusing IV access and treatment. She is fully awake, alert, oriented. She does not want to be stuck for IV line again, no new difficult access. IV team called and patient offered ultrasound IV access, again refusing.
Explained to patient, without IV access and laboratory analysis, difficulty assessing sepsis and infectious process. Explained that without full treatment and assessment, patient could have a respiratory arrest and . Patient explained
understanding. She continues to refuse all hospital treatments. She does not want to stay in the hospital. Patient does arrive with a DNR, however boxes are checked for full treatment otherwise. Patient confronted regarding this and explains
that she does not want full treatment.
20:20 -chest x-ray without obvious pneumonia, however does show possible pulmonary edema. Continue to clinically suspect pneumonia. Extensive conversation had with patient. She is now agreeable to trying a midline, laboratory analysis,
antibiotics and then while admitted, interested in possible hospice.
*EKG
Interpreted by ED Provider?: Yes
EKG Intrepretation Date: 06/25/24
EKG Intrepretation Time: 20:04
Interpretation: normal
Comparison EKG: no changes (06/20/24)
Heart Rate: 100
Rate: normal
Rhythm: sinus
[place]: right axis deviation
Interval: normal interval
QRS Pattern: right bundle branch block
Ischemia: no ischemia
*Critical Care Note
Total Time (30-74mins, 75-104mins- exclusive of procedures): Not Applicable
ED Attending Note
-
Portions of this chart may have been created with voice recognition software.� Occasional wrong word or��sound alike� substitutions may have occurred due to the inherent limitations of voice recognition software.
Discharge Plan
Departure
Patient Disposition: Admit
Date of Disposition: 06/25/24
Time of Disposition: 20:40
Presentation/result/management discussed w/ accepting MD/DO: Hospitalist
Condition: Fair
Discharge Problem:
Pneumonia, Breath shortness
Interventions
Interventions:
*Risk Screen - Suicide Last Done: 06/25/24 18:51
*General Assessment Last Done: 06/25/24 18:51
*Neglect/Abuse Screening Last Done: 06/25/24 18:51
*ED COVID-19 Vaccine History Last Done: 06/25/24 18:51
*Nursing Disposition Last Done: 06/25/24 23:44
ED- Pulmonary Assessment Last Done: 06/25/24 19:05
ED- Neurological Assessment Last Done: 06/25/24 19:04
ED- Cardiac Assessment Last Done: 06/25/24 19:38
Discharge Date and Time
Discharge Date/Time: 06/25/24 23:44
[2024-06-25 20:02] VITALS: BP 133/83
--- NOTE | 2024-06-25 20:12 | VATNOTE ---
PT READMITTED TO EMR. PT AAOX3. AFTER MULTIPLE REFUSALS AND SPEAKING WITH MD, PT AGREED TO 1 ATTEMPT TO ESTABLISH IV ACCESS. PT REFUSED ML INSERTION AFTER EXPLAINING TO PT BENEFITS FOR HER RELATED TO IV LONGEVITY AND PHLEBOTOMY ISSUES. FAILED ON 1ST
ATTEMPT TO ESTABLISH IV ACCESS BUT LABS OBTAINED. PCCN AND MD AWARE OF OUTCOME.
[2024-06-25 20:22] LABS: % Basophils 0.1 % (0-2); % Eosinophils 0.3 % (0-6); % Immature Granulocytes 1.3 % (0-0.5); % Monocytes 11.7 % (1.7-9.3); % Neutrophils 78.6 % (42.2-75.2); Absolute Immature Granulocytes 0.1 10^3/uL (0-0.05); Absolute Lymphocytes 0.5 10^3/uL (1.2-3.4); Absolute Monocytes 0.8 10^3/uL (0.1-0.6); Absolute Neutrophils 5.3 10^3/uL (1.4-6.5); Hematocrit 28.2 % (37.0-47.0); Hemoglobin 8.9 g/dL (12.0-16.0); Mean Corp Hgb Conc. 31.6 g/dL (33.0-37.0); Mean Corpuscular Hgb 31.8 pg (27.0-31.0); Mean Corpuscular Volume 100.7 fL (81.0-99.0); Nucleated Red Blood Cells % 0 %; Platelet Count 280 10^3/uL (130-400); Red Cell Dist. Width 15.3 % (11.5-14.5); White Blood Cell Count 6.7 10^3/uL (4.8-10.8)
--- NOTE | 2024-06-25 20:50 | HPS.HSE ---
Addendum entered and electronically signed by Nitish Michael DO 06/25/24 23:22:
Patient seen and examined independently. Agree with findings and plan as set forth by MELISSA Henderson.
Patient is a 78y F with PMH significant for COPD on chronic home O2, Parkinson's disease and recent hospitalization for hip fracture / repair who presents to ED from [facility] for evaluation of SOB. Patient was discharged from the hospital earlier
today after admission for hip fracture. She underwent ORIF of the left hip on 06/21. Patient states that she started with cough and increased SOB yesterday. She was followed during her stay by Pulmonary and was on increased dose of prednisone x
several days. At discharge, patient was requiring 4 lpm of supplemental O2 while her baseline is 2 lpm.
Upon return to the [facility], staff was concerned with her cough, increased O2 needs and increased work of breathing and patient was returned to the ED for further evaluation.
Ass:
Acute on Chronic Hypoxemic Respiratory Insufficiency
COPD with Acute Exacerbation
Acute Bronchitis / LRTI
LUE Neuritis / Weakness (recent stroke eval unremarkable)
s/p L Hip Hemiarthroplasty
Post-Op Blood Loss Anemia s/p Transfusion
Benign Hypertension
Anxiety / Depression
Parkinson's Disease
Plan:
Admit for further evaluation and treatment.
Clinically seems most c/w pulmonary infection / bronchitis and resultant exacerbation of COPD.
CXR without focal infiltrate / pneumonia.
Continue O2 support and titrate as needed.
DuoNebs ATC and PRN.
PO doxycycline for now.
Increase prednisone to 40mg daily for now.
Pulmonary re-evaluation for additional recommendations.
Continue post-op care after recent hip surgery. PT / OT / Pain control.
? PE - however, clinically more c./w bronchitis as noted.
Treatment dose of Lovenox given this evening. No CTA as patient has had several contrast enhanced studies in the past 24 hours.
Consider CTA in the AM if there is clinical concern for possible PE.
Follow for clinical improvement.
Continue other usual home medications.
Original Note:
Family Physician
-
Family Physician: Johan Motley MD
Chief Complaint
-
cough
History of Present Illness
70-year-old female with history of COPD on 2 L O2, Parkinson's disease, anxiety, hypertension, degenerative disc disease presenting to the emergency department for concern of cough. patient stated she started coughing since yesterday. today she was
having worsening of sob. denied fever, chills, chest pain. denied GASCA, dizzy or syncopal episode. denied abdominal pain,n,v,d.denied dysuria or hematuria.
Patient recently hospitalized from 06/20 to 06/25, discharged today. Patient had fallen, found to have a left femoral neck fracture of the hip, status post hemiarthroplasty, complicated with anemia requiring transfusion. Patient had been
discharged back to the nursing facility, and at the nursing facility, they were concerned for potential cough and pneumonia, so medics were called.
chest x ray with MODERATE BILATERAL UPPER LOBE CENTRILOBULAR EMPHYSEMA.
patient received cefepime and vanco in ER, concern for pneumonia
admitting for further management.
Medical History
Past Medical History
Past Medical History: Reports Other
Additional Past Medical History:
pneumonia
asthma
emphysema
bronchitis
hay fever
htn
osteo
anemia
Parkinson disease
migraine
Past Surgical History: Reports Other
Additional Past Surgical History:
cholecystectomy
hysterectomy
appendectomy
Social History
Tobacco: Non-smoker
Alcohol: None
Drug: None
Personal: Single
Living: [facility]
Family History
Family History: Not pertinent
Allergies / Home Medications
Allergies reflects when Allergies were last updated in [facility].
Home Medications with original date entered in [facility]
Allergy/Medication List:
Allergies
Allergy/AdvReac Type Severity Reaction Status Date / Time
bacitracin Allergy Unknown Verified 06/25/24 18:51
[From Neosporin
([id number])]
ciprofloxacin Allergy Unknown Verified 06/25/24 18:51
levofloxacin [From Levaquin] Allergy Rash Verified 06/25/24 18:51
neomycin Allergy Unknown Verified 06/25/24 18:51
[From Neosporin
([id number])]
polymyxin B Allergy Unknown Verified 06/25/24 18:51
[From Neosporin
([id number])]
Home Medications
cholecalciferol (vitamin D3) 25 mcg (1,000 unit) tablet 25 mcg PO DAILY Supplement #0 tabs 04/12/24
diltiazem HCl 60 mg tablet 60 mg PO TID Heart disease/condition #0 tabs 04/12/24
ferrous sulfate 325 mg (65 mg iron) tablet 325 mg PO DAILY Supplement #0 tabs 04/12/24
losartan 100 mg tablet 100 mg PO DAILY Blood pressure #0 tabs 04/12/24
magnesium oxide 400 mg PO BID Supplement #0 tabs 04/12/24
metoprolol tartrate 25 mg tablet 25 mg PO BID Blood pressure #0 tabs 04/12/24
bisacodyl 10 mg rectal suppository (Dulcolax (bisacodyl)) 10 mg W[place] DAILYPRN PRN if no bm by 3rd day 05/28/24
budesonide 0.5 mg/2 mL suspension for nebulization 0.5 mg inhalation R BID Lung/Breathing Issues 05/28/24
carbidopa 25 mg-levodopa 100 mg tablet 2 tab PO TID Neurological Condition 05/28/24
fexofenadine 180 mg tablet 180 mg PO DAILY Allergies 05/28/24
ipratropium 0.5 mg-albuterol 3 mg (2.5 mg base)/3 mL nebulization soln 3 ml inhalation R QID Lung/breathing issues 05/28/24
lidocaine 4 % topical cream 1 applic topical TID lower back pain 05/28/24
prednisone 10 mg tablet 10 mg PO DAILY Anti-Inflammatory 05/28/24
lidocaine 4 % topical patch 1 patch topical DAILY Pain #15 ea 06/03/24
acetaminophen 500 mg tablet (Tylenol Extra Strength) 1,000 mg (2 x 500 mg) PO TID Pain #0 tabs 06/05/24
hyoscyamine sulfate 0.125 mg tablet 0.125 mg PO Q4HPRN PRN secretions 06/05/24
loratadine 10 mg tablet 10 mg PO DAILY Allergies 06/05/24
magnesium hydroxide 400 mg/5 mL oral suspension (Milk of Magnesia) 2,400 mg PO HSPRN PRN if no bm by 2nd day 06/05/24
sodium chloride 0.65 % nasal spray aerosol 1 spray intranasal Q4HPRN PRN dryness 06/05/24
sodium phosphates 19 gram-7 gram/118 mL enema (Fleet Enema) 118 ml W[place] DAILYPRN PRN if no bm by 4th day 06/05/24
aspirin 325 mg tablet 325 mg PO DAILY #28 tabs 06/24/24
docusate sodium 100 mg capsule 100 mg PO BID #60 caps 06/24/24
folic acid 1 mg tablet 1 mg PO DAILY #30 tabs 06/24/24
oxycodone 5 mg capsule 5 mg PO Q4H PRN moderate-severe pain #10 caps 06/24/24
pantoprazole 40 mg tablet,delayed release 40 mg PO DAILY #30 tabs 06/24/24
aspirin 81 mg capsule 81 mg PO DAILY #30 caps 06/25/24
atorvastatin 40 mg tablet 40 mg PO DAILY #30 tabs 06/25/24
lorazepam 0.5 mg tablet 0.5 mg PO Q6HPRN PRN anxiety #8 tabs 06/25/24
Review of Systems
-
Constitutional: Reports No Symptoms
EENT: Reports No Symptoms
Respiratory: Reports Cough and Trouble Breathing
Cardiac: Reports No Symptoms
Abdomen/GI: Reports No Symptoms
: Reports No Symptoms
Musculoskeletal: Reports No Symptoms
Skin: Reports Other (lft hip pain)
Neurological: Reports No Symptoms
Endocrine: Reports No Symptoms
Hematologic/Lymphatic: Reports No Symptoms
Psych: Reports No Symptoms
Physical Exam
Vital Signs
Vital Signs
Temp Pulse Resp BP Pulse Ox
99.4 F 105 24 133/83 99
06/25/24 18:51 06/25/24 20:02 06/25/24 20:02 06/25/24 20:02 06/25/24 20:02
Physical Exam
General: Well Developed, Well Nourished and No Apparent Distress
HEENT: NormoCephalic, Moist mucous membranes and Atraumatic
Respiratory: Wheezes and Rales
Cardiac: S1/S2 and Regular Rhythm; No Murmur or Rub
GI: Soft, Non Tender, Non Distended and Normal Bowel Sounds; No Organomegaly
Rectal: Deferred by Provider
Musculoskeletal: No Clubbing, No Cyanosis and No Edema
Skin: No Rash
Neuro: AO x 3 and Nonfocal/grossly intact
Psych: Calm
Laboratory Results
-
06/25/24 19:30
Data Reviewed
-
Diagnostic Radiology: Report Reviewed by me
Lab Data: Labs Reviewed by me
Impression/Plan
-
#cough/acute on chronic hypoxic respiratory failure concern fo bronchitis
#hxt of chornic hypercapnia
#possible COPD exacerbation
-patient uses 4l at baseline
-chest x ray with MODERATE BILATERAL UPPER LOBE CENTRILOBULAR EMPHYSEMA.
2. Mild to moderate chronic scarring in the lower lobes.
3. Mild cardiomegaly with suspected mild interstitial pulmonary edema.
4. Severe calcific atherosclerotic plaque in the thoracic aorta.
5. Multiple chronic healed right lateral rib fractures with associated deformity.
-patient is steroid dependant
-Continue supplemental oxygen as needed-currently on 4 L nasal cannula
-Aspiration precautions
-Incentive spirometry
-COnt bronchodilators
-start DUoneb QID
-cont Prednisone
-initiated on doxy
-obtain CTPE
-Pulm consult
#flaccid left UE likely spontaneous neuritis
-head CT with 1. No CT evidence for acute intracranial hemorrhage or transcortical infarct.
2. Moderate white matter leukoaraiosis in the frontal and parietal lobes.
3. Mild diffuse cerebral and cerebellar volume loss.
4. Moderate to severe bilateral hyperostosis frontalis interna.
-recent MRI brain neg for acute stroke
#anemia of chornic disease
-hgb stable at 8.9
-no active bleeding
-ctm
-ferrous sulfate continued
L impacted femoral neck/head fracture, possibly exacerbated by osteoporosis 2/2 Fall without LOC
#Chronic ambulatory dysfunction 2/2 Parkinson
- s/p L hip hemiarthroplasty
-ASA 325mg daily x 4 weeks
-Dressing to remain 7-10 days, unless soiled
-Mata out at 2 weeks (office or [facility])
-PT/OT, cont Sinemet
-oxy prn for pain
#Essential HTN
-losartan continued
-metoprolol continued
#HLD
-statin
#Anxiety
-lorazepam continued
#4.1cm AAA
#GERD
-PPI continued
DVT ppx ASA as per Ortho
DNR
[2024-06-25] MEDS: MAXIPIME 2000 MG IV (21:40)
[2024-06-25] MEDS: VANCOCIN 530 MG IV (21:41)
[2024-06-25 21:49] VITALS: BP 126/66
[2024-06-25 21:53] LABS: INR 0.89; PT 12.6 Sec (11.4-14.6)
[2024-06-25 21:54] LABS: APTT 30.8 Sec (23.4-35.0)
[2024-06-25 21:57] LABS: Lactic Acid 0.6 mmol/L (0.7-2.0)
[2024-06-25 21:58] LABS: ALT (SGPT) 10 U/L (0-35); AST (SGOT) 22 U/L (14-36); Albumin 3.3 g/dl (3.5-5.0); Alkaline Phosphatase 71 U/L (38-126); Blood Urea Nitrogen 39 mg/dl (7-17); Calcium 9.4 mg/dl (8.4-10.2); Carbon Dioxide 32 mmol/L (22-30); Chloride 101 mmol/L (98-107); Estimated Creatinine Clearance 52 ml/min; Glucose 88 mg/dl (70-99); Potassium 5.1 mmol/L (3.5-5.1); Sodium 141 mmol/L (135-145); Total Bilirubin 0.4 mg/dl (0.2-1.3); Total Protein 5.7 g/dl (6.3-8.2); eGFR > 60.00
[2024-06-25 22:00] VITALS: BP 132/60
[2024-06-25] MEDS: DUONEB 3 ML INH (22:37)
[2024-06-25 23:00] VITALS: BP 165/66
[2024-06-25 23:49] VITALS: BP 153/76
[2024-06-25 23:56] VITALS: BMI 21.9
[2024-06-26] VITALS (17 sets, daily range): BP systolic 104–165; BP diastolic 49–108; PULSE 72; O2SAT 95–96
[2024-06-26] MEDS: CARDIZEM 60 MG PO ×4 (01:11→20:23)
[2024-06-26] MEDS: TYLENOL 1000 MG PO ×3 (01:11→20:24)
[2024-06-26] MEDS: LMX 4 1 APPLIC TOPICAL (01:13)
[2024-06-26] MEDS: SINEMET 25-100 2 TABLET PO ×4 (01:14→20:24)
--- NOTE | 2024-06-26 02:00 | PTCARENOTE ---
Received verbal and written report from JACK Carmen. Pt arrived to unit on stretcher from ED. Pt aaox3, NSR on the monitor. 92% on 6L NC. Admission completed and pt oriented to unit. Pt resting in bed with call crane in reach
[2024-06-26 06:08] LABS: % Basophils 0.2 % (0-2); % Eosinophils 3.1 % (0-6); % Immature Granulocytes 1.7 % (0-0.5); % Lymphocytes 11.6 % (20.5-51.1); % Monocytes 12.9 % (1.7-9.3); % Neutrophils 70.5 % (42.2-75.2); Absolute Eosinophils 0.2 10^3/uL (0-0.7); Absolute Immature Granulocytes 0.1 10^3/uL (0-0.05); Absolute Lymphocytes 0.7 10^3/uL (1.2-3.4); Absolute Monocytes 0.8 10^3/uL (0.1-0.6); Absolute Neutrophils 4.1 10^3/uL (1.4-6.5); Hematocrit 24.3 % (37.0-47.0); Hemoglobin 7.6 g/dL (12.0-16.0); Mean Corp Hgb Conc. 31.3 g/dL (33.0-37.0); Mean Corpuscular Hgb 32.1 pg (27.0-31.0); Mean Corpuscular Volume 102.5 fL (81.0-99.0); Mean Platelet Volume 9.2 fL (7.4-10.4); Nucleated Red Blood Cells % 0 %; Platelet Count 246 10^3/uL (130-400); Red Blood Cell Count 2.37 10^6/uL (4.20-5.40); Red Cell Dist. Width 15.3 % (11.5-14.5); White Blood Cell Count 5.9 10^3/uL (4.8-10.8)
[2024-06-26] MEDS: PULMICORT 0.5 MG INH ×2 (07:34→19:20)
[2024-06-26] MEDS: DUONEB 3 ML INH ×4 (07:34→19:20)
[2024-06-26] MEDS: ASPIRIN 325 MG PO (07:56)
[2024-06-26] MEDS: VIBRAMYCIN 100 MG PO (07:56)
[2024-06-26] MEDS: LIDOCAINE 4% PATCH 1 PATCH TOPICAL (07:56)
[2024-06-26] MEDS: CLARITIN 10 MG PO (07:56)
[2024-06-26] MEDS: PROTONIX 40 MG PO (07:57)
[2024-06-26] MEDS: LOPRESSOR 25 MG PO ×2 (07:59→20:23)
[2024-06-26] MEDS: FOLVITE 1 MG PO (07:59)
[2024-06-26] MEDS: COLACE 100 MG PO ×2 (07:59→20:23)
[2024-06-26] MEDS: LIPITOR 40 MG PO (07:59)
[2024-06-26] MEDS: COZAAR 100 MG PO (08:00)
[2024-06-26] MEDS: LMX 4 TOPICAL ×3 (08:00→20:24)
[2024-06-26] MEDS: FEOSOL 325 MG PO (08:00)
[2024-06-26] MEDS: MAG-TAB SR 84 MG PO ×2 (08:00→20:25)
[2024-06-26] MEDS: SOLU-MEDROL PF 40 MG IV ×2 (08:06→20:24)
[2024-06-26] MEDS: ROXICODONE 5 MG PO ×2 (09:06→16:02)
--- NOTE | 2024-06-26 09:21 | W.PN.HOSP.TC ---
Addendum entered and electronically signed by Clay Samaniego MD 06/27/24 09:35:
78yo F residing in facility with PMHx of COPD with chronic hypoxic respiratory failure on 2L home O2 and chronic prednisone, Parkinsons, anxiety, HTN aortic aneurism, DJD, spontaneous neuritis, fall with L hip Fx s/p hemiarthroplasty on 06/21/24
discharged from SNF and sent back same day for hypoxia. Managed for bronchitis
A/P:
#Acute on chronic hypoxic hypercapnic respiratory failure
#Bronchitis vs pneumonia vs excessive mucus production with pluging
COnt bronchodilators
Start DUoneb QID add LABA
Increase steroids and titrate down
MRSA screen neg - stop Vanoc
Cont cefepime and DOxy
LEgionella and S.pneumonia Ag urine neg
Cannot provide sputum Cx
cont Prednisone
Pulm consult
#L impacted femoral neck/head fracture, possibly exacerbated by osteoporosis 2/2 Fall without LOC
#Chronic ambulatory dysfunction 2/2 Parkinson
Ortho mgmt: s/p L hip hemiarthroplasty
THPs x 6 weeks
ASA 325mg daily x 4 weeks
Dressing to remain 7-10 days, unless soiled
Aubrey out at 2 weeks (office or [facility])
If aubrey out at SNF outpatient Ortho follow-up 4 weeks
pain mgmt
Most likely iatrogenic osteoporosis contributed to Fx - outpatient w/u/treatment advised
PT/OT, cont Sinemet
#Acute blood loss anemia 2/2 fracture and periOP blood loss
serial H&H
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
#Old lacunar stroke
ASA (switch to ASA 81mg after 3 weeks of 325mg dose)
cont statin
#Essential HTN
#Anxiety d/o
#4.1cm AAA
#Anemia, chronic
follow CBC
cont home meds
follow up as outpatient for AAA
DVT ppx ASA as per Ortho
limited DNR (no CPR)
I have spent at least 59min reviewing chart, test results, communication with consultants and direct patient care
Original Note:
Today's Communication/Plan
-
see PN
Assessment / Plan
Assessment / Plan
Anticipated Discharge: > 48 hours
Subjective/Interval History
-
Date of Service: June 26, 2024
Objective Data
-
Labs:
Laboratory Results
06/25/24 06/26/24 06/26/24
21:36 05:22 12:00
WBC 5.9
Hgb 7.6 L Pending
Hct 24.3 L Pending
Plt Count 246
PT 12.6
INR 0.89
APTT 30.8
Sodium 141 Pending
Potassium 5.1 Pending
Chloride 101 Pending
Carbon Dioxide 32 H Pending
BUN 39 H Pending
Creatinine 0.8 Pending
Glucose 88 Pending
Calcium 9.4 Pending
Total Bilirubin 0.4
AST 22
ALT 10
Alkaline Phosphatase 71
Vital Signs:
Vital Signs
Temp Pulse Resp BP Pulse Ox
97.7 F 85 29 139/53 94
06/26/24 07:30 06/26/24 08:01 06/26/24 08:01 06/26/24 08:01 06/26/24 08:01
I&O
06/25/24 06/26/24 06/27/24
06:59 06:59 06:59
Intake Total 240 / 240
Balance 240 / 240
Review of Systems
-
History Source: Patient
All other systems: Reviewed and negative
Physical Exam
-
General: No Apparent Distress
HEENT: Normocephalic
Respiratory: Negative Wheezes
GI: Soft, Nontender and Nondistended
Genito-urinary: No Costovertebral Tender
Musculoskeletal: No Clubbing, No Cyanosis and No Edema
Neuro: Awake, Alert, Oriented, AO x 3 and Other (L biceps paresis)
Psych: Calm
--- NOTE | 2024-06-26 10:10 | CON.PUL ---
Consultation
Consultation Request
Date/Time Consultation Requested: 06/26/2024-8 AM
Date/Time Consultation Performed: 06/26/2024-8:30 AM
Requesting Provider: Hospitalist
Performing Provider: Dr. Greene
Reason for Consultation: Shortness of breath
Medical History
-
Chief Complaint: Shortness of breath and hypoxemia
History of Present Illness:
78-year-old woman with past medical history significant for severe COPD, chronic hypoxemic and hypercapnic respiratory failure. Admitted after sustaining a fall. Developed left femoral fracture. Underwent hemiarthroplasty. We were consulted on
06/21/2024 for postoperative management Of COPD-she subsequently improved and was discharged 06/25/2024 and readmitted with increased hypoxemia and FiO2 requirements and pulmonary was re consulted 06/26/2024 for worsening hypoxemia. Patient
complains of some shortness of breath, chest congestion, difficulties mobilizing secretions, and offers no complaints of chest pain, pleurisy, abdominal pain, or increased lower extremity swelling.
Past Medical History
Past Medical History: None (COPD oxygen dependent 2 L. Chronic hypercapnia. Recent falls with rib fractures 05/23/2024. T4 compression fracture. Former [id number] smoker quit 2013. Hypertension. Endometrial cancer. Anemia. AAA.
Parkinson's. ADL dysfunction. Cholecystectomy. Appendectomy. Hysterectomy.)
Allergies / Home Medications
Allergies
Allergy/AdvReac Type Severity Reaction Status Date / Time
bacitracin Allergy Unknown Verified 06/25/24 18:51
[From Neosporin
([id number])]
ciprofloxacin Allergy Unknown Verified 06/25/24 18:51
levofloxacin [From Levaquin] Allergy Rash Verified 06/25/24 18:51
neomycin Allergy Unknown Verified 06/25/24 18:51
[From Neosporin
([id number])]
polymyxin B Allergy Unknown Verified 06/25/24 18:51
[From Neosporin
([id number])]
Home Medications
�Medication �Instructions �Recorded �Confirmed �Last Taken �Type
cholecalciferol (vitamin D3) 25 25 mcg PO DAILY Supplement #0 tabs 04/12/24 06/25/24 Unknown Rx
mcg (1,000 unit) tablet
diltiazem HCl 60 mg tablet 60 mg PO TID Heart 04/12/24 06/25/24 Unknown Rx
disease/condition #0 tabs
ferrous sulfate 325 mg (65 mg 325 mg PO DAILY Supplement #0 tabs 04/12/24 06/25/24 Unknown Rx
iron) tablet
losartan 100 mg tablet 100 mg PO DAILY Blood pressure #0 04/12/24 06/25/24 Unknown Rx
tabs
magnesium oxide 400 mg PO BID Supplement #0 tabs 04/12/24 06/25/24 Unknown Rx
metoprolol tartrate 25 mg tablet 25 mg PO BID Blood pressure #0 tabs 04/12/24 06/25/24 Unknown Rx
bisacodyl 10 mg rectal suppository 10 mg [place] DAILYPRN PRN if no bm by 05/28/24 06/25/24 Unknown History
(Dulcolax (bisacodyl)) 3rd day
budesonide 0.5 mg/2 mL suspension 0.5 mg inhalation R BID 05/28/24 06/25/24 Unknown History
for nebulization Lung/Breathing Issues
carbidopa 25 mg-levodopa 100 mg 2 tab PO TID Neurological Condition 05/28/24 06/25/24 Unknown History
tablet
fexofenadine 180 mg tablet 180 mg PO DAILY Allergies 05/28/24 06/25/24 Unknown History
ipratropium 0.5 mg-albuterol 3 mg 3 ml inhalation R QID 05/28/24 06/25/24 Unknown History
(2.5 mg base)/3 mL nebulization Lung/breathing issues
soln
lidocaine 4 % topical cream 1 applic topical TID lower back 05/28/24 06/25/24 Unknown History
pain
prednisone 10 mg tablet 10 mg PO DAILY Anti-Inflammatory 05/28/24 06/25/24 Unknown History
lidocaine 4 % topical patch 1 patch topical DAILY Pain #15 ea 06/03/24 06/25/24 Unknown Rx
acetaminophen 500 mg tablet 1,000 mg (2 x 500 mg) PO TID Pain 06/05/24 06/25/24 Unknown Rx
(Tylenol Extra Strength) #0 tabs
hyoscyamine sulfate 0.125 mg tablet 0.125 mg PO Q4HPRN PRN secretions 06/05/24 06/25/24 Unknown History
loratadine 10 mg tablet 10 mg PO DAILY Allergies 06/05/24 06/25/24 Unknown History
magnesium hydroxide 400 mg/5 mL 2,400 mg PO HSPRN PRN if no bm by 06/05/24 06/25/24 Unknown History
oral suspension (Milk of Magnesia) 2nd day
sodium chloride 0.65 % nasal spray 1 spray intranasal Q4HPRN PRN 06/05/24 06/25/24 Unknown History
aerosol dryness
sodium phosphates 19 gram-7 118 ml [place] DAILYPRN PRN if no bm by 06/05/24 06/25/24 Unknown History
gram/118 mL enema (Fleet Enema) 4th day
aspirin 325 mg tablet 325 mg PO DAILY #28 tabs 06/24/24 06/25/24 Unknown Rx
docusate sodium 100 mg capsule 100 mg PO BID #60 caps 06/24/24 06/25/24 Unknown Rx
folic acid 1 mg tablet 1 mg PO DAILY #30 tabs 06/24/24 06/25/24 Unknown Rx
oxycodone 5 mg capsule 5 mg PO Q4H PRN moderate-severe 06/24/24 06/25/24 Unknown Rx
pain #10 caps
pantoprazole 40 mg tablet,delayed 40 mg PO DAILY #30 tabs 06/24/24 06/25/24 Unknown Rx
release
aspirin 81 mg capsule 81 mg PO DAILY #30 caps 06/25/24 06/25/24 Unknown Rx
atorvastatin 40 mg tablet 40 mg PO DAILY #30 tabs 06/25/24 06/25/24 Unknown Rx
lorazepam 0.5 mg tablet 0.5 mg PO Q6HPRN PRN anxiety #8 06/25/24 06/25/24 Unknown Rx
tabs
Review of Systems
Vitals / Labs / Diagnostic Testing
Vital Signs
Temp Pulse Resp BP Pulse Ox
97.7 F 85 29 139/53 94
06/26/24 07:30 06/26/24 08:01 06/26/24 08:01 06/26/24 08:01 06/26/24 08:01
Laboratory Results
06/25/24
21:36
PT 12.6
INR 0.89
APTT 30.8
Diagnostic Testing:
Assessment
-
78-year-old woman with past medical history significant for severe COPD, chronic hypoxemic and hypercapnic respiratory failure. Admitted after sustaining a fall. Developed left femoral fracture. Underwent hemiarthroplasty. We were consulted on
06/21/2024 for postoperative management Of COPD-she subsequently improved and was discharged 06/25/2024 and readmitted with increased hypoxemia and FiO2 requirements and pulmonary was re consulted 06/26/2024 for worsening hypoxemia.
Bronchitis versus early pneumonia with mucous plugging and hypoxemia
Aspiration pneumonia suspected with basilar atelectasis
Severe COPD with chronic hypoxemia and hypercapnia with mild acute exacerbation
Recent left impacted femoral head/neck fracture status post fall status post left hemiarthroplasty 06/21/2024
Recent diagnosis spontaneous brachial neuritis producing left upper extremity biceps weakness
Cvngyo-xysgyinkwy-cjgcgwkxvd 7.6
Conditions present prior to admission:
Recent hospitalization 06/25/2024-left impacted femoral neck/head fracture status post left hemiarthroplasty 06/21/2024
Recent spontaneous brachial neuritis producing left upper extremity biceps weakness
Severe COPD/Emphysema phenotype on 2 L baseline-Used to follow-up with pulmonary in [place] Until recently.
FEV1 05/06/2024: 0.44 L - 22% of predicted. Ratio 36%
Chronic hypercapnic respiratory failure-baseline pCO2 50-55
First time seen in our office 05/06/2024: Transitioned to Pulmicort/DuoNeb
Chronic prednisone therapy
Prior history of ventilator dependent respiratory failure in the past december have 2023-unclear details
Recent falls with rib fractures 10-
T4 compression fracture wearing TLSO
Former chaswn-59-nlbo-year history quit in 2013
Hypertension
Endometrial cancer
Anemia of chronic disease
Abdominal aortic aneurysm
Parkinson's disease
Cholecystectomy
Appendectomy
Hysterectomy
Ambulatory ljjtxucreju-yczvahieeb-rymgn
Multiple compression fractures
Plan
Respiratory decompensation likely due to difficulties mobilizing secretions/mucous plugging
Supplement oxygen-chronically on 2 L
Aspiration precautions
Speech therapy evaluation
Mucolytic's
Mucus clearing devices-flutter, incentive spirometry, and try vest therapy
Nebulizers-DuoNebs
Budesonide nebulizers continue
Solu-Medrol 40 mg IV every 12 hours-was discharged on prednisone 10 mg daily
Check cultures
Cefepime and vancomycin initiated empirically
Adjust antibiotics according to cultures
Follow temperature curve and leukocytosis
Check procalcitonin-as basilar opacifications on CT could be atelectasis-procalcitonin not an ideal study if aspiration pneumonia is suspected
DVT prophylaxis recommended
GI prophylaxis-on pantoprazole
Nutrition
Physical therapy
Outpatient pulmonary jhiulp-qx-jva Gisel Amezcua NP 05/06/2024 and has appointment [address] Evans 07/07/2024
Diagnostic data:
Chest x-ray 06/24/2024-NAD
Chest x-ray 06/25/2024-moderate bilateral upper lobe centrilobular emphysema, scarring lower lobes, mild cardiomegaly, severe calcified atherosclerotic plaque thoracic aortic, multiple healed rib fractures
Brain CT perfusion 06/24/2024-no perfusion abnormalities to suggest infarct or ischemia
CT head 06/24/2024-no evidence for large vessel occlusion or arterial dissection, severe emphysema at visualized apices of the lung
CT chest 06/26/2024-no evidence for pulmonary embolism or thoracic aortic dissection, moderate centrilobular emphysema, patchy opacifications each lung base left greater than right may be atelectasis aspiration or pneumonia
Data Reviewed
-
EKG: Report reviewed by me
Radiology: Image personally visualized and interpreted and Report reviewed by me
CT Scan: Image personally visualized and interpreted and Report reviewed by me
Medical Tests (Nuc Med, Echo etc): Report reviewed by me
Labs: Labs reviewed by me
Old Records: Reviewed
Total Time Spent with Patient (in minutes): 55
[2024-06-26] MEDS: STRIVERDI RESPIMAT 2 PUFF INH (10:11)
[2024-06-26 10:15] LABS: COVID-19 Antigen Negative (Negative)
[2024-06-26] MEDS: SOLU-MEDROL PF IV (10:50)
--- NOTE | 2024-06-26 10:50 | PHA.VAN.IN ---
Assessment
- Assessment
Renal Function: Appears similar to baseline (06/23-06/24/24 Scr 0.7 to 0.8)
Maximum Temperature: 99.4 on 06/25/24 at 18:51
Minimum Temperature: 97.7 on 06/26/24 at 07:30
Concomitant Antimicrobials: Cefepime
AUC Dosing Plan
- Dosing Variables
Dosing Weight (kg): 61.6
Dosing CrCl (ml/min): 62
Vd coefficient (L/kg): 0.7
- Empiric Dosing
Initial / Loading Dose: Vancomycin 1500mg IV x 1 dose given in ED on 06/25/24 at 21:41
Maintenance Regimen: Vancomycin 1250mg IV Q24hrs start at 14:00
Estimated AUC (mcg*h/mL): 541
Estimated Peak (mcg*h/mL): 39
Estimated Trough (mcg/ml): 11
Estimated Half Life (H): 12
- Monitoring
No levels ordered at this time: Will order levels according to vancomycin dosing protocol
MRSA Screen: Ordered per protocol (PCR ordered)
Pharmacokinetics Vancomycin I
- -
Patient Age: 78
Patient Sex: Female
Vancomycin Day #: 1
Indication: Pulmonary/Respiratory
Requesting Provider: Dr. Chaitanya Samaniego
Pertinent Antimicrobial Allergies:
bacitracin/neomycin/polymyxin B-unknown reaction, ciprofloxacin-unknown reaction, levofloxacin-rash
Height / Weight:
Height 5 ft 6 in
Actual Weight 61.6 kg
IBW in k.3
Adjusted BW in k.2
Pertinent Past Medical History: severe COPD on chronic prednisone, recent hospitaliz for femur fx
- Vital Signs / Lab Results
Temp Pulse Resp BP Pulse Ox
97.7 F 83 22 139/53 93
06/26/24 07:30 06/26/24 10:17 06/26/24 10:17 06/26/24 08:01 06/26/24 10:17
Lab Results - Hematology
06/25/24 06/26/24
19:30 05:22
WBC 6.7 5.9
Lab Results - Chemistry
06/25/24
21:36
BUN 39 H
Creatinine 0.8
Estimated Creat Clear 52
Albumin 3.3 L
06/25/24 06/25/24
21:36 21:36
Lactic Acid 0.6 L Cancelled
Microbiology Results
06/26/24 09:43 Influenza Types A & B (LUIS MANUEL) - Final
Nasal Swab Negative for Influenza A & B, NAAT
Negative results must be combined with clinical observations
and patient history.
Nucleic Acid Amplification test (NAAT)performed on the
[employer] platform.
[2024-06-26] MEDS: STERILE WATER FOR INJECTION 10 ML IV ×2 (11:00→18:04)
[2024-06-26] MEDS: MAXIPIME 2000 MG IV ×2 (11:00→18:05)
[2024-06-26 11:17] LABS: Blood Urea Nitrogen 36 mg/dl (7-17); Carbon Dioxide 33 mmol/L (22-30); Chloride 103 mmol/L (98-107); Estimated Creatinine Clearance 62 ml/min; Glucose 88 mg/dl (70-99); Potassium 4.7 mmol/L (3.5-5.1); Sodium 140 mmol/L (135-145); eGFR > 60.00
--- NOTE | 2024-06-26 11:29 | CM ---
Patient seen bedside.
Patient s/p d/c to [facility] and readmission yesterday.
Patient from [facility] (lives in LTC)
patient on chronic oxygen 2 liters currently on 4 liters.
patient ambulates with assist and RW, requires 24 hour care at baseline.
Plan: return to [facility] once medically stable
[facility]
report# [phone]
--- NOTE | 2024-06-26 12:48 | PTCARENOTE ---
no blood return from midline. pt refusing peripheral blood draw for H/H. hospitalist made aware. pt is oob in chair awaaiting lunch tray.
[2024-06-26] MEDS: VANCOCIN 275 MG IV (14:53)
--- NOTE | 2024-06-26 15:21 | PTCARENOTE ---
ct chest done this am per order. pt on 6 liters o2 with sats in 90s.pt has harsh moist cough and is short of breath at times with exertion or after coughing spell. pt was oob with pt and tolerated well. hip precautions maintained.
[2024-06-26] MEDS: TYLENOL PO (16:02)
--- NOTE | 2024-06-26 23:00 | PTCARENOTE ---
Caring for patient overnight. aaox3, NSR, 6-8LMF, DUQUE. Attempted to get pt OOB x2 assist to BSC, unsuccessful, pt unable to move or pivot legs, & pt unable to move L arm at all. Q2T. ivabx. Will continue to monitor.
[2024-06-27] VITALS (11 sets, daily range): BP systolic 109–163; BP diastolic 52–97; BMI 22.5
[2024-06-27] MEDS: STERILE WATER FOR INJECTION 10 ML IV ×3 (03:32→17:46)
[2024-06-27] MEDS: MAXIPIME 2000 MG IV ×3 (03:33→17:46)
[2024-06-27] MEDS: VANCOCIN 275 MG IV (05:56)
[2024-06-27 06:16] LABS: % Basophils 0.2 % (0-2); % Immature Granulocytes 2.4 % (0-0.5); % Lymphocytes 4.4 % (20.5-51.1); % Monocytes 2.8 % (1.7-9.3); % Neutrophils 90.2 % (42.2-75.2); Absolute Immature Granulocytes 0.1 10^3/uL (0-0.05); Absolute Lymphocytes 0.3 10^3/uL (1.2-3.4); Absolute Monocytes 0.2 10^3/uL (0.1-0.6); Absolute Neutrophils 5.2 10^3/uL (1.4-6.5); Hematocrit 25.6 % (37.0-47.0); Hemoglobin 7.7 g/dL (12.0-16.0); Mean Corp Hgb Conc. 30.1 g/dL (33.0-37.0); Mean Corpuscular Volume 103.2 fL (81.0-99.0); Mean Platelet Volume 9.7 fL (7.4-10.4); Nucleated Red Blood Cells % 0 %; Platelet Count 311 10^3/uL (130-400); Red Blood Cell Count 2.48 10^6/uL (4.20-5.40); Red Cell Dist. Width 15.3 % (11.5-14.5); White Blood Cell Count 5.7 10^3/uL (4.8-10.8)
[2024-06-27] MEDS: PULMICORT 0.5 MG INH ×2 (07:35→19:18)
[2024-06-27] MEDS: STRIVERDI RESPIMAT 2 PUFF INH (07:35)
[2024-06-27] MEDS: DUONEB 3 ML INH ×3 (07:35→15:19)
[2024-06-27 08:22] LABS: ALT (SGPT) < 10 U/L (0-35); AST (SGOT) 18 U/L (14-36); Albumin 2.9 g/dl (3.5-5.0); Alkaline Phosphatase 65 U/L (38-126); Blood Urea Nitrogen 44 mg/dl (7-17); Carbon Dioxide 32 mmol/L (22-30); Chloride 104 mmol/L (98-107); Estimated Creatinine Clearance 62 ml/min; Glucose 146 mg/dl (70-99); Potassium 5.1 mmol/L (3.5-5.1); Sodium 139 mmol/L (135-145); Total Bilirubin 0.2 mg/dl (0.2-1.3); Total Protein 5.1 g/dl (6.3-8.2); eGFR > 60.00
[2024-06-27] MEDS: CARDIZEM 60 MG PO ×3 (08:24→22:31)
[2024-06-27] MEDS: TYLENOL 1000 MG PO ×3 (08:25→22:31)
[2024-06-27] MEDS: CLARITIN 10 MG PO (08:25)
[2024-06-27] MEDS: FOLVITE 1 MG PO (08:26)
[2024-06-27] MEDS: COZAAR 100 MG PO (08:26)
[2024-06-27] MEDS: ASPIRIN 325 MG PO (08:26)
[2024-06-27] MEDS: LOPRESSOR 25 MG PO ×2 (08:26→20:12)
[2024-06-27] MEDS: COLACE 100 MG PO ×2 (08:26→20:12)
[2024-06-27] MEDS: SINEMET 25-100 2 TABLET PO ×3 (08:26→22:31)
[2024-06-27] MEDS: PROTONIX 40 MG PO (08:26)
[2024-06-27] MEDS: MAG-TAB SR 84 MG PO ×2 (08:27→20:12)
[2024-06-27] MEDS: LMX 4 TOPICAL ×3 (08:28→22:32)
[2024-06-27] MEDS: LIDOCAINE 4% PATCH TOPICAL (08:28)
[2024-06-27] MEDS: FEOSOL 325 MG PO (08:29)
[2024-06-27] MEDS: LIPITOR PO (08:31)
[2024-06-27 08:38] LABS: Procalcitonin 0.17 ng/ml (0.0-0.25)
--- NOTE | 2024-06-27 09:25 | W.PN.HOSP.TC ---
Addendum entered and electronically signed by Clay Samaniego MD 06/27/24 11:47:
#superior subluxation of humeral head L
Ortho consult
Original Note:
Today's Communication/Plan
-
Wean down O2 to 2L
L shoulder and clavicular XR
Switch to Prednisone 40mg as breathing improving
Follow Hgb -had significant blood loss with Midline insertion
Assessment / Plan
Assessment / Plan
78yo F residing in facility with PMHx of COPD with chronic hypoxic respiratory failure on 2L home O2 and chronic prednisone, Parkinson, anxiety, HTN aortic aneurism, DJD, spontaneous neuritis, fall with L hip Fx s/p hemiarthroplasty on 06/21/24
discharged from SNF and sent back same day for hypoxia. Managed for bronchitis vs pneumonia - empiric treatment
A/P:
#Acute on chronic hypoxic hypercapnic respiratory failure
#Bronchitis vs pneumonia vs excessive mucus production with pluging
COnt bronchodilators
Start DUoneb QID add LABA
Increase steroids and titrate down
MRSA screen neg - stop Vanoc
Cont cefepime and DOxy
Legionella and S.pneumonia Ag urine neg
Cannot provide sputum Cx
Pulm consult
Could not tolerate vest therapy
COVID-19 and Legionella neg
#L impacted femoral neck/head fracture, possibly exacerbated by osteoporosis 2/2 Fall without LOC
#Chronic ambulatory dysfunction 2/2 Parkinson
Ortho mgmt: s/p L hip hemiarthroplasty
THPs x 6 weeks
ASA 325mg daily x 4 weeks
Dressing to remain 7-10 days, unless soiled
Aubrey out at 2 weeks (office or [facility])
If aubrey out at SNF outpatient Ortho follow-up 4 weeks
pain mgmt
Most likely iatrogenic osteoporosis contributed to Fx - outpatient w/u/treatment advised
PT/OT, cont Sinemet
#Acute blood loss anemia 2/2 fracture and periOP blood loss
serial H&H
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
#Old lacunar stroke
ASA (switch to ASA 81mg after 3 weeks of 325mg dose)
cont statin - cannot tolerate Lipitor, switched to rosuvastatin
L shoulder and clavicular XR
#Essential HTN
#Anxiety d/o
#4.1cm AAA
#Anemia, chronic
follow CBC
cont home meds
follow up as outpatient for AAA
DVT ppx ASA as per Ortho
limited DNR (no CPR)
I have spent at least 59min reviewing chart, test results, communication with consultants and direct patient care
Anticipated Discharge: > 48 hours
Subjective/Interval History
-
Date of Service: June 27, 2024
Objective Data
-
Labs:
Laboratory Results
06/26/24 06/27/24 06/27/24
11:33 05:24 07:50
WBC 5.7
Hgb Cancelled 7.7 L
Hct Cancelled 25.6 L
Plt Count 311 D
Sodium Cancelled 139
Potassium Cancelled 5.1
Chloride Cancelled 104
Carbon Dioxide Cancelled 32 H
BUN Cancelled 44 H
Creatinine Cancelled 0.7
Glucose Cancelled 146 H
Calcium Cancelled 9.0
Total Bilirubin Cancelled 0.2
AST Cancelled 18
ALT Cancelled < 10
Alkaline Phosphatase Cancelled 65
Vital Signs:
Vital Signs
Temp Pulse Resp BP Pulse Ox
97.7 F 74 23 144/56 93
06/27/24 07:00 06/27/24 08:24 06/27/24 08:13 06/27/24 08:24 06/27/24 08:13
I&O
06/26/24 06/27/24 06/28/24
06:59 06:59 06:59
Intake Total 240 / 240
Output Total 200 / 200
Balance 240 / 240 -200 / -200
Review of Systems
-
History Source: Patient
All other systems: Reviewed and negative
Physical Exam
-
General: No Apparent Distress
Respiratory: Wheezes
Cardiac: Regular Rhythm
GI: Soft
Musculoskeletal: No Clubbing, No Cyanosis and Other (L shoulder pain)
Neuro: Awake, Alert, Oriented and AO x 3
Psych: Calm
--- NOTE | 2024-06-27 09:40 | W.PN.PUL3 ---
Today's Communication / Plan
-
Pulmonary toilet is kaba - encourage Acapella use and start nebulized 3% to help mucus expectoration
She does not tolerate vest therapy
Encouraged to use Acapella
Striverdi/budesonide
prn DuoNebs
Aspiration precautions
Supplemental O2 which should be titrated to keep SpO2 between 88-95%; ambulatory pulse oximetry prior to discharge
Prednisone
Pain control
PT/OT as tolerated
Pulmonary service will continue to follow along
Assessment
-
78-year-old woman with past medical history significant for severe COPD, chronic hypoxemic and hypercapnic respiratory failure. Admitted after sustaining a fall. Developed left femoral fracture. Underwent hemiarthroplasty. We were consulted on
06/21/2024 for postoperative management Of COPD-she subsequently improved and was discharged 06/25/2024 and readmitted with increased hypoxemia and FiO2 requirements and pulmonary was re consulted 06/26/2024 for worsening hypoxemia.
Impression:
Bronchitis versus early pneumonia with mucous plugging and hypoxemia
Aspiration pneumonia suspected with basilar atelectasis
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
Recent left impacted femoral head/neck fracture status post fall status post left hemiarthroplasty 06/21/2024
Recent diagnosis spontaneous brachial neuritis producing left upper extremity biceps weakness
Anemia
Conditions present prior to admission:
Recent hospitalization 06/25/2024-left impacted femoral neck/head fracture status post left hemiarthroplasty 06/21/2024
Recent spontaneous brachial neuritis producing left upper extremity biceps weakness
Severe COPD/Emphysema phenotype on 2 L baseline-Used to follow-up with pulmonary in [place] Until recently.
FEV1 05/06/2024: 0.44 L - 22% of predicted. Ratio 36%
Chronic hypercapnic respiratory failure-baseline pCO2 50-55
First time seen in our office 05/06/2024: Transitioned to Pulmicort/DuoNeb
Chronic prednisone therapy
Prior history of ventilator dependent respiratory failure in the past may have 2023-unclear details
Recent falls with rib fractures -
T4 compression fracture wearing TLSO
Former lhwvpf-11-xezl-year history quit in 2013
Hypertension
Endometrial cancer
Anemia of chronic disease
Abdominal aortic aneurysm
Parkinson's disease
Cholecystectomy
Appendectomy
Hysterectomy
Ambulatory [id number]-[id number]
Multiple compression fractures
Plan
Respiratory decompensation likely due to difficulties mobilizing secretions/mucous plugging
Supplement oxygen-chronically on 2 L
Titrate O2 to maintain SpO2 88-95%
Aspiration precautions
Speech therapy evaluation
Mucolytics - she apparently does not tolerate mucinex
Mucus clearing devices-flutter, incentive spirometry, and tried vest therapy but it is causing pain in her shoulder and ribs/chest so it was stopped
Nebulizers-DuoNebs
Budesonide + striverdi nebulizers
Currently on prednisone 40mg daily - previously DCd on prednisone 10mg daily which is on her med list
I will start the patient on nebulized 3% to see if this will help improve mucus expectoration
Follow up blood Cx (blood Cx) and respiratory Cx
Currently on cefepime and doxy s/p IV vanco
Adjust antibiotics according to cultures
Follow temperature curve and leukocytosis
Procal 0.17 --> c/t trend to assure we have source control - as basilar opacifications on CT could be atelectasis-procalcitonin not an ideal study if aspiration pneumonia is suspected
DVT prophylaxis recommended
GI prophylaxis-on pantoprazole
Nutrition
Physical therapy
Outpatient pulmonary rjujpt-le-xpf Gisel Amezcua NP 05/06/2024 and has appointment [address] Evans 07/07/2024
Pulmonary service will continue to follow along
Diagnostic data:
Chest x-ray 06/24/2024-NAD
Chest x-ray 06/25/2024-moderate bilateral upper lobe centrilobular emphysema, scarring lower lobes, mild cardiomegaly, severe calcified atherosclerotic plaque thoracic aortic, multiple healed rib fractures
Brain CT perfusion 06/24/2024-no perfusion abnormalities to suggest infarct or ischemia
CT head 06/24/2024-no evidence for large vessel occlusion or arterial dissection, severe emphysema at visualized apices of the lung
CT chest 06/26/2024-no evidence for pulmonary embolism or thoracic aortic dissection, moderate centrilobular emphysema, patchy opacifications each lung base left greater than right may be atelectasis aspiration or pneumonia
Total time spent today was 36 minutes for this encounter. Time includes reviewing laboratory test/imaging results, reviewing pertinent medical records, obtaining and reviewing medical history, performing an appropriate exam, ordering medications,
tests and procedures. Time also includes documentation of this encounter, coordinating patient care and communicating with other healthcare professionals. Total time does not include separately billed tests performed on this date of service.
Subjective Data
-
Date of Service:
Date of Service: June 27, 2024
Chief Complaint: Pulmonary Follow Up
Subjective:
Patient seen and evaluated today at bedside. She says she still feels short of breath and having difficulty getting her phlegm out. Currently, heart rate 89, saturating 95% on 5 L/min, and BP 133/57. She denies chest pain, GASCA, abdominal pain,
nausea, fevers or chills.
Review of Systems
General: Other (Negative unless mentioned above)
Objective Data
Data Reviewed
Vital Signs / I&O / Oxygen:
Vital Signs
Temp Pulse Resp BP Pulse Ox
97.9 F 68 18 139/97 97
06/27/24 14:49 06/27/24 15:21 06/27/24 15:21 06/27/24 14:00 06/27/24 15:21
Intake and Output
06/26/24 06/27/24 06/28/24
06:59 06:59 06:59
Intake Total 240 / 240 480 / 480
Output Total 200 / 200 350 / 350
Balance 240 / 240 -200 / -200 130 / 130
SaO2 97
Nasal Cannula flow liters per 5
minute
Physical Exam
General: Respiratory Distress (negative), Comfortable, Chills (negative) and Sweats (negative)
HEENT: Normocephalic and Anicteric
Cardiovascular: S1-S2 and Peripheral Edema (negative)
Respiratory: Wheeze (negative), Crackles (bibasilar), Rhonchi (negative), Accessory Resp Muscle Use (negative) and Other (Reduced breath sounds in the right hemithorax)
GI: Soft, Non Distended, Non Tender and Normal Bowel Sounds
Neurology: Awake, Alert, Tremors (negative) and Lethargic (negative)
Skin: Warm, Dry, Jaundice (negative) and Rash (negative)
Labs/Micro/Reports
Lab Data
06/27/24 05:24
06/27/24 07:50
Microbiology
06/27/24 10:40 Sputum Gram Stain - Preliminary
06/25/24 21:39 Blood/Venous Blood Culture - Preliminary
No Growth in 24 hours- Final report to follow
06/25/24 21:36 Blood/Venous Blood Culture - Preliminary
No Growth in 24 hours- Final report to follow
06/26/24 11:30 Urine Legionella Urinary Antigen - Final
Negative for Legionella pneumophila Serogroup 1 antigen.
A negative result does not rule out the possiblity of
Legionella infection due to other serogroups or species of
Legionella. Clinical correlation is recommended.
06/26/24 11:30 Urine Streptococcus pneumoniae Antigen (M - Final
Negative for Streptococcus pneumoniae antigen.
A negative result does not exclude infection with
Streptococcus pneumoniae. Clinical correlation is
recommended.
06/26/24 05:22 Nose Nasal Screen MRSA (PCR) - Final
MRSA not detected - performed by PCR methodology.
06/26/24 09:43 Nasal Swab Influenza Types A & B (LUIS MANUEL) - Final
Negative for Influenza A & B, NAAT
Negative results must be combined with clinical observations
and patient history.
Nucleic Acid Amplification test (NAAT)performed on the
[employer] platform.
[2024-06-27] MEDS: DELTASONE 40 MG PO (10:59)
[2024-06-27] MEDS: VIBRAMYCIN 260 MG IV ×2 (11:00→22:32)
--- NOTE | 2024-06-27 14:36 | CON.ORTHO ---
Consultation - Orthopedics
History
History of present illness: Martha is a 78-year-old female who is known to our orthopedic practice after sustaining a fall 1 week ago that resulted in a left femoral neck fracture. She underwent a left hip hemiarthroplasty with Dr. Milton on
06/21/2024. During the hospital course, she does report complaining of shoulder pain, but no x-rays were ever performed. During her initial fall, she reports she fell backwards and attempted to brace her fall with her hands. Since the fall, she
has had pain in the left shoulder as well as an inability to lift it. She was discharged from [facility] to rehab, however was readmitted on 06/25/2024. At some point over the past several days, she states she was helped up from the bed
and it felt as though her shoulder was pulled on in the process. On 06/24/2024, she was also worked up for possible neuritis of the left upper extremity due to the inability to lift the arm. X-rays were finally performed today, which did reveal
evidence of superior migration of the humeral head. We were consulted in to further evaluate her left shoulder. Prior to the fall she states she was able to move her left arm and shoulder without difficulties. She does have some baseline numbness
and tingling in the left hand, this is no worse since the fall.
Past medical history: Significant for endometrial cancer, COPD, hypertension, Parkinson's, home oxygen use, abdominal aneurysm.
Past surgical history: Includes left hip hemiarthroplasty, cholecystectomy, hysterectomy.
Social history: Former tobacco smoker, no alcohol use, lives in [facility].
Family history: Noncontributory.
Review of systems: All systems reviewed and negative except for those mentioned in HPI
Allergies / Home Medications
Allergy/AdvReac Type Severity Reaction Status Date / Time
bacitracin Allergy Unknown Verified 06/25/24 18:51
[From Neosporin
([id number])]
ciprofloxacin Allergy Unknown Verified 06/25/24 18:51
levofloxacin [From Levaquin] Allergy Rash Verified 06/25/24 18:51
neomycin Allergy Unknown Verified 06/25/24 18:51
[From Neosporin
([id number])]
polymyxin B Allergy Unknown Verified 06/25/24 18:51
[From Neosporin
([id number])]
�Medication �Instructions �Recorded
cholecalciferol (vitamin D3) 25 25 mcg PO DAILY Supplement #0 tabs 04/12/24
mcg (1,000 unit) tablet
diltiazem HCl 60 mg tablet 60 mg PO TID Heart 04/12/24
disease/condition #0 tabs
ferrous sulfate 325 mg (65 mg 325 mg PO DAILY Supplement #0 tabs 04/12/24
iron) tablet
losartan 100 mg tablet 100 mg PO DAILY Blood pressure #0 04/12/24
tabs
magnesium oxide 400 mg PO BID Supplement #0 tabs 04/12/24
metoprolol tartrate 25 mg tablet 25 mg PO BID Blood pressure #0 tabs 04/12/24
bisacodyl 10 mg rectal suppository 10 mg WA DAILYPRN PRN if no bm by 05/28/24
(Dulcolax (bisacodyl)) 3rd day
budesonide 0.5 mg/2 mL suspension 0.5 mg inhalation R BID 05/28/24
for nebulization Lung/Breathing Issues
carbidopa 25 mg-levodopa 100 mg 2 tab PO TID Neurological Condition 05/28/24
tablet
fexofenadine 180 mg tablet 180 mg PO DAILY Allergies 05/28/24
ipratropium 0.5 mg-albuterol 3 mg 3 ml inhalation R QID 05/28/24
(2.5 mg base)/3 mL nebulization Lung/breathing issues
soln
lidocaine 4 % topical cream 1 applic topical TID lower back 05/28/24
pain
prednisone 10 mg tablet 10 mg PO DAILY Anti-Inflammatory 05/28/24
lidocaine 4 % topical patch 1 patch topical DAILY Pain #15 ea 06/03/24
acetaminophen 500 mg tablet 1,000 mg (2 x 500 mg) PO TID Pain 06/05/24
(Tylenol Extra Strength) #0 tabs
hyoscyamine sulfate 0.125 mg tablet 0.125 mg PO Q4HPRN PRN secretions 06/05/24
loratadine 10 mg tablet 10 mg PO DAILY Allergies 06/05/24
magnesium hydroxide 400 mg/5 mL 2,400 mg PO HSPRN PRN if no bm by 06/05/24
oral suspension (Milk of Magnesia) 2nd day
sodium chloride 0.65 % nasal spray 1 spray intranasal Q4HPRN PRN 06/05/24
aerosol dryness
sodium phosphates 19 gram-7 118 ml WA DAILYPRN PRN if no bm by 06/05/24
gram/118 mL enema (Fleet Enema) 4th day
aspirin 325 mg tablet 325 mg PO DAILY #28 tabs 06/24/24
docusate sodium 100 mg capsule 100 mg PO BID #60 caps 06/24/24
folic acid 1 mg tablet 1 mg PO DAILY #30 tabs 06/24/24
oxycodone 5 mg capsule 5 mg PO Q4H PRN moderate-severe 06/24/24
pain #10 caps
pantoprazole 40 mg tablet,delayed 40 mg PO DAILY #30 tabs 06/24/24
release
aspirin 81 mg capsule 81 mg PO DAILY #30 caps 06/25/24
atorvastatin 40 mg tablet 40 mg PO DAILY #30 tabs 06/25/24
lorazepam 0.5 mg tablet 0.5 mg PO Q6HPRN PRN anxiety #8 06/25/24
tabs
Vital Signs / Lab Results
Temp Pulse Resp BP Pulse Ox
97.6 F 74 25 138/61 95
06/27/24 11:37 06/27/24 12:00 06/27/24 12:00 06/27/24 12:00 06/27/24 12:00
06/27/24 05:24
06/27/24 07:50
Physical examination:
General: Well-developed, well-nourished female in no acute distress at rest.
HEENT: Atraumatic, normocephalic, neck supple.
Lungs: Nonlabored breathing.
Heart: Regular rate and rhythm:
Left shoulder: Diffuse ecchymotic skin changes noted about bilateral upper extremities. No swelling or erythema of left shoulder. Diffuse tenderness to palpation over anterior joint line. Unable to actively elevate the left shoulder, passively
able to elevate to 120 degrees with pain. Passive external rotation to 30 degrees with discomfort. Positive apprehension. Able to extend the elbow actively, but unable to flex the elbow. Full range of motion of wrist and hand without pain.
Unable to actively abduct shoulder. Full sensation about axillary nerve distribution. Decreased sensation diffusely about the left hand to light touch.
Radiographic studies:
X-rays of the left shoulder from 06/27/2024 shows evidence of superior subluxation of the humeral head with respect to the glenoid with obliteration of the acromiohumeral interval. No signs of advanced glenohumeral arthropathic changes.
Assessment / Plan
Assessment: Left shoulder pain/weakness- large rotator cuff tear versus dislocation versus neuritis.
Plan: Unfortunately, Martha has no ability to actively move her left shoulder. X-rays taken today do show superior migration of the humeral head with respect to the glenoid. She does report pain in the shoulder began after her fall that resulted
in her left hip fracture. She also reports an episode in which she was being helped up from a seated position and felt as though her arm was pulled on. This correlates to the timing of when she experienced with even more limited mobility of the
shoulder. It would not be surprising if she sustained a large rotator cuff tear during her fall, which may be resulting in the migration of the humeral head however, she does report a pulling sensation that led to the recent deformity. She also
has no active abduction of the shoulder, indicating that her deltoid muscle is not currently functioning. In order to help us further evaluate the source of her left shoulder weakness, we would like to proceed with an MRI of the left shoulder.
Would also like to get an axillary view x-ray to determine whether the glenohumeral joint lines up or if she at some point dislocated the shoulder. In the meantime, she should utilize a sling for immobilization to protect the shoulder until imaging
can be performed. She should remain nonweightbearing of the left upper extremity until further notice. She was very apprehensive to proceed with any further imaging today, so I placed the orders for the x-ray and MRI to be completed tomorrow. We
will continue to follow along until the imaging is performed to provide updated recommendations.
[2024-06-27] MEDS: ROXICODONE 5 MG PO (16:00)
--- NOTE | 2024-06-27 17:01 | PTCARENOTE ---
Assumed care of patient beginning of this shift from previous RN. O2 weaned to 4L n/c with POx 91-93%; needed to increase to 5L n/c when eating, however, d/t POx 87-88%. Patient very difficult to assist to commode. Patient c/o L shoulder pain and
unable to move L arm. Reviewed with Dr Samaniego who ordered shoulder and clavicle xray. He was informed of the results in [facility]itect and ortho was consulted. Patient seen by ortho who ordered NWB to L arm, sling for L arm and another Xray, as well as
MRI, for the morning. Patient updated. Patient refused mucinex and lidocaine this morning stating that neither medication helped. She also refused Lipitor stating that she developed legs cramps; med changed to crestor per dr Samaniego. Lungs coarse
with rhochi t/o and fine anterior exp wheeze; occasional-frequent harsh moist cough, productive of castro sputum at times, sputum specimen sent. See worklist for full assessment and vital signs; see MAR for med administration.
[2024-06-27] MEDS: SODIUM CHLORIDE 3% FOR INHALATION 1 VIAL INH (19:18)
[2024-06-28] VITALS (12 sets, daily range): BP systolic 119–173; BP diastolic 49–82; BMI 23.2
--- NOTE | 2024-06-28 00:38 | PTCARENOTE ---
Caring for patient overnight. aaox3, pleasant. NSR. Remains on 6LMF, DUQUE. Unable to get pt up d/t inability to move L arm at all & profound weakness in lower extremities. PT can work with patient. Bedpan & purewick for now. IV abx. Q2T. CHG wipes. L
arm sling in place, pulses good in L arm. Surgical site good, dressing intact, doppler pulses in feet. NO issues at this time. Call crane in reach. Will monitor.
[2024-06-28] MEDS: MAXIPIME 2000 MG IV ×3 (01:46→16:33)
[2024-06-28] MEDS: STERILE WATER FOR INJECTION 10 ML IV ×3 (01:46→16:33)
--- NOTE | 2024-06-28 05:01 | PTCARENOTE ---
Pt refusing blood work this morning. No blood return in R midline. When getting ready to attempt to stick patient, pt states 'i thought we agreed we were no longer doing this' Confirmed with patient that she does not want anymore blood taken & asked
if she would still like to be treated otherwise. pt stated 'if it comes down to it, no i don't want to be.' Will update day shift.
--- NOTE | 2024-06-28 07:18 | PTCARENOTE ---
Spoke to patient about the plan today & having another XR on her arm. pt stated 'this is getting to be too much' pt stated that she would like to go home and be comfortable. Pt seems more agitated overnight with care being done. Updated day shift
nurse.
[2024-06-28] MEDS: SODIUM CHLORIDE 3% FOR INHALATION 1 VIAL INH ×3 (08:00→19:21)
[2024-06-28] MEDS: PULMICORT 0.5 MG INH ×2 (08:00→19:21)
[2024-06-28] MEDS: STRIVERDI RESPIMAT 2 PUFF INH (08:00)
[2024-06-28] MEDS: DUONEB 3 ML INH ×3 (08:40→19:21)
--- NOTE | 2024-06-28 09:25 | W.PN.HOSP.TC ---
Today's Communication/Plan
-
cont Abx
Palliative consult
Assessment / Plan
Assessment / Plan
78yo F residing in facility with PMHx of COPD with chronic hypoxic respiratory failure on 2L home O2 and chronic prednisone, Parkinson, anxiety, HTN aortic aneurism, DJD, spontaneous neuritis, fall with L hip Fx s/p hemiarthroplasty on 06/21/24
discharged from SNF and sent back same day for hypoxia. Managed for bronchitis vs pneumonia - empiric Abx
Also found superior subluxation of humeral head L
Patient declining blood tests, mucinex due to GI intolerance, vest therapy 2/2 pain, MRI L shoulder. With multiple chronic comorbidities - reasonable to establish GOC, possible hospice advised - palliative ivan.
A/P:
#Acute on chronic hypoxic hypercapnic respiratory failure
#Bronchitis vs pneumonia vs excessive mucus production with plugging
Unfortunately patient could not tolerate vest and mucinex - pretty much mainstay for her therapy
COnt bronchodilators
Start DUoneb QID add LABA
Increase steroids and titrate down
MRSA screen neg - stop Vanoc
Cont cefepime and Doxy as agreed with pulm, probably 5-7 days till 06/29-07/01
Legionella and S.pneumonia Ag urine neg
Cannot provide sputum Cx
Pulm consult
COVID-19 and Legionella neg
#superior subluxation of humeral head L with ' arm' syndrome
Ortho consult: advised MRI and repeated XR, LUE immobilization
#GOC
Multiple comorbidities and hospitalizations, patient declining blood test and most interventions - Palliative care consult for GOC
#L impacted femoral neck/head fracture, possibly exacerbated by osteoporosis 2/2 Fall without LOC
#Chronic ambulatory dysfunction 2/2 Parkinson
Ortho mgmt: s/p L hip hemiarthroplasty on 06/21/24
THPs x 6 weeks
ASA 325mg daily x 4 weeks
Dressing to remain 7-10 days, unless soiled
Aubrey out at 2 weeks (office or [facility])
If aubrey out at [facility] outpatient Ortho follow-up 4 weeks
pain mgmt
Most likely iatrogenic osteoporosis contributed to Fx - outpatient w/u/treatment advised
PT/OT, cont Sinemet
#Acute blood loss anemia 2/2 fracture and periOP blood loss
serial H&H
#Old lacunar stroke
ASA (switch to ASA 81mg after 3 weeks of 325mg dose)
cont statin - cannot tolerate Lipitor, switched to rosuvastatin
#Essential HTN
#Anxiety d/o
#4.1cm AAA
#Anemia, chronic
follow CBC
cont home meds
follow up as outpatient for AAA
DVT ppx ASA as per Ortho
limited DNR (no CPR)
I have spent at least 59min reviewing chart, test results, communication with consultants and direct patient care
Anticipated Discharge: > 48 hours
Subjective/Interval History
-
Date of Service: June 28, 2024
Objective Data
-
Labs:
Laboratory Results
06/28/24
06:00
WBC Pending
Hgb Pending
Hct Pending
Plt Count Pending
Sodium Pending
Potassium Pending
Chloride Pending
Carbon Dioxide Pending
BUN Pending
Creatinine Pending
Glucose Pending
Calcium Pending
Total Bilirubin Pending
AST Pending
ALT Pending
Alkaline Phosphatase Pending
Vital Signs:
Vital Signs
Temp Pulse Resp BP Pulse Ox
98.3 F 76 22 137/63 97
06/28/24 07:25 06/28/24 08:36 06/28/24 08:36 06/28/24 00:00 06/28/24 08:36
I&O
06/27/24 06/28/24 06/29/24
06:59 06:59 06:59
Intake Total 1220 / 1220
Output Total 200 / 200 900 / 900
Balance -200 / -200 320 / 320
Review of Systems
-
History Source: Patient
All other systems: Reviewed and negative
Physical Exam
-
General: Comfortable
HEENT: Moist Mucous Membranes
Respiratory: Wheezes
Cardiac: Regular Rhythm
GI: Soft, Nontender and Nondistended
Neuro: Other (L biceps paresis)
Psych: Calm
[2024-06-28] MEDS: SINEMET 25-100 2 TABLET PO ×3 (09:38→21:58)
[2024-06-28] MEDS: COZAAR 100 MG PO (09:38)
[2024-06-28] MEDS: FOLVITE 1 MG PO (09:38)
[2024-06-28] MEDS: COLACE 100 MG PO ×2 (09:38→20:26)
[2024-06-28] MEDS: CLARITIN 10 MG PO (09:38)
[2024-06-28] MEDS: CARDIZEM 60 MG PO ×3 (09:39→21:58)
[2024-06-28] MEDS: MAG-TAB SR 84 MG PO ×2 (09:39→20:27)
[2024-06-28] MEDS: LOPRESSOR 25 MG PO ×2 (09:39→20:26)
[2024-06-28] MEDS: TYLENOL 1000 MG PO ×3 (09:39→21:58)
[2024-06-28] MEDS: LIDOCAINE 4% PATCH TOPICAL (09:40)
[2024-06-28] MEDS: DELTASONE 40 MG PO (09:40)
[2024-06-28] MEDS: ASPIRIN 325 MG PO (09:40)
[2024-06-28] MEDS: FEOSOL 325 MG PO (09:40)
[2024-06-28] MEDS: LMX 4 TOPICAL ×2 (09:40→16:30)
[2024-06-28] MEDS: PROTONIX 40 MG PO (09:41)
[2024-06-28] MEDS: VIBRAMYCIN 260 MG IV ×2 (09:42→22:02)
--- NOTE | 2024-06-28 09:51 | W.PN.PUL3 ---
Today's Communication / Plan
-
Pulmonary toilet is kaba - encourage Acapella use and continue nebulized 3% to help mucus expectoration
Start DuoNebs QID and change prednisone to solumedrol 40mg IV q12hr due to wheezing today
She does not tolerate vest therapy
Encouraged to use Acapella
Striverdi/budesonide
prn DuoNebs
Aspiration precautions
Supplemental O2 which should be titrated to keep SpO2 between 88-95%; ambulatory pulse oximetry prior to discharge
Pain control
PT/OT as tolerated
Start buspar due to suspected depression symptoms
Pulmonary service will continue to follow along
Assessment
-
78-year-old woman with past medical history significant for severe COPD, chronic hypoxemic and hypercapnic respiratory failure. Admitted after sustaining a fall. Developed left femoral fracture. Underwent hemiarthroplasty. We were consulted on
06/21/2024 for postoperative management Of COPD-she subsequently improved and was discharged 06/25/2024 and readmitted with increased hypoxemia and FiO2 requirements and pulmonary was re consulted 06/26/2024 for worsening hypoxemia.
Impression:
Bronchitis versus early pneumonia with mucous plugging and hypoxemia
Aspiration pneumonia suspected with basilar atelectasis
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
Recent left impacted femoral head/neck fracture status post fall status post left hemiarthroplasty 06/21/2024
Recent diagnosis spontaneous brachial neuritis producing left upper extremity biceps weakness
Anemia
Conditions present prior to admission:
Recent hospitalization 06/25/2024-left impacted femoral neck/head fracture status post left hemiarthroplasty 06/21/2024
Recent spontaneous brachial neuritis producing left upper extremity biceps weakness
Severe COPD/Emphysema phenotype on 2 L baseline-Used to follow-up with pulmonary in [place] Until recently.
FEV1 05/06/2024: 0.44 L - 22% of predicted. Ratio 36%
Chronic hypercapnic respiratory failure-baseline pCO2 50-55
First time seen in our office 05/06/2024: Transitioned to Pulmicort/DuoNeb
Chronic prednisone therapy
Prior history of ventilator dependent respiratory failure in the past december-unclear details
Recent falls with rib fractures 05-23
T4 compression fracture wearing TLSO
Former hdhaus-00-bfye-year history quit in 2013
Hypertension
Endometrial cancer
Anemia of chronic disease
Abdominal aortic aneurysm
Parkinson's disease
Cholecystectomy
Appendectomy
Hysterectomy
Ambulatory [id number]
Multiple compression fractures
Plan
Respiratory decompensation likely due to difficulties mobilizing secretions/mucous plugging
Supplement oxygen-chronically on 2 L --> currently on 4L/min
Titrate O2 to maintain SpO2 88-95%
Aspiration precautions
Speech therapy evaluation
Mucolytics - she apparently does not tolerate mucinex
Mucus clearing devices-flutter, incentive spirometry, and tried vest therapy but it is causing pain in her shoulder and ribs/chest so it was stopped
Nebulizers-DuoNebs QID
Budesonide + striverdi nebulizers
Currently on prednisone 40mg daily - previously DCd on prednisone 10mg daily which is on her med list --> given her wheezing today, I will increase her steroids back to Solumedrol 40mg IV q12hr
On 06/27 I started nebulized 3% and she seems to be responding favorably to this
Follow up blood Cx (blood Cx) and respiratory Cx (06/27/2024 - NGTD)
Currently on cefepime and doxy s/p IV vanco
Adjust antibiotics according to cultures
Follow temperature curve and leukocytosis
Procal 0.17 --> c/t trend to assure we have source control - as basilar opacifications on CT could be atelectasis-procalcitonin not an ideal study if aspiration pneumonia is suspected
She appears to be depressed and is upset that she still in the hospital; I will start her on BuSpar to see if this improves her mood
DVT prophylaxis recommended
GI prophylaxis-on pantoprazole
Nutrition
Physical therapy
Outpatient pulmonary [id number] Gisel Amezcua NP 05/06/2024 and has appointment [address] Evans 07/07/2024
Pulmonary service will continue to follow along
Diagnostic data:
Chest x-ray 06/24/2024-NAD
Chest x-ray 06/25/2024-moderate bilateral upper lobe centrilobular emphysema, scarring lower lobes, mild cardiomegaly, severe calcified atherosclerotic plaque thoracic aortic, multiple healed rib fractures
Brain CT perfusion 06/24/2024-no perfusion abnormalities to suggest infarct or ischemia
CT head 06/24/2024-no evidence for large vessel occlusion or arterial dissection, severe emphysema at visualized apices of the lung
CT chest 06/26/2024-no evidence for pulmonary embolism or thoracic aortic dissection, moderate centrilobular emphysema, patchy opacifications each lung base left greater than right may be atelectasis aspiration or pneumonia
Total time spent today was 38 minutes for this encounter. Time includes reviewing laboratory test/imaging results, reviewing pertinent medical records, obtaining and reviewing medical history, performing an appropriate exam, ordering medications,
tests and procedures. Time also includes documentation of this encounter, coordinating patient care and communicating with other healthcare professionals. Total time does not include separately billed tests performed on this date of service.
Subjective Data
-
Date of Service:
Date of Service: June 28, 2024
Chief Complaint: Pulmonary Follow Up
Subjective:
Patient seen and evaluated today at bedside. She denies shortness of breath and says that she has bring up her phlegm with the nebulized 3%. She is frustrated and upset that she still hospitalized and wants to go home. She feels achy as well.
Has left-sided shoulder pain. Heart rate 77, saturating 97% on 4 L/min and BP 138/80. She denies chest pain, GASCA, abdominal pain, nausea, fevers or chills.
Review of Systems
General: Other (Negative unless mentioned above)
Objective Data
Data Reviewed
Vital Signs / I&O / Oxygen:
Vital Signs
Temp Pulse Resp BP Pulse Ox
98.3 F 76 22 137/63 97
06/28/24 07:25 06/28/24 08:36 06/28/24 08:36 06/28/24 00:00 06/28/24 08:36
Intake and Output
06/27/24 06/28/24 06/29/24
06:59 06:59 06:59
Intake Total 1220 / 1220
Output Total 200 / 200 900 / 900
Balance -200 / -200 320 / 320
SaO2 97
Nasal Cannula flow liters per 4
minute
Physical Exam
General: Respiratory Distress (negative), Comfortable, Chills (negative) and Sweats (negative)
HEENT: Normocephalic and Anicteric
Cardiovascular: S1-S2 and Peripheral Edema (negative)
Respiratory: Wheeze (Expiratory wheezing heard bilaterally), Crackles (Bilateral), Rhonchi (negative), Accessory Resp Muscle Use (negative), Stridor (negative) and Other (Reduced breath sounds in the right hemithorax)
GI: Soft, Non Distended, Non Tender and Normal Bowel Sounds
Neurology: Awake, Alert and Tremors (negative)
Skin: Warm, Dry, Jaundice (negative) and Rash (negative)
Labs/Micro/Reports
Microbiology
06/25/24 21:39 Blood/Venous Blood Culture - Preliminary
No Growth in 48 hours- Final report to follow
06/25/24 21:36 Blood/Venous Blood Culture - Preliminary
No Growth in 48 hours- Final report to follow
06/27/24 10:40 Sputum Gram Stain - Preliminary
06/26/24 11:30 Urine Legionella Urinary Antigen - Final
Negative for Legionella pneumophila Serogroup 1 antigen.
A negative result does not rule out the possiblity of
Legionella infection due to other serogroups or species of
Legionella. Clinical correlation is recommended.
06/26/24 11:30 Urine Streptococcus pneumoniae Antigen (M - Final
Negative for Streptococcus pneumoniae antigen.
A negative result does not exclude infection with
Streptococcus pneumoniae. Clinical correlation is
recommended.
06/26/24 05:22 Nose Nasal Screen MRSA (PCR) - Final
MRSA not detected - performed by PCR methodology.
06/26/24 09:43 Nasal Swab Influenza Types A & B (LUIS MANUEL) - Final
Negative for Influenza A & B, NAAT
Negative results must be combined with clinical observations
and patient history.
Nucleic Acid Amplification test (NAAT)performed on the
[employer] platform.
--- NOTE | 2024-06-28 12:58 | PTCARENOTE ---
Addendum entered by Chari Dumas RN 06/28/24 14:13:
Patient continues to refuse labs; Dr Samaniego was made aware this morning when he rounded.
Addendum entered by Chari Dumas RN 06/28/24 13:34:
Cannot verify accuracy of vital signs prior to 0700.
Original Note:
Assumed care of patient at beginning of this shift from previous RN with O2 6Ln/c in use. O2 weaned to 4L n/c with POx currently 98%. When eating, POx drops to high 80s, requiring oxygen increase to 6L n/c. Patient ordered MRI and L arm Xray; she
refused MRI stating it's too much and she will see what the xray shows. This nurse reviewed with her the importance of testing to see what treatment is needed for her arm; she still only agreed to xray. R arm midline with no blood return; patient
refused lab stick on previous shift and this shift as well. She states she is tired of all of the testing and being in the hospital. Emotional support provided. Dr Samaniego in to see patient and offered to call family; patient refused stating she
makes her own decisions. This nurse informed him that patient refused morning bloodwork and only wants xray. Patient has not had bm yet, despite attempting to go on commode yesterday and bedpan today. This nurse offered to get order for MOM or other
bowel regimen meds; patient refused. Dr Evans up to see patient; adjusted steroids and ordered Buspar. See worklist for full assessment and vital signs; see MAR for med administration.
[2024-06-28] MEDS: BUSPAR 10 MG PO ×2 (13:29→20:26)
[2024-06-28] MEDS: SOLU-MEDROL PF 40 MG IV ×2 (13:29→20:27)
--- NOTE | 2024-06-28 14:47 | W.PN.UPDATE ---
Update Note
Progress Note Update
Reviewed axillary x-ray that was performed today. No evidence of glenohumeral dislocation. Went to speak with patient about importance of getting MRI of the left shoulder to further evaluate the rotator cuff as well as rule out dislocation during
recent fall. She is not interested in surgical intervention at this time. I advised her that the MRI would be helpful to let us know whether we need to immobilize her or get her working with PT going forward. She was not interested in pursuing
the imaging at this time. For now, she may weight-bear as tolerated on the left upper extremity and work with PT on range of motion exercises to tolerance. I will sign off on her from an orthopedic standpoint for now. If there are any further
questions or concerns, please reach out.
[2024-06-28] MEDS: LMX 4 1 APPLIC TOPICAL (22:02)
--- NOTE | 2024-06-28 23:39 | PTCARENOTE ---
Assumed care of patient from previous RN. Patient is AOx3 with a flat affect. NSR on monitor. 3L NC sating at 95%. Patient got to the bedside commode with assist of two people and had a formed BM. Patient has a Right Midline but does not give blood
return. Patient resting in bed with call crane in reach.
[2024-06-29] VITALS (15 sets, daily range): BP systolic 124–164; BP diastolic 52–91; PULSE 75; O2SAT 95; BMI 22.7
[2024-06-29] MEDS: MAXIPIME 2000 MG IV ×2 (01:52→09:57)
[2024-06-29] MEDS: STERILE WATER FOR INJECTION 10 ML IV ×2 (01:52→09:57)
[2024-06-29] MEDS: STRIVERDI RESPIMAT 2 PUFF INH (08:17)
[2024-06-29] MEDS: PULMICORT 0.5 MG INH ×2 (08:17→20:08)
[2024-06-29] MEDS: DUONEB 3 ML INH ×3 (08:17→20:08)
[2024-06-29] MEDS: SODIUM CHLORIDE 3% FOR INHALATION 1 VIAL INH ×3 (08:17→20:08)
[2024-06-29] MEDS: LIDOCAINE 4% PATCH 1 PATCH TOPICAL (08:18)
[2024-06-29] MEDS: SOLU-MEDROL PF 40 MG IV (08:19)
[2024-06-29] MEDS: CARDIZEM 60 MG PO ×3 (08:20→21:27)
[2024-06-29] MEDS: PROTONIX 40 MG PO (08:20)
[2024-06-29] MEDS: ASPIRIN 325 MG PO (08:20)
[2024-06-29] MEDS: CLARITIN 10 MG PO (08:20)
[2024-06-29] MEDS: LOPRESSOR 25 MG PO ×2 (08:20→19:48)
[2024-06-29] MEDS: COLACE 100 MG PO ×2 (08:20→19:47)
[2024-06-29] MEDS: TYLENOL 1000 MG PO ×3 (08:21→21:27)
[2024-06-29] MEDS: FOLVITE 1 MG PO (08:21)
[2024-06-29] MEDS: MAG-TAB SR 84 MG PO ×2 (08:21→19:48)
[2024-06-29] MEDS: COZAAR 100 MG PO (08:21)
[2024-06-29] MEDS: FEOSOL 325 MG PO (08:21)
[2024-06-29] MEDS: LMX 4 TOPICAL ×3 (08:22→21:28)
[2024-06-29] MEDS: BUSPAR PO ×2 (08:24→19:48)
[2024-06-29] MEDS: SINEMET 25-100 2 TABLET PO ×3 (09:10→21:28)
[2024-06-29] MEDS: SINEMET 25-100 PO (09:10)
--- NOTE | 2024-06-29 09:13 | W.PN.PUL3 ---
Today's Communication / Plan
-
Wean O2 back to baseline, 2L --reviewed with RT
No further wheezing, will transition steroids back to PO course
Would stop abx and observe off, sputum negative
She has poor airway clearance, this will be an ongoing issue
PT/OT ongoing, may need SNF on discharge
Hopeful d/c planning per team
OP Pulm FU arranged on 07/07
Assessment
-
78-year-old woman with past medical history significant for severe COPD, chronic hypoxemic and hypercapnic respiratory failure. Admitted after sustaining a fall. Developed left femoral fracture. Underwent hemiarthroplasty. We were consulted on
06/21/2024 for postoperative management Of COPD-she subsequently improved and was discharged 06/25/2024 and readmitted with increased hypoxemia and FiO2 requirements and pulmonary was re consulted 06/26/2024 for worsening hypoxemia.
Impression:
Bronchitis versus early pneumonia with mucous plugging and hypoxemia
Aspiration pneumonia suspected with basilar atelectasis
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
Recent left impacted femoral head/neck fracture status post fall status post left hemiarthroplasty 06/21/2024
Recent diagnosis spontaneous brachial neuritis producing left upper extremity biceps weakness
Anemia
Conditions present prior to admission:
Recent hospitalization 06/25/2024-left impacted femoral neck/head fracture status post left hemiarthroplasty 06/21/2024
Recent spontaneous brachial neuritis producing left upper extremity biceps weakness
Severe COPD/Emphysema phenotype on 2 L baseline-Used to follow-up with pulmonary in [place] Until recently.
FEV1 05/06/2024: 0.44 L - 22% of predicted. Ratio 36%
Chronic hypercapnic respiratory failure-baseline pCO2 50-55
First time seen in our office 05/06/2024: Transitioned to Pulmicort/DuoNeb
Chronic prednisone therapy
Prior history of ventilator dependent respiratory failure in the past may have 2023-unclear details
Recent falls with rib fractures 05-23
T4 compression fracture wearing TLSO
Former bhymur-08-qqgx-year history quit in 2013
Hypertension
Endometrial cancer
Anemia of chronic disease
Abdominal aortic aneurysm
Parkinson's disease
Cholecystectomy
Appendectomy
Hysterectomy
Ambulatory srvlqjhrijy-otxtrbwedb-xzgax
Multiple compression fractures
Plan
Respiratory decompensation likely due to difficulties mobilizing secretions/mucous plugging
Very deconditioned, weak cough
Cannot use vest due to recent surgery, induces pain
Supplement oxygen-chronically on 2 L --> currently on 4L/min
Titrate O2 to maintain SpO2 88-95%, reviewed with RT
Aspiration precautions
Speech therapy evaluation
Mucolytics - she apparently does not tolerate mucinex
Mucus clearing devices-flutter, incentive spirometry, and tried vest therapy but it is causing pain in her shoulder and ribs/chest so it was stopped
Nebulizers-DuoNebs QID
Budesonide + striverdi nebulizers
Currently on prednisone 40mg daily - previously DCd on prednisone 10mg daily which is on her med list
Given her wheezing 06/28, steroids transitioned back to Solumedrol 40mg IV q12hr
No further complaints, will transition back to prednisone 50
On 06/27 I started nebulized 3% and she seems to be responding favorably to this
Follow up blood Cx (blood Cx) and respiratory Cx (06/27/2024 - NGTD) --sputum culture negative
Currently on cefepime and doxy s/p IV vanco, de-escalate as able
Follow temperature curve and leukocytosis
Procal 0.17, negative
She appears to be depressed and is upset that she still in the hospital
She does not wish to take medication for this, can eval as OP
PT/OT evals, likely to need SNF placement
DVT prophylaxis recommended
GI prophylaxis-on pantoprazole
Nutrition
Physical therapy
Outpatient pulmonary qymikb-lq-dhi Gisel Amezcua NP 05/06/2024 and has appointment [address] Evans 07/07/2024
Discharge planning per team
Diagnostic data:
Chest x-ray 06/24/2024-NAD
Chest x-ray 06/25/2024-moderate bilateral upper lobe centrilobular emphysema, scarring lower lobes, mild cardiomegaly, severe calcified atherosclerotic plaque thoracic aortic, multiple healed rib fractures
Brain CT perfusion 06/24/2024-no perfusion abnormalities to suggest infarct or ischemia
CT head 06/24/2024-no evidence for large vessel occlusion or arterial dissection, severe emphysema at visualized apices of the lung
CT chest 06/26/2024-no evidence for pulmonary embolism or thoracic aortic dissection, moderate centrilobular emphysema, patchy opacifications each lung base left greater than right may be atelectasis aspiration or pneumonia
-----
Total time spent today was 50 minutes for this encounter. Time includes reviewing laboratory test/imaging results, reviewing pertinent medical records, obtaining and reviewing medical history, performing an appropriate exam, ordering medications,
tests and procedures. Time also includes documentation of this encounter, coordinating patient care and communicating with other healthcare professionals. Total time does not include separately billed tests performed on this date of service.
Subjective Data
-
Date of Service:
Date of Service: June 29, 2024
Chief Complaint: Pulmonary Follow Up
Subjective:
No acute events ON, remains on 4L O2 this AM
Wants to go home
To weak to exert fully, sat up in her bed but not for very long
Depressed
Objective Data
Data Reviewed
Vital Signs / I&O / Oxygen:
Vital Signs
Temp Pulse Resp BP Pulse Ox
97.8 F 81 20 155/76 95
06/29/24 07:32 06/29/24 08:39 06/29/24 08:39 06/29/24 08:21 06/29/24 08:39
Intake and Output
06/28/24 06/29/24 06/30/24
06:59 06:59 06:59
Intake Total 1220 / 1220 280 / 280
Output Total 900 / 900 150 / 150
Balance 320 / 320 -150 / -150 280 / 280
SaO2 95
Nasal Cannula flow liters per 5
minute
Physical Exam
General: Respiratory Distress (negative), Comfortable, Chills (negative) and Sweats (negative)
HEENT: Normocephalic, Anicteric and Moist Mucous Membranes
Cardiovascular: S1-S2, Regular Rhythm and Peripheral Edema (negative)
Respiratory: Crackles (Bilateral), Rhonchi (cough with ronchi), Non-Labored Respirations, Accessory Resp Muscle Use (negative), Stridor (negative) and Other (Reduced breath sounds in the right hemithorax)
GI: Soft, Non Distended, Non Tender and Normal Bowel Sounds
Neurology: Awake, Alert, Oriented, Tremors (negative) and Depressed
Skin: Warm, Dry, Jaundice (negative) and Rash (negative)
Labs/Micro/Reports
Lab Data
06/28/24 15:04
06/28/24 15:04
Microbiology
06/25/24 21:39 Blood/Venous Blood Culture - Preliminary
No Growth in 72 hours- Final report to follow
06/25/24 21:36 Blood/Venous Blood Culture - Preliminary
No Growth in 72 hours- Final report to follow
06/27/24 10:40 Sputum Respiratory Culture - Preliminary
Usual Respiratory Ester
06/27/24 10:40 Sputum Gram Stain - Preliminary
06/26/24 11:30 Urine Legionella Urinary Antigen - Final
Negative for Legionella pneumophila Serogroup 1 antigen.
A negative result does not rule out the possiblity of
Legionella infection due to other serogroups or species of
Legionella. Clinical correlation is recommended.
06/26/24 11:30 Urine Streptococcus pneumoniae Antigen (M - Final
Negative for Streptococcus pneumoniae antigen.
A negative result does not exclude infection with
Streptococcus pneumoniae. Clinical correlation is
recommended.
06/26/24 05:22 Nose Nasal Screen MRSA (PCR) - Final
MRSA not detected - performed by PCR methodology.
06/26/24 09:43 Nasal Swab Influenza Types A & B (LUIS MANUEL) - Final
Negative for Influenza A & B, NAAT
Negative results must be combined with clinical observations
and patient history.
Nucleic Acid Amplification test (NAAT)performed on the
[employer] platform.
[2024-06-29] MEDS: VIBRAMYCIN 260 MG IV (09:58)
[2024-06-29] MEDS: DUONEB INH (11:30)
--- NOTE | 2024-06-29 12:39 | W.CON.PAL ---
Consultation
-
Date/Time Consultation Requested: 06/28/2024
Date/Time Consultation Performed: 06/29/2024
Requesting Provider: Dr. Samaniego
Performing Provider: Dr. Egan
Reason for Consult: Goals of Care Discussion
Primary Diagnosis: COPD
Consult Requested By: Patient's Physician
Reason for Admission
Illness Course/HPI
78y F with PMH significant for COPD on chronic home O2, Parkinson's disease and recent hospitalization for hip fracture / repair who was readmitted with COPD exacerbation. Palliative care consult was placed for goals of care as patient was declining
labwork, mucinex due to GI intolerance, vest therapy 2/2 pain, MRI L shoulder.
Spoke to patient, she returned this morning from MRI. She reports she had been refusing bloodwork due to staff inability to get blood on her without multiple attempts. Midline not drawing blood either. She is unhappywith this, however she is still
accepting of treatment and is uninterested in hospice care at this time. Explained that bloodwork is necessary in the hospital and that medications are dosed based on her lab values. She states she will accept labwork if done by someone who is
excellent or we have to find another way.
Goals of Care Discussion
Patient Goals
goals are treatment oriented
Objective Data
-
Objective Data:
Vital Signs
Temp Pulse Resp BP Pulse Ox
97.8 F 75 23 130/63 97
06/29/24 07:32 06/29/24 10:09 06/29/24 10:09 06/29/24 10:09 06/29/24 10:09
Laboratory Results
06/28/24 15:04
06/28/24 15:04
PT 12.6 Sec (11.4-14.6) 06/25/24 21:36
INR 0.89 06/25/24 21:36
APTT 30.8 Sec (23.4-35.0) 06/25/24 21:36
Total Protein Cancelled 06/28/24 15:04
Albumin Cancelled 06/28/24 15:04
Palliative Performance Scale
Palliative Performance Scale:
PPS Level Ambulation Activity & Evidence of Disease Self Care Intake Conscious Level
100% Full Normal Activity & Work; Full Intake Full
No Evidence of Disease
90% Full Normal Activity & Work; Full Normal Full
Some Evidence of Disease
80% Full Normal Activity with Effort Full Normal or Full
Some Evidence of Disease Reduced
70% Reduced Unable Normal Job/Work Full Normal or Full
Significant Disease Reduced
60% Reduced Unable Hobby/Housework Occasional Normal or Full or Confusion
Significant Disease Assistance Reduced
50% Mainly Sit/Lie Unable to do Any Work Considerable Normal or Full or Confusion
Extensive Disease Assistance Req'd Reduced
40% Mainly in Bed Unable to do Most Activity Mainly Assistance Normal or Full or Drowsy;
Extensive Disease Reduced +/- Confusion
30% Totally Bed Unable to do Any Activity Total Care Normal or Full or Drowsy;
Bound Extensive Disease Reduced +/- Confusion
20% Totally Bed Bound Unable to do Any Activity Total Care Minimal to Full or Drowsy;
Extensive Disease Sips +/- Confusion
10% Totally Bed Bound Unable to do Any Activity Total Care Mouth Care Drowsy or Coma;
Extensive Disease Only +/- Confusion
0%
PPS Score Level:
Assessment / Plan
-
Assessment/Plan:
Patient's goals are treatment oriented. she is uninterested in comfort care/hospice.
--- NOTE | 2024-06-29 12:39 | W.PN.PAL2 ---
Addendum entered and electronically signed by Otilia Egan MD 06/29/24 16:29:
see other note
Original Note:
Today's Communication
-
consult received for goals of care as patient had been refusing all testing, labs, and MRI
patient off the floor during time of visit for MRI. will return and attempt to complete consult
Objective Data
-
Objective Data:
Vital Signs
Temp Pulse Resp BP Pulse Ox
97.8 F 75 23 130/63 97
06/29/24 07:32 06/29/24 10:09 06/29/24 10:09 06/29/24 10:09 06/29/24 10:09
Laboratory Results
06/28/24 15:04
06/28/24 15:04
PT 12.6 Sec (11.4-14.6) 06/25/24 21:36
INR 0.89 06/25/24 21:36
APTT 30.8 Sec (23.4-35.0) 06/25/24 21:36
Total Protein Cancelled 06/28/24 15:04
Albumin Cancelled 06/28/24 15:04
Palliative Performance Scale
Palliative Performance Scale:
PPS Level Ambulation Activity & Evidence of Disease Self Care Intake Conscious Level
100% Full Normal Activity & Work; Full Intake Full
No Evidence of Disease
90% Full Normal Activity & Work; Full Normal Full
Some Evidence of Disease
80% Full Normal Activity with Effort Full Normal or Full
Some Evidence of Disease Reduced
70% Reduced Unable Normal Job/Work Full Normal or Full
Significant Disease Reduced
60% Reduced Unable Hobby/Housework Occasional Normal or Full or Confusion
Significant Disease Assistance Reduced
50% Mainly Sit/Lie Unable to do Any Work Considerable Normal or Full or Confusion
Extensive Disease Assistance Req'd Reduced
40% Mainly in Bed Unable to do Most Activity Mainly Assistance Normal or Full or Drowsy;
Extensive Disease Reduced +/- Confusion
30% Totally Bed Unable to do Any Activity Total Care Normal or Full or Drowsy;
Bound Extensive Disease Reduced +/- Confusion
20% Totally Bed Bound Unable to do Any Activity Total Care Minimal to Full or Drowsy;
Extensive Disease Sips +/- Confusion
10% Totally Bed Bound Unable to do Any Activity Total Care Mouth Care Drowsy or Coma;
Extensive Disease Only +/- Confusion
0%
PPS Score Level:
--- NOTE | 2024-06-29 15:37 | W.PN.HOSP.TC ---
Today's Communication/Plan
-
stop cefepime, cont doxy empircally
switch to po pred
wean back to home o2
Ortho recs for shoulder
Assessment / Plan
Assessment / Plan
78yo F residing in facility with PMHx of COPD with chronic hypoxic respiratory failure on 2L home O2 and chronic prednisone, Parkinson, anxiety, HTN aortic aneurism, DJD, spontaneous neuritis, fall with L hip Fx s/p hemiarthroplasty on 06/21/24
discharged from SNF and sent back same day for hypoxia. Managed for bronchitis vs pneumonia - empiric Abx
Also found superior subluxation of humeral head L
Patient declining blood tests, mucinex due to GI intolerance, vest therapy 2/2 pain, MRI L shoulder. With multiple chronic comorbidities - reasonable to establish GOC, possible hospice advised - palliative ivna.
A/P:
#Acute on chronic hypoxic hypercapnic respiratory failure
#Bronchitis vs pneumonia vs excessive mucus production with plugging
Unfortunately patient could not tolerate vest and mucinex - pretty much mainstay for her therapy
COnt bronchodilators
Start DUoneb QID add LABA
IV steroids - switch to PO pred
MRSA screen neg - stop Vanoc
DC cefepime; Can cont doxy for 5 days - not convinced this is bacterial pneumonia although will treat empirically
Legionella and S.pneumonia Ag urine neg
Cannot provide sputum Cx
Pulm consult
COVID-19 and Legionella neg
#superior subluxation of humeral head L with ' arm' syndrome
Ortho consult: advised MRI and repeated XR, LUE immobilization
-SEVERE ACUTE DIFFUSE MUSCLE EDEMA throughout the LEFT ROTATOR CUFF and LEFT DELTOID with mild diffuse muscle atrophy. 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
Idiopathic Brachial Plexitis). An acute infectious myositis, acute inflammatory myositis, or acute muscle strain are alternative diagnostic possibilities.
-Ortho on board for next steps
Advanced ulcerated plaque throughout the thoracic aorta.
f-/u vascular outpatient
#GOC
Multiple comorbidities and hospitalizations, patient declining blood test and most interventions - Palliative care consult for GOC
-wants full care - no hospice
#L impacted femoral neck/head fracture, possibly exacerbated by osteoporosis 2/2 Fall without LOC
#Chronic ambulatory dysfunction 2/2 Parkinson
Ortho mgmt: s/p L hip hemiarthroplasty on 06/21/24
THPs x 6 weeks
ASA 325mg daily x 4 weeks
Dressing to remain 7-10 days, unless soiled
Aubrey out at 2 weeks (office or WNF)
If aburey out at SNF outpatient Ortho follow-up 4 weeks
pain mgmt
Most likely iatrogenic osteoporosis contributed to Fx - outpatient w/u/treatment advised
PT/OT, cont Sinemet
#Acute blood loss anemia 2/2 fracture and periOP blood loss
serial H&H
stable
#Old lacunar stroke
ASA (switch to ASA 81mg after 3 weeks of 325mg dose)
cont statin - cannot tolerate Lipitor, switched to rosuvastatin
#Essential HTN
#Anxiety d/o
#4.1cm AAA
#Anemia, chronic
follow CBC
cont home meds
follow up as outpatient for AAA
DVT ppx ASA as per Ortho
limited DNR (no CPR)
I have spent at least 51min reviewing chart, test results, communication with consultants and direct patient care
Anticipated Discharge: 24 - 48 hours
Subjective/Interval History
-
Date of Service: June 29, 2024
No acute events overnight
Objective Data
-
Vital Signs:
Vital Signs
Temp Pulse Resp BP Pulse Ox
97.8 F 80 26 130/61 95
06/29/24 07:32 06/29/24 15:34 06/29/24 14:21 06/29/24 15:34 06/29/24 14:21
I&O
06/28/24 06/29/24 06/30/24
06:59 06:59 06:59
Intake Total 1220 / 1220 790 / 790
Output Total 900 / 900 150 / 150
Balance 320 / 320 -150 / -150 790 / 790
Review of Systems
-
History Source: Patient
All other systems: Not reviewed unless documented
Physical Exam
-
General: Comfortable
HEENT: Moist Mucous Membranes
Respiratory: Wheezes
Cardiac: Regular Rhythm
GI: Soft, Nontender and Nondistended
Neuro: Other (L biceps paresis)
Psych: Calm
Data Reviewed
-
Diagnostic Radiology: Image personally visualized and interpreted and Report Reviewed by me
Labs: Labs Reviewed by me
[2024-06-29] MEDS: VIBRAMYCIN 100 MG PO (19:48)
[2024-06-30] VITALS (8 sets, daily range): BP systolic 111–160; BP diastolic 50–79; BMI 22.4
--- NOTE | 2024-06-30 03:02 | PTCARENOTE ---
caring for patient overnight. aaox3, flat affect. NSR, remains on 2LNC, DUQUE. Q2T. L hip aquacell intact, large amount of drainage. L arm remains weak, unable to move, +1 edema, good pulse. Doppler pulses for pedals. Purewick request per patient. NO
other issues at this time, will monitor.
[2024-06-30 05:45] LABS: Hematocrit 25.7 % (37.0-47.0); Hemoglobin 7.8 g/dL (12.0-16.0); Mean Corp Hgb Conc. 30.4 g/dL (33.0-37.0); Mean Corpuscular Hgb 31.3 pg (27.0-31.0); Mean Corpuscular Volume 103.2 fL (81.0-99.0); Mean Platelet Volume 8.8 fL (7.4-10.4); Platelet Count 401 10^3/uL (130-400); Red Blood Cell Count 2.49 10^6/uL (4.20-5.40); Red Cell Dist. Width 15.7 % (11.5-14.5); White Blood Cell Count 9.6 10^3/uL (4.8-10.8)
[2024-06-30 05:53] LABS: ALT (SGPT) < 10 U/L (0-35); AST (SGOT) 20 U/L (14-36); Albumin 3.2 g/dl (3.5-5.0); Alkaline Phosphatase 61 U/L (38-126); Blood Urea Nitrogen 43 mg/dl (7-17); Calcium 9.6 mg/dl (8.4-10.2); Carbon Dioxide 25 mmol/L (22-30); Chloride 106 mmol/L (98-107); Estimated Creatinine Clearance 62 ml/min; Glucose 77 mg/dl (70-99); Potassium 5.2 mmol/L (3.5-5.1); Sodium 140 mmol/L (135-145); Total Bilirubin 0.3 mg/dl (0.2-1.3); Total Protein 5.5 g/dl (6.3-8.2); eGFR > 60.00
[2024-06-30 05:56] LABS: NT-proBNP 1190 pg/ml
--- NOTE | 2024-06-30 06:11 | PTCARENOTE ---
Pt had intermittent times of confusion last night. At one point she removed her L hip aquacell dressing. Cleaned wound and applied ABD & tape.
[2024-06-30] MEDS: STRIVERDI RESPIMAT 2 PUFF INH (07:36)
[2024-06-30] MEDS: SODIUM CHLORIDE 3% FOR INHALATION 1 VIAL INH (07:36)
[2024-06-30] MEDS: PULMICORT 0.5 MG INH (07:36)
[2024-06-30] MEDS: DUONEB 3 ML INH ×2 (07:36→11:38)
[2024-06-30] MEDS: SINEMET 25-100 2 TABLET PO (07:49)
[2024-06-30] MEDS: ASPIRIN 325 MG PO (07:50)
[2024-06-30] MEDS: VIBRAMYCIN 100 MG PO (07:50)
[2024-06-30] MEDS: PROTONIX 40 MG PO (07:50)
[2024-06-30] MEDS: CLARITIN 10 MG PO (07:50)
[2024-06-30] MEDS: CARDIZEM 60 MG PO (07:50)
[2024-06-30] MEDS: COLACE 100 MG PO (07:50)
[2024-06-30] MEDS: FEOSOL 325 MG PO (07:50)
[2024-06-30] MEDS: TYLENOL 1000 MG PO (07:50)
[2024-06-30] MEDS: COZAAR 100 MG PO (07:50)
[2024-06-30] MEDS: LOPRESSOR 25 MG PO (07:51)
[2024-06-30] MEDS: LIDOCAINE 4% PATCH TOPICAL (07:51)
[2024-06-30] MEDS: FOLVITE 1 MG PO (07:51)
[2024-06-30] MEDS: DELTASONE 50 MG PO (07:51)
[2024-06-30] MEDS: MAG-TAB SR 84 MG PO (07:51)
[2024-06-30] MEDS: BUSPAR PO (07:53)
[2024-06-30] MEDS: LMX 4 TOPICAL (08:56)
[2024-06-30] MEDS: LOKELMA 10 GRAM PO (08:56)
--- NOTE | 2024-06-30 09:13 | W.PN.PUL3 ---
Today's Communication / Plan
-
Improved, back to baseline O2 amount (2L)
Continue prednisone taper at discharge
Observe off Abx
Needs rehab, PT/OT following--likely to need SNF placement
Can transfer out of IMU
Discharge planning per team hopefully today
OP Pulm FU already arranged on 07/07
We will sign off at this time, please call with questions
Assessment
-
78-year-old woman with past medical history significant for severe COPD, chronic hypoxemic and hypercapnic respiratory failure. Admitted after sustaining a fall. Developed left femoral fracture. Underwent hemiarthroplasty. We were consulted on
06/21/2024 for postoperative management Of COPD-she subsequently improved and was discharged 06/25/2024 and readmitted with increased hypoxemia and FiO2 requirements and pulmonary was re consulted 06/26/2024 for worsening hypoxemia.
Impression:
Bronchitis versus early pneumonia with mucous plugging and hypoxemia
Aspiration pneumonia suspected with basilar atelectasis
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
Recent left impacted femoral head/neck fracture status post fall status post left hemiarthroplasty 06/21/2024
Recent diagnosis spontaneous brachial neuritis producing left upper extremity biceps weakness
Anemia
Conditions present prior to admission:
Recent hospitalization 06/25/2024-left impacted femoral neck/head fracture status post left hemiarthroplasty 06/21/2024
Recent spontaneous brachial neuritis producing left upper extremity biceps weakness
Severe COPD/Emphysema phenotype on 2 L baseline-Used to follow-up with pulmonary in [place] Until recently.
FEV1 05/06/2024: 0.44 L - 22% of predicted. Ratio 36%
Chronic hypercapnic respiratory failure-baseline pCO2 50-55
First time seen in our office 05/06/2024: Transitioned to Pulmicort/DuoNeb
Chronic prednisone therapy
Prior history of ventilator dependent respiratory failure in the past may have 2023-unclear details
Recent falls with rib fractures 05-23
T4 compression fracture wearing TLSO
Former [id number]-year history quit in 2013
Hypertension
Endometrial cancer
Anemia of chronic disease
Abdominal aortic aneurysm
Parkinson's disease
Cholecystectomy
Appendectomy
Hysterectomy
Ambulatory [id number]
Multiple compression fractures
Plan
Respiratory decompensation likely due to difficulties mobilizing secretions/mucous plugging
Very deconditioned, weak cough
Cannot use vest due to recent surgery, induces pain
Supplement oxygen-chronically on 2 L, she is back to her baseline O2 use
Titrate O2 to maintain SpO2 88-95%, reviewed with RT
Aspiration precautions
Speech therapy evaluation
Mucolytics - she apparently does not tolerate mucinex
Mucus clearing devices-flutter, incentive spirometry, and tried vest therapy but it is causing pain in her shoulder and ribs/chest so it was stopped
Nebulizers-DuoNebs QID
Budesonide + striverdi nebulizers
Currently on prednisone 40mg daily - previously DCd on prednisone 10mg daily which is on her med list
Given her wheezing 06/28, steroids transitioned back to Solumedrol 40mg IV q12hr
No further complaints, will transition back to prednisone 50
On 06/27 I started nebulized 3% and she seems to be responding favorably to this
Follow up blood Cx (blood Cx) and respiratory Cx (06/27/2024 - NGTD) --sputum culture negative
Currently on cefepime and doxy s/p IV vanco, de-escalate as able
Follow temperature curve and leukocytosis
Procal 0.17, negative
She appears to be depressed and is upset that she still in the hospital
She does not wish to take medication for this, can eval as OP
PT/OT evals, likely to need SNF placement
DVT prophylaxis recommended
GI prophylaxis-on pantoprazole
Nutrition
Physical therapy
Outpatient pulmonary [id number] Gisel Amezcua NP 05/06/2024 and has appointment [address] Evans 07/07/2024
Discharge planning per team
Diagnostic Data:
Chest x-ray 06/24/2024-NAD
Chest x-ray 06/25/2024-moderate bilateral upper lobe centrilobular emphysema, scarring lower lobes, mild cardiomegaly, severe calcified atherosclerotic plaque thoracic aortic, multiple healed rib fractures
Brain CT perfusion 06/24/2024-no perfusion abnormalities to suggest infarct or ischemia
CT head 06/24/2024-no evidence for large vessel occlusion or arterial dissection, severe emphysema at visualized apices of the lung
CT chest 06/26/2024-no evidence for pulmonary embolism or thoracic aortic dissection, moderate centrilobular emphysema, patchy opacifications each lung base left greater than right may be atelectasis aspiration or pneumonia
-----
Total time spent today was 50 minutes for this encounter. Time includes reviewing laboratory test/imaging results, reviewing pertinent medical records, obtaining and reviewing medical history, performing an appropriate exam, ordering medications,
tests and procedures. Time also includes documentation of this encounter, coordinating patient care and communicating with other healthcare professionals. Total time does not include separately billed tests performed on this date of service.
Subjective Data
-
Date of Service:
Date of Service: June 30, 2024
Chief Complaint: Pulmonary Follow Up
Subjective:
No acute events ON, remains on 2L O2 but this is baseline
No worsening SOB but she feels overall 'clinically deteriorating' despite her improvements
No new complaints
Objective Data
Data Reviewed
Vital Signs / I&O / Oxygen:
Vital Signs
Temp Pulse Resp BP Pulse Ox
98.2 F 81 24 160/66 95
06/30/24 04:28 06/30/24 07:51 06/30/24 07:38 06/30/24 07:51 06/30/24 07:38
Intake and Output
06/29/24 06/30/24 07/01/24
06:59 06:59 06:59
Intake Total 1470 / 1470 360 / 360
Output Total 150 / 150 900 / 900
Balance -150 / -150 570 / 570 360 / 360
SaO2 95
Nasal Cannula flow liters per 2
minute
Physical Exam
General: Respiratory Distress (negative), Comfortable, Chills (negative) and Sweats (negative)
HEENT: Normocephalic, Anicteric and Moist Mucous Membranes
Cardiovascular: S1-S2, Regular Rhythm and Peripheral Edema (negative)
Respiratory: Crackles (Bilateral), Rhonchi (cough with ronchi), Non-Labored Respirations, Accessory Resp Muscle Use (negative), Stridor (negative) and Other (Reduced breath sounds in the right hemithorax)
GI: Soft, Non Distended, Non Tender and Normal Bowel Sounds
Neurology: Awake, Alert, Oriented, Tremors (negative) and Depressed
Skin: Warm, Dry, Jaundice (negative) and Rash (negative)
Labs/Micro/Reports
Lab Data
06/30/24 05:03
06/30/24 05:03
Microbiology
06/25/24 21:39 Blood/Venous Blood Culture - Preliminary
No Growth in 4 days- Final report to follow
06/25/24 21:36 Blood/Venous Blood Culture - Preliminary
No Growth in 4 days- Final report to follow
06/27/24 10:40 Sputum Respiratory Culture - Final
Usual Respiratory Ester
06/27/24 10:40 Sputum Gram Stain - Final
--- NOTE | 2024-06-30 11:12 | CM ---
Addendum entered by Rosa Kimball 06/30/24 11:23:
1400 pickle cutter
Pt and attending aware
VM left for son/Marcelo with update
Original Note:
CM reviewed pt with Dr Barrientos- ready for dc
Update to [facility] [place] who accepted pt for readmission
Return SNF referral and clinicals sent to [facility] via [facility]
Update to pt bedside
IMM verbally reviewed- copy provided
BLS transport forms completed
Discharge Disposition- return [facility]TC via BLS
Phone- [phone] Fax- [phone]
--- NOTE | 2024-06-30 12:34 | W.PN.HOSP.TC ---
Today's Communication/Plan
-
Prednisone taper until 10 mg daily
Doxycycline course
Neurology outpatient for Parkinson's and PARSONAGE-JAIN SYNDROME
Follow-up orthopedics outpatient, vascular patient
Follow-up PCP within 1 week, pulmonary has been scheduled
Assessment / Plan
Assessment / Plan
78yo F residing in facility with PMHx of COPD with chronic hypoxic respiratory failure on 2L home O2 and chronic prednisone, Parkinson, anxiety, HTN aortic aneurism, DJD, spontaneous neuritis, fall with L hip Fx s/p hemiarthroplasty on 06/21/24
discharged from SNF and sent back same day for hypoxia. Managed for bronchitis vs pneumonia - empiric Abx
Also found superior subluxation of humeral head L
Patient declining blood tests, mucinex due to GI intolerance, vest therapy 2/2 pain, MRI L shoulder. With multiple chronic comorbidities - reasonable to establish GOC, possible hospice advised - palliative ivan.
A/P:
#Acute on chronic hypoxic hypercapnic respiratory failure
#Bronchitis vs pneumonia vs excessive mucus production with plugging
Unfortunately patient could not tolerate vest and mucinex - pretty much mainstay for her therapy
COnt bronchodilators
Start DUoneb QID add LABA
IV steroids - switch to PO pred taper; then can cont 10mg daily as previous rxed depending on pulmonary outpatient
MRSA screen neg - stop Vanoc
DC cefepime; Can cont doxy for 5 days - not convinced this is bacterial pneumonia although will treat empirically
Legionella and S.pneumonia Ag urine neg
Cannot provide sputum Cx
Pulm consult
COVID-19 and Legionella neg
#superior subluxation of humeral head L with ' arm' syndrome
Ortho consult: advised MRI and repeated XR, LUE immobilization
-SEVERE ACUTE DIFFUSE MUSCLE EDEMA throughout the LEFT ROTATOR CUFF and LEFT DELTOID with mild diffuse muscle atrophy. 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
Idiopathic Brachial Plexitis).
-Ortho on board for next steps: recommended neurology outpatient follow-up
Advanced ulcerated plaque throughout the thoracic aorta.
f-/u vascular outpatient
#GOC
Multiple comorbidities and hospitalizations, patient declining blood test and most interventions - Palliative care consult for GOC
-wants full care - no hospice
#L impacted femoral neck/head fracture, possibly exacerbated by osteoporosis 2/2 Fall without LOC
#Chronic ambulatory dysfunction 2/2 Parkinson
Ortho mgmt: s/p L hip hemiarthroplasty on 06/21/24
THPs x 6 weeks
ASA 325mg daily x 4 weeks
Dressing to remain 7-10 days, unless soiled
Guffey out at 2 weeks (office or WNF)
If aubrey out at [facility] outpatient Ortho follow-up 4 weeks
pain mgmt
Most likely iatrogenic osteoporosis contributed to Fx - outpatient w/u/treatment advised
PT/OT, cont Sinemet
-F/u Ortho outpt
#Acute blood loss anemia 2/2 fracture and periOP blood loss
serial H&H
stable
#Old lacunar stroke
ASA (switch to ASA 81mg after 3 weeks of 325mg dose)
cont statin - cannot tolerate Lipitor, switched to rosuvastatin
#Essential HTN
#Anxiety d/o
#4.1cm AAA
#Anemia, chronic
follow CBC
cont home meds
follow up as outpatient for AAA
DVT ppx ASA as per Ortho
limited DNR (no CPR)
More than 30 minutes spent in discharge including
Final examination of the patient
Summarizing hospital stay
Instructions for continuing care to all relevant caregivers
Preparation of discharge records, prescriptions, and referral forms
Total time spent (35 in minutes):
Anticipated Discharge: Today
Subjective/Interval History
-
Date of Service: June 30, 2024
Feels better, no acute events overnight
Objective Data
-
Labs:
Laboratory Results
06/30/24
05:03
WBC 9.6
Hgb 7.8 L
Hct 25.7 L
Plt Count 401 H D
Sodium 140
Potassium 5.2 H
Chloride 106
Carbon Dioxide 25
BUN 43 H
Creatinine 0.7
Glucose 77
Calcium 9.6
Total Bilirubin 0.3
AST 20
ALT < 10
Alkaline Phosphatase 61
Vital Signs:
Vital Signs
Temp Pulse Resp BP Pulse Ox
97.5 F 87 20 160/66 95
06/30/24 07:50 06/30/24 11:40 06/30/24 11:40 06/30/24 07:51 06/30/24 11:40
I&O
06/29/24 06/30/24 07/01/24
06:59 06:59 06:59
Intake Total 1470 / 1470 360 / 360
Output Total 150 / 150 900 / 900 700 / 700
Balance -150 / -150 570 / 570 -340 / -340
Review of Systems
-
History Source: Patient
All other systems: Not reviewed unless documented
Physical Exam
-
General: Comfortable
HEENT: Moist Mucous Membranes
Respiratory: Wheezes
Cardiac: Regular Rhythm
GI: Soft, Nontender and Nondistended
Neuro: Other (L biceps paresis)
Psych: Calm
Data Reviewed
-
Diagnostic Radiology: Image personally visualized and interpreted and Report Reviewed by me
Labs: Labs Reviewed by me
--- NOTE | 2024-06-30 12:56 | W.DS.TRANS ---
DC Summary - [employer]
-
Discharge Instructions:
Discharge Diagnosis/Procedures #Acute on chronic hypoxic hypercapnic
respiratory failure
#Bronchitis vs pneumonia vs excessive mucus
production with plugging
#superior subluxation of humeral head L with '
arm' syndrome - parsonage morales syndrome.
Diet Low Cholesterol,Low Fat
Activity As tolerated
Blood Work cbc, bmp in 3-5 days
Instructions:
Stand-Alone Forms:
Changes to Home Medications: Yes
Discharge Medications:
DC Medications w/original date entered in [facility] [employer]
cholecalciferol (vitamin D3) 25 mcg (1,000 unit) tablet 25 mcg PO DAILY Supplement #0 tabs 04/12/24
diltiazem HCl 60 mg tablet 60 mg PO TID Heart disease/condition #0 tabs 04/12/24
ferrous sulfate 325 mg (65 mg iron) tablet 325 mg PO DAILY Supplement #0 tabs 04/12/24
losartan 100 mg tablet 100 mg PO DAILY Blood pressure #0 tabs 04/12/24
magnesium oxide 400 mg PO BID Supplement #0 tabs 04/12/24
metoprolol tartrate 25 mg tablet 25 mg PO BID Blood pressure #0 tabs 04/12/24
bisacodyl 10 mg rectal suppository (Dulcolax (bisacodyl)) 10 mg [place] DAILYPRN PRN if no bm by 3rd day 05/28/24
budesonide 0.5 mg/2 mL suspension for nebulization 0.5 mg inhalation R BID Lung/Breathing Issues 05/28/24
carbidopa 25 mg-levodopa 100 mg tablet 2 tab PO TID Neurological Condition 05/28/24
fexofenadine 180 mg tablet 180 mg PO DAILY Allergies 05/28/24
ipratropium 0.5 mg-albuterol 3 mg (2.5 mg base)/3 mL nebulization soln 3 ml inhalation R QID Lung/breathing issues 05/28/24
lidocaine 4 % topical cream 1 applic topical TID lower back pain 05/28/24
prednisone 10 mg tablet 10 mg PO DAILY Anti-Inflammatory 05/28/24
lidocaine 4 % topical patch 1 patch topical DAILY Pain #15 ea 06/03/24
acetaminophen 500 mg tablet (Tylenol Extra Strength) 1,000 mg (2 x 500 mg) PO TID Pain #0 tabs 06/05/24
hyoscyamine sulfate 0.125 mg tablet 0.125 mg PO Q4HPRN PRN secretions 06/05/24
loratadine 10 mg tablet 10 mg PO DAILY Allergies 06/05/24
magnesium hydroxide 400 mg/5 mL oral suspension (Milk of Magnesia) 2,400 mg PO HSPRN PRN if no bm by 2nd day 06/05/24
sodium chloride 0.65 % nasal spray aerosol 1 spray intranasal Q4HPRN PRN dryness 06/05/24
sodium phosphates 19 gram-7 gram/118 mL enema (Fleet Enema) 118 ml [place] DAILYPRN PRN if no bm by 4th day 06/05/24
aspirin 325 mg tablet 325 mg PO DAILY #28 tabs 06/24/24
docusate sodium 100 mg capsule 100 mg PO BID #60 caps 06/24/24
folic acid 1 mg tablet 1 mg PO DAILY #30 tabs 06/24/24
oxycodone 5 mg capsule 5 mg PO Q4H PRN moderate-severe pain #10 caps 06/24/24
pantoprazole 40 mg tablet,delayed release 40 mg PO DAILY #30 tabs 06/24/24
aspirin 81 mg capsule 81 mg PO DAILY #30 caps 06/25/24
lorazepam 0.5 mg tablet 0.5 mg PO Q6HPRN PRN anxiety #8 tabs 06/25/24
buspirone 10 mg tablet 10 mg PO BID #0 tabs 06/30/24
doxycycline hyclate 100 mg capsule 100 mg PO BID 3 days #6 caps 06/30/24
prednisone 10 mg tablet See Rx Instructions .Route .COMPLEX #45 tabs 06/30/24
rosuvastatin 20 mg tablet 20 mg PO QPM #10 tabs 06/30/24
Home Medication Changes
doxycycline hyclate 100 mg capsule 100 mg PO BID 3 days #6 caps 06/30/24
prednisone 10 mg tablet See Rx Instructions .Route .COMPLEX #45 tabs 06/30/24
rosuvastatin 20 mg tablet 20 mg PO QPM #10 tabs 06/30/24
Pending Results: No
== END 2024-06-30 15:11 | DRG 177 ==
LOC: IMU 22:31
PROVIDERS: Internal Medicine; Registered Nurse; ADMITTING PHYSICIAN Hospitalist; ATTENDING PHYSICIAN Internal Medicine; CONSULT PHYSICIAN Internal Medicine Hospice and Palliative Medicine; CONSULT PHYSICIAN Student in an Organized Health Care Education/Training Program; EMERGENCY PHYSICIAN Student in an Organized Health Care Education/Training Program; FAMILY PHYSICIAN Family Medicine; OTHER PHYSICIAN Internal Medicine Critical Care Medicine
DX: J69.0 Pneumonitis due to inhalation of food and vomit (principal); J96.21 Acute and chronic respiratory failure with hypoxia; J96.22 Acute and chronic respiratory failure with hypercapnia; J44.1 Chronic obstructive pulmonary disease with (acute) exacerbation; D62 Acute posthemorrhagic anemia; I67.81 Acute cerebrovascular insufficiency; J98.11 Atelectasis; G20.A1 Parkinson's disease without dyskinesia, without mention of fluctuations; Z79.52 Long term (current) use of systemic steroids; M79.2 Neuralgia and neuritis, unspecified; J20.9 Acute bronchitis, unspecified; S43.012A Anterior subluxation of left humerus, initial encounter; W19.XXXA Unspecified fall, initial encounter; Z11.52 Encounter for screening for COVID-19
CPT/HCPCS: 70450; 71045; 71275; 73000; 73020; 73030; 73221; 80048; 80053; 82962; 83605; 83880; 84145; 85025; 85027; 85610; 85730; 87040; 87070; 87205; 87449; 87502; 87641; 87811; 87899; 93005; 94640; 94667; 94669; 96374; 96375; 97110; 97163; 97167; 97530; 97535; 99285; Q9967

== ENCOUNTER → 2024-07-03 06:42 | Outpatient (REF) | payer MEDICARE, SELFPAY ==
[2024-07-03 07:51] LABS: Hematocrit 23.8 % (37.0-47.0); Hemoglobin 7.7 g/dL (12.0-16.0); Mean Corp Hgb Conc. 32.4 g/dL (33.0-37.0); Mean Corpuscular Hgb 32.2 pg (27.0-31.0); Mean Corpuscular Volume 99.6 fL (81.0-99.0); Platelet Count 468 10^3/uL (130-400); Red Blood Cell Count 2.39 10^6/uL (4.20-5.40); Red Cell Dist. Width 16.6 % (11.5-14.5)
[2024-07-03 07:55] LABS: ALT (SGPT) 10 U/L (0-35); AST (SGOT) 24 U/L (14-36); Albumin 3.1 g/dl (3.5-5.0); Alkaline Phosphatase 60 U/L (38-126); Blood Urea Nitrogen 31 mg/dl (7-17); Carbon Dioxide 28 mmol/L (22-30); Chloride 107 mmol/L (98-107); Glucose 83 mg/dl (70-99); Potassium 4.7 mmol/L (3.5-5.1); Sodium 142 mmol/L (135-145); Total Bilirubin 0.5 mg/dl (0.2-1.3); Total Protein 5.2 g/dl (6.3-8.2); eGFR > 60.00
== END ==
LOC: OLABWHC 06:42
PROVIDERS: ATTENDING PHYSICIAN Family Medicine
DX: I71.40 Abdominal aortic aneurysm, without rupture, unspecified (principal); J44.1 Chronic obstructive pulmonary disease with (acute) exacerbation; I10 Essential (primary) hypertension; J18.9 Pneumonia, unspecified organism; D64.9 Anemia, unspecified; E78.5 Hyperlipidemia, unspecified
CPT/HCPCS: 36415; 80053; 83735; 85027

== ENCOUNTER 2024-07-27 22:23 | Emergency (ER) | payer MEDICARE, SELFPAY ==
[2024-07-27 22:30] VITALS: BP 128/41
[2024-07-27 22:48] VITALS: BMI 23.5
[2024-07-27] MEDS: LET TOPICAL ANESTHETIC GEL 6 ML TOPICAL (23:10)
--- NOTE | 2024-07-27 23:45 | ED.GENMED ---
History of Present Illness
General
Chief Complaint: Fall
Time Seen by Provider: 07/27/24 22:41
History of Present Illness
History of Present Illness:
79-year-old female presents to the emergency department for evaluation of a right forearm laceration, she was reaching out of her bed to grab the call crane at her nursing facility when she fell. She denies head strike. There is a large skin
tear/laceration to the right forearm. 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 Denies any other injuries or pain
Past History
Past History
ED Past Medical History: Cancer (Endometrial Cancer), COPD, HTN and Other (Parkinson's, Home oxygen at 2 liters, abd aneurysm. Rib fractures)
ED Past Surgical History: Cholecystectomy and Gynecological (Hysterectomy)
Social History
Tobacco: Former smoker
Alcohol: None
Personal:
Living: half-way
Family History
Family History: Asthma and Other (non applicable )
Review of Systems
Review of Systems
Allergies reviewed?: Yes
All Other Systems: ROS reviewed and negative except as documented in HPI and ROS
Phy Exam
Physical Exam
Physical Exam:
GEN: Well appearing, NAD, WDWN
HEENT: Oral mucosa moist, no scleral icterus
Cardiac: Regular rate
Lung: No respiratory distress, no tachypnea
MSK: No gross deformity or injuries
Skin: Good color, no pallor or jaundice, no rashes. 12 cm curvilinear skin tear to the right forearm, no active bleeding, no visible tendinous structures
Neuro: AO x3, dense left-sided hemiparesis baseline
Psych: Calm, cooperative
Course
Orders/Labs/Results
Orders:
Orders
07/27/24 22:54
Lidocaine/Epinephrine/Tetracai [Let Topical Anesthetic Gel] 6 ml TOPICAL NOW STA
Vital Signs
Initial and Last Documented VS:
Initial Vital Signs
Temp Pulse Resp BP Pulse Ox
98.2 F 70 14 128/41 95
07/27/24 22:30 07/27/24 22:30 07/27/24 22:30 07/27/24 22:30 07/27/24 22:30
Last Documented Vital Signs
Temp Pulse Resp BP Pulse Ox
98.2 F 70 14 128/41 95
07/27/24 22:30 07/27/24 22:30 07/27/24 22:30 07/27/24 22:30 07/27/24 22:41
MDM/Problems Addressed
MDM/Problems Addressed:
Wound repaired with Steri-Strips after irrigation. No signs of cranial trauma.
*Critical Care Note
Total Time (30-74mins, 75-104mins- exclusive of procedures): Not Applicable
ED Attending Note
-
Portions of this chart may have been created with voice recognition software.� Occasional wrong word or��sound alike� substitutions may have occurred due to the inherent limitations of voice recognition software.
Discharge Plan
Departure
Patient Disposition: Home (Routine Discharge)
Date of Disposition: 07/27/24
Time of Disposition: 23:48
Patient with high blood pressure during this ER visit?: No
Discharge Problem:
Laceration of forearm, right
Instructions: Laceration Repair With Glue (DC)
Prescriptions:
No Action
ferrous sulfate 325 mg (65 mg iron) Tablet
325 mg PO DAILY Qty: 0 0RF
losartan 100 mg Tablet
100 mg PO DAILY Qty: 0 0RF
diltiazem HCl 60 mg Tablet
60 mg PO TID Qty: 0 0RF
metoprolol tartrate 25 mg Tablet
25 mg PO BID Qty: 0 0RF
cholecalciferol (vitamin D3) 25 mcg (1,000 unit) Tablet
25 mcg PO DAILY Qty: 0 0RF
magnesium oxide 400 mg magnesium Tablet
400 mg PO BID Qty: 0 0RF
fexofenadine 180 mg Tablet
180 mg PO DAILY
prednisone 10 mg Tablet
10 mg PO DAILY
lidocaine 4 % Cream
1 applic TOPICAL TID
bisacodyl [Dulcolax (bisacodyl)] 10 mg Suppository
10 mg [place] DAILYPRN PRN (Reason: if no bm by 3rd day)
budesonide 0.5 mg/2 mL Suspension For Nebulization
0.5 mg INHALATION R BID
ipratropium-albuterol 0.5 mg-3 mg(2.5 mg base)/3 mL solution for nebulization
3 ml INHALATION R QID
carbidopa-levodopa 25-100 mg tablet
2 tab PO TID
lidocaine 4 % Adhesive Patch,Medicated
1 patch topical DAILY Qty: 15 0RF
Rx Instructions:
left rib and back
magnesium hydroxide [Milk of Magnesia] 400 mg/5 mL Suspension
2,400 mg PO HSPRN PRN (Reason: if no bm by 2nd day)
hyoscyamine sulfate 0.125 mg Tablet
0.125 mg PO Q4HPRN PRN (Reason: secretions)
Fleet Enema 19-7 gram/118 mL Enema
118 ml [place] DAILYPRN PRN (Reason: if no bm by 4th day)
loratadine 10 mg Tablet
10 mg PO DAILY
sodium chloride 0.65 % Aerosol,[place]
1 spray INTRANASAL Q4HPRN PRN (Reason: dryness)
acetaminophen [Tylenol Extra Strength] 500 mg Tablet
1,000 mg PO TID Qty: 0 0RF
aspirin 325 mg Tablet
325 mg PO DAILY Qty: 28 0RF
docusate sodium 100 mg Capsule
100 mg PO BID Qty: 60 0RF
folic acid 1 mg Tablet
1 mg PO DAILY Qty: 30 0RF
pantoprazole 40 mg Tablet,Delayed Release (Dr/Ec)
40 mg PO DAILY Qty: 30 0RF
oxycodone 5 mg capsule
5 mg PO Q4H PRN (Reason: moderate-severe pain) Qty: 10 0RF
aspirin 81 mg capsule
81 mg PO DAILY Qty: 30 0RF
Rx Instructions:
start on 07/24/24
lorazepam 0.5 mg Tablet
0.5 mg PO Q6HPRN PRN (Reason: anxiety) Qty: 8 0RF
doxycycline hyclate 100 mg Capsule
100 mg PO BID 3 Days Qty: 6 0RF
buspirone 10 mg Tablet
10 mg PO BID Qty: 0 0RF
rosuvastatin 20 mg Tablet
20 mg PO QPM Qty: 10 0RF
prednisone 10 mg Tablet
See Rx Instructions .ROUTE .COMPLEX Qty: 45 0RF
Rx Instructions:
Take By Mouth:
50 mg daily x3 days, 40 mg daily x3 days,
30 mg daily x3 days, 20 mg daily x3 days,
10 mg daily: continue as per pulmonary
Referrals:
Johan Motley MD [Family Provider] -
Activity Restrictions/Additional Instructions:
The wound may be cleaned in the shower starting tomorrow evening
As the Steri-Strips peeled back please cut them do not attempt to remove them
If there is any redness or swelling please return for reevaluation
Interventions
Interventions:
*Risk Screen - Suicide Last Done: 07/27/24 22:30
*General Assessment Last Done: 07/27/24 22:30
*Neglect/Abuse Screening Last Done: 07/27/24 22:30
ED- Fall Risk Assessment Last Done: 07/27/24 22:41
ED-Musculoskeletal Assessment Last Done: 07/27/24 22:47
ED- Neurological Assessment Last Done: 07/27/24 22:41
ED-Skin Assessment Last Done: 07/27/24 22:41
Discharge Date and Time
Print Language: YAKUT
== END 2024-07-28 02:45 | disposition home or self-care (01) ==
LOC: EMR 22:23
PROVIDERS: EMERGENCY PHYSICIAN Emergency Medicine; FAMILY PHYSICIAN Family Medicine
DX: S51.811A Laceration without foreign body of right forearm, initial encounter (principal); W06.XXXA Fall from bed, initial encounter; Z87.891 Personal history of nicotine dependence
CPT/HCPCS: 99282

== ENCOUNTER 2024-08-07 00:45 | Emergency (ER) | payer MEDICARE, SELFPAY ==
[2024-08-07] VITALS (11 sets, daily range): BP systolic 119–159; BP diastolic 50–91; BMI 23.5
--- NOTE | 2024-08-07 07:09 | ED.GENMED ---
History of Present Illness
General
Chief Complaint: Fall
Source: patient
Exam Limitations: none
Time Seen by Provider: 08/07/24 07:08
Nursing documentation reviewed up to this point in time: agreed with
History of Present Illness
History of Present Illness:
Patient is a 79-year-old female from assisted living with history of Parkinson's. She reports she was trying to put on her nightgown and fell. She does report she hit her head on the wall and complains of right hip pain. She is awake alert and
able to give a full history. She denies any nausea vomiting. Denies any back pain neck pain.
She reports that she tries to use a walker which she is not really supposed to and usually uses a wheelchair and transfers with assistance.
Past History
Past History
ED Past Medical History: Cancer (Endometrial Cancer), COPD, HTN and Other (Parkinson's, Home oxygen at 2 liters, abd aneurysm. Rib fractures)
ED Past Surgical History: Cholecystectomy and Gynecological (Hysterectomy)
Social History
Tobacco: Former smoker
Alcohol: None
Personal:
Living: custodial
Family History
Family History: Asthma and Other (non applicable )
Review of Systems
Review of Systems
Allergies reviewed?: Yes
All Other Systems: ROS reviewed and negative except as documented in HPI and ROS
Constitutional: Reports no symptoms
Respiratory: Reports no symptoms
Cardiac: Reports no symptoms
ABD/GI: Reports no symptoms; Denies nausea or vomiting
Musculoskeletal: Reports other (Right hip pain right groin pain)
Skin: Reports no symptoms
Neurological: Reports other ('my scalp is sore' )
Psychiatric: Reports no symptoms
Phy Exam
General Physical Exam
General Presentation: no apparent distress
General age: appears stated age
General Skin: warm and dry
General Habitus: elderly
General Mental: alert
General Hydration: dry mucous membranes
Cardiovascular Exam
Cardiovascular Exam: regular rate/rhythm, no murmur and normal peripheral pulses
Pulmonary Exam
Pulmonary Exam: lungs clear and no respiratory distress
Musculoskeletal Exam
Musculoskeletal Exam: other (No obvious tender on exam patient has ecchymosis and tenderness to right lateral hip mild discomfort with range of motion however able to lift leg off the stretcher)
Skin Exam
Skin Exam: normal color and cyanosis
Psychiatric Exam
Psychiatric Exam: normal mood/affect
Course
Orders/Labs/Results
Orders:
Orders
08/07/24 04:07
CR Hips SASHA w/wo Pel 2 Vw Urgent
Comment:
Reason For Exam: FALL
Include a pelvis x-ray?: Yes
08/07/24 07:16
CT Head W/o Iv Contrast Urgent
Comment:
Reason For Exam: trauma
CT Lower Ext W/o Iv Cont Rt Urgent
Comment:
Reason For Exam: pain in right hip/groin s/p trauma
Vital Signs
Initial and Last Documented VS:
Initial Vital Signs
Temp Pulse Resp BP Pulse Ox
98.1 F 73 18 138/91 97
08/07/24 01:36 08/07/24 01:36 08/07/24 01:36 08/07/24 01:36 08/07/24 01:36
Last Documented Vital Signs
Temp Pulse Resp BP Pulse Ox
98.1 F 78 18 119/50 97
08/07/24 01:36 08/07/24 08:00 08/07/24 01:36 08/07/24 08:00 08/07/24 04:40
MDM/Problems Addressed
Differential Diagnosis Includes:
Not limited to hip fracture, contusion, pelvic fracture, head injury
MDM/Problems Addressed:
Symptoms are consistent with right lateral hip contusion. CAT scan was done which is negative for any pelvic fracture, hip fracture. Patient's CAT scan of her head is also negative. She is on blood thinners. She has a history of Parkinson's and
is very unsteady she is able to stand with assistance of nurses and walker but reports she is normally not supposed to use a walker she normally uses a wheelchair. Fall likely related to Parkinson's balance issues with negative CAT scans a safer
discharge back to nursing facility
Chronic conditions affecting care:
Parkinson's
*Radiology
Radiology exam reviewed: radiology read reviewed
*Pulse Oximetry
Patient hypoxic: no
*Critical Care Note
Total Time (30-74mins, 75-104mins- exclusive of procedures): Not Applicable
ED Attending Note
-
Portions of this chart may have been created with voice recognition software.� Occasional wrong word or��sound alike� substitutions may have occurred due to the inherent limitations of voice recognition software.
Discharge Plan
Departure
Patient Disposition: Detention/SNF
Date of Disposition: 08/07/24
Time of Disposition: 10:23
Patient with high blood pressure during this ER visit?: Yes
Condition: Fair
Covid-19: Not Applicable
Discharge Problem:
Contusion of hip
Instructions: Contusion (DC)
Prescriptions:
No Action
ferrous sulfate 325 mg (65 mg iron) Tablet
325 mg PO DAILY Qty: 0 0RF
losartan 100 mg Tablet
100 mg PO DAILY Qty: 0 0RF
diltiazem HCl 60 mg Tablet
60 mg PO TID Qty: 0 0RF
metoprolol tartrate 25 mg Tablet
25 mg PO BID Qty: 0 0RF
cholecalciferol (vitamin D3) 25 mcg (1,000 unit) Tablet
25 mcg PO DAILY Qty: 0 0RF
magnesium oxide 400 mg magnesium Tablet
400 mg PO BID Qty: 0 0RF
fexofenadine 180 mg Tablet
180 mg PO DAILY
prednisone 10 mg Tablet
10 mg PO DAILY
lidocaine 4 % Cream
1 applic TOPICAL TID
bisacodyl [Dulcolax (bisacodyl)] 10 mg Suppository
10 mg [place] DAILYPRN PRN (Reason: if no bm by 3rd day)
budesonide 0.5 mg/2 mL Suspension For Nebulization
0.5 mg INHALATION R BID
ipratropium-albuterol 0.5 mg-3 mg(2.5 mg base)/3 mL solution for nebulization
3 ml INHALATION R QID
carbidopa-levodopa 25-100 mg tablet
2 tab PO TID
lidocaine 4 % Adhesive Patch,Medicated
1 patch topical DAILY Qty: 15 0RF
Rx Instructions:
left rib and back
magnesium hydroxide [Milk of Magnesia] 400 mg/5 mL Suspension
2,400 mg PO HSPRN PRN (Reason: if no bm by 2nd day)
hyoscyamine sulfate 0.125 mg Tablet
0.125 mg PO Q4HPRN PRN (Reason: secretions)
Fleet Enema 19-7 gram/118 mL Enema
118 ml [place] DAILYPRN PRN (Reason: if no bm by 4th day)
loratadine 10 mg Tablet
10 mg PO DAILY
sodium chloride 0.65 % Aerosol,[place]
1 spray INTRANASAL Q4HPRN PRN (Reason: dryness)
acetaminophen [Tylenol Extra Strength] 500 mg Tablet
1,000 mg PO TID Qty: 0 0RF
aspirin 325 mg Tablet
325 mg PO DAILY Qty: 28 0RF
docusate sodium 100 mg Capsule
100 mg PO BID Qty: 60 0RF
folic acid 1 mg Tablet
1 mg PO DAILY Qty: 30 0RF
pantoprazole 40 mg Tablet,Delayed Release (Dr/Ec)
40 mg PO DAILY Qty: 30 0RF
oxycodone 5 mg capsule
5 mg PO Q4H PRN (Reason: moderate-severe pain) Qty: 10 0RF
aspirin 81 mg capsule
81 mg PO DAILY Qty: 30 0RF
Rx Instructions:
start on 07/24/24
lorazepam 0.5 mg Tablet
0.5 mg PO Q6HPRN PRN (Reason: anxiety) Qty: 8 0RF
doxycycline hyclate 100 mg Capsule
100 mg PO BID 3 Days Qty: 6 0RF
buspirone 10 mg Tablet
10 mg PO BID Qty: 0 0RF
rosuvastatin 20 mg Tablet
20 mg PO QPM Qty: 10 0RF
prednisone 10 mg Tablet
See Rx Instructions .ROUTE .COMPLEX Qty: 45 0RF
Rx Instructions:
Take By Mouth:
50 mg daily x3 days, 40 mg daily x3 days,
30 mg daily x3 days, 20 mg daily x3 days,
10 mg daily: continue as per pulmonary
Referrals:
Johan Motley MD [Family Provider] -
Activity Restrictions/Additional Instructions:
X-rays and CAT scans were done of the patient's hip which were negative for pelvic fracture negative for hip fracture. Patient was able to stand with a walker with assistance. CAT scan of head was also done and negative. Patient stable for
discharge home symptoms are consistent with contusion. Ice and Tylenol as needed. Follow-up with family doctor next several days. Return if any worsening of symptoms.
Interventions
Interventions:
*Risk Screen - Suicide Last Done: 08/07/24 01:36
*General Assessment Last Done: 08/07/24 01:36
*Neglect/Abuse Screening Last Done: 08/07/24 01:36
ED-Musculoskeletal Assessment Last Done: 08/07/24 01:36
ED- Neurological Assessment Last Done: 08/07/24 01:36
ED-Skin Assessment Last Done: 08/07/24 01:36
Discharge Date and Time
Print Language: TOGOLESE
== END 2024-08-07 13:10 ==
LOC: EMR 00:45
PROVIDERS: EMERGENCY PHYSICIAN Emergency Medicine; FAMILY PHYSICIAN Family Medicine
DX: S70.01XA Contusion of right hip, initial encounter (principal); W19.XXXA Unspecified fall, initial encounter; G20.A1 Parkinson's disease without dyskinesia, without mention of fluctuations; I10 Essential (primary) hypertension; Z87.891 Personal history of nicotine dependence
CPT/HCPCS: 99284; 70450; 73521; 73700

== ENCOUNTER → 2024-09-10 12:09 | Outpatient (REF) | payer MEDICARE, SELFPAY ==
[2024-09-10 13:49] LABS: Hematocrit 30.1 % (37.0-47.0); Hemoglobin 9.1 g/dL (12.0-16.0); Mean Corp Hgb Conc. 30.2 g/dL (33.0-37.0); Mean Corpuscular Hgb 31.8 pg (27.0-31.0); Mean Corpuscular Volume 105.2 fL (81.0-99.0); Mean Platelet Volume 9.3 fL (7.4-10.4); Platelet Count 256 10^3/uL (130-400); Red Blood Cell Count 2.86 10^6/uL (4.20-5.40); Red Cell Dist. Width 13.4 % (11.5-14.5); White Blood Cell Count 5.6 10^3/uL (4.8-10.8)
[2024-09-10 14:25] LABS: ALT (SGPT) < 10 U/L (0-35); AST (SGOT) 16 U/L (14-36); Albumin 3.4 g/dl (3.5-5.0); Alkaline Phosphatase 54 U/L (38-126); Blood Urea Nitrogen 30 mg/dl (7-17); Calcium 9.2 mg/dl (8.4-10.2); Carbon Dioxide 32 mmol/L (22-30); Chloride 99 mmol/L (98-107); Glucose 91 mg/dl (70-99); Magnesium 2.1 mg/dl (1.6-2.3); Potassium 4.3 mmol/L (3.5-5.1); Sodium 137 mmol/L (135-145); Total Bilirubin 0.5 mg/dl (0.2-1.3); Total Protein 5.6 g/dl (6.3-8.2); eGFR > 60.00
[2024-09-10 18:33] LABS: Urine Albumin 1+ (Neg - Trace); Urine Bilirubin Negative (Negative); Urine Character Clear (Clear); Urine Color Yellow; Urine Glucose Negative (Negative); Urine Ketone Negative (Negative); Urine Leukocyte 1+ (Negative); Urine Nitrite Negative (Negative); Urine Occult Blood Negative (Negative); Urine Urobilinogen Negative (Neg - 1+); Urine pH 6.5 (5.0-9.0)
[2024-09-10 18:43] LABS: Urine Bacteria Moderate (Negative); Urine Red Blood Cell 0-2 /HPF (0-2)
== END ==
LOC: OLABWHC 12:09
PROVIDERS: ATTENDING PHYSICIAN Family Medicine
DX: D64.9 Anemia, unspecified (principal); E78.5 Hyperlipidemia, unspecified; M62.81 Muscle weakness (generalized); R35.0 Frequency of micturition; N39.0 Urinary tract infection, site not specified
CPT/HCPCS: 36415; 80053; 81003; 81015; 83735; 85027; 87086

== ENCOUNTER 2024-10-16 03:25 | Emergency (ER) | payer MEDICARE, SELFPAY ==
[2024-10-16 03:28] VITALS: BP 152/67; BMI 23.8
--- NOTE | 2024-10-16 06:39 | ED.GENMED ---
History of Present Illness
General
Chief Complaint: Fall
Source: patient
Time Seen by Provider: 10/16/24 06:19
History of Present Illness
History of Present Illness:
79-year-old female presents to the emergency room complaining of low back pain and left hip pain after falling while trying to get into bed. No head injury. No fever or chills.
Past History
Past History
ED Past Medical History: Cancer (Endometrial Cancer), COPD, HTN and Other (Parkinson's, Home oxygen at 2 liters, abd aneurysm. Rib fractures)
ED Past Surgical History: Cholecystectomy and Gynecological (Hysterectomy)
Social History
Tobacco: Former smoker
Alcohol: None
Personal:
Living: alf
Family History
Family History: Asthma and Other (non applicable )
Phy Exam
Physical Exam
Physical Exam:
General: Awake, Alert, Oriented X3. No acute distress. Appears chronically ill.
Vitals: unremarkable
Head: Atraumatic
Eyes: Pupils equal, EOMI
Throat: Airway intact, no exudates
Neck: Trachea midline
Lungs: Clear and equal b/l
Heart: Regular rate, no murmurs
Abd: Soft, Nontender, No pulsatile mass
Back: Some tenderness palpation in the upper lumbar region
Neuro: Nonfocal
Skin: Warm, dry, no rash
Extremities: pulses equal b/l, no edema
Course
Orders/Labs/Results
Orders:
Orders
10/16/24 04:18
CR Lumbar Spine 2 Or 3 Views Urgent
Reason For Exam: fall from standing
Hips, Bilat 5 view W/AP Pelvis [CR Hips SASHA w/wo Pel Min 5 Vw*] Urgent
Comment:
Reason For Exam: Fall from standing b/l hip pain
Include a pelvis x-ray?: Yes
10/16/24 09:25
Ipratropium/Albuterol Sulfate [Duoneb] 3 ml .ROUTE .STK-MED ONE
10/16/24 09:27
Ipratropium/Albuterol Sulfate [Duoneb] 3 ml INH R NOW ONE
Vital Signs
Initial and Last Documented VS:
Initial Vital Signs
Temp Pulse Resp BP Pulse Ox
98.5 F 69 20 152/67 95
10/16/24 03:28 10/16/24 03:28 10/16/24 03:28 10/16/24 03:28 10/16/24 03:28
Last Documented Vital Signs
Temp Pulse Resp BP Pulse Ox
98.5 F 74 18 139/65 97
10/16/24 03:28 10/16/24 09:24 10/16/24 09:24 10/16/24 09:24 10/16/24 09:51
MDM/Problems Addressed
Differential Diagnosis Includes:
Contusion, hip fracture, lumbar fracture
MDM/Problems Addressed:
Patient presents for evaluation after a fall at her alf. Hip x-rays appear stable. Lumbar spine imaging appears to indicate a compression fracture of L1. Patient's pain does not seem uncontrolled. She declines any additional pain
medicine at this time.
*Radiology
Radiology exam reviewed: preliminary read by ED provider (L1 compression fracture which appears to be acute. Hip imaging appears to show no acute fracture)
*Pulse Oximetry
Patient hypoxic: no
*Critical Care Note
Total Time (30-74mins, 75-104mins- exclusive of procedures): Not Applicable
ED Attending Note
-
Portions of this chart may have been created with voice recognition software.� Occasional wrong word or��sound alike� substitutions may have occurred due to the inherent limitations of voice recognition software.
Discharge Plan
Departure
Patient Disposition: Penitentiary/SNF
Date of Disposition: 10/16/24
Time of Disposition: 06:42
Condition: Fair
Discharge Problem:
Closed compression fracture of L1 vertebra
Instructions: Vertebral Compression Fracture ED
Prescriptions:
No Action
ferrous sulfate 325 mg (65 mg iron) Tablet
325 mg PO DAILY Qty: 0 0RF
losartan 100 mg Tablet
100 mg PO DAILY Qty: 0 0RF
diltiazem HCl 60 mg Tablet
60 mg PO TID Qty: 0 0RF
metoprolol tartrate 25 mg Tablet
25 mg PO BID Qty: 0 0RF
cholecalciferol (vitamin D3) 25 mcg (1,000 unit) Tablet
25 mcg PO DAILY Qty: 0 0RF
magnesium oxide 400 mg magnesium Tablet
400 mg PO BID Qty: 0 0RF
fexofenadine 180 mg Tablet
180 mg PO DAILY
prednisone 10 mg Tablet
10 mg PO DAILY
lidocaine 4 % Cream
1 applic TOPICAL TID
bisacodyl [Dulcolax (bisacodyl)] 10 mg Suppository
10 mg [place] DAILYPRN PRN (Reason: if no bm by 3rd day)
budesonide 0.5 mg/2 mL Suspension For Nebulization
0.5 mg INHALATION R BID
ipratropium-albuterol 0.5 mg-3 mg(2.5 mg base)/3 mL solution for nebulization
3 ml INHALATION R QID
carbidopa-levodopa 25-100 mg tablet
2 tab PO TID
lidocaine 4 % Adhesive Patch,Medicated
1 patch topical DAILY Qty: 15 0RF
Rx Instructions:
left rib and back
magnesium hydroxide [Milk of Magnesia] 400 mg/5 mL Suspension
2,400 mg PO HSPRN PRN (Reason: if no bm by 2nd day)
hyoscyamine sulfate 0.125 mg Tablet
0.125 mg PO Q4HPRN PRN (Reason: secretions)
Fleet Enema 19-7 gram/118 mL Enema
118 ml [place] DAILYPRN PRN (Reason: if no bm by 4th day)
loratadine 10 mg Tablet
10 mg PO DAILY
sodium chloride 0.65 % Aerosol,[place]
1 spray INTRANASAL Q4HPRN PRN (Reason: dryness)
acetaminophen [Tylenol Extra Strength] 500 mg Tablet
1,000 mg PO TID Qty: 0 0RF
aspirin 325 mg Tablet
325 mg PO DAILY Qty: 28 0RF
docusate sodium 100 mg Capsule
100 mg PO BID Qty: 60 0RF
folic acid 1 mg Tablet
1 mg PO DAILY Qty: 30 0RF
pantoprazole 40 mg Tablet,Delayed Release (Dr/Ec)
40 mg PO DAILY Qty: 30 0RF
oxycodone 5 mg capsule
5 mg PO Q4H PRN (Reason: moderate-severe pain) Qty: 10 0RF
aspirin 81 mg capsule
81 mg PO DAILY Qty: 30 0RF
Rx Instructions:
start on 07/24/24
lorazepam 0.5 mg Tablet
0.5 mg PO Q6HPRN PRN (Reason: anxiety) Qty: 8 0RF
doxycycline hyclate 100 mg Capsule
100 mg PO BID 3 Days Qty: 6 0RF
buspirone 10 mg Tablet
10 mg PO BID Qty: 0 0RF
rosuvastatin 20 mg Tablet
20 mg PO QPM Qty: 10 0RF
prednisone 10 mg Tablet
See Rx Instructions .ROUTE .COMPLEX Qty: 45 0RF
Rx Instructions:
Take By Mouth:
50 mg daily x3 days, 40 mg daily x3 days,
30 mg daily x3 days, 20 mg daily x3 days,
10 mg daily: continue as per pulmonary
Referrals:
Gato Torres MD [Active] -
Johan Motley MD [Family Provider] -
Activity Restrictions/Additional Instructions:
Imaging shows a compression fracture of the L1 vertebrae. This appears to be new when compared to previous imaging. I have provided contact information for Dr. Torres who is a pain management physician that handles this type issue if you are
having pain that needs further intervention. Many times he will have pain for a few days which will resolve and need no further treatment.
Interventions
Interventions:
*Risk Screen - Suicide Last Done: 10/16/24 03:28
*General Assessment Last Done: 10/16/24 03:28
*Neglect/Abuse Screening Last Done: 10/16/24 03:28
*ED- Fall Risk Assessment Last Done: 10/16/24 03:28
*ED COVID-19 Vaccine History Last Done: 10/16/24 03:28
*Nursing Disposition Last Done: 10/16/24 09:51
ED-Musculoskeletal Assessment Last Done: 10/16/24 03:28
ED- Neurological Assessment Last Done: 10/16/24 03:28
ED-Skin Assessment Last Done: 10/16/24 03:28
Discharge Date and Time
Discharge Date/Time: 10/16/24 09:52
Print Language: PERSIAN
[2024-10-16 09:24] VITALS: BP 139/65
[2024-10-16] MEDS: DUONEB 3 ML INH (09:27)
== END 2024-10-16 09:52 ==
LOC: EMR 03:25
PROVIDERS: EMERGENCY PHYSICIAN Emergency Medicine; FAMILY PHYSICIAN Family Medicine
DX: S32.018A Other fracture of first lumbar vertebra, initial encounter for closed fracture (principal); W06.XXXA Fall from bed, initial encounter; Z87.891 Personal history of nicotine dependence
CPT/HCPCS: 99283; 94640; 72100; 73523

== ENCOUNTER → 2024-10-20 09:54 | Outpatient (REF) | payer MEDICARE, SELFPAY ==
[2024-10-20 10:10] LABS: Urine Albumin 1+ (Neg - Trace); Urine Bilirubin Negative (Negative); Urine Character Clear (Clear); Urine Color Yellow; Urine Glucose Negative (Negative); Urine Ketone Negative (Negative); Urine Leukocyte 3+ (Negative); Urine Nitrite Positive (Negative); Urine Occult Blood 2+ (Negative); Urine Urobilinogen Negative (Neg - 1+); Urine pH 6.5 (5.0-9.0)
[2024-10-20 10:50] LABS: Urine Bacteria Moderate (Negative); Urine White Cell >100 /HPF (0-5)
[2024-10-20 10:51] LABS: Urine Red Blood Cell 0-2 /HPF (0-2)
[2024-10-20 10:52] LABS: Urine Squamous Cell >30 /LPF (Few)
== END ==
LOC: OLABWHC 09:54
PROVIDERS: ATTENDING PHYSICIAN Family Medicine
DX: R29.6 Repeated falls (principal); N39.0 Urinary tract infection, site not specified
CPT/HCPCS: 36415; 81003; 81015; 87077; 87086; 87186

== ENCOUNTER 2024-10-23 00:37 | Emergency (ER) | payer MEDICARE, SELFPAY ==
[2024-10-23] VITALS (8 sets, daily range): BP systolic 118–156; BP diastolic 58–124; BMI 23.5
[2024-10-23] MEDS: DUONEB 3 ML INH ×2 (01:28→09:55)
--- NOTE | 2024-10-23 05:43 | ED.GENMED ---
History of Present Illness
General
Chief Complaint: Fall
Source: patient
Time Seen by Provider: 10/23/24 05:01
History of Present Illness
History of Present Illness:
Pleasant 79-year-old female presents with buttock pain. She states she was getting up to go to the bathroom when she fell. Patient does have chronic sacral pain and has been to the emergency department several times for this pain. She states that
her pain is not new. She thinks she worsened the pain with the fall. At time of my second exam, patient was denying all musculoskeletal pain stating that while resting in the bed she had no issues. She did say she had an episode of chest
discomfort right after the fall. That has since resolved.
Past History
Past History
ED Past Medical History: Cancer (Endometrial Cancer), COPD, HTN and Other (Parkinson's, Home oxygen at 2 liters, abd aneurysm. Rib fractures)
ED Past Surgical History: Cholecystectomy and Gynecological (Hysterectomy)
Social History
Tobacco: Former smoker
Alcohol: None
Personal:
Living: longterm
Family History
Family History: Asthma and Other (non applicable )
Review of Systems
Review of Systems
Allergies reviewed?: Yes
All Other Systems: ROS reviewed and negative except as documented in HPI and ROS
Constitutional: Reports no symptoms
EENT: Reports no symptoms
Respiratory: Reports no symptoms
Cardiac: Reports chest pain; Denies syncope
ABD/GI: Reports no symptoms
: Reports no symptoms
Musculoskeletal: Reports joint pain and muscle stiffness
Skin: Reports no symptoms
Neurological: Reports no symptoms
Endocrine: Reports no symptoms
Hematologic/Lymphatic: Reports no symptoms
Psychiatric: Reports no symptoms
Phy Exam
General Physical Exam
General Presentation: well appearing and other (Chronically ill-appearing)
General age: appears stated age
General Habitus: elderly and frail
General Mental: alert
General Hydration: appears well hydrated
Cardiovascular Exam
Cardiovascular Exam: regular rate/rhythm
Pulmonary Exam
Pulmonary Exam: lungs clear and no respiratory distress
Gastrointestinal Exam
Gastrointestinal Exam: normal bowel sounds and non tender
Neurological Exam
Neurological Exam: alert and oriented x3
Skin Exam
Skin Exam: normal color and warm/dry
Psychiatric Exam
Psychiatric Exam: normal mood/affect
Course
Orders/Labs/Results
Orders:
Orders
10/23/24
Electrocardiogram (*1) Stat
Reason for Study: Chest Pain
Comment: DONE
10/23/24 01:23
Ipratropium/Albuterol Sulfate [Duoneb] 3 ml .ROUTE .STK-MED ONE
10/23/24 01:27
Ipratropium/Albuterol Sulfate [Duoneb] 3 ml INH R NOW ONE
10/23/24 04:58
Coccyx/Sacrum, 2 View CR [CR Sacrum/coccyx Min 2 View] Urgent
Comment:
Reason For Exam: fall
10/23/24 05:50
Complete Blood Count/With Diff Urgent
Troponin I Urgent
10/23/24 06:25
Comprehensive Metabolic Panel Urgent
Abnormal Lab Results
10/23/24
05:50
RBC 3.23 L 10^6/uL
(4.20-5.40)
Hgb 10.2 L g/dL
(12.0-16.0)
Hct 32.3 L %
(37.0-47.0)
MCV 100.0 H fL
(81.0-99.0)
MCH 31.6 H pg
(27.0-31.0)
MCHC 31.6 L g/dL
(33.0-37.0)
Absolute Lymphs (auto) 0.9 L 10^3/uL
(1.2-3.4)
Absolute Monos (auto) 0.8 H 10^3/uL
(0.1-0.6)
Immature Gran % 0.6 H %
(0-0.5)
Lymphocytes % 12.7 L %
(20.5-51.1)
Monocytes % 12.1 H %
(1.7-9.3)
10/23/24 05:50
Vital Signs
Initial and Last Documented VS:
Initial Vital Signs
Temp Pulse Resp BP Pulse Ox
98.3 F 69 30 123/94 95
10/23/24 01:13 10/23/24 01:13 10/23/24 01:13 10/23/24 01:13 10/23/24 01:13
Last Documented Vital Signs
Temp Pulse Resp BP Pulse Ox
98.3 F 84 20 124/86 97
10/23/24 01:13 10/23/24 06:30 10/23/24 06:30 10/23/24 06:00 10/23/24 06:30
*Critical Care Note
Total Time (30-74mins, 75-104mins- exclusive of procedures): Not Applicable
Update Note
Update Note:
Patient went over to x-ray to get a film of her pelvis. She states that she has no pain at this time. She admits that she did not fall today. Has no complaints at this time.
EKG shows normal sinus rhythm with a right bundle branch block rate of 81 with normal intervals, left-sided axis. No evidence of acute ischemia present.
Troponin is negative.
ED Attending Note
-
Portions of this chart may have been created with voice recognition software.� Occasional wrong word or��sound alike� substitutions may have occurred due to the inherent limitations of voice recognition software.
Discharge Plan
Departure
Patient Disposition: Long Term/SNF
Date of Disposition: 10/23/24
Time of Disposition: 06:54
Discharge Problem:
Chronic pain, Musculoskeletal pain
Instructions: Preventing falls in adults, Muscle, joint, and bone pain - Discharge instructions, BLOOD PRESSURE
Prescriptions:
No Action
ferrous sulfate 325 mg (65 mg iron) Tablet
325 mg PO DAILY Qty: 0 0RF
losartan 100 mg Tablet
100 mg PO DAILY Qty: 0 0RF
diltiazem HCl 60 mg Tablet
60 mg PO TID Qty: 0 0RF
metoprolol tartrate 25 mg Tablet
25 mg PO BID Qty: 0 0RF
cholecalciferol (vitamin D3) 25 mcg (1,000 unit) Tablet
25 mcg PO DAILY Qty: 0 0RF
magnesium oxide 400 mg magnesium Tablet
400 mg PO BID Qty: 0 0RF
fexofenadine 180 mg Tablet
180 mg PO DAILY
prednisone 10 mg Tablet
10 mg PO DAILY
lidocaine 4 % Cream
1 applic TOPICAL TID
bisacodyl [Dulcolax (bisacodyl)] 10 mg Suppository
10 mg NC DAILYPRN PRN (Reason: if no bm by 3rd day)
budesonide 0.5 mg/2 mL Suspension For Nebulization
0.5 mg INHALATION R BID
ipratropium-albuterol 0.5 mg-3 mg(2.5 mg base)/3 mL solution for nebulization
3 ml INHALATION R QID
carbidopa-levodopa 25-100 mg tablet
2 tab PO TID
lidocaine 4 % Adhesive Patch,Medicated
1 patch topical DAILY Qty: 15 0RF
Rx Instructions:
left rib and back
magnesium hydroxide [Milk of Magnesia] 400 mg/5 mL Suspension
2,400 mg PO HSPRN PRN (Reason: if no bm by 2nd day)
hyoscyamine sulfate 0.125 mg Tablet
0.125 mg PO Q4HPRN PRN (Reason: secretions)
Fleet Enema 19-7 gram/118 mL Enema
118 ml NC DAILYPRN PRN (Reason: if no bm by 4th day)
loratadine 10 mg Tablet
10 mg PO DAILY
sodium chloride 0.65 % Aerosol,[place]
1 spray INTRANASAL Q4HPRN PRN (Reason: dryness)
acetaminophen [Tylenol Extra Strength] 500 mg Tablet
1,000 mg PO TID Qty: 0 0RF
aspirin 325 mg Tablet
325 mg PO DAILY Qty: 28 0RF
docusate sodium 100 mg Capsule
100 mg PO BID Qty: 60 0RF
folic acid 1 mg Tablet
1 mg PO DAILY Qty: 30 0RF
pantoprazole 40 mg Tablet,Delayed Release (Dr/Ec)
40 mg PO DAILY Qty: 30 0RF
oxycodone 5 mg capsule
5 mg PO Q4H PRN (Reason: moderate-severe pain) Qty: 10 0RF
aspirin 81 mg capsule
81 mg PO DAILY Qty: 30 0RF
Rx Instructions:
start on 07/24/24
lorazepam 0.5 mg Tablet
0.5 mg PO Q6HPRN PRN (Reason: anxiety) Qty: 8 0RF
doxycycline hyclate 100 mg Capsule
100 mg PO BID 3 Days Qty: 6 0RF
buspirone 10 mg Tablet
10 mg PO BID Qty: 0 0RF
rosuvastatin 20 mg Tablet
20 mg PO QPM Qty: 10 0RF
prednisone 10 mg Tablet
See Rx Instructions .ROUTE .COMPLEX Qty: 45 0RF
Rx Instructions:
Take By Mouth:
50 mg daily x3 days, 40 mg daily x3 days,
30 mg daily x3 days, 20 mg daily x3 days,
10 mg daily: continue as per pulmonary
Referrals:
Johan Motley MD [Family Provider] -
Activity Restrictions/Additional Instructions:
It was a pleasure meeting you and taking part in your care. We hope for your continued healing and wellness.
Please read discharge instructions in their entirety. However, they are for general education and may not describe your exact diagnosis at discharge. Information on your ER visit and medical conditions were discussed with you along with appropriate
follow up information...
If indicated, please take your medications as instructed and indicated on discharge paperwork.
Please schedule a follow up appointment as directed. Call to schedule an appointment
Please return to the emergency department with ANY change in, persisting, or worsening of symptoms. If any of your symptoms do not improve, or persist, or become more severe within 6-12 hours, please return to the emergency department for further
care.
Please return to the emergency department if you develop a headache, neck pain/stiffness, fever greater than 100.4F, chest pain, shortness of breath, persistent nausea, vomiting, slurred speech, difficulty walking, numbness/tingling, weakness, signs
of infection or any other symptoms that are worrisome to you.
If you have any questions or concerns please do not hesitate to call the Hospital at or E-mail me directly at [email or web address]
Interventions
Interventions:
*Risk Screen - Suicide Last Done: 10/23/24 01:13
ED-Musculoskeletal Assessment Last Done: 10/23/24 05:06
ED- Neurological Assessment Last Done: 10/23/24 05:04
ED-Skin Assessment Last Done: 10/23/24 05:24
Discharge Date and Time
Print Language: SERBIAN
[2024-10-23 05:59] LABS: % Basophils 0.3 % (0-2); % Eosinophils 2.2 % (0-6); % Immature Granulocytes 0.6 % (0-0.5); % Lymphocytes 12.7 % (20.5-51.1); % Monocytes 12.1 % (1.7-9.3); % Neutrophils 72.1 % (42.2-75.2); Absolute Eosinophils 0.2 10^3/uL (0-0.7); Absolute Lymphocytes 0.9 10^3/uL (1.2-3.4); Absolute Monocytes 0.8 10^3/uL (0.1-0.6); Absolute Neutrophils 4.8 10^3/uL (1.4-6.5); Hematocrit 32.3 % (37.0-47.0); Hemoglobin 10.2 g/dL (12.0-16.0); Mean Corp Hgb Conc. 31.6 g/dL (33.0-37.0); Mean Corpuscular Hgb 31.6 pg (27.0-31.0); Mean Platelet Volume 8.7 fL (7.4-10.4); Nucleated Red Blood Cells % 0 %; Platelet Count 245 10^3/uL (130-400); Red Blood Cell Count 3.23 10^6/uL (4.20-5.40); Red Cell Dist. Width 12.9 % (11.5-14.5); White Blood Cell Count 6.7 10^3/uL (4.8-10.8)
[2024-10-23 06:33] LABS: Troponin I < 0.012 ng/ml
[2024-10-23 07:52] LABS: ALT (SGPT) < 10 U/L (0-35); AST (SGOT) 15 U/L (14-36); Albumin 3.4 g/dl (3.5-5.0); Alkaline Phosphatase 71 U/L (38-126); Blood Urea Nitrogen 35 mg/dl (7-17); Calcium 9.6 mg/dl (8.4-10.2); Carbon Dioxide 34 mmol/L (22-30); Chloride 103 mmol/L (98-107); Estimated Creatinine Clearance 49 ml/min; Glucose 102 mg/dl (70-99); Potassium 4.3 mmol/L (3.5-5.1); Sodium 141 mmol/L (135-145); Total Bilirubin 0.3 mg/dl (0.2-1.3); Total Protein 5.8 g/dl (6.3-8.2); eGFR > 60.00
== END 2024-10-23 10:35 ==
LOC: EMR 00:37
PROVIDERS: EMERGENCY PHYSICIAN Student in an Organized Health Care Education/Training Program; FAMILY PHYSICIAN Family Medicine
DX: G89.29 Other chronic pain (principal); M54.9 Dorsalgia, unspecified; M79.18 Myalgia, other site; W19.XXXA Unspecified fall, initial encounter; I10 Essential (primary) hypertension; Z87.891 Personal history of nicotine dependence
CPT/HCPCS: 99285; 94640; 72220; 80053; 84484; 85025; 93005

== ENCOUNTER → 2024-11-17 12:30 | Outpatient (REF) | payer MEDICARE, SELFPAY | LOC: EMG 12:30 | PROVIDERS: ATTENDING PHYSICIAN Nurse Practitioner Adult Health; FAMILY PHYSICIAN Family Medicine | DX: S14.3XXA Injury of brachial plexus, initial encounter (principal); R20.0 Anesthesia of skin; G54.0 Brachial plexus disorders | CPT/HCPCS: 95886; 95909 ==

== ENCOUNTER → 2024-12-07 00:25 | Outpatient (REF) | payer MEDICARE, SELFPAY ==
[2024-12-07 14:29] LABS: Urine Albumin 1+ (Neg - Trace); Urine Bilirubin Negative (Negative); Urine Character Slightly Cloudy (Clear); Urine Color Yellow; Urine Glucose Negative (Negative); Urine Ketone Negative (Negative); Urine Leukocyte 2+ (Negative); Urine Nitrite Negative (Negative); Urine Occult Blood 1+ (Negative); Urine Urobilinogen Negative (Neg - 1+)
[2024-12-07 15:00] LABS: Urine Red Blood Cell 0-2 /HPF (0-2); Urine Squamous Cell 0-2 /LPF (Few); Urine Triple Phosphate Crystal Seen
[2024-12-07 15:01] LABS: Urine Bacteria Moderate (Negative); Urine White Cell 16-20 /HPF (0-5)
== END ==
LOC: OLABWHC 00:25
PROVIDERS: ATTENDING PHYSICIAN Family Medicine
DX: N39.0 Urinary tract infection, site not specified (principal)
CPT/HCPCS: 81003; 81015; 87077; 87086; 87088

== ENCOUNTER → 2024-12-17 10:24 | Outpatient (REF) | payer MEDICARE, SELFPAY ==
[2024-12-17 11:29] LABS: Hemoglobin 9.5 g/dL (12.0-16.0); Mean Corp Hgb Conc. 31.7 g/dL (33.0-37.0); Mean Corpuscular Hgb 31.6 pg (27.0-31.0); Mean Corpuscular Volume 99.7 fL (81.0-99.0); Mean Platelet Volume 9.6 fL (7.4-10.4); Platelet Count 220 10^3/uL (130-400); Red Blood Cell Count 3.01 10^6/uL (4.20-5.40); White Blood Cell Count 6.5 10^3/uL (4.8-10.8)
[2024-12-17 11:56] LABS: Blood Urea Nitrogen 34 mg/dl (7-17); Calcium 9.3 mg/dl (8.4-10.2); Carbon Dioxide 32 mmol/L (22-30); Chloride 102 mmol/L (98-107); Glucose 85 mg/dl (70-99); HDL Cholesterol 78 mg/dl; LDL Cholesterol, Calculated 111 mg/dl; Magnesium 2.2 mg/dl (1.6-2.3); Potassium 4.8 mmol/L (3.5-5.1); Sodium 139 mmol/L (135-145); Total Cholesterol 201 mg/dl (50-199); Triglyceride 60 mg/dl (10-149); Very Low Density Lipoprotein 12 mg/dl (0-30); eGFR 57.31
[2024-12-17 12:13] LABS: Free T4 1.19 ng/dl (0.78-2.19); Vitamin D, 25-OH*** 41.5 ng/mL (30-80)
[2024-12-17 12:26] LABS: TSH 2.08 uIU/ml (0.47-4.68)
[2024-12-17 13:42] LABS: Glycohemoglobin (HgbA1c) 5.6 % (4.0-5.6)
== END ==
LOC: OLABWHC 10:24
PROVIDERS: ATTENDING PHYSICIAN Family Medicine
DX: I71.40 Abdominal aortic aneurysm, without rupture, unspecified (principal); E78.5 Hyperlipidemia, unspecified; I10 Essential (primary) hypertension; S32.010A Wedge compression fracture of first lumbar vertebra, initial encounter for closed fracture; J96.21 Acute and chronic respiratory failure with hypoxia; D64.9 Anemia, unspecified; Z85.42 Personal history of malignant neoplasm of other parts of uterus; R73.03 Prediabetes; E55.9 Vitamin D deficiency, unspecified
CPT/HCPCS: 36415; 80048; 80061; 82306; 83036; 83735; 84439; 84443; 85027

== ENCOUNTER → 2025-02-08 14:23 | Outpatient (REF) | payer MEDICARE, SELFPAY | LOC: HWRAD 14:23 | PROVIDERS: ATTENDING PHYSICIAN Physician Assistant Surgical; FAMILY PHYSICIAN Family Medicine | DX: M79.642 Pain in left hand (principal) | CPT/HCPCS: 73200 ==